=== PATIENT | female | born 1965 | race Caucasian/White ===

== ENCOUNTER 2016-11-01 15:43 | Observation (INO) ==
--- NOTE | 2016-11-01 15:52 | Emergency Department Note ---
Disposition Clinical Impression: Vaginal bleeding, DVT (deep venous thrombosis) Disposition: Admitted As Inpatient Condition: Good General Adult HPI - General Chief complaint: ED Vaginal Bleeding Stated complaint: Vaginal Bleeding Time Seen by Provider: 11/01/16 15:46 - Related Data Home Medications Medication Instructions Recorded Confirmed Alprazolam [Xanax] 0.5 mg PO TID PRN 05/11/15 11/01/16 Famotidine [Pepcid] 20 mg PO BID PRN 05/11/15 11/01/16 Metoprolol [Lopressor] 100 mg PO BID 05/11/15 11/01/16 Levothyroxine [Synthroid] 112 mcg PO DAILY 10/19/16 11/01/16 Albuterol Sulfate [Albuterol 2 puff IH Q4H PRN 11/01/16 11/01/16 Inhaler] Loratadine [Claritin] 10 mg PO DAILY PRN 11/01/16 11/01/16 Norethindrone Acetate 5 mg PO DAILY 11/01/16 11/01/16 Rivaroxaban [Xarelto] 15 mg PO DAILY 11/01/16 11/01/16 Previous Rx's Medication Instructions Recorded HYDROcodone/Acet 5/325 mg [[place] 1 tab PO Q4HR PRN #40 tablet 10/21/16 5-325 mg] Allergies Allergy/AdvReac Type Severity Reaction Status Date / Time aspirin Allergy Swelling Verified 10/27/16 20:29 of Lip/Tongue/Throat ibuprofen Allergy Swelling Verified 10/27/16 20:29 of Lip/Tongue/Throat NSAIDS (Non-Steroidal Allergy Rash Verified 10/27/16 20:29 Anti-Inflamma prednisone Allergy Swelling Verified 10/27/16 20:29 of Lip/Tongue/Throat Sulfa (Sulfonamide Allergy Hives Verified 10/27/16 20:29 Antibiotics) ketorolac [From Toradol] AdvReac Nausea Verified 10/27/16 20:29 tramadol [From Ultram] AdvReac Nausea Verified 10/27/16 20:29 Past Medical History - Past Medical History Medical history: Reports: arthritis, asthma, CHF, COPD, diabetes, fibromyalgia, hypertension, thyroid disease, other Surgical history: Reports: Psychiatric history: Reports: anxiety 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, 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 - Social History Smoking Status: Former smoker Smokeless Tobacco Status: No Alcohol use: Reports: none Drug use: Reports: none Course Vital Signs Temperature 98.6 F 11/01/16 15:48 Pulse Rate 71 11/01/16 15:48 Respiratory Rate 14 11/01/16 15:48 Blood Pressure 161/66 11/01/16 15:48 O2 Sat by Pulse Oximetry 98 11/01/16 15:48 Temperature 98.0 F 11/01/16 23:30 Pulse Rate 55 11/01/16 23:30 Respiratory Rate 12 11/01/16 23:30 Blood Pressure 113/61 11/01/16 23:30 O2 Sat by Pulse Oximetry 95 11/01/16 23:30 Oxygen Delivery Oxygen Delivery Room Air Medical Decision Making - Lab Data Result diagrams: 11/01/16 16:37 11/01/16 16:37 Lab Results 11/01/16 11/01/16 11/01/16 Range/Units 16:37 16:37 16:37 WBC 5.1 (4.3-11.1) K/mcL RBC 4.06 (3.82-4.97) M/mcL Hgb 11.6 (11.5-15.4) g/dL Hct 35.4 (35.3-44.9) % MCV 87.2 (83.0-100.0) fL MCH 28.6 (28.0-33.3) pg MCHC 32.8 (31.6-35.5) g/dL RDW 14.2 (11.5-14.5) % Plt Count 185 (140-400) K/mcL MPV 10.4 (9.4-12.4) fL Immature Gran % 0.4 (0-4) % Seg Neutrophils % 70.3 % Lymphocytes % 20.8 % Monocytes % 6.5 % Eosinophils % 1.4 % Basophils % 0.6 % Neutrophils # 3.6 (1.6-8.9) K/mcL Lymphocytes # 1.1 (0.6-4.6) K/mcL Monocytes # 0.3 (0.0-1.3) K/mcL Eosinophils # 0.1 (0.0-0.6) K/mcL Basophils # 0.0 (0.0-0.2) K/mcL PT 14.5 H (9.4-12.1) Seconds INR 1.3 APTT 30.7 (26.0-36.0) Seconds Sodium 140 (136-145) mEq/L Potassium 4.1 (3.5-4.5) mEq/L Chloride 106 (98-109) mEq/L Carbon Dioxide 27 (19-29) mEq/L BUN 8 (7-20) mg/dL Creatinine 0.81 (0.57-1.11) mg/dL Est GFR ( Amer) > 60 (> 60) Est GFR (Non-Af Amer) > 60 (> 60) BUN/Creatinine Ratio 10 (6-26) Glucose 111 H (70-99) mg/dL Calculated Osmolality 289 (280-300) Calcium 9.0 (8.6-10.8) mg/dL Attestation Statement - Attestation Attestation: I examined this patient and my medical decision-making was reviewed with the HOSPICE AIDE/PA/Advanced Practice Nurse/Resident Physician. I agree with the documented findings, disposition and treatment plan as described except to the extent set forth below. [id number] time provided in conjunction with resident physician Dr. Boles Patient presents via EMS complaining of vaginal bleeding. She currently was prescribed norethindrone for vaginal bleeding. She takes xarelto. Appears in no acute distress on exam
[2016-11-01 16:49] LABS: Basophils % 0.6 %; Eosinophils # 0.1 K/mcL (0.0-0.6); Eosinophils % 1.4 %; Hematocrit 35.4 % (35.3-44.9); Hemoglobin 11.6 g/dL (11.5-15.4); Immature Granulocytes % 0.4 % (0-4); Lymphocytes # 1.1 K/mcL (0.6-4.6); Lymphocytes % 20.8 %; Mean Corpuscular HGB Conc 32.8 g/dL (31.6-35.5); Mean Corpuscular Hemoglobin 28.6 pg (28.0-33.3); Mean Corpuscular Volume 87.2 fL (83.0-100.0); Mean Platelet Volume 10.4 fL (9.4-12.4); Monocytes # 0.3 K/mcL (0.0-1.3); Monocytes % 6.5 %; Neutrophils # 3.6 K/mcL (1.6-8.9); Platelet Count 185 K/mcL (140-400); Red Blood Count 4.06 M/mcL (3.82-4.97); Red Cell Distribution Width 14.2 % (11.5-14.5); Segmented Neutrophils % 70.3 %
[2016-11-01 16:53] LABS: INR 1.3; Prothrombin Time 14.5 Seconds (9.4-12.1)
[2016-11-01 16:56] LABS: Activated Partial Thrombo Time 30.7 Seconds (26.0-36.0)
[2016-11-01 17:02] LABS: BUN/Creatinine Ratio 10 (6-26); Blood Urea Nitrogen 8 mg/dL (7-20); Carbon Dioxide 27 mEq/L (19-29); Chloride 106 mEq/L (98-109); Glucose 111 mg/dL (70-99); Osmolality,Calculated 289 (280-300); Potassium 4.1 mEq/L (3.5-4.5); Sodium 140 mEq/L (136-145); eGFR For African Americans > 60 (> 60); eGFR For Non-African Americans > 60 (> 60)
--- NOTE | 2016-11-01 17:43 | Emergency Department Note ---
Disposition Clinical Impression: Vaginal bleeding DVT (deep venous thrombosis) Qualifiers: DVT location: lower extremity Affected thrombotic vein of extremity: popliteal Laterality: right Chronicity: acute Qualified Code(s): I82.431 - Acute embolism and thrombosis of right popliteal vein Disposition: Admitted As Inpatient Condition: Good Time of Disposition: 18:14 General Adult HPI - General Chief complaint: ED Vaginal Bleeding Stated complaint: Vaginal Bleeding Time Seen by Provider: 11/01/16 15:46 Source: EMS Mode of arrival: ambulatory Limitations: no limitations Nursing Notes Reviewed: Yes Vital Signs Reviewed: Yes - History of Present Illness HPI Narrative: Patient presents emergency room and poorly controlled vaginal bleeding after being started on 02. This is her third evaluation for this patient denies any change in symptoms she has no trauma or injury. She has decreased her Xarelto dose to half "it was previously. She is seen by her OB physician as well as her primary care provider. She [facility]. Patient just says that she cannot continue to live this with bleeding. 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: abdomen Radiation: non-radiation Pain Severity: moderate Pain Scale: 4 Quality: aching Consistency: constant Improves with: nothing Worsens with: movement Associated symptoms: Reports: denies other symptoms Treatments Prior to Arrival: none - Related Data Home Medications Medication Instructions Recorded Confirmed Alprazolam [Xanax] 0.5 mg PO TID PRN 05/11/15 11/01/16 Famotidine [Pepcid] 20 mg PO BID PRN 05/11/15 11/01/16 Metoprolol [Lopressor] 100 mg PO BID 05/11/15 11/01/16 Levothyroxine [Synthroid] 112 mcg PO DAILY 10/19/16 11/01/16 Albuterol Sulfate [Albuterol 2 puff IH Q4H PRN 11/01/16 11/01/16 Inhaler] Loratadine [Claritin] 10 mg PO DAILY PRN 11/01/16 11/01/16 Norethindrone Acetate 5 mg PO DAILY 11/01/16 11/01/16 Rivaroxaban [Xarelto] 15 mg PO DAILY 11/01/16 11/01/16 Previous Rx's Medication Instructions Recorded HYDROcodone/Acet 5/325 mg [[place] 1 tab PO Q4HR PRN #40 tablet 10/21/16 5-325 mg] Allergies Allergy/AdvReac Type Severity Reaction Status Date / Time aspirin Allergy Swelling Verified 10/27/16 20:29 of Lip/Tongue/Throat ibuprofen Allergy Swelling Verified 10/27/16 20:29 of Lip/Tongue/Throat NSAIDS (Non-Steroidal Allergy Rash Verified 10/27/16 20:29 Anti-Inflamma prednisone Allergy Swelling Verified 10/27/16 20:29 of Lip/Tongue/Throat Sulfa (Sulfonamide Allergy Hives Verified 10/27/16 20:29 Antibiotics) ketorolac [From Toradol] AdvReac Nausea Verified 10/27/16 20:29 tramadol [From Ultram] AdvReac Nausea Verified 10/27/16 20:29 All systems ED: reviewed and negative except as stated. Constitutional: Denies: fever, chills Respiratory: Denies: cough, dyspnea, wheezes, hemoptysis Gastrointestinal: Reports: other. Denies: abdominal pain, nausea, vomiting, diarrhea, constipation Genitourinary: Reports: abnormal menses. Denies: dysuria, frequency Musculoskeletal: Denies: back pain, neck pain Endocrine: Denies: fatigue Past Medical History - Past Medical History Attestation: Yes The following information was validated with the patient. 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 Absent: tenderness - Chest Chest inspection: Present: normal inspection, symmetric chest wall rise. Absent : tenderness - Respiratory Respiratory exam: Present: normal lung sounds bilaterally - Cardiovascular Cardiovascular exam: Present: regular rate, normal rhythm, normal heart sounds - Abdominal Exam Abdominal exam: Present: soft, Non-Tender. Absent: tenderness, distention, guarding, rebound, rigidity, Dang's sign, Rovsing's sign, tenderness at McBurney's Point, mass, pulsatile mass - Extremities Exam Extremities exam: Present: normal inspection, full ROM, calf tenderness (Mild right-sided Tenderness no ropey vasculature noted on evaluation). Absent: tenderness, pedal edema - Back Exam Back exam: Present: normal inspection, full ROM. Absent: tenderness - Neurological Exam Neurological exam: Present: alert, oriented X3, CN II-XII intact - Psychiatric Psychiatric exam: Present: normal affect, normal mood - Skin Skin exam: Present: warm, dry, intact, normal color Course Course Narrative: Patient seen and examined the time of arrival. See history of present illness. Patient presents with vaginal bleeding. Onset was after being started on Xarelto for right lower to mid DVT. Patient is been bounced around between 3 different facilities at this point for her medical issues. She is seen by her OB physician Dr. Medel. She was started on a hormonal replacement medication help with vaginal bleeding control. Patient had mild resolution of symptoms but they have still been persistent. She is seen in our emergency room department 5 days ago tripped over to hospital. They had a evaluation that point and discharged home and no other intervention. Patient has not had any change in symptoms. She has a tremor injury. Vital signs are stable in presentation. Patient is in no distress. Detailed chart review is completed showing stable vital signs and labs during last evaluation. Patient is still describing vaginal discharge. A pelvic examination is completed during last evaluation patient does not request to have one done at this time. Quickly I do not feel this is warranted secondary to her known history as well as medical presentation. Additionally repeat labs and coags ordered. She is supposed to be transition to Coumadin as an outpatient for medical management but she is uncomfortable doing this considering she has been persistently bleeding. Patient this time will have labs the normal cervical admitted for medication transition. Physical exam is benign at this time patient has normal appearance of this point. - Reevaluation(s) Reevaluation #1: Labs are within normal limits. Hemoglobin is line dropped 1 g over the last 5 days. Coags are normal. Patient was discussed with the hospitalist Dr. Vazquez. Detailed review of the patient's presentation medical history and medical intervention were discussed. No other recommendations this time the patient be brought to the hospital for evaluation and treatment transition of 0 to a more controlled and a more appropriate anticoagulation medication. Possible evaluation by obstetrics will need to happen during this hospital course of care hospital. Patient was informed of our plan she is comfortable with this present course of this time. Patient's vital signs were stable throughout the course of care. She will be observed here in the emergency room to the admission process is completed Time: 18:12 Vital Signs Temperature 98.6 F 11/01/16 15:48 Pulse Rate 71 11/01/16 15:48 Respiratory Rate 14 11/01/16 15:48 Blood Pressure 161/66 11/01/16 15:48 O2 Sat by Pulse Oximetry 98 11/01/16 15:48 Temperature 98.6 F 11/01/16 15:48 Pulse Rate 71 11/01/16 15:48 Respiratory Rate 14 11/01/16 15:48 Blood Pressure 161/66 11/01/16 15:48 O2 Sat by Pulse Oximetry 98 11/01/16 15:48 Oxygen Delivery Oxygen Delivery Room Air Medical Decision Making - MDM Narrative Medical decision making narrative: Vaginal bleeding, blood in her medication., DVT - Medical Records Medical records reviewed: Yes I reviewed the patient's medical records. - Lab Data Lab results reviewed: Yes I reviewed the patient's lab results. Result diagrams: 11/01/16 16:37 11/01/16 16:37 Lab Results 11/01/16 11/01/16 11/01/16 Range/Units 16:37 16:37 16:37 WBC 5.1 (4.3-11.1) K/mcL RBC 4.06 (3.82-4.97) M/mcL Hgb 11.6 (11.5-15.4) g/dL Hct 35.4 (35.3-44.9) % MCV 87.2 (83.0-100.0) fL MCH 28.6 (28.0-33.3) pg MCHC 32.8 (31.6-35.5) g/dL RDW 14.2 (11.5-14.5) % Plt Count 185 (140-400) K/mcL MPV 10.4 (9.4-12.4) fL Immature Gran % 0.4 (0-4) % Seg Neutrophils % 70.3 % Lymphocytes % 20.8 % Monocytes % 6.5 % Eosinophils % 1.4 % Basophils % 0.6 % Neutrophils # 3.6 (1.6-8.9) K/mcL Lymphocytes # 1.1 (0.6-4.6) K/mcL Monocytes # 0.3 (0.0-1.3) K/mcL Eosinophils # 0.1 (0.0-0.6) K/mcL Basophils # 0.0 (0.0-0.2) K/mcL PT 14.5 H (9.4-12.1) Seconds INR 1.3 APTT 30.7 (26.0-36.0) Seconds Sodium 140 (136-145) mEq/L Potassium 4.1 (3.5-4.5) mEq/L Chloride 106 (98-109) mEq/L Carbon Dioxide 27 (19-29) mEq/L BUN 8 (7-20) mg/dL Creatinine 0.81 (0.57-1.11) mg/dL Est GFR ( Amer) > 60 (> 60) Est GFR (Non-Af Amer) > 60 (> 60) BUN/Creatinine Ratio 10 (6-26) Glucose 111 H (70-99) mg/dL Calculated Osmolality 289 (280-300) Calcium 9.0 (8.6-10.8) mg/dL - Radiology Data Radiology results reviewed: Yes I reviewed the patient's radiology results. From previous evaluation
[2016-11-01] MEDS ORDERED: Naloxone 0.4 MG/ML INJ IVP PRN (20:37)
[2016-11-01] MEDS ORDERED: Famotidine 20 MG TABLET PO PRN (20:38)
[2016-11-01] MEDS ORDERED: Loratadine 10 MG TABLET PO PRN (20:38)
[2016-11-01] MEDS ORDERED: ALPRAZolam 0.5 MG TABLET PO PRN (20:38)
[2016-11-01] MEDS ORDERED: Warfarin perPT PO PRN (20:40)
--- NOTE | 2016-11-01 21:02 | Internal Med History&Physical ---
Date of Encounter: 11/02/16 Time of Encounter: 20:48 Assessment and Plan (1) DVT (deep venous thrombosis) Current visit: Yes Status: Acute Patient diagnosed with right popliteal DVT on 10/19 and has been on xarelto. She has had vaginal bleeding and reduced her xarelto dose to half, but her vaginal bleeding persists. Will stop xarelto and start coumadin tonight, to be dosed by pharmacy. Qualifiers: DVT location: lower extremity Affected thrombotic vein of extremity: popliteal Laterality: right Chronicity: acute Qualified Code(s): I82.431 - Acute embolism and thrombosis of right popliteal vein (2) Vaginal bleeding Current visit: Yes Status: Acute Patient has had vaginal bleeding since the day after starting Xarelto for her DVT on 10/19. She reports she goes through 4 depends per day due to bleeding. Hgb is 11.6, down from 12.7 on 10/27. She has a follow up appointment with [facility] gyne/onc on 11/16 for evaluation of uterine stripe seen on Ultrasound. Will check CBC and coags tomorrow morning. Stop Xarelto and start Coumadin dosed by pharmacy. (3) Hypertension Current visit: No Status: Chronic Continue home dose of metoprolol. Qualifiers: Hypertension type: essential hypertension Qualified Code(s): I10 - Essential (primary) hypertension (4) Hypothyroidism Current visit: No Status: Chronic Continue home dose of Levothyroxine. Qualifiers: Hypothyroidism type: unspecified Qualified Code(s): E03.9 - Hypothyroidism , unspecified Internal Medicine - H&P: HPI Chief complaint: Vaginal bleeding Admitted From: Emergency Dept Plans for Post Hospital Care: Home History of present illness: Ms. Williamson is a 51 year old female with HTN, hypothyroid, asthma, anxiety, fibromyalgia, and recent diagnosis of right popliteal DVT placed on xarelto with subsequent development of vaginal bleeding who presented to the ED today with continued vaginal bleeding. She was diagnosed with her RLE DVT on 10/19 and put on xarelto for anti-coagulation, she reports she started having vaginal bleeding the next day. 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 On 10/27 she presented to the ED with vaginal bleeding and she was sent to [facility] for further workup of the endometrial stripe, they considered D & C, but wanted the bleeding to slow and had her reduce her xarelto to half dose and plan to switch to lovenox or coumadin. She has a follow up appointment with gyne/onc at [facility] on 11/16. She reports the bleeding has been getting worse, despite the reduced dose of xarelto and she is worried about starting coumadin while she's still bleeding which is why she presented to the ED today. She denies any lightheadedness, dizziness, or shortness of breath. She denies any black or bloody stools, nose bleeds, nausea or vomiting. She wears depends and reports she goes through 4 depends per day due to bleeding. Evaluation in the ED showed Hgb of 11.6, down from 12.7 on 10/27, PT of 14.5, INR of 1.3 and PTT of 30.7. On exam, she is alert and oriented, in no distress, heart has regular rate and rhythm and lungs are clear. Past Med Surg Social Fam HX - Past Medical History Medical history: arthritis, asthma, CHF, COPD, diabetes, fibromyalgia, hypertension, thyroid disease, other Psychiatric history: anxiety - Past Surgical History Surgical History: (x4) - Social History Smoking Status: Former smoker Smokeless Tobacco Status: No Alcohol use: none Drug use: none - Family History Mother Adopted: No Family Member Ethnicity: Non- Living Status: Still Living Hx Family Cardiac Disorders: Yes Hx Family Respiratory Disorders: Yes Hx Family Cancer: Yes (breast uterine) Hx Family GI Disorders: No Hx Family Endocrine Disorder: Yes (DM) Hx Family Neuromuscular Disorders: No Hx Family Neurologic Disorders: No Hx Family HEENT Disorders: No Hx Family Autoimmune Disorders: No Brother Living Status: Cause of : Colon Cancer Internal Medicine - H&P: Meds Alprazolam [Xanax] 0.5 mg PO TID PRN 05/11/15 [History] Famotidine [Pepcid] 20 mg PO BID PRN 05/11/15 [History] Metoprolol [Lopressor] 100 mg PO BID 05/11/15 [History] Levothyroxine [Synthroid] 112 mcg PO DAILY 10/19/16 [History] HYDROcodone/Acet 5/325 mg [[place] 5-325 mg] 1 tab PO Q4HR PRN #40 tablet [Rx] Albuterol Sulfate [Albuterol Inhaler] 2 puff IH Q4H PRN 11/01/16 [History] Loratadine [Claritin] 10 mg PO DAILY PRN 11/01/16 [History] Norethindrone Acetate 5 mg PO DAILY 11/01/16 [History] Rivaroxaban [Xarelto] 15 mg PO DAILY 11/01/16 [History] Allergies aspirin Allergy (Verified 10/27/16 20:29) Swelling of Lip/Tongue/Throat ibuprofen Allergy (Verified 10/27/16 20:29) Swelling of Lip/Tongue/Throat NSAIDS (Non-Steroidal Anti-Inflamma Allergy (Verified 10/27/16 20:29) Rash prednisone Allergy (Verified 10/27/16 20:29) Swelling of Lip/Tongue/Throat Sulfa (Sulfonamide Antibiotics) Allergy (Verified 10/27/16 20:29) Hives ketorolac [From Toradol] Adverse Reaction (Verified 10/27/16 20:29) Nausea tramadol [From Ultram] Adverse Reaction (Verified 10/27/16 20:29) Nausea All Systems PM: A 10-system review of systems was performed and is negative for pertinent findings except as documented above in the HPI. - Constitutional Constitutional: no chills, no fever(s), no night sweats - EENT Eyes: no change in vision, no discharge, no pain, no photophobia Ears: no ear discharge, no ear pain, no tinnitus Nose, mouth and throat: no dysphagia, no nasal discharge, no neck pain, no sore throat - Cardiovascular Cardiovascular ROS IM: no chest pain, no diaphoresis, no dyspnea, no lightheadedness, no palpitations, no syncope - Respiratory Respiratory: no cough, no dyspnea, no wheezing, no excessive phlegm production - Gastrointestinal Gastrointestinal: no abdominal pain, no diarrhea, no hematemesis, no hematochezia, no melena, no nausea, no vomiting - Genitourinary Genitourinary: menorrhagia, no change in urinary stream, no dysuria, no flank pain, no hematuria - Musculoskeletal Musculoskeletal ROS IM: no numbness, no tingling - Integumentary Integumentary IM: no rash, no unusual bruising - Neurological Neurological ROS: no confusion, no convulsions, no focal weakness, no numbness, no tingling, no tremor(s) - Hematologic/Lymphatic Hematologic/Lymphatic: easy bleeding - Constitutional Vitals: Temp Pulse Resp BP Pulse Ox 98.6 F 71 18 155/88 98 11/01/16 15:48 11/01/16 15:48 11/01/16 18:02 11/01/16 18:02 11/01/16 15:48 General appearance: Present: A&O X 3, morbidly obese - Head Head exam: Present: atraumatic, normocephalic - Eye Eye exam: Present: PERRL, conjuntiva pink, sclera anicteric Pupils: Present: PERRL - Neck Neck exam general surgery: Present: supple, trachea midline. Absent: lymphadenopathy - Respiratory Respiratory exam: Present: CTAB. Absent: accessory muscle use, rales, rhonchi, wheezes - Cardiovascular Cardiovascular exam: Present: RRR, +S1, +S2. Absent: diastolic murmur, gallop, rubs, systolic murmur - GI/Abdominal GI/Abdominal exam: Present: normal bowel sounds, soft, no peritoneal signs. Absent: distended, tenderness - Extremities Exam Extremities exam: Present: warm, radial pulses palpable and symetrical. Absent : calf tenderness, cyanotic, pedal edema - Neurological Exam Neurological exam: Present: CN II-XII intact, oriented X3, no focal deficits. Absent: facial droop, speech deficit - Skin Skin exam: Present: dry, intact Internal Med - H&P Results - Labs CBC & Chem 7: 11/01/16 16:37 11/01/16 16:37 Labs: All Lab Results (24 Hours) 11/01/16 11/01/16 11/01/16 Range/Units 16:37 16:37 16:37 WBC 5.1 (4.3-11.1) K/mcL RBC 4.06 (3.82-4.97) M/mcL Hgb 11.6 (11.5-15.4) g/dL Hct 35.4 (35.3-44.9) % MCV 87.2 (83.0-100.0) fL MCH 28.6 (28.0-33.3) pg MCHC 32.8 (31.6-35.5) g/dL RDW 14.2 (11.5-14.5) % Plt Count 185 (140-400) K/mcL MPV 10.4 (9.4-12.4) fL Immature Gran % 0.4 (0-4) % Seg Neutrophils % 70.3 % Lymphocytes % 20.8 % Monocytes % 6.5 % Eosinophils % 1.4 % Basophils % 0.6 % Neutrophils # 3.6 (1.6-8.9) K/mcL Lymphocytes # 1.1 (0.6-4.6) K/mcL Monocytes # 0.3 (0.0-1.3) K/mcL Eosinophils # 0.1 (0.0-0.6) K/mcL Basophils # 0.0 (0.0-0.2) K/mcL PT 14.5 H (9.4-12.1) Seconds INR 1.3 APTT 30.7 (26.0-36.0) Seconds Sodium 140 (136-145) mEq/L Potassium 4.1 (3.5-4.5) mEq/L Chloride 106 (98-109) mEq/L Carbon Dioxide 27 (19-29) mEq/L BUN 8 (7-20) mg/dL Creatinine 0.81 (0.57-1.11) mg/dL Est GFR ( Amer) > 60 (> 60) Est GFR (Non-Af Amer) > 60 (> 60) BUN/Creatinine Ratio 10 (6-26) Glucose 111 H (70-99) mg/dL Calculated Osmolality 289 (280-300) Calcium 9.0 (8.6-10.8) mg/dL
[2016-11-01] MEDS: *HR* HYDROcodone/Acet 5/325 mg TABLET PO PRN (21:27)
[2016-11-02] MEDS: *HR* HYDROcodone/Acet 5/325 mg TABLET PO PRN ×6 (01:22→23:57)
[2016-11-02 04:39] LABS: Basophils % 0.5 %; Eosinophils # 0.1 K/mcL (0.0-0.6); Eosinophils % 1.8 %; Hematocrit 33.7 % (35.3-44.9); Hemoglobin 10.7 g/dL (11.5-15.4); Immature Granulocytes % 0.4 % (0-4); Lymphocytes # 1.9 K/mcL (0.6-4.6); Lymphocytes % 33.5 %; Mean Corpuscular HGB Conc 31.8 g/dL (31.6-35.5); Mean Corpuscular Hemoglobin 27.9 pg (28.0-33.3); Mean Platelet Volume 10.4 fL (9.4-12.4); Monocytes # 0.4 K/mcL (0.0-1.3); Monocytes % 7.9 %; Neutrophils # 3.1 K/mcL (1.6-8.9); Platelet Count 196 K/mcL (140-400); Red Blood Count 3.83 M/mcL (3.82-4.97); Red Cell Distribution Width 14.5 % (11.5-14.5); Segmented Neutrophils % 55.9 %
[2016-11-02 04:54] LABS: INR 1.2; Prothrombin Time 13.1 Seconds (9.4-12.1)
[2016-11-02 04:56] LABS: Activated Partial Thrombo Time 28.5 Seconds (26.0-36.0)
[2016-11-02] MEDS: Metoprolol 100 MG TABLET PO SCH ×2 (08:13→20:51)
--- NOTE | 2016-11-02 10:06 | Internal Med Progress Note ---
Date of Encounter: 11/02/16 Time of Encounter: 09:00 - Assessment and plan (1) Vaginal bleeding Current Visit: Yes Status: Acute Assessment and plan: likely secondary to Xarelto. Xarelto has been stopped and she has been started on Coumadin to be dosed per Pharmacy. She states that she feels that this bleeding is slowing down and she is no longer passing clots. She remains hemodynamically stable, she states she would like to avoid a blood transfusion if indicated. Not indicated at this time. We will continue to monitor. She complains of lower abdominal cramping but otherwise denies lightheadedness or dizziness. (2) Chronic abdominal wound infection Current Visit: Yes Status: Chronic Assessment and plan: Patient with 2 1cm sized wounds to her lower abdomen. She states that she wears depends secondary to incontinence and states that these wounds are chronic. Wound culture pending, continue daily dressing changes with bacitracin. No induration or fluctuance. (3) DVT (deep venous thrombosis) Current Visit: Yes Status: Chronic Assessment and plan: Diagnosis DVT to right popliteal on 10/19/16. Started with vaginal bleeding the day after she started Xarelto. Xarelto stopped- Coumadin initiated to be dosed per Pharmacy. Qualifiers: DVT location: lower extremity Affected thrombotic vein of extremity: popliteal Laterality: right Chronicity: acute Qualified Code(s): I82.431 - Acute embolism and thrombosis of right popliteal vein (4) Hypertension Current Visit: No Status: Chronic Assessment and plan: Controlled, will continue to trend and adjust medications as indicated Qualifiers: Hypertension type: essential hypertension Qualified Code(s): I10 - Essential (primary) hypertension (5) Hypothyroidism Current Visit: No Status: Chronic Assessment and plan: TSH checked 2 weeks ago, normal Qualifiers: Hypothyroidism type: unspecified Qualified Code(s): E03.9 - Hypothyroidism , unspecified (6) Morbid obesity with BMI of 70 and over, adult Current Visit: Yes Status: Chronic Assessment and plan: Her H&P states that she has CHF and diabetes however I do not see evidence of either of these conditions in her chart. No recent echo, not on diuretics. Not on diabetes medications. We will check A1c. - Subjective Interval history: Patient seen and examined. On examination, patient sitting upright in her bed eating breakfast. Patient stating her lower abdomen is "crampy." She states she does not feel she is passing clots and states that the bleeding appears to be improving. Patient's main concern at this time is that she was ordered a diabetic diet this morning and she is very upset that she did not receive any carbs. - Constitutional Vitals: Temp Pulse Resp BP Pulse Ox 97.7 F 56 16 119/75 97 11/02/16 07:18 11/02/16 07:18 11/02/16 07:18 11/02/16 07:18 11/02/16 07:18 General appearance: Present: A&O X 3, morbidly obese, pleasant, no acute distress, answers questions appropriately - Head Head exam: Present: atraumatic, normocephalic - Eye Eye exam: Present: PERRL, conjuntiva pink, sclera anicteric Pupils: Present: PERRL - Neck Neck exam general surgery: Present: supple, trachea midline. Absent: lymphadenopathy - Respiratory Respiratory exam: Present: decreased breath sounds (2/2 body habitus), CTAB. Absent: accessory muscle use, rales, respiratory distress, rhonchi, wheezes - Cardiovascular Cardiovascular exam: Present: RRR, +S1, +S2. Absent: diastolic murmur, gallop, rubs, systolic murmur - GI/Abdominal GI/Abdominal exam: Present: normal bowel sounds, soft, tenderness (lower abdomen ), no peritoneal signs. Absent: distended - Extremities Exam Extremities exam: Present: warm, radial pulses palpable and symetrical. Absent : calf tenderness, cyanotic, pedal edema - Neurological Exam Neurological exam: Present: alert, CN II-XII intact, oriented X3, no focal deficits, strengths equal and symetr throughout. Absent: pronater drift, facial droop, speech deficit - Skin Skin exam: Present: dry, intact, normal color, warm - Expanded Skin Exam Type of lesion: Present: abrasion Distribution of rash: Present: abdomen Description of rash: Present: discharge, erythematous, tenderness. Absent: fluctuant, indurated Internal Medicine: Result - Labs CBC & Chem 7: 11/02/16 04:01 11/01/16 16:37 Labs: Short CBC 11/02/16 Range/Units 04:01 WBC 5.6 (4.3-11.1) K/mcL Hgb 10.7 L (11.5-15.4) g/dL Hct 33.7 L (35.3-44.9) % Plt Count 196 (140-400) K/mcL Neutrophils # 3.1 (1.6-8.9) K/mcL - ABG Interpretation ABG results: PT/INR, D-dimer PT 13.1 Seconds (9.4-12.1) H 11/02/16 04:01 Consult Discharge Plan - Plan Referrals: NO,PCP [Primary Care Provider] -
[2016-11-02] MEDS ORDERED: *HR* Heparin 5,000 UNIT/ML VIAL IVP PRN ×2 (13:50)
[2016-11-02] MEDS ORDERED: *HR* Heparin 5,000 UNIT/ML VIAL IVP ONE (13:50)
[2016-11-02] MEDS: Heparin 25,000 UNIT/500 ML D5W 25,000 UNIT/500 ML MLS IVC SCH (15:56)
[2016-11-02] MEDS ORDERED: *HR* Warfarin 10 MG TABLET PO ONE (18:00)
[2016-11-02] MEDS ORDERED: *HR* Warfarin 5 MG TABLET PO ONE (18:00)
[2016-11-03] MEDS: Heparin 25,000 UNIT/500 ML D5W 25,000 UNIT/500 ML MLS IVC SCH ×3 (02:00→22:40)
[2016-11-03] MEDS: *HR* HYDROcodone/Acet 5/325 mg TABLET PO PRN ×4 (06:51→20:29)
[2016-11-03 08:03] LABS: Basophils % 0.6 %; Eosinophils # 0.1 K/mcL (0.0-0.6); Eosinophils % 2.5 %; Hematocrit 30.6 % (35.3-44.9); Hemoglobin 9.8 g/dL (11.5-15.4); Immature Granulocytes % 0.4 % (0-4); Lymphocytes # 1.6 K/mcL (0.6-4.6); Mean Corpuscular Hemoglobin 28.3 pg (28.0-33.3); Mean Corpuscular Volume 88.4 fL (83.0-100.0); Mean Platelet Volume 10.5 fL (9.4-12.4); Monocytes # 0.4 K/mcL (0.0-1.3); Monocytes % 8.4 %; Neutrophils # 2.9 K/mcL (1.6-8.9); Platelet Count 183 K/mcL (140-400); Red Blood Count 3.46 M/mcL (3.82-4.97); Red Cell Distribution Width 14.4 % (11.5-14.5); Segmented Neutrophils % 56.1 %
[2016-11-03 08:08] LABS: INR 1.2; Prothrombin Time 13.3 Seconds (9.4-12.1)
[2016-11-03 08:22] LABS: Hemoglobin A1C 5.3 %
[2016-11-03] MEDS: Metoprolol 100 MG TABLET PO SCH ×2 (08:27→20:29)
--- NOTE | 2016-11-03 13:13 | Internal Med Progress Note ---
Date of Encounter: 11/03/16 Time of Encounter: 10:30 - Assessment and plan (1) Vaginal bleeding Current Visit: Yes Status: Acute Assessment and plan: Slowing down and she states she is now passing smaller clots. Hemodynamically stable. Slight drop to blood counts noted overnight however transfusion is not indicated at this time. Vital signs stable. Patient stating the cramping to her lower abdomen is improving. Continue Coumadin titration with heparin bridge. Goal is Coumadin between 2 and 3 11/02/16 likely secondary to Xarelto. Xarelto has been stopped and she has been started on Coumadin to be dosed per Pharmacy. She states that she feels that this bleeding is slowing down and she is no longer passing clots. She remains hemodynamically stable, she states she would like to avoid a blood transfusion if indicated. Not indicated at this time. We will continue to monitor. She complains of lower abdominal cramping but otherwise denies lightheadedness or dizziness. (2) Chronic abdominal wound infection Current Visit: Yes Status: Chronic Assessment and plan: Patient with 2 1cm sized wounds to her lower abdomen. She states that she wears depends secondary to incontinence and states that these wounds are chronic. Wound culture negative, continue daily dressing changes with bacitracin. No induration or fluctuance. (3) DVT (deep venous thrombosis) Current Visit: Yes Status: Chronic Assessment and plan: Diagnosis DVT to right popliteal on 10/19/16. Started with vaginal bleeding the day after she started Xarelto. Xarelto stopped- Coumadin initiated to be dosed per Pharmacy. Bridging with heparin until she is therapeutic. Compression hose. Qualifiers: DVT location: lower extremity Affected thrombotic vein of extremity: popliteal Laterality: right Chronicity: acute Qualified Code(s): I82.431 - Acute embolism and thrombosis of right popliteal vein (4) Hypertension Current Visit: No Status: Chronic Assessment and plan: Controlled, will continue to trend and adjust medications as indicated Qualifiers: Hypertension type: essential hypertension Qualified Code(s): I10 - Essential (primary) hypertension (5) Hypothyroidism Current Visit: No Status: Chronic Assessment and plan: TSH checked 2 weeks ago, normal Qualifiers: Hypothyroidism type: unspecified Qualified Code(s): E03.9 - Hypothyroidism , unspecified (6) Morbid obesity with BMI of 70 and over, adult Current Visit: Yes Status: Chronic Assessment and plan: Her H&P states that she has CHF and diabetes however I do not see evidence of either of these conditions in her chart. No recent echo, not on diuretics. Not on diabetes medications. Not diabetic, A1c 5.3%. - Subjective Interval history: Patient seen and examined. On examination, patient sitting upright in her bed watching television. She states the cramping in her lower abdomen has gotten better. She states that the bleeding has slowed down and she is now passing smaller clots. Patient is complaining of her chronic pain and states that she has not been sleeping well since admitted. - Constitutional Vitals: Temp Pulse Resp BP Pulse Ox 98.1 F 66 16 108/63 96 11/03/16 11:15 11/03/16 11:15 11/03/16 11:15 11/03/16 11:15 11/03/16 11:15 General appearance: Present: A&O X 3, morbidly obese, pleasant, no acute distress, answers questions appropriately - Head Head exam: Present: atraumatic, normocephalic - Eye Eye exam: Present: PERRL, conjuntiva pink, sclera anicteric Pupils: Present: PERRL - Neck Neck exam general surgery: Present: supple, trachea midline. Absent: lymphadenopathy - Respiratory Respiratory exam: Present: decreased breath sounds (2/2 body habitus). Absent: accessory muscle use, rales, respiratory distress, rhonchi, wheezes - Cardiovascular Cardiovascular exam: Present: RRR, +S1, +S2. Absent: diastolic murmur, gallop, rubs, systolic murmur - GI/Abdominal GI/Abdominal exam: Present: normal bowel sounds, soft, no peritoneal signs. Absent: distended, tenderness Additional comments: 2 small areas of excoriation; no induration or flauctuance. - Extremities Exam Extremities exam: Present: warm, radial pulses palpable and symetrical. Absent : calf tenderness, cyanotic, pedal edema - Neurological Exam Neurological exam: Present: alert, CN II-XII intact, oriented X3, no focal deficits, strengths equal and symetr throughout. Absent: pronater drift, facial droop, speech deficit - Skin Skin exam: Present: dry, intact, normal color, warm Internal Medicine: Result - Labs CBC & Chem 7: 11/03/16 06:18 11/01/16 16:37 Labs: Short CBC 11/03/16 Range/Units 06:18 WBC 5.1 (4.3-11.1) K/mcL Hgb 9.8 L (11.5-15.4) g/dL Hct 30.6 L (35.3-44.9) % Plt Count 183 (140-400) K/mcL Neutrophils # 2.9 (1.6-8.9) K/mcL - ABG Interpretation ABG results: PT/INR, D-dimer PT 13.3 Seconds (9.4-12.1) H 11/03/16 06:18 - VTE Documentation of Mechanical Device: Graduated compression elastic hosiery Consult Discharge Plan - Plan Referrals: NO,PCP [Primary Care Provider] -
[2016-11-03] MEDS ORDERED: *HR* Warfarin 10 MG TABLET PO ONE (18:00)
[2016-11-04] MEDS: *HR* HYDROcodone/Acet 5/325 mg TABLET PO PRN ×4 (00:32→14:09)
[2016-11-04 04:13] LABS: Basophils % 0.6 %; Eosinophils # 0.2 K/mcL (0.0-0.6); Eosinophils % 3.7 %; Hemoglobin 9.6 g/dL (11.5-15.4); Immature Granulocytes % 0.2 % (0-4); Lymphocytes # 1.8 K/mcL (0.6-4.6); Lymphocytes % 36.7 %; Mean Corpuscular Hemoglobin 28.4 pg (28.0-33.3); Mean Corpuscular Volume 88.8 fL (83.0-100.0); Mean Platelet Volume 10.2 fL (9.4-12.4); Monocytes # 0.3 K/mcL (0.0-1.3); Monocytes % 6.4 %; Neutrophils # 2.5 K/mcL (1.6-8.9); Platelet Count 190 K/mcL (140-400); Red Blood Count 3.38 M/mcL (3.82-4.97); Red Cell Distribution Width 14.4 % (11.5-14.5); Segmented Neutrophils % 52.4 %
[2016-11-04 04:17] LABS: INR 1.4; Prothrombin Time 15.3 Seconds (9.4-12.1)
[2016-11-04] MEDS: Metoprolol 100 MG TABLET PO SCH (07:52)
[2016-11-04] MEDS: Heparin 25,000 UNIT/500 ML D5W 25,000 UNIT/500 ML MLS IVC SCH (08:37)
--- NOTE | 2016-11-04 10:13 | Internal Med Progress Note ---
Date of Encounter: 11/04/16 Time of Encounter: 08:30 - Assessment and plan (1) Vaginal bleeding Current Visit: Yes Status: Acute Assessment and plan: Patient's vaginal bleeding has nearly resolved and she remains hemodynamically stable. Medically, she would be safe for discharge today if we are able to set up subcutaneous Lovenox bridging. If not, patient will need to stay until her INR is therapeutic. student support services director brought on board and will attempt to have her Lovenox covered. Patient stating that her insurance would not cover it nor would they respond to a prior auth; will verify this information with [employer] and [employer]. 11/03/16 Slowing down and she states she is now passing smaller clots. Hemodynamically stable. Slight drop to blood counts noted overnight however transfusion is not indicated at this time. Vital signs stable. Patient stating the cramping to her lower abdomen is improving. Continue Coumadin titration with heparin bridge. Goal is Coumadin between 2 and 3 11/02/16 likely secondary to Xarelto. Xarelto has been stopped and she has been started on Coumadin to be dosed per Pharmacy. She states that she feels that this bleeding is slowing down and she is no longer passing clots. She remains hemodynamically stable, she states she would like to avoid a blood transfusion if indicated. Not indicated at this time. We will continue to monitor. She complains of lower abdominal cramping but otherwise denies lightheadedness or dizziness. (2) Chronic abdominal wound infection Current Visit: Yes Status: Chronic Assessment and plan: Patient with 2 1cm sized wounds to her lower abdomen. She states that she wears depends secondary to incontinence and states that these wounds are chronic. Wound culture negative, continue daily dressing changes with bacitracin. No induration or fluctuance. (3) DVT (deep venous thrombosis) Current Visit: Yes Status: Chronic Assessment and plan: Diagnosis DVT to right popliteal on 10/19/16. Started with vaginal bleeding the day after she started Xarelto. Xarelto stopped- Coumadin initiated to be dosed per Pharmacy. Bridging with heparin until she is therapeutic. Compression hose. Possible discharge today if we are able to set up subcutaneous Lovenox at home to bridge until Coumadin becomes therapeutic Qualifiers: DVT location: lower extremity Affected thrombotic vein of extremity: popliteal Laterality: right Chronicity: acute Qualified Code(s): I82.431 - Acute embolism and thrombosis of right popliteal vein (4) Hypertension Current Visit: No Status: Chronic Assessment and plan: Controlled, will continue to trend and adjust medications as indicated Qualifiers: Hypertension type: essential hypertension Qualified Code(s): I10 - Essential (primary) hypertension (5) Hypothyroidism Current Visit: No Status: Chronic Assessment and plan: TSH checked 2 weeks ago, normal Qualifiers: Hypothyroidism type: unspecified Qualified Code(s): E03.9 - Hypothyroidism , unspecified (6) Morbid obesity with BMI of 70 and over, adult Current Visit: Yes Status: Chronic Assessment and plan: Her H&P states that she has CHF and diabetes however I do not see evidence of either of these conditions in her chart. No recent echo, not on diuretics. Not on diabetes medications. Not diabetic, A1c 5.3%. - Subjective Interval history: Patient seen and examined. On examination, patient sitting upright in her bed and had just finished her breakfast. Patient states she feels a lot better today. She states the cramping in her lower abdomen have mostly resolved. She also states that the bleeding has really slowed and nearly resolved. - Constitutional Vitals: Temp Pulse Resp BP Pulse Ox 98.0 F 60 16 122/68 96 11/04/16 07:19 11/04/16 07:19 11/04/16 07:19 11/04/16 07:19 11/04/16 07:19 General appearance: Present: A&O X 3, morbidly obese, pleasant, no acute distress, answers questions appropriately - Head Head exam: Present: atraumatic, normocephalic - Eye Eye exam: Present: PERRL, conjuntiva pink, sclera anicteric Pupils: Present: PERRL - Neck Neck exam general surgery: Present: supple, trachea midline. Absent: lymphadenopathy - Respiratory Respiratory exam: Present: decreased breath sounds (2/2 body habitus). Absent: accessory muscle use, rales, respiratory distress, rhonchi, wheezes - Cardiovascular Cardiovascular exam: Present: RRR, +S1, +S2. Absent: diastolic murmur, gallop, rubs, systolic murmur - GI/Abdominal GI/Abdominal exam: Present: normal bowel sounds, soft, no peritoneal signs. Absent: distended, tenderness - Extremities Exam Extremities exam: Present: pedal edema (nonpitting - chronic), warm, radial pulses palpable and symetrical. Absent: calf tenderness, cyanotic - Neurological Exam Neurological exam: Present: alert, CN II-XII intact, oriented X3, no focal deficits, strengths equal and symetr throughout. Absent: pronater drift, facial droop, speech deficit - Skin Skin exam: Present: dry, intact, normal color, warm Internal Medicine: Result - Labs CBC & Chem 7: 11/04/16 04:03 11/01/16 16:37 Labs: Short CBC 11/04/16 Range/Units 04:03 WBC 4.9 (4.3-11.1) K/mcL Hgb 9.6 L (11.5-15.4) g/dL Hct 30.0 L (35.3-44.9) % Plt Count 190 (140-400) K/mcL Neutrophils # 2.5 (1.6-8.9) K/mcL - ABG Interpretation ABG results: PT/INR, D-dimer PT 15.3 Seconds (9.4-12.1) H 11/04/16 04:03 - VTE Documentation of Mechanical Device: Graduated compression elastic hosiery Consult Discharge Plan - Plan Referrals: NO,PCP [Primary Care Provider] - Prescriptions: Enoxaparin Sodium [Lovenox] 190 mg SQ Q12H #18 mls
[2016-11-04 10:59] VITALS: BP 123/58
[2016-11-04] MEDS ORDERED: *HR* Enoxaparin 100 MG/ML SYRINGE SQ SCH (13:45)
--- NOTE | 2016-11-04 14:08 | Discharge Summary ---
Date of Encounter: 11/04/16 Time of Encounter: 08:30 (and 1315) - Discharge Diagnosis (1) Vaginal bleeding Priority: Primary Status: Acute Comments: Patient's vaginal bleeding has nearly resolved and she remains hemodynamically stable. Sending home on Lovenox bridge until Coumadin is therapeutic. She will follow up with her primary care provider on Monday and have her INR rechecked on Monday. She will return to the emergency department if she has a large amount of active bleeding over the weekend- low risk. (2) Chronic abdominal wound infection Priority: Secondary Status: Chronic Comments: Patient with 2 1cm sized wounds to her lower abdomen. She states that she wears depends secondary to incontinence and states that these wounds are chronic. Wound culture negative, continue daily dressing changes with bacitracin. No induration or fluctuance. (3) DVT (deep venous thrombosis) Priority: Secondary Status: Chronic Comments: Diagnosis DVT to right popliteal on 10/19/16. Started with vaginal bleeding the day after she started Xarelto. Xarelto stopped- Coumadin initiated. Bridged with heparin while inpatient, was able to obtain prior auth to send her home with lovenox bridging. Patient to followup monday with PCP to have INR rechecked. Qualifiers: DVT location: lower extremity Affected thrombotic vein of extremity: popliteal Laterality: right Chronicity: acute Qualified Code(s): I82.431 - Acute embolism and thrombosis of right popliteal vein (4) Hypertension Priority: Secondary Status: Chronic Comments: Controlled, follow-up outpatient Qualifiers: Hypertension type: essential hypertension Qualified Code(s): I10 - Essential (primary) hypertension (5) Hypothyroidism Priority: Secondary Status: Chronic Comments: TSH checked 2 weeks ago, normal. Follow-up outpatient Qualifiers: Hypothyroidism type: unspecified Qualified Code(s): E03.9 - Hypothyroidism , unspecified (6) Morbid obesity with BMI of 70 and over, adult Priority: Secondary Status: Chronic Comments: Her H&P states that she has CHF and diabetes however I do not see evidence of either of these conditions in her chart. No recent echo, not on diuretics. Not on diabetes medications. Not diabetic, A1c 5.3%. - Discharge Medications Prescriptions: Bacitracin OINT [Ak-Tracin] 1 appl TP BID #1 tube Enoxaparin Sodium [Lovenox] 190 mg SQ Q12H #18 mls Warfarin [Coumadin] 10 mg PO 1800 #1 tablet Warfarin [Coumadin] 7.5 mg PO 1800 #5 tablet Home Medications: Alprazolam [Xanax] 0.5 mg PO TID PRN 05/11/15 [History] Famotidine [Pepcid] 20 mg PO BID PRN 05/11/15 [History] Metoprolol [Lopressor] 100 mg PO BID 05/11/15 [History] Levothyroxine [Synthroid] 112 mcg PO DAILY 10/19/16 [History] HYDROcodone/Acet 5/325 mg [Babylon 5-325 mg] 1 tab PO Q4HR PRN #40 tablet [Rx] Albuterol Sulfate [Albuterol Inhaler] 2 puff IH Q4H PRN 11/01/16 [History] Loratadine [Claritin] 10 mg PO DAILY PRN 11/01/16 [History] Norethindrone Acetate 5 mg PO DAILY 11/01/16 [History] Bacitracin OINT [Ak-Tracin] 1 appl TP BID #1 tube 11/04/16 [Rx] Enoxaparin Sodium [Lovenox] 190 mg SQ Q12H #18 mls 11/04/16 [Rx] Warfarin [Coumadin] 7.5 mg PO 1800 #5 tablet 11/04/16 [Rx] Warfarin [Coumadin] 10 mg PO 1800 #1 tablet 11/04/16 [Rx] Allergies/Adverse Reactions: Allergies aspirin Allergy (Verified 10/27/16 20:29) Swelling of Lip/Tongue/Throat ibuprofen Allergy (Verified 10/27/16 20:29) Swelling of Lip/Tongue/Throat NSAIDS (Non-Steroidal Anti-Inflamma Allergy (Verified 10/27/16 20:29) Rash prednisolone Allergy (Verified 11/02/16 01:26) Rash prednisone Allergy (Verified 10/27/16 20:29) Swelling of Lip/Tongue/Throat Sulfa (Sulfonamide Antibiotics) Allergy (Verified 10/27/16 20:29) Hives ketorolac [From Toradol] Adverse Reaction (Verified 10/27/16 20:29) Nausea tramadol [From Ultram] Adverse Reaction (Verified 10/27/16 20:29) Nausea Date of admission: 11/01/16 17:45 Primary care physician: PCP NO Consults: 11/04/16 10:07 Consult to Consulting Business Developer [CONS] Routine Reason for SW Consult: lovenox Discharging clinician: Lucrecia Patton Anticipated date of discharge: 11/04/16 (with [facility]) - Patient Status Disposition: Home Health Service Condition: Good Functional capacity at discharge: independent ambulation Overall status at discharge: patient is back to baseline - Discharge Instructions Follow Up With: Chantale Farr [Advanced Practice Nurse] - Additional Instructions: Have INR checked on Monday, follow-up with primary care provider Monday or Monday - Diet and Activity Activity: increase activity as tolerated Diet: low fat, low cholesterol, low salt diet Hospital course: Ms. Williamson is a 51 year old female with past medical history of hypertension, hypothyroidism, asthma, anxiety, fibromyalgia, morbid obesity BMI 70, and recent DVT diagnosis. Patient was diagnosed with right popliteal DVT on and was started on Xarelto. Shortly after this new medication, patient started to have vaginal bleeding. She went to her [employer] who started her on norethindrone to help stop the bleeding. At that time, she also had a pelvic ultrasound which revealed a thickened endometrial stripe with concern for possible endometrial cancer. On 10/27, she presented to the emergency department with vaginal bleeding and was sent to [facility] for further workup of the endometrial stripe. They allegedly considered a D&C but preferred the patient' s vaginal bleeding to slow down prior to this procedure so they reduced her Xarelto to half of her dose with the eventual plan to switch her to Lovenox or Coumadin. Patient stating she was unable to get the prior authorization to have Lovenox. Patient then reported the bleeding had gotten worse even with the reduced dose so the patient had concerns about taking Coumadin prompting her to present at the emergency department. Patient denied any lightheadedness , dizziness, shortness of breath, or syncope. She denied any black or bloody stools or nose bleeding. Workup in the emergency department unremarkable. Patient was admitted to the hospitalist service for further evaluation and management. She was immediately started on Coumadin with heparin bridge while inpatient. She was admitted and observed over the course of 4 days and she remained hemodynamically stable and did not need to have a blood transfusion. Hemoglobin on day of discharge 9.6. INR on day of discharge 1.4. After several phone calls and faxes, we did secure a prior authorization for a lovenox bridge. Over the course of this admission, the patient's vaginal bleeding nearly resolved. Her sister and her were both educated and taught how to give the injections at home on day of discharge. She will follow-up with her primary care provider on Monday (discharged on Monday) to have her INR rechecked and her Coumadin adjusted as needed. She was discharged home with home health services in stable condition with close outpatient follow-up on Monday. - Time Spent with Patient Total time spent providing and/or coordinating discharge services: - Constitutional Vitals: Temp Pulse Resp BP Pulse Ox 98.2 F 62 17 123/58 94 L 11/04/16 10:57 11/04/16 10:57 11/04/16 10:57 11/04/16 10:57 11/04/16 10:57 General appearance: Present: A&O X 3, morbidly obese, pleasant, no acute distress, answers questions appropriately - Head Head exam: Present: atraumatic, normocephalic - Eye Eye exam: Present: PERRL, conjuntiva pink, sclera anicteric Pupils: Present: PERRL - Neck Neck exam general surgery: Present: supple, trachea midline. Absent: lymphadenopathy - Respiratory Respiratory exam: Present: decreased breath sounds (2/2 body habitus). Absent: accessory muscle use, rales, respiratory distress, rhonchi, wheezes - Cardiovascular Cardiovascular exam: Present: RRR, +S1, +S2. Absent: diastolic murmur, gallop, rubs, systolic murmur - GI/Abdominal GI/Abdominal exam: Present: normal bowel sounds, soft, no peritoneal signs. Absent: distended, tenderness - Extremities Exam Extremities exam: Present: pedal edema, warm, radial pulses palpable and symetrical. Absent: calf tenderness, cyanotic - Neurological Exam Neurological exam: Present: alert, CN II-XII intact, oriented X3, no focal deficits, strengths equal and symetr throughout. Absent: pronater drift, facial droop, speech deficit - Skin Skin exam: Present: dry, intact, normal color, warm - VTE Documentation of Mechanical Device: Graduated compression elastic hosiery
--- NOTE | 2016-11-04 14:38 | Physician Discharge Referral ---
Home Health/Hosp Referral Info Transfer to: Home Health Attending Provider: Yahaira Patton CNP Provider in Charge Post Discharge: PCP - Diagnosis (1) Vaginal bleeding Priority: Primary Status: Acute (2) Chronic abdominal wound infection Priority: Secondary Status: Chronic (3) DVT (deep venous thrombosis) Priority: Secondary Status: Chronic (4) Hypertension Priority: Secondary Status: Chronic (5) Hypothyroidism Priority: Secondary Status: Chronic (6) Morbid obesity with BMI of 70 and over, adult Priority: Secondary Status: Chronic - Respiratory Orders Smoking Cessation: Smoking cessation has been advised. For more information, call the [place] Tobacco Quit Line at 5-339-KFBD-NOW. - Diet/Nutrition Diet/Nutrition Orders: No Added Salt (IZA) - Activity Activity Orders: Up ad zoë - Services Needed Following services are medically necessary services: Nursing, Home Health Aide Home Care Orders: Lovenox injections BID as directed. check INR monday11/07/16 - Transfer Medications Prescriptions: Bacitracin OINT [Ak-Tracin] 1 appl TP BID #1 tube Enoxaparin Sodium [Lovenox] 190 mg SQ Q12H #18 mls Warfarin [Coumadin] 10 mg PO 1800 #1 tablet Warfarin [Coumadin] 7.5 mg PO 1800 #5 tablet Home Medications: Alprazolam [Xanax] 0.5 mg PO TID PRN 05/11/15 [History] Famotidine [Pepcid] 20 mg PO BID PRN 05/11/15 [History] Metoprolol [Lopressor] 100 mg PO BID 05/11/15 [History] Levothyroxine [Synthroid] 112 mcg PO DAILY 10/19/16 [History] HYDROcodone/Acet 5/325 mg [[place] 5-325 mg] 1 tab PO Q4HR PRN #40 tablet [Rx] Albuterol Sulfate [Albuterol Inhaler] 2 puff IH Q4H PRN 11/01/16 [History] Loratadine [Claritin] 10 mg PO DAILY PRN 11/01/16 [History] Norethindrone Acetate 5 mg PO DAILY 11/01/16 [History] Bacitracin OINT [Ak-Tracin] 1 appl TP BID #1 tube 11/04/16 [Rx] Enoxaparin Sodium [Lovenox] 190 mg SQ Q12H #18 mls 11/04/16 [Rx] Warfarin [Coumadin] 7.5 mg PO 1800 #5 tablet 11/04/16 [Rx] Warfarin [Coumadin] 10 mg PO 1800 #1 tablet 11/04/16 [Rx] Allergies/Adverse Reactions: Allergies aspirin Allergy (Verified 10/27/16 20:29) Swelling of Lip/Tongue/Throat ibuprofen Allergy (Verified 10/27/16 20:29) Swelling of Lip/Tongue/Throat NSAIDS (Non-Steroidal Anti-Inflamma Allergy (Verified 10/27/16 20:29) Rash prednisolone Allergy (Verified 11/02/16 01:26) Rash prednisone Allergy (Verified 10/27/16 20:29) Swelling of Lip/Tongue/Throat Sulfa (Sulfonamide Antibiotics) Allergy (Verified 10/27/16 20:29) Hives ketorolac [From Toradol] Adverse Reaction (Verified 10/27/16 20:29) Nausea tramadol [From Ultram] Adverse Reaction (Verified 10/27/16 20:29) Nausea Certification: Further, I certify that my clinical findings support that this patient is homebound (i.e. absences from home require considerable and taxing effort and are for medical reasons or gnosticism services or infrequently or short duration when for other reasons) because: Homebound Reason: Leaving home requires considerable and taxing effort due to condition Attestation: My signature below is to certify that this patient is under my care and that I, or nurse practitioner, or a physician's video library assistant working with me, has a face-to -face encounter with this patient.
[2016-11-04] MEDS ORDERED: *HR* Warfarin 5 MG TABLET PO ONE (18:00)
== END 2016-11-04 17:02 | disposition home health service (06) ==
LOC: EMEROO 15:43 → 3BNU 15:43
PROVIDERS: ADMIT Family Medicine; ATTEND Nurse Practitioner Family

== ENCOUNTER 2017-05-02 17:01 | Inpatient (IN) ==
--- NOTE | 2017-05-02 17:48 | Emergency Department Note ---
Disposition Forms: ED Satisfaction Letter Chest Pain HPI - General Chief Complaint: ED Chest Pain Stated Complaint: Chest Pain Time Seen by Provider: 05/02/17 17:26 Source: patient Mode of arrival: ambulatory Limitations: no limitations Vital Signs Reviewed: Yes Nursing Notes Reviewed: Yes - History of Present Illness HPI Narrative: 52 year old female who appears to be manic in the room presents to the ED with complaints of midsternal/epigastric pain that radiates into her back. Patient states that she has a mulitude of medical problems including (+) HIDA scan for galbadder dysfuction and a known chronic DVT. Magy also has fibromylagia. She states that las tnight she ate spaghetti, pizza, and mashed potatoes and excerbated her galbladder. Patient states that she was in the vascular lab for evaluation and began to feel increased midsternal chest pain/upper epigastic pain. Patient states that she began to dry heave in the vascular lab and came right over to be evaluated. NO HX of PE. Mutliple risk factors for CAD. - Related Data Home Medications Medication Instructions Recorded Confirmed Alprazolam [Xanax] 0.5 mg PO TID PRN 05/11/15 04/28/17 Famotidine [Pepcid] 20 mg PO BID PRN 05/11/15 04/28/17 Metoprolol [Lopressor] 100 mg PO BID 05/11/15 04/28/17 Levothyroxine [Synthroid] 112 mcg PO DAILY 10/19/16 04/28/17 Albuterol Sulfate [Albuterol 2 puff IH Q4H PRN 11/01/16 04/28/17 Inhaler] Loratadine [Claritin] 10 mg PO DAILY PRN 11/01/16 04/28/17 hydroCHLOROthiazide 25 mg PO DAILY 02/10/17 04/28/17 [Hydrochlorothiazide] Ergocalciferol (VITAMIN D2) 50,000 unit PO QWEEK 04/28/17 04/28/17 [Vitamin D2] Previous Rx's Medication Instructions Recorded HYDROcodone/Acet 5/325 mg [[place] 1 tab PO Q4HR PRN #40 tablet 10/21/16 5-325 mg] Warfarin [Coumadin] 7.5 mg PO 1800 #5 tablet 11/04/16 Allergies Allergy/AdvReac Type Severity Reaction Status Date / Time aspirin Allergy Swelling Verified 04/28/17 10:44 of Lip/Tongue/Throat ibuprofen Allergy Swelling Verified 04/28/17 10:44 of Lip/Tongue/Throat NSAIDS (Non-Steroidal Allergy Rash Verified 04/28/17 10:44 Anti-Inflamma prednisolone Allergy Rash Verified 04/28/17 10:44 prednisone Allergy Swelling Verified 04/28/17 10:44 of Lip/Tongue/Throat Sulfa (Sulfonamide Allergy Hives Verified 04/28/17 10:44 Antibiotics) ketorolac [From Toradol] AdvReac Nausea Verified 04/28/17 10:44 tramadol [From Ultram] AdvReac Nausea Verified 04/28/17 10:44 Constitutional: Denies: fever, chills, weakness, weight change Eyes: Denies: eye pain, eye discharge, vision change ENT ED: Denies: ear pain, throat pain, dental pain, hearing loss, epistaxis, congestion, dysphagia Cardiovascular: Reports: chest pain. Denies: palpitations, dyspnea on exertion , edema, syncope Respiratory: Denies: cough, dyspnea, wheezes, hemoptysis, stridor Gastrointestinal: Reports: abdominal pain, nausea. Denies: vomiting, diarrhea, constipation, hematemesis, melena, hematochezia Genitourinary: Denies: dysuria, frequency, hematuria, discharge Musculoskeletal: Denies: back pain, neck pain, arthralgia, myalgia Integumentary: Denies: rash, abrasion, lesions Neurological: Denies: headache, weakness, numbness, paresthesias, confusion, abnormal gait, vertigo Psychiatric: Denies: anxiety, depression, suicidal thoughts, homicidal thoughts , auditory hallucinations, visual hallucinations Endocrine: Denies: fatigue Hematological/Lymphatic: Denies: easy bleeding, easy bruising Allergic/Immunologic: Denies: facial swelling, urticaria Chest Pain PMH - Past Medical History Medical history: Reports: arthritis, asthma, CHF, COPD, fibromyalgia, hypertension, thyroid disease, other Surgical history: Reports: (x4) Psychiatric history: Reports: anxiety 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, other - Social History Smoking Status: Former smoker Alcohol use: Reports: none Drug use: Reports: none Physical Exam - General Limitations: no limitations General appearance: alert, in no apparent distress, obese - Head Head exam: atraumatic, normocephalic, normal inspection - Eye Eye exam: Present: normal appearance, PERRL, EOMI - Expanded Eye Exam Pupils: Left: reactive - ENT ENT exam: normal exam, normal oropharynx, mucous membranes moist - Expanded ENT Exam External ear exam: Present: normal external inspection Mouth exam: Present: normal external inspection Teeth exam: Present: normal inspection Throat exam: Present: normal inspection - Neck Neck exam: Present: normal inspection, full ROM, trachea midline - Chest Chest inspection: Present: normal inspection, symmetric chest wall rise - Respiratory Respiratory exam: Present: normal lung sounds bilaterally - Cardiovascular Cardiovascular exam: Present: regular rate, normal rhythm, normal heart sounds - Abdominal Exam Abdominal exam: Present: soft, Non-Tender. Absent: tenderness, distention, guarding, rebound, rigidity - Extremities Exam Extremities exam: Present: normal inspection, full ROM. Absent: tenderness, pedal edema - Expanded Upper Extremity Exam Shoulder exam: Present: normal inspection, full ROM Arm exam: Present: normal inspection, full ROM Elbow exam: Present: normal inspection, full ROM Forearm/Wrist exam: Present: normal inspection, full ROM Hand exam: Present: normal inspection, full ROM Vascular exam: Normal: capillary refill, radial pulse - Expanded Lower Extremity Exam Hip/Pelvis exam: Present: normal inspection, full ROM Upper leg exam: Present: normal inspection, full ROM Knee exam: Present: normal inspection, full ROM Lower leg exam: Present: normal inspection, full ROM Ankle exam: Present: normal inspection, full ROM Foot/toe exam: Present: normal inspection, full ROM Neurovascular/Tendon exam: Absent: motor deficit, sensory deficit, tendon deficit - Back Exam Back exam: Present: normal inspection, full ROM. Absent: tenderness - Neurological Exam Neurological exam: Present: alert, oriented X3 - Expanded Neurological Exam Patient oriented to: Present: person, place, time Coma Scale Eye Opening: Spontaneous Coma Scale Motor Response: Obeys Commands Coma Scale Verbal Response: Oriented Coma Scale Total: 15 - Psychiatric Psychiatric exam: Present: anxious, manic - Skin Skin exam: Present: warm, dry, intact, normal color Course Course Narrative: we will do a cardiac workup in addition to lipase to evaluate for pancreatitis. PAtinet will be given IVF, zofran for therapy and CTA chest to r/o PE. Chest Pain - EKG Data EKG attestation: Yes I reviewed and interpreted this EKG. EKG results narrative: NSR with rate of 83. NO STEMI. normal intervals. no old ekg. [id number]
[2017-05-02 18:33] LABS: INR 2.2; Prothrombin Time 24.6 Seconds (9.4-12.1)
[2017-05-02 18:36] LABS: Activated Partial Thrombo Time 30.4 Seconds (26.0-36.0)
[2017-05-02 19:12] LABS: Basophils % 0.2 %; Eosinophils % 0.1 %; Hematocrit 39.7 % (35.3-44.9); Hemoglobin 11.5 g/dL (11.5-15.4); Immature Granulocytes % 0.6 % (0-4); Immature Platelets 4.1 % (1.1-6.1); Lymphocytes # 0.6 K/mcL (0.6-4.6); Lymphocytes % 3.7 %; Mean Corpuscular Hemoglobin 20.4 pg (28.0-33.3); Mean Corpuscular Volume 70.3 fL (83.0-100.0); Mean Platelet Volume 10.2 fL (9.4-12.4); Monocytes # 0.6 K/mcL (0.0-1.3); Monocytes % 3.8 %; Neutrophils # 15.4 K/mcL (1.6-8.9); Platelet Count 235 K/mcL (140-400); Red Blood Count 5.65 M/mcL (3.82-4.97); Red Cell Distribution Width 20.6 % (11.5-14.5); Segmented Neutrophils % 91.6 %
[2017-05-02 19:26] LABS: BUN/Creatinine Ratio 13 (6-26); Blood Urea Nitrogen 11 mg/dL (7-20); Calcium 9.8 mg/dL (8.6-10.8); Carbon Dioxide 28 mEq/L (19-29); Chloride 100 mEq/L (98-109); Glucose 115 mg/dL (70-99); Lipase < 10 Units/L (8-78); Osmolality,Calculated 282 (280-300); Potassium 3.9 mEq/L (3.5-4.5); Sodium 136 mEq/L (136-145); eGFR For African Americans > 60 (> 60); eGFR For Non-African Americans > 60 (> 60)
[2017-05-02] MEDS ORDERED: Ondansetron 4 MG/2 ML VIAL ONE (19:57)
[2017-05-02] MEDS ORDERED: Ondansetron 4 MG/2 ML VIAL IVP ONE ×2 (19:59)
[2017-05-02] MEDS ORDERED: *HR* OxyCODONE/APAP 5/325 TABLET PO ONE (20:30)
--- NOTE | 2017-05-02 21:51 | Emergency Department Note ---
Disposition Clinical Impression: Morbid obesity with BMI of 70 and over, adult DVT (deep venous thrombosis) Qualifiers: DVT location: lower extremity Affected thrombotic vein of extremity: unspecified vein of extremity Chronicity: chronic Laterality: unspecified laterality Qualified Code(s): I82.509 - Chronic embolism and thrombosis of unspecified deep veins of unspecified lower extremity Chest pain Qualifiers: Chest pain type: unspecified Qualified Code(s): R07.9 - Chest pain, unspecified Disposition: Admitted As Inpatient Condition: Good Time of Disposition: 22:01 Chest Pain HPI - General Chief Complaint: ED Chest Pain Stated Complaint: Chest Pain Time Seen by Provider: 05/02/17 17:26 Source: patient Mode of arrival: ambulatory Limitations: no limitations Vital Signs Reviewed: Yes Nursing Notes Reviewed: Yes - History of Present Illness Severity scale (1-10): 10 - Related Data Home Medications Medication Instructions Recorded Confirmed Alprazolam [Xanax] 0.5 mg PO TID PRN 05/11/15 05/02/17 Famotidine [Pepcid] 20 mg PO BID PRN 05/11/15 05/02/17 Metoprolol [Lopressor] 100 mg PO BID 05/11/15 05/02/17 Levothyroxine [Synthroid] 112 mcg PO DAILY 10/19/16 05/02/17 Albuterol Sulfate [Albuterol 2 puff IH Q4H PRN 11/01/16 05/02/17 Inhaler] Loratadine [Claritin] 10 mg PO DAILY PRN 11/01/16 05/02/17 hydroCHLOROthiazide 25 mg PO QPM 02/10/17 05/02/17 [Hydrochlorothiazide] Ergocalciferol (VITAMIN D2) 50,000 unit PO QWEEK 04/28/17 05/02/17 [Vitamin D2] Albuterol Neb [Proventil Neb] 2.5 mg IH Q6H PRN 05/02/17 05/02/17 Warfarin [Coumadin] 3.75 mg PO TH 05/02/17 05/02/17 Warfarin [Coumadin] 7.5 mg PO [id number] 05/02/17 05/02/17 Previous Rx's Medication Instructions Recorded HYDROcodone/Acet 5/325 mg [[place] 1 tab PO Q4HR PRN #40 tablet 01/27/17 5-325 mg] Allergies Allergy/AdvReac Type Severity Reaction Status Date / Time aspirin Allergy Swelling Verified 04/28/17 10:44 of Lip/Tongue/Throat ibuprofen Allergy Swelling Verified 04/28/17 10:44 of Lip/Tongue/Throat NSAIDS (Non-Steroidal Allergy Rash Verified 04/28/17 10:44 Anti-Inflamma prednisolone Allergy Rash Verified 04/28/17 10:44 prednisone Allergy Swelling Verified 04/28/17 10:44 of Lip/Tongue/Throat Sulfa (Sulfonamide Allergy Hives Verified 04/28/17 10:44 Antibiotics) ketorolac [From Toradol] AdvReac Nausea Verified 04/28/17 10:44 tramadol [From Ultram] AdvReac Nausea Verified 04/28/17 10:44 Constitutional: Denies: fever, chills, weakness, weight change Eyes: Denies: eye pain, eye discharge, vision change ENT ED: Denies: ear pain, throat pain, dental pain, hearing loss, epistaxis, congestion, dysphagia Cardiovascular: Reports: chest pain. Denies: palpitations, dyspnea on exertion , edema, syncope Respiratory: Denies: cough, dyspnea, wheezes, hemoptysis, stridor Gastrointestinal: Reports: abdominal pain, nausea. Denies: vomiting, diarrhea, constipation, hematemesis, melena, hematochezia Genitourinary: Denies: dysuria, frequency, hematuria, discharge Musculoskeletal: Denies: back pain, neck pain, arthralgia, myalgia Integumentary: Denies: rash, abrasion, lesions Neurological: Denies: headache, weakness, numbness, paresthesias, confusion, abnormal gait, vertigo Psychiatric: Denies: anxiety, depression, suicidal thoughts, homicidal thoughts , auditory hallucinations, visual hallucinations Endocrine: Denies: fatigue Hematological/Lymphatic: Denies: easy bleeding, easy bruising Allergic/Immunologic: Denies: facial swelling, urticaria Chest Pain PMH - Past Medical History Medical history: Reports: arthritis, asthma, CHF, COPD, fibromyalgia, hypertension, thyroid disease, other Surgical history: Reports: (x4) Psychiatric history: Reports: anxiety 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 In short, patient has a history of chronic DVT and is anticoagulated. Was in the vascular lab today for a repeat ultrasound when she developed epigastric and retrosternal chest pain. She has a history of fibromyalgia and is somewhat complicated by a pain everywhere. She is very adamant that she has urinary tract infection, but she will not urinate and has refused catheterization. She also refused a CTA of her chest. I think that this is reasonable. She is not hypotensive and there is no sign of submassive PE with her troponin and BNP being normal. She is also fully anticoagulated with a normal INR. The likelihood of her having a clinically significant PE is very low. However, due to her chest discomfort and multiple compounding factors. We will admit her to the hospitalist service for further cardiac evaluation including echocardiography and potential stress test. Time: 21:49 Vital Signs Temperature 99.1 F 05/02/17 17:26 Pulse Rate 87 05/02/17 17:26 Respiratory Rate 18 05/02/17 17:26 Blood Pressure 198/151 05/02/17 17:26 O2 Sat by Pulse Oximetry 96 05/02/17 17:26 Temperature 98.7 F 05/02/17 23:50 Pulse Rate 104 05/02/17 23:50 Respiratory Rate 18 05/02/17 23:50 Blood Pressure 151/72 05/02/17 23:50 O2 Sat by Pulse Oximetry 91 05/02/17 23:50 Oxygen Delivery Oxygen Delivery Room Air Chest Pain - Lab Data Result diagrams: 05/03/17 00:47 05/03/17 00:47 Lab Results 05/02/17 05/02/17 05/02/17 Range/Units 18:20 18:22 18:22 WBC 16.8 H (4.3-11.1) K/mcL RBC 5.65 H (3.82-4.97) M/mcL Hgb 11.5 (11.5-15.4) g/dL Hct 39.7 (35.3-44.9) % MCV 70.3 L (83.0-100.0) fL MCH 20.4 L (28.0-33.3) pg MCHC 29.0 L (31.6-35.5) g/dL RDW 20.6 H (11.5-14.5) % Plt Count 235 (140-400) K/mcL MPV 10.2 (9.4-12.4) fL Immature Gran % 0.6 (0-4) % Seg Neutrophils % 91.6 % Lymphocytes % 3.7 % Monocytes % 3.8 % Eosinophils % 0.1 % Basophils % 0.2 % Neutrophils # 15.4 H (1.6-8.9) K/mcL Lymphocytes # 0.6 (0.6-4.6) K/mcL Monocytes # 0.6 (0.0-1.3) K/mcL Eosinophils # 0.0 (0.0-0.6) K/mcL Basophils # 0.0 (0.0-0.2) K/mcL Immature Plt Fraction 4.1 (1.1-6.1) % PT 24.6 H (9.4-12.1) Seconds INR 2.2 APTT 30.4 (26.0-36.0) Seconds Sodium (136-145) mEq/L Potassium (3.5-4.5) mEq/L Chloride (98-109) mEq/L Carbon Dioxide (19-29) mEq/L BUN (7-20) mg/dL Creatinine (0.57-1.11) mg/dL Est GFR ( Amer) (> 60) Est GFR (Non-Af Amer) (> 60) BUN/Creatinine Ratio (6-26) Glucose (70-99) mg/dL Calculated Osmolality (280-300) Calcium (8.6-10.8) mg/dL Troponin I (0-0.03) ng/mL B-Natriuretic Peptide 82 (0-100) pg/mL Lipase (8-78) Units/L 05/02/17 05/02/17 Range/Units 18:22 18:22 WBC (4.3-11.1) K/mcL RBC (3.82-4.97) M/mcL Hgb (11.5-15.4) g/dL Hct (35.3-44.9) % MCV (83.0-100.0) fL MCH (28.0-33.3) pg MCHC (31.6-35.5) g/dL RDW (11.5-14.5) % Plt Count (140-400) K/mcL MPV (9.4-12.4) fL Immature Gran % (0-4) % Seg Neutrophils % % Lymphocytes % % Monocytes % % Eosinophils % % Basophils % % Neutrophils # (1.6-8.9) K/mcL Lymphocytes # (0.6-4.6) K/mcL Monocytes # (0.0-1.3) K/mcL Eosinophils # (0.0-0.6) K/mcL Basophils # (0.0-0.2) K/mcL Immature Plt Fraction (1.1-6.1) % PT (9.4-12.1) Seconds INR APTT (26.0-36.0) Seconds Sodium 136 (136-145) mEq/L Potassium 3.9 (3.5-4.5) mEq/L Chloride 100 (98-109) mEq/L Carbon Dioxide 28 (19-29) mEq/L BUN 11 (7-20) mg/dL Creatinine 0.84 (0.57-1.11) mg/dL Est GFR ( Amer) > 60 (> 60) Est GFR (Non-Af Amer) > 60 (> 60) BUN/Creatinine Ratio 13 (6-26) Glucose 115 H (70-99) mg/dL Calculated Osmolality 282 (280-300) Calcium 9.8 (8.6-10.8) mg/dL Troponin I 0.01 (0-0.03) ng/mL B-Natriuretic Peptide (0-100) pg/mL Lipase < 10 (8-78) Units/L Attestation Statement - Attestation Attestation: I personally interviewed and examined this patient and my medical decision- making was reviewed with the Resident Physician, Dr. Farris. I agree with the documented findings, disposition and treatment plan as described except to the extent set forth below. Patient is a 52-year-old morbidly obese white female who is signed out to us by Dr. Smyth, for completed evaluation for complaints of chest pain. She initially evaluated the patient had ordered all of her labs and testing and when we took over the care of the patient she was awaiting CT scan of the chest and lab evaluation. Patient apparently was in radiology at the time who is having repeat imaging done of the chronic DVT in her lower extremity. Patient's currently on Coumadin and states that while she was over having the testing done she began having terrible substernal chest pain. She was brought to the ED for evaluation of this chest pain. On my assessment, patient was complaining of primarily epigastric abdominal pain which she states is chronic in nature due to her "gallbladder". Patient states she has this frequently but has not had any recent testing of her gallbladder. Patient complaining of nausea and also complaining that she was diagnosed with urinary tract infection and that he was prescribed antibiotics but refused to take them out of fear that they would affect her Coumadin. Patient still complains of some urinary symptoms and mild suprapubic discomfort. Patient also has myalgia and is complaining of her "typical hip pain related to that. EKG that was done prior to our taking over the care showed no acute ischemic changes. Patient had labs obtained which showed a leukocytosis, negative troponin, negative hepatic panel and lipase in ultimately her urinalysis came back showing a UTI. Patient later refused CT of the chest stating that she could not tolerate the contrast as it makes her very nauseous. Patient also refused to provide urine for quite some time so we went ahead and empirically started her on antibiotics IV for possible UTI based on the history. Patient was admitted to the hospitalist for further evaluation of this chest pain. Patient is therapeutic on her Coumadin at this time. Patient hemodynamically stable and has been stable throughout her ED course. Patient will be admitted to the hospitalist service for further evaluation and management.
[2017-05-02] MEDS ORDERED: Naloxone 0.4 MG/ML INJ IVP PRN (23:37)
[2017-05-02] MEDS ORDERED: *HR* Morphine 2 MG/ML SYRINGE IVP PRN (23:37)
[2017-05-02] MEDS ORDERED: *HR* Warfarin 7.5 MG TABLET PO SCH (23:45)
[2017-05-02] MEDS ORDERED: Albuterol 2.5 MG/3 ML NEBULIZER IH PRN (23:47)
[2017-05-02] MEDS ORDERED: ALPRAZolam 0.5 MG TABLET PO PRN (23:47)
[2017-05-02] MEDS ORDERED: Loratadine 10 MG TABLET PO PRN (23:47)
[2017-05-02] MEDS ORDERED: Famotidine 20 MG TABLET PO PRN (23:47)
--- NOTE | 2017-05-02 23:53 | Internal Med History&Physical ---
Date of Encounter: 05/02/17 Time of Encounter: 23:49 Assessment and Plan (1) Sciatic leg pain Current visit: Yes Status: Acute PT eval , pain control for sciatica flare (2) Chest pain Current visit: Yes Status: Acute unsure if true cardiac chest pain. EKG reviewed by self with rate 83, low voltage, NSR. Trend trop. Suspect related to fibromyalgia, biliary dyskinesia symptoms she has a hx of ? Qualifiers: Chest pain type: unspecified Qualified Code(s): R07.9 - Chest pain, unspecified (3) UTI (urinary tract infection) Current visit: Yes Status: Acute Described UTI symptoms with subjective frequency and dysuria. ED were unable to send UA. Will re-order UA and urine cx prior to antibiotics should UTI be confirmed Qualifiers: Urinary tract infection type: site unspecified Qualified Code(s): N39.0 - Urinary tract infection, site not specified (4) Leukocytosis, unspecified Current visit: Yes Status: Acute send urine as above. Blood cx. Further management pending further studies above. Qualifiers: Qualified Code(s): D72.829 - Elevated white blood cell count, unspecified (5) DVT (deep venous thrombosis) Current visit: Yes Status: Chronic chronic DVT on coumadin. Her physician is attempting to wean off coumadin onto ASA outpatient Qualifiers: DVT location: lower extremity Affected thrombotic vein of extremity: unspecified vein of extremity Chronicity: chronic Laterality: unspecified laterality Qualified Code(s): I82.509 - Chronic embolism and thrombosis of unspecified deep veins of unspecified lower extremity (6) Hypothyroidism Current visit: No Status: Chronic continue synthroid Qualifiers: Hypothyroidism type: unspecified Qualified Code(s): E03.9 - Hypothyroidism , unspecified (7) Morbid obesity with BMI of 70 and over, adult Current visit: Yes Status: Chronic education Internal Medicine - H&P: HPI Chief complaint: Right sciatica pain, chest discomfort, temperature 100.1 with N /V, UTI History of present illness: Ms. Williamson is a 52 year old female who has a complicated hx who on interview, reports to be a multitude of symptoms as summarized by 1) A few days hx of N/V with temperature of 100.1. Reported shaking. She tells me that thinks she has UTI symptoms with some subjective dysuria, pain on urination. 2) Acute exacerbation of right sciatica pain and is unable to ambulate. Has been worsening in the last 2.5-3 weeks. Worse with ambulation. Better with rest 3) Chest, epigastric region discomfort. She reports hx of bilary dyskinesia previously. Past Med Surg Social Fam HX - Past Medical History Medical history: arthritis, asthma, CHF, COPD, fibromyalgia, hypertension, thyroid disease, other Psychiatric history: anxiety - Past Surgical History Surgical History: (x4) - Social History Smoking Status: Former smoker Smokeless Tobacco Status: No Alcohol use: none Drug use: none - Family History Mother Adopted: No Family Member Ethnicity: Non- Living Status: Still Living Hx Family Cardiac Disorders: Yes Hx Family Respiratory Disorders: Yes Hx Family Cancer: Yes (breast uterine) Hx Family GI Disorders: No Hx Family Endocrine Disorder: Yes (DM) Hx Family Neuromuscular Disorders: No Hx Family Neurologic Disorders: No Hx Family HEENT Disorders: No Hx Family Autoimmune Disorders: No Brother Living Status: Internal Medicine - H&P: Meds Alprazolam [Xanax] 0.5 mg PO TID PRN 05/11/15 [History] Famotidine [Pepcid] 20 mg PO BID PRN 05/11/15 [History] Metoprolol [Lopressor] 100 mg PO BID 05/11/15 [History] Levothyroxine [Synthroid] 112 mcg PO DAILY 10/19/16 [History] HYDROcodone/Acet 5/325 mg [[place] 5-325 mg] 1 tab PO Q4HR PRN #40 tablet [Rx] Albuterol Sulfate [Albuterol Inhaler] 2 puff IH Q4H PRN 11/01/16 [History] Loratadine [Claritin] 10 mg PO DAILY PRN 11/01/16 [History] hydroCHLOROthiazide [Hydrochlorothiazide] 25 mg PO QPM 02/10/17 [History] Ergocalciferol (VITAMIN D2) [Vitamin D2] 50,000 unit PO QWEEK 04/28/17 [History] Albuterol Neb [Proventil Neb] 2.5 mg IH Q6H PRN 05/02/17 [History] Warfarin [Coumadin] 3.75 mg PO TH 05/02/17 [History] Warfarin [Coumadin] 7.5 mg PO SUMOTUWEFRSA 05/02/17 [History] Allergies aspirin Allergy (Verified 04/28/17 10:44) Swelling of Lip/Tongue/Throat ibuprofen Allergy (Verified 04/28/17 10:44) Swelling of Lip/Tongue/Throat NSAIDS (Non-Steroidal Anti-Inflamma Allergy (Verified 04/28/17 10:44) Rash prednisolone Allergy (Verified 04/28/17 10:44) Rash prednisone Allergy (Verified 04/28/17 10:44) Swelling of Lip/Tongue/Throat Sulfa (Sulfonamide Antibiotics) Allergy (Verified 04/28/17 10:44) Hives ketorolac [From Toradol] Adverse Reaction (Verified 04/28/17 10:44) Nausea tramadol [From Ultram] Adverse Reaction (Verified 04/28/17 10:44) Nausea All Systems PM: A 10-system review of systems was performed and is negative for pertinent findings except as documented above in the HPI. Review of systems: ROS 14 point review of systems reviewed as best as possible given presentation. Pertinent positive or negative as per HPI or otherwise reviewed as negative - Constitutional Vitals: Temp Pulse Resp BP Pulse Ox 99.1 F 102 20 138/86 95 05/02/17 17:26 05/02/17 21:24 05/02/17 22:35 05/02/17 22:35 05/02/17 21:24 Exam: General - AAO x 3 Psych - Appropriate affect/speech. No agitation Eyes - [place]. Eye lids intact. No scleral icterus ENT - Oral mucosa pink, dentition intact. External ear clear/dry/intact. No thyromegaly Lymphatics - No cervical/inguinal lympadenopathy Heart - Sinus. RRR. S1 and S2 present. No added HS/murmurs appreciated. No elevated JVD appreciated. +2 calf swellings Lung - Adequate air entry b/l, No crackes/wheezes appreciated GI - Epigastric region discomfort. No guarding/rigidity. No hepatosplenomegaly/ ascities. BS+ - No CVA/suprapubic tenderness or palpable bladder distension Skin - Intact. No rash/petechiae/ecchymosis. Warm extremities MSK - Right leg pain with pain on extreme ROM Internal Med - H&P Results - Labs CBC & Chem 7: 05/02/17 18:22 05/02/17 18:22
[2017-05-03 00:26] LABS: Bilirubin,Urine Negative (Negative); Blood,Urine Large (Negative); Glucose,Urine (UA) Normal (Normal); Ketones,Urine 15 mg/dL (Negative); Leukocyte Esterase,Urine Small (Negative); Nitrite,Urine Positive (Negative); Protein,Urine 100 mg/dL (Neg-Trace); Specific Gravity,Urine 1.025 (1.010-1.025); Urobilinogen,Urine Normal (Normal)
[2017-05-03 00:29] LABS: Clarity,Urine Turbid (Clear); Color,Urine Red (Yellow)
[2017-05-03] MEDS: 0.9 % Sodium Chloride 1,000 ML IVC SCH ×2 (00:52→22:08)
[2017-05-03 01:28] LABS: Hemoglobin 11.5 g/dL (11.5-15.4); Mean Corpuscular Hemoglobin 20.5 pg (28.0-33.3); Red Blood Count 5.6 M/mcL (3.82-4.97); Red Cell Distribution Width 20.6 % (11.5-14.5)
[2017-05-03 01:30] LABS: Hematocrit 39.4 % (35.3-44.9); Immature Platelets 4.4 % (1.1-6.1); Mean Corpuscular HGB Conc 29.2 g/dL (31.6-35.5); Mean Corpuscular Volume 70.4 fL (83.0-100.0); Mean Platelet Volume 10.4 fL (9.4-12.4)
[2017-05-03 01:33] LABS: INR 2.1; Prothrombin Time 23.6 Seconds (9.4-12.1)
[2017-05-03 01:42] LABS: Alanine Aminotransferase 12 Units/L (0-55); Albumin 3.6 g/dL (3.5-5.0); Albumin/Globulin Ratio 0.7 (1.1-2.2); Alkaline Phosphatase 61 Units/L (38-126); Aspartate Amino Transferase 16 Units/L (5-34); BUN/Creatinine Ratio 11 (6-26); Bilirubin,Total 0.9 mg/dL (0.2-1.2); Blood Urea Nitrogen 11 mg/dL (7-20); Calcium 9.7 mg/dL (8.6-10.8); Carbon Dioxide 26 mEq/L (19-29); Chloride 99 mEq/L (98-109); Globulin 5.2 g/dL (2.4-3.5); Glucose 122 mg/dL (70-99); Osmolality,Calculated 281 (280-300); Potassium 3.7 mEq/L (3.5-4.5); Sodium 135 mEq/L (136-145); Total Protein 8.8 g/dL (6.0-8.3); eGFR For African Americans > 60 (> 60); eGFR For Non-African Americans 58 (> 60)
[2017-05-03] MEDS: *HR* OxyCODONE Immed Rel 5 MG TABLET PO PRN ×2 (03:04→13:18)
[2017-05-03] MEDS: Albuterol 2.5 MG/3 ML NEBULIZER IH SCH ×4 (03:49→22:31)
[2017-05-03] MEDS ORDERED: Acetaminophen 325 MG TABLET PO PRN (08:15)
[2017-05-03] MEDS ORDERED: *HR* Warfarin 7.5 MG TABLET PO SCH (09:00)
[2017-05-03] MEDS: Metoprolol 100 MG TABLET PO SCH ×2 (09:04→19:47)
[2017-05-03] MEDS: hydroCHLOROthiazide 25 MG TABLET PO SCH (17:35)
[2017-05-03] MEDS: *HR* HYDROcodone/Acet 5/325 mg TABLET PO PRN ×2 (17:35→22:00)
[2017-05-03] MEDS: *HR* Warfarin 7.5 MG TABLET PO SCH (17:36)
--- NOTE | 2017-05-03 20:04 | Event Note ---
Date of Encounter: 05/03/17 Time of Encounter: 18:00 Patient seen and examined. On examination, patient sitting upright in bed watching television. Patient states she feels "horrible." She states that she has a headache, has severe sciatica pain on the right side, and has epigastric abdominal pain. She is also endorsing decreased by mouth intake. Earlier today , patient's clinical picture was consistent with SIRS secondary to urinary tract infection. Leukocytosis noted, she was febrile and tachycardic. Chest x- ray negative. Throughout the course of the day, fever has subsided and heart rate has trended back down. Blood pressure remains stable. Continue ceftriaxone with cultures pending. Mild troponin leak noted, suspect demand ischemia but we will continue to trend. She denies chest pain but endorses epigsatric pain. Patient also endorsing weakness and shortness of breath with exertion, will obtain echocardiogram. She also states that she thinks that she needs IV iron, we will check her iron levels. Continue her Coumadin this time. Regarding her sciatica, she has allergies to steroids and NSAIDs. We will continue her home hydrocodone. Morphine for breakthrough pain. Overall, she is clinically improving, will continue to monitor. ITS Impressions Chest X-Ray 05/02/17 17:27 IMPRESSION: No acute process. D/ / Sirena Gore MD / Sirena Gore MD Interpreting Provider: Sirena Gore MD
--- NOTE | 2017-05-03 20:22 | Electrocardiograph Report ---
[place] [id number] Test Date: 2017-05-02 Pat Name: Aileen Williamson Department: [id number] Room: 3B36 Gender: F Parole Supervisor: NILSON : 1965 Requested By: Marilyn Smyth Order Number: [id number] Reading MD: Mason Harrison MD Measurements Intervals [place] Rate: 83 P: 42 HI: 156 QRS: -20 QRSD: 93 T: 34 QT: 359 QTc: 399 Interpretive Statements SINUS RHYTHM LOW QRS VOLTAGE IN PRECORDIAL LEADS Poor R wave progression Electronically Signed On 05-03-2017 20:20:34 EDT by Mason Harrison MD
[2017-05-04] MEDS: Ampicillin/Sulbactam 3,000 MG in 0.9 % Sodium Chloride Mini Bag 100 ML IVPB SCH ×3 (00:38→15:54)
[2017-05-04] MEDS: *HR* HYDROcodone/Acet 5/325 mg TABLET PO PRN ×5 (02:12→23:12)
[2017-05-04] MEDS: Albuterol 2.5 MG/3 ML NEBULIZER IH SCH ×4 (04:10→19:59)
[2017-05-04 04:16] LABS: Hemoglobin 10.2 g/dL (11.5-15.4)
[2017-05-04 04:17] LABS: Basophils % 0.2 %; Hematocrit 34.8 % (35.3-44.9); Immature Granulocytes % 0.6 % (0-4); Immature Platelets 4.8 % (1.1-6.1); Lymphocytes # 1.2 K/mcL (0.6-4.6); Lymphocytes % 8.4 %; Mean Corpuscular HGB Conc 29.3 g/dL (31.6-35.5); Mean Corpuscular Hemoglobin 20.6 pg (28.0-33.3); Mean Corpuscular Volume 70.3 fL (83.0-100.0); Mean Platelet Volume 10.6 fL (9.4-12.4); Monocytes # 0.5 K/mcL (0.0-1.3); Monocytes % 3.6 %; Neutrophils # 12.2 K/mcL (1.6-8.9); Platelet Count 197 K/mcL (140-400); Red Blood Count 4.95 M/mcL (3.82-4.97); Red Cell Distribution Width 20.4 % (11.5-14.5); Segmented Neutrophils % 87.2 %
[2017-05-04 04:18] LABS: INR 2.1; Prothrombin Time 23.4 Seconds (9.4-12.1)
[2017-05-04 04:32] LABS: % Iron Saturation 3 % (15-50); BUN/Creatinine Ratio 12 (6-26); Blood Urea Nitrogen 11 mg/dL (7-20); Calcium 8.7 mg/dL (8.6-10.8); Carbon Dioxide 29 mEq/L (19-29); Chloride 99 mEq/L (98-109); Glucose 118 mg/dL (70-99); Iron 10 mcg/dL (50-170); Osmolality,Calculated 282 (280-300); Potassium 3.6 mEq/L (3.5-4.5); Sodium 136 mEq/L (136-145); Transferrin 254 mg/dL (180-382); eGFR For African Americans > 60 (> 60); eGFR For Non-African Americans > 60 (> 60)
[2017-05-04 04:54] LABS: Ferritin 64 ng/ml (5-204)
[2017-05-04] MEDS: Metoprolol 100 MG TABLET PO SCH ×2 (10:22→22:57)
[2017-05-04] MEDS ORDERED: *HR* Promethazine 25 MG/ML VIAL IVP PRN (12:11)
[2017-05-04] MEDS ORDERED: Perflutren Lipid Microsphere 1.3 ML in 0.9 % Sodium Chloride 8.7 ML IVP ONE (13:36)
[2017-05-04] MEDS: 0.9 % Sodium Chloride 1,000 ML IVC SCH ×2 (15:53→16:08)
[2017-05-04] MEDS ORDERED: Acetaminophen 325 MG TABLET PO PRN (17:33)
[2017-05-04] MEDS: hydroCHLOROthiazide 25 MG TABLET PO SCH (17:43)
[2017-05-04] MEDS: Acetaminophen 325 MG TABLET PO PRN (17:43)
[2017-05-04] MEDS ORDERED: *HR* Warfarin 7.5 MG TABLET PO SCH (18:00)
--- NOTE | 2017-05-04 19:38 | Internal Med Progress Note ---
Date of Encounter: 05/04/17 Time of Encounter: 18:00 - Assessment and plan (1) UTI (urinary tract infection) Current Visit: Yes Status: Acute Assessment and plan: Preliminary culture Escherichia coli, sensitivities pending. She is on Unasyn and vancomycin. Awaiting sensitivities. (2) Cellulitis Current Visit: Yes Status: Suspected Assessment and plan: Cellulitic area forming to her left hip down her left lateral thigh. Has progressed rapidly over the last day. Started on Unasyn last night, will add vancomycin and topical antifungal. No signs of sepsis, we will monitor closely (3) SIRS (systemic inflammatory response syndrome) Current Visit: Yes Status: Resolved Assessment and plan: Leukocytosis has trended down. Vital signs remained stable. She is afebrile. She is perfusing well. On Unasyn and vancomycin for cellulitis and UTI. Blood cultures negative. (4) Elevated troponin Current Visit: Yes Status: Acute Assessment and plan: Adynamic, mild, stable. Suspect demand ischemia due to initial SIRS with UTI and cellulitis. Patient denies chest pain or shortness of breath. Low suspicion for acute coronary syndrome. Attempted to obtain an echocardiogram today, but was unable to gain any beneficial knowledge from a secondary to the patient's body habitus. (5) Chest pain Current Visit: Yes Status: Resolved Assessment and plan: Patient currently denies chest pain or shortness of breath. Chest x-ray negative. Unable to obtain useful information from echocardiogram secondary to the patient's body habitus Qualifiers: Chest pain type: unspecified Qualified Code(s): R07.9 - Chest pain, unspecified (6) Sciatic leg pain Current Visit: Yes Status: Chronic Assessment and plan: Improved today, we will continue to treat. Of note, she is allergic to steroids and anti-inflammatories. (7) Leukocytosis, unspecified Current Visit: Yes Status: Acute Assessment and plan: Trending down. Likely secondary to urinary tract infection and suspected cellulitis. Vital signs are stable (8) Iron deficiency anemia Current Visit: No Status: Chronic Assessment and plan: Iron checked, low, will initiate Feraheme Qualifiers: Iron deficiency anemia type: chronic blood loss Qualified Code(s): D50.0 - Iron deficiency anemia secondary to blood loss (chronic) (9) DVT (deep venous thrombosis) Current Visit: Yes Status: Chronic Assessment and plan: Patient had a Doppler just prior to presentation revealed chronic thrombus to the right popliteal. She is therapeutic on Coumadin. LE Venous Duplex Procedure Date: 05/02/2017 Impressions: Right lower extremity: normal superficial exam. Lower extremity abnormal deep exam: right popliteal vein demonstrates chronic thrombosis. Left lower extremity: normal contralateral exam. (10) Hypertension Current Visit: No Status: Chronic Assessment and plan: Markedly hypertensive upon arrival, currently normotensive. We will continue to trend Qualifiers: Hypertension type: essential hypertension Qualified Code(s): I10 - Essential (primary) hypertension (11) Hypothyroidism Current Visit: No Status: Chronic Assessment and plan: TSH checked earlier this year, normal Qualifiers: Hypothyroidism type: unspecified Qualified Code(s): E03.9 - Hypothyroidism , unspecified (12) Vaginal bleeding Current Visit: No Status: Acute Assessment and plan: Patient stating she is still experiencing intermittent menses. Hemodynamically stable. (13) Self-care deficit for hygiene Current Visit: Yes Status: Acute Assessment and plan: Patient has been relying upon staff for her personal care hygiene, continue to empower the patient to perform her own hygiene to sustain self-sufficiency (14) Morbid obesity with BMI of 70 and over, adult Current Visit: Yes Status: Chronic - Subjective Interval history: Patient seen and examined. On examination, patient sitting in high Escalera's. Patient endorsing severe pain to her left hip area as well as to her right sciatica area. She denies shortness of breath above her norm. She is endorsing decreased appetite and by mouth intake. - Constitutional Vitals: Temp Pulse Resp BP Pulse Ox 98.0 F 75 16 103/62 92 05/04/17 19:16 05/04/17 19:16 05/04/17 19:16 05/04/17 19:16 05/04/17 19:16 General appearance: Present: A&O X 3, morbidly obese, pleasant, no acute distress, answers questions appropriately - Head Head exam: Present: atraumatic, normocephalic - Eye Eye exam: Present: PERRL, conjuntiva pink, sclera anicteric Pupils: Present: PERRL - Neck Neck exam general surgery: Present: supple, trachea midline. Absent: lymphadenopathy - Respiratory Respiratory exam: Present: decreased breath sounds (2/2 body habitus). Absent: accessory muscle use, rales, respiratory distress, rhonchi, wheezes - Cardiovascular Cardiovascular exam: Present: RRR, +S1, +S2. Absent: diastolic murmur, gallop, rubs, systolic murmur - GI/Abdominal GI/Abdominal exam: Present: normal bowel sounds, soft, no peritoneal signs. Absent: distended, tenderness - Extremities Exam Extremities exam: Present: pedal edema, warm, radial pulses palpable and symmetrical. Absent: calf tenderness, cyanotic - Neurological Exam Neurological exam: Present: alert, CN II-XII intact, oriented X3, no focal deficits, strengths equal and symetr throughout. Absent: pronater drift, facial droop, speech deficit - Skin Skin exam: Present: dry, intact, pallor, warm - Expanded Skin Exam Type of lesion: Present: rash Distribution of rash: Present: LLE Description of rash: Present: blisters, erythematous, swelling, tenderness Internal Medicine: Result - Labs CBC & Chem 7: 05/04/17 03:28 05/04/17 03:28 Labs: Short CBC 05/04/17 Range/Units 03:28 WBC 14.0 H (4.3-11.1) K/mcL Hgb 10.2 L (11.5-15.4) g/dL Hct 34.8 L (35.3-44.9) % Plt Count 197 (140-400) K/mcL Neutrophils # 12.2 H (1.6-8.9) K/mcL BMP 05/04/17 03:28 Sodium 136 Potassium 3.6 Chloride 99 Carbon Dioxide 29 BUN 11 Creatinine 0.94 Glucose 118 H Calcium 8.7 Cardiac Enzymes 05/03/17 05/04/17 Range/Units 20:20 03:28 Troponin I 0.05 H* 0.06 H* (0-0.03) ng/mL - ABG Interpretation ABG results: PT/INR, D-dimer PT 23.4 Seconds (9.4-12.1) H 05/04/17 03:28 Consult Discharge Plan - Plan Referrals: Corinna Farr [Primary Care Provider] -
[2017-05-04] MEDS ORDERED: Ferumoxytol 510 MG in 0.9 % Sodium Chloride 100 ML IVPB ONE (19:41)
[2017-05-04] MEDS ORDERED: Vancomycin 2,000 MG in D5% in Water 250 ML IVPB SCH (20:00)
[2017-05-04] MEDS: Vancomycin 2,000 MG in D5% in Water 500 ML IVPB SCH (22:57)
[2017-05-04] MEDS: Clotrimazole 1% CRM 15 GM TUBE TP SCH (23:13)
[2017-05-05] MEDS: Acetaminophen 325 MG TABLET PO PRN (00:45)
[2017-05-05] MEDS: Ampicillin/Sulbactam 3,000 MG in 0.9 % Sodium Chloride Mini Bag 100 ML IVPB SCH ×5 (01:54→23:46)
[2017-05-05] MEDS: 0.9 % Sodium Chloride 1,000 ML IVC SCH ×4 (01:57→14:57)
[2017-05-05] MEDS: Albuterol 2.5 MG/3 ML NEBULIZER IH SCH ×4 (04:27→21:06)
[2017-05-05] MEDS: *HR* HYDROcodone/Acet 5/325 mg TABLET PO PRN ×5 (05:06→23:16)
[2017-05-05 07:25] LABS: INR 2.1; Prothrombin Time 23.1 Seconds (9.4-12.1)
[2017-05-05 07:34] LABS: BUN/Creatinine Ratio 9 (6-26); Blood Urea Nitrogen 7 mg/dL (7-20); Calcium 8.5 mg/dL (8.6-10.8); Carbon Dioxide 31 mEq/L (19-29); Chloride 99 mEq/L (98-109); Glucose 117 mg/dL (70-99); Osmolality,Calculated 283 (280-300); Potassium 3.1 mEq/L (3.5-4.5); Sodium 137 mEq/L (136-145); eGFR For African Americans > 60 (> 60); eGFR For Non-African Americans > 60 (> 60)
[2017-05-05] MEDS: Metoprolol 100 MG TABLET PO SCH ×2 (08:00→20:54)
[2017-05-05] MEDS: Clotrimazole 1% CRM 15 GM TUBE TP SCH ×2 (08:00→20:55)
[2017-05-05 08:09] LABS: Mean Platelet Volume 10.6 fL (9.4-12.4)
[2017-05-05 08:11] LABS: Basophils % 0.1 %; Eosinophils # 0.1 K/mcL (0.0-0.6); Hemoglobin 9.8 g/dL (11.5-15.4); Immature Granulocytes % 0.7 % (0-4); Lymphocytes # 0.9 K/mcL (0.6-4.6); Lymphocytes % 9.1 %; Mean Corpuscular HGB Conc 29.7 g/dL (31.6-35.5); Mean Corpuscular Hemoglobin 21.2 pg (28.0-33.3); Mean Corpuscular Volume 71.3 fL (83.0-100.0); Monocytes # 0.7 K/mcL (0.0-1.3); Monocytes % 6.5 %; Neutrophils # 8.3 K/mcL (1.6-8.9); Platelet Count 186 K/mcL (140-400); Red Blood Count 4.63 M/mcL (3.82-4.97); Red Cell Distribution Width 20.1 % (11.5-14.5); Segmented Neutrophils % 82.6 %
[2017-05-05 08:56] LABS: Anisocytosis 2+ (Not Present); Microcytosis Present (Not Present); Polychromasia 1+ (Not Present)
[2017-05-05 08:57] LABS: Hypochromasia Present (Not Present)
[2017-05-05 08:58] LABS: Platelet Estimate Normal (Normal)
[2017-05-05] MEDS: Vancomycin 2,000 MG in D5% in Water 500 ML IVPB SCH ×2 (09:05→21:04)
--- NOTE | 2017-05-05 11:32 | Internal Med Progress Note ---
Date of Encounter: 05/05/17 Time of Encounter: 09:45 - Assessment and plan (1) UTI (urinary tract infection) Current Visit: Yes Status: Acute Assessment and plan: Urine culture consistent with 2 organisms Escherichia coli and Klebsiella pneumoniae. Both are sensitive to Unasyn, will continue. Only listed antibiotic allergy is to sulfa. Regarding her UTI, looking forward, she could be sent on levofloxacin by mouth. Leukocytosis resolved. VSS. (2) Cellulitis Current Visit: Yes Status: Suspected Assessment and plan: Cellulitic area forming to her left hip down her left lateral thigh. Had rapidly progressed over the first night, improved slightly overnight. On Unasyn for her UTI, added vancomycin. Also add a topical antifungal. We will continue to monitor this area closely. (3) SIRS (systemic inflammatory response syndrome) Current Visit: Yes Status: Resolved Assessment and plan: Leukocytosis resolved. Vital signs remaine stable. She is afebrile. She is perfusing well. On Unasyn and vancomycin for cellulitis and UTI. Blood cultures negative. (4) Elevated troponin Current Visit: Yes Status: Acute Assessment and plan: Adynamic, mild, stable. Suspect demand ischemia due to initial SIRS with UTI and cellulitis. Patient denies chest pain or shortness of breath. Low suspicion for acute coronary syndrome. Attempted to obtain an echocardiogram today, but was unable to gain any beneficial knowledge from a secondary to the patient's body habitus. (5) Chest pain Current Visit: Yes Status: Resolved Assessment and plan: Patient currently denies chest pain or shortness of breath. Chest x-ray negative. Unable to obtain useful information from echocardiogram secondary to the patient's body habitus Qualifiers: Chest pain type: unspecified Qualified Code(s): R07.9 - Chest pain, unspecified (6) Sciatic leg pain Current Visit: Yes Status: Chronic Assessment and plan: Improved but continues to be painful. Will add stretches and PT. Of note, she is allergic to steroids and anti-inflammatories. (7) Leukocytosis, unspecified Current Visit: Yes Status: Resolved (8) Iron deficiency anemia Current Visit: No Status: Chronic Assessment and plan: Iron checked, low, initiated Feraheme Qualifiers: Iron deficiency anemia type: chronic blood loss Qualified Code(s): D50.0 - Iron deficiency anemia secondary to blood loss (chronic) (9) DVT (deep venous thrombosis) Current Visit: Yes Status: Chronic Assessment and plan: Patient had a Doppler just prior to presentation revealed chronic thrombus to the right popliteal. She is therapeutic on Coumadin. LE Venous Duplex Procedure Date: 05/02/2017 Impressions: Right lower extremity: normal superficial exam. Lower extremity abnormal deep exam: right popliteal vein demonstrates chronic thrombosis. Left lower extremity: normal contralateral exam. (10) Hypertension Current Visit: No Status: Chronic Assessment and plan: Markedly hypertensive upon arrival, currently normotensive. We will continue to trend Qualifiers: Hypertension type: essential hypertension Qualified Code(s): I10 - Essential (primary) hypertension (11) Hypothyroidism Current Visit: No Status: Chronic Assessment and plan: TSH checked earlier this year, normal Qualifiers: Hypothyroidism type: unspecified Qualified Code(s): E03.9 - Hypothyroidism , unspecified (12) Vaginal bleeding Current Visit: No Status: Acute Assessment and plan: Patient stating she is still experiencing intermittent menses. Hemodynamically stable. (13) Self-care deficit for hygiene Current Visit: Yes Status: Acute Assessment and plan: Patient has been relying upon staff for her personal care hygiene, continue to empower the patient to perform her own hygiene to sustain self-sufficiency. Ambulate TID. To bedside commode. (14) Morbid obesity with BMI of 70 and over, adult Current Visit: Yes Status: Chronic - Subjective Interval history: Patient seen and examined. On examination, patient sitting in high Escalera's. Patient stating she had a rough night. She continues to complain of left hip pain. She is also concerned as she usually has 1-2 BMs per day, and her last bowel movement was Monday. She states her appetite is coming back. She denies chest pain or shortness of breath. - Constitutional Vitals: Temp Pulse Resp BP Pulse Ox 98.1 F 67 18 143/80 92 05/05/17 11:26 05/05/17 11:26 05/05/17 11:26 05/05/17 11:26 05/05/17 11:26 General appearance: Present: A&O X 3, morbidly obese, pleasant, no acute distress, answers questions appropriately - Head Head exam: Present: atraumatic, normocephalic - Eye Eye exam: Present: PERRL, conjuntiva pink, sclera anicteric Pupils: Present: PERRL - Neck Neck exam general surgery: Present: supple, trachea midline. Absent: lymphadenopathy - Respiratory Respiratory exam: Present: decreased breath sounds (2/2 body habitus). Absent: accessory muscle use, rales, respiratory distress, rhonchi, wheezes - Cardiovascular Cardiovascular exam: Present: RRR, +S1, +S2. Absent: diastolic murmur, gallop, rubs, systolic murmur - GI/Abdominal GI/Abdominal exam: Present: normal bowel sounds, soft, no peritoneal signs. Absent: distended, tenderness - Extremities Exam Extremities exam: Present: warm, radial pulses palpable and symmetrical. Absent : calf tenderness, cyanotic, pedal edema - Neurological Exam Neurological exam: Present: alert, CN II-XII intact, oriented X3, no focal deficits, strengths equal and symetr throughout. Absent: pronater drift, facial droop, speech deficit - Skin Skin exam: Present: dry, intact, pallor, warm - Expanded Skin Exam Type of lesion: Present: rash Distribution of rash: Present: LLE Description of rash: Present: bullous, erythematous, swelling, tenderness Internal Medicine: Result - Labs CBC & Chem 7: 05/05/17 06:48 05/05/17 06:48 Labs: Short CBC 05/05/17 Range/Units 06:48 WBC 10.1 (4.3-11.1) K/mcL Hgb 9.8 L (11.5-15.4) g/dL Hct 33.0 L (35.3-44.9) % Plt Count 186 (140-400) K/mcL Neutrophils # 8.3 (1.6-8.9) K/mcL BMP 05/05/17 06:48 Sodium 137 Potassium 3.1 L Chloride 99 Carbon Dioxide 31 H BUN 7 Creatinine 0.75 Glucose 117 H Calcium 8.5 L - ABG Interpretation ABG results: PT/INR, D-dimer PT 23.1 Seconds (9.4-12.1) H 05/05/17 06:48 Consult Discharge Plan - Plan Referrals: Corinna Farr [Primary Care Provider] -
[2017-05-05] MEDS: Cholecalciferol (D-3) 1,000 UNIT TABLET PO SCH (13:36)
--- NOTE | 2017-05-05 14:16 | Physician Discharge Referral ---
ExtendedCare Referral Info Transfer To: [facility] Provider in Charge: Yahaira Patton CNP Provider in Charge after Transfer: PCP Institutional Level of Care: Intermediate - Diagnosis (1) UTI (urinary tract infection) Priority: Primary Status: Acute (2) Cellulitis Priority: Primary Status: Suspected (3) SIRS (systemic inflammatory response syndrome) Priority: Primary Status: Resolved (4) Elevated troponin Priority: Primary Status: Acute (5) Chest pain Priority: Primary Status: Resolved (6) Sciatic leg pain Priority: Secondary Status: Chronic (7) Leukocytosis, unspecified Priority: Primary Status: Resolved (8) Iron deficiency anemia Priority: Secondary Status: Chronic (9) DVT (deep venous thrombosis) Priority: Secondary Status: Chronic (10) Hypertension Priority: Secondary Status: Chronic (11) Hypothyroidism Priority: Secondary Status: Chronic (12) Vaginal bleeding Priority: Primary Status: Acute (13) Self-care deficit for hygiene Priority: Primary Status: Acute (14) Morbid obesity with BMI of 70 and over, adult Priority: Secondary Status: Chronic Prognosis: Good Aware of Diagnosis: Patient Aware of Prognosis: Patient - Transfer Medications Home Medications: Alprazolam [Xanax] 0.5 mg PO TID PRN 05/11/15 [History] Famotidine [Pepcid] 20 mg PO BID PRN 05/11/15 [History] Metoprolol [Lopressor] 100 mg PO BID 05/11/15 [History] Levothyroxine [Synthroid] 112 mcg PO DAILY 10/19/16 [History] HYDROcodone/Acet 5/325 mg [[place] 5-325 mg] 1 tab PO Q4HR PRN #40 tablet [Rx] Albuterol Sulfate [Albuterol Inhaler] 2 puff IH Q4H PRN 11/01/16 [History] Loratadine [Claritin] 10 mg PO DAILY PRN 11/01/16 [History] hydroCHLOROthiazide [Hydrochlorothiazide] 25 mg PO QPM 02/10/17 [History] Ergocalciferol (VITAMIN D2) [Vitamin D2] 50,000 unit PO QWEEK 04/28/17 [History] Albuterol Neb [Proventil Neb] 2.5 mg IH Q6H PRN 05/02/17 [History] Warfarin [Coumadin] 3.75 mg PO TH 05/02/17 [History] Warfarin [Coumadin] 7.5 mg PO [id number] 05/02/17 [History] Allergies/Adverse Reactions: Allergies aspirin Allergy (Verified 04/28/17 10:44) Swelling of Lip/Tongue/Throat ibuprofen Allergy (Verified 04/28/17 10:44) Swelling of Lip/Tongue/Throat NSAIDS (Non-Steroidal Anti-Inflamma Allergy (Verified 04/28/17 10:44) Rash prednisolone Allergy (Verified 04/28/17 10:44) Rash prednisone Allergy (Verified 04/28/17 10:44) Swelling of Lip/Tongue/Throat Sulfa (Sulfonamide Antibiotics) Allergy (Verified 04/28/17 10:44) Hives ketorolac [From Toradol] Adverse Reaction (Verified 04/28/17 10:44) Nausea tramadol [From Ultram] Adverse Reaction (Verified 04/28/17 10:44) Nausea - Respiratory Orders Smoking Cessation: Smoking cessation has been advised. For more information, call the [employer] Tobacco Quit Line at 4-985-YUPZ-NOW. - Ancillary Orders May use pressure relief devices daily prn, May go on JOSSUE w/family/respon alliance party w /meds at nurse discretion PRN, May have alcoholic beverages, May consult with Dentist, Horizontal Resaw Operator, Alumni Relations Officer PRN - Advance Directives Living Will: No Power of Numerical Control Drill Press Operator: No Code Status: Full Code - Mobility Orders Ambulate (per PT) - Rehabiliation Orders Rehab Potential: Fair Rehab Orders: ROM Exercises, Evaluation for Physical Therapy, Evaluation for Occupational Therapy - Treatments Skin tear care topically daily PRN per policy, May check for fecal impaction rectally daily PRN, Fleet enema rectally every other day PRN cleansing purposes - Diet Orders No Added Salt (IZA), Cardiac CERTIFICATION: I certify that the transfer of the above named patient to an Extended Care Facility is necessary for the continuing treatment of the diagnosis listed. The above information is true and accurate reflection of patient's current condition. Confidential - Redisclosure prohibited without a patient's written consent.
[2017-05-05] MEDS: hydroCHLOROthiazide 25 MG TABLET PO SCH (17:22)
[2017-05-05] MEDS: *HR* Warfarin 7.5 MG TABLET PO SCH (17:24)
[2017-05-06] MEDS: *HR* HYDROcodone/Acet 5/325 mg TABLET PO PRN ×5 (03:20→21:47)
[2017-05-06] MEDS: Albuterol 2.5 MG/3 ML NEBULIZER IH SCH ×4 (03:22→20:19)
[2017-05-06] MEDS: 0.9 % Sodium Chloride 1,000 ML IVC SCH (04:33)
[2017-05-06 05:31] LABS: Basophils % 0.3 %; Eosinophils # 0.2 K/mcL (0.0-0.6); Eosinophils % 2.3 %; Hematocrit 33.1 % (35.3-44.9); Hemoglobin 9.6 g/dL (11.5-15.4); Immature Granulocytes % 0.7 % (0-4); Lymphocytes % 11.8 %; Mean Corpuscular Hemoglobin 20.8 pg (28.0-33.3); Mean Corpuscular Volume 71.6 fL (83.0-100.0); Mean Platelet Volume 10.7 fL (9.4-12.4); Monocytes # 0.6 K/mcL (0.0-1.3); Neutrophils # 6.7 K/mcL (1.6-8.9); Platelet Count 219 K/mcL (140-400); Red Blood Count 4.62 M/mcL (3.82-4.97); Red Cell Distribution Width 20.1 % (11.5-14.5); Segmented Neutrophils % 77.9 %
[2017-05-06 05:44] LABS: INR 2.3; Prothrombin Time 25.6 Seconds (9.4-12.1)
[2017-05-06 05:45] LABS: BUN/Creatinine Ratio 5 (6-26); Calcium 8.6 mg/dL (8.6-10.8); Carbon Dioxide 33 mEq/L (19-29); Chloride 97 mEq/L (98-109); Glucose 115 mg/dL (70-99); Magnesium 1.7 mg/dL (1.6-2.6); Osmolality,Calculated 282 (280-300); Potassium 2.8 mEq/L (3.5-4.5); Sodium 137 mEq/L (136-145); eGFR For African Americans > 60 (> 60); eGFR For Non-African Americans > 60 (> 60)
[2017-05-06 05:46] LABS: Blood Urea Nitrogen 4 mg/dL (7-20)
[2017-05-06] MEDS: Ampicillin/Sulbactam 3,000 MG in 0.9 % Sodium Chloride Mini Bag 100 ML IVPB SCH ×4 (06:27→23:28)
[2017-05-06] MEDS: Metoprolol 100 MG TABLET PO SCH ×2 (07:59→20:48)
[2017-05-06] MEDS: Cholecalciferol (D-3) 1,000 UNIT TABLET PO SCH (07:59)
[2017-05-06] MEDS ORDERED: Potassium Chloride 40 MEQ, Lidocaine 1% 2 ML in D5% in Water 500 ML IVPB ONE (08:30)
[2017-05-06] MEDS: Vancomycin 2,000 MG in D5% in Water 500 ML IVPB SCH ×2 (09:18→21:15)
[2017-05-06] MEDS: Clotrimazole 1% CRM 15 GM TUBE TP SCH ×2 (09:18→20:48)
--- NOTE | 2017-05-06 11:20 | Internal Med Progress Note ---
Date of Encounter: 05/06/17 Time of Encounter: 09:30 - Assessment and plan (1) UTI (urinary tract infection) Current Visit: Yes Status: Acute Assessment and plan: Urine culture consistent with 2 organisms Escherichia coli and Klebsiella pneumoniae. Both are sensitive to Unasyn, will continue. Only listed antibiotic allergy is to sulfa. Regarding her UTI, looking forward, she could be sent on levofloxacin by mouth. Leukocytosis resolved. VSS. (2) Cellulitis Current Visit: Yes Status: Suspected Assessment and plan: Cellulitic area forming to her left hip down her left lateral thigh. Has again rapidly progressed and is now extending across her lower abdomen despite getting Unasyn for her UTI as well as vancomycin and a topical antifungal. Will add Diflucan. Concern for possible abscess with possible necrotizing fasciitis though less likely. Will get Abd/pelvic CT and monitor. We will continue to monitor this area closely. (3) SIRS (systemic inflammatory response syndrome) Current Visit: Yes Status: Resolved Assessment and plan: Leukocytosis resolved. Vital signs remaine stable. She is afebrile. She is perfusing well. On Unasyn and vancomycin for cellulitis and UTI. Blood cultures negative. (4) Elevated troponin Current Visit: Yes Status: Acute Assessment and plan: Adynamic, mild, stable. Suspect demand ischemia due to initial SIRS with UTI and cellulitis. Patient denies chest pain or shortness of breath. Low suspicion for acute coronary syndrome. Attempted to obtain an echocardiogram today, but was unable to gain any beneficial knowledge from a secondary to the patient's body habitus. (5) Chest pain Current Visit: Yes Status: Resolved Assessment and plan: Patient currently denies chest pain or shortness of breath. Chest x-ray negative. Unable to obtain useful information from echocardiogram secondary to the patient's body habitus Qualifiers: Chest pain type: unspecified Qualified Code(s): R07.9 - Chest pain, unspecified (6) Sciatic leg pain Current Visit: Yes Status: Chronic Assessment and plan: Improved but continues to be painful. Will add stretches and PT. Of note, she is allergic to steroids and anti-inflammatories. (7) Leukocytosis, unspecified Current Visit: Yes Status: Resolved (8) Iron deficiency anemia Current Visit: No Status: Chronic Assessment and plan: Iron checked, low, initiated Feraheme Qualifiers: Iron deficiency anemia type: chronic blood loss Qualified Code(s): D50.0 - Iron deficiency anemia secondary to blood loss (chronic) (9) DVT (deep venous thrombosis) Current Visit: Yes Status: Chronic Assessment and plan: Patient had a Doppler just prior to presentation revealed chronic thrombus to the right popliteal. She is therapeutic on Coumadin. LE Venous Duplex Procedure Date: 05/02/2017 Impressions: Right lower extremity: normal superficial exam. Lower extremity abnormal deep exam: right popliteal vein demonstrates chronic thrombosis. Left lower extremity: normal contralateral exam. (10) Hypertension Current Visit: No Status: Chronic Assessment and plan: Markedly hypertensive upon arrival, currently normotensive. We will continue to trend Qualifiers: Hypertension type: essential hypertension Qualified Code(s): I10 - Essential (primary) hypertension (11) Hypothyroidism Current Visit: No Status: Chronic Assessment and plan: TSH checked earlier this year, normal Qualifiers: Hypothyroidism type: unspecified Qualified Code(s): E03.9 - Hypothyroidism , unspecified (12) Vaginal bleeding Current Visit: No Status: Acute Assessment and plan: Patient stating she is still experiencing intermittent menses. Hemodynamically stable. (13) Self-care deficit for hygiene Current Visit: Yes Status: Acute Assessment and plan: Patient has been relying upon staff for her personal care hygiene, continue to empower the patient to perform her own hygiene to sustain self-sufficiency. Ambulate TID. To bedside commode. (14) Morbid obesity with BMI of 70 and over, adult Current Visit: Yes Status: Chronic (15) Hypokalemia Current Visit: Yes Status: Acute Assessment and plan: PO treatment unsuccessful. IV replacement today- will trend. Mag normal - Subjective Interval history: Patient seen and examined. On examination, patient sitting in high Escalera's. Patient stating she is still having pain to her left hip. She is also stating that her appetite is starting to come back. She denies shortness of breath above her normal. - Constitutional Vitals: Temp Pulse Resp BP Pulse Ox 98.0 F 86 14 144/74 93 05/06/17 07:56 05/06/17 07:56 05/06/17 07:56 05/06/17 07:56 05/06/17 04:10 General appearance: Present: A&O X 3, morbidly obese, pleasant, no acute distress, answers questions appropriately - Head Head exam: Present: atraumatic, normocephalic - Eye Eye exam: Present: PERRL, conjuntiva pink, sclera anicteric Pupils: Present: PERRL - Neck Neck exam general surgery: Present: supple, trachea midline. Absent: lymphadenopathy - Respiratory Respiratory exam: Present: decreased breath sounds (2/2 body habitus). Absent: accessory muscle use, rales, respiratory distress, rhonchi, wheezes - Cardiovascular Cardiovascular exam: Present: RRR, +S1, +S2. Absent: diastolic murmur, gallop, rubs, systolic murmur - GI/Abdominal GI/Abdominal exam: Present: distended, normal bowel sounds, soft, tenderness ( rash to left flank), no peritoneal signs - Extremities Exam Extremities exam: Present: warm, radial pulses palpable and symmetrical. Absent : calf tenderness, cyanotic, pedal edema - Neurological Exam Neurological exam: Present: alert, CN II-XII intact, oriented X3, no focal deficits, strengths equal and symetr throughout. Absent: pronater drift, facial droop, speech deficit - Skin Skin exam: Present: dry, intact, pallor, warm - Expanded Skin Exam Type of lesion: Present: rash Distribution of rash: Present: LUE Description of rash: Present: bullous, erythematous, fluctuant, indurated, size , swelling, tenderness Internal Medicine: Result - Labs CBC & Chem 7: 05/06/17 04:54 05/06/17 04:54 Labs: Short CBC 05/06/17 Range/Units 04:54 WBC 8.6 (4.3-11.1) K/mcL Hgb 9.6 L (11.5-15.4) g/dL Hct 33.1 L (35.3-44.9) % Plt Count 219 (140-400) K/mcL Neutrophils # 6.7 (1.6-8.9) K/mcL BMP 05/06/17 04:54 Sodium 137 Potassium 2.8 L Chloride 97 L Carbon Dioxide 33 H BUN 4 L Creatinine 0.74 Glucose 115 H Calcium 8.6 - ABG Interpretation ABG results: PT/INR, D-dimer PT 25.6 Seconds (9.4-12.1) H 05/06/17 04:54 Consult Discharge Plan - Plan Referrals: Corinna Farr [Primary Care Provider] -
[2017-05-06] MEDS: Fluconazole 400 MG/200 ML 400 MG/200 ML BAG IVPB SCH ×2 (14:28→21:15)
[2017-05-06] MEDS: hydroCHLOROthiazide 25 MG TABLET PO SCH (17:40)
[2017-05-06] MEDS: *HR* Warfarin 7.5 MG TABLET PO SCH (17:40)
[2017-05-06] MEDS ORDERED: Fluconazole 400 MG/200 ML 400 MG/200 ML BAG IVPB ONE (23:16)
[2017-05-06] MEDS ORDERED: Loratadine 10 MG TABLET PO ONE (23:44)
[2017-05-07] MEDS: *HR* HYDROcodone/Acet 5/325 mg TABLET PO PRN ×5 (02:18→21:57)
[2017-05-07] MEDS: Vancomycin 2,000 MG in D5% in Water 500 ML IVPB SCH ×2 (03:22→15:55)
[2017-05-07] MEDS: Albuterol 2.5 MG/3 ML NEBULIZER IH SCH ×4 (03:35→21:02)
[2017-05-07 03:48] LABS: Basophils % 0.3 %; Eosinophils # 0.3 K/mcL (0.0-0.6); Eosinophils % 2.9 %; Hematocrit 32.4 % (35.3-44.9); Hemoglobin 9.4 g/dL (11.5-15.4); Immature Granulocytes % 1.2 % (0-4); Lymphocytes # 1.3 K/mcL (0.6-4.6); Lymphocytes % 13.8 %; Mean Corpuscular Hemoglobin 20.3 pg (28.0-33.3); Mean Corpuscular Volume 70.1 fL (83.0-100.0); Mean Platelet Volume 10.3 fL (9.4-12.4); Monocytes # 0.7 K/mcL (0.0-1.3); Monocytes % 7.5 %; Neutrophils # 6.7 K/mcL (1.6-8.9); Nucleated Red Blood Cells 0.2 /100 WBC (0); Platelet Count 237 K/mcL (140-400); Red Blood Count 4.62 M/mcL (3.82-4.97); Red Cell Distribution Width 20.1 % (11.5-14.5); Segmented Neutrophils % 74.3 %
[2017-05-07 03:53] LABS: INR 2.6; Prothrombin Time 29.3 Seconds (9.4-12.1)
[2017-05-07 03:59] LABS: BUN/Creatinine Ratio 5 (6-26); Calcium 8.9 mg/dL (8.6-10.8); Carbon Dioxide 33 mEq/L (19-29); Chloride 99 mEq/L (98-109); Glucose 108 mg/dL (70-99); Osmolality,Calculated 285 (280-300); Sodium 139 mEq/L (136-145); eGFR For African Americans > 60 (> 60); eGFR For Non-African Americans > 60 (> 60)
[2017-05-07 04:05] LABS: Blood Urea Nitrogen 4 mg/dL (7-20)
[2017-05-07] MEDS: Ampicillin/Sulbactam 3,000 MG in 0.9 % Sodium Chloride Mini Bag 100 ML IVPB SCH ×4 (05:43→23:26)
[2017-05-07] MEDS: 0.9 % Sodium Chloride 1,000 ML IVC SCH (07:00)
[2017-05-07] MEDS: Cholecalciferol (D-3) 1,000 UNIT TABLET PO SCH (08:02)
[2017-05-07] MEDS: Miconazole 2% cream 118 GM TUBE TP SCH ×2 (08:02→20:10)
[2017-05-07] MEDS: Metoprolol 100 MG TABLET PO SCH ×2 (08:02→20:09)
[2017-05-07] MEDS ORDERED: Fluconazole 400 MG/200 ML 400 MG/200 ML BAG IVPB SCH (09:00)
[2017-05-07] MEDS ORDERED: Potassium Chloride 40 MEQ, Lidocaine 1% 2 ML in D5% in Water 500 ML IVPB ONE (17:00)
--- NOTE | 2017-05-07 17:03 | Internal Med Progress Note ---
Date of Encounter: 05/07/17 Time of Encounter: 16:30 - Assessment and plan (1) Herpetic lesion Current Visit: Yes Status: Acute Assessment and plan: patient developed a herpetic lesion to her lower lip today. She states that she has had "two cold sores" in her life. She denies any history of other HSV infections. Now that her wound on her left hip is now pustules that are seeping , concern for possible HSV wound. Cultured and Acyclovir was added to her regimen. Contact precautions. (2) Cellulitis Current Visit: Yes Status: Suspected Assessment and plan: Cellulitic area to her left hip down her left lateral thigh. Yesterday, concern for possible abscess versus early necrotizing fasciitis, however abdominal CT only revealing cellulitis. Area was marked yesterday and the erythema and wound have regressed inside the markings today. Overall, the wound appears improved however now, it is mostly comprised of pustules and is exuding copious amounts of serous discharge. Wound cultured today and sent to lab. Now that the patient has a herpetic lesion on her lip, Acyclovir was added to her regimen. Will await culture results. Contact precautions. Continue Unasyn and vancomycin and topical antifungal. ITS Impressions Abdomen/Pelvis CT 05/06/17 10:01 IMPRESSION: 1. Cellulitis with no evidence of abscess or soft tissue gas 2. No intra abdominopelvic abnormality D/ / Thanh Pal MD / Thanh Pal MD Interpreting Provider: Thanh Pal MD (3) UTI (urinary tract infection) Current Visit: Yes Status: Acute Assessment and plan: Urine culture consistent with 2 organisms Escherichia coli and Klebsiella pneumoniae. Both are sensitive to Unasyn, will continue. Only listed antibiotic allergy is to sulfa. Regarding her UTI, looking forward, she could be sent on levofloxacin by mouth. Leukocytosis resolved. VSS. (4) SIRS (systemic inflammatory response syndrome) Current Visit: Yes Status: Resolved Assessment and plan: Leukocytosis resolved. Vital signs remain stable. She is afebrile. She is perfusing well. On Unasyn and vancomycin for cellulitis and UTI. Blood cultures negative. (5) Elevated troponin Current Visit: Yes Status: Acute Assessment and plan: Adynamic, mild, stable. Suspect demand ischemia due to initial SIRS with UTI and cellulitis. Patient denies chest pain or shortness of breath. Low suspicion for acute coronary syndrome. Attempted to obtain an echocardiogram today, but was unable to gain any beneficial knowledge from a secondary to the patient's body habitus. (6) Chest pain Current Visit: Yes Status: Resolved Assessment and plan: Patient currently denies chest pain or shortness of breath. Chest x-ray negative. Unable to obtain useful information from echocardiogram secondary to the patient's body habitus Qualifiers: Chest pain type: unspecified Qualified Code(s): R07.9 - Chest pain, unspecified (7) Sciatic leg pain Current Visit: Yes Status: Chronic Assessment and plan: Improved but continues to be painful. Will add stretches and PT. Of note, she is allergic to steroids and anti-inflammatories. (8) Leukocytosis, unspecified Current Visit: Yes Status: Resolved (9) Iron deficiency anemia Current Visit: No Status: Chronic Assessment and plan: Iron checked, low, initiated Feraheme Qualifiers: Iron deficiency anemia type: chronic blood loss Qualified Code(s): D50.0 - Iron deficiency anemia secondary to blood loss (chronic) (10) DVT (deep venous thrombosis) Current Visit: Yes Status: Chronic Assessment and plan: Patient had a Doppler just prior to presentation revealed chronic thrombus to the right popliteal. She is therapeutic on Coumadin. LE Venous Duplex Procedure Date: 05/02/2017 Impressions: Right lower extremity: normal superficial exam. Lower extremity abnormal deep exam: right popliteal vein demonstrates chronic thrombosis. Left lower extremity: normal contralateral exam. (11) Hypertension Current Visit: No Status: Chronic Assessment and plan: Markedly hypertensive upon arrival, currently normotensive. We will continue to trend Qualifiers: Hypertension type: essential hypertension Qualified Code(s): I10 - Essential (primary) hypertension (12) Hypothyroidism Current Visit: No Status: Chronic Assessment and plan: TSH checked earlier this year, normal Qualifiers: Hypothyroidism type: unspecified Qualified Code(s): E03.9 - Hypothyroidism , unspecified (13) Vaginal bleeding Current Visit: No Status: Acute Assessment and plan: Patient stating she is still experiencing intermittent menses. Hemodynamically stable. Appears to be resolving (14) Self-care deficit for hygiene Current Visit: Yes Status: Acute Assessment and plan: Patient has been relying upon staff for her personal care hygiene, continue to empower the patient to perform her own hygiene to sustain self-sufficiency. Ambulate TID. To bedside commode. (15) Morbid obesity with BMI of 70 and over, adult Current Visit: Yes Status: Chronic (16) Hypokalemia Current Visit: Yes Status: Acute Assessment and plan: Continue PO and IV replacement- will trend. Mag normal - Subjective Interval history: Patient seen and examined. On examination, patient sitting in high Escalera's. Patient stating she feels a bit better now that she was able to "sleep all day. " She states that her hip is slightly less painful. She is worried about having a reaction to the tape that is around her powerglide. She states that she was so tired that she did not eat breakfast, but states her appetite is okay at this time. - Constitutional Vitals: Temp Pulse Resp BP Pulse Ox 99 F 86 16 151/72 92 05/07/17 16:55 05/07/17 16:55 05/07/17 16:55 05/07/17 16:55 05/07/17 16:55 General appearance: Present: A&O X 3, morbidly obese, pleasant, no acute distress, answers questions appropriately - Head Head exam: Present: atraumatic, normocephalic Additional comments: new lesion to lower lip - Eye Eye exam: Present: PERRL, conjuntiva pink, sclera anicteric Pupils: Present: PERRL - Neck Neck exam general surgery: Present: supple, trachea midline. Absent: lymphadenopathy - Respiratory Respiratory exam: Present: decreased breath sounds (2/2 body habitus). Absent: accessory muscle use, rales, respiratory distress, rhonchi, wheezes - Cardiovascular Cardiovascular exam: Present: RRR, +S1, +S2. Absent: diastolic murmur, gallop, rubs, systolic murmur - GI/Abdominal GI/Abdominal exam: Present: distended, normal bowel sounds, soft, no peritoneal signs. Absent: tenderness - Extremities Exam Extremities exam: Present: pedal edema, warm, radial pulses palpable and symmetrical. Absent: calf tenderness, cyanotic - Neurological Exam Neurological exam: Present: alert, CN II-XII intact, oriented X3, no focal deficits, strengths equal and symetr throughout. Absent: pronater drift, facial droop, speech deficit - Skin Skin exam: Present: dry, intact, pallor, warm - Expanded Skin Exam Type of lesion: Present: rash Distribution of rash: Present: LLE Description of rash: Present: bullous, discharge, erythematous, swelling, tenderness, vesicular Internal Medicine: Result - Labs CBC & Chem 7: 05/07/17 03:30 05/07/17 03:30 Labs: Short CBC 05/07/17 Range/Units 03:30 WBC 9.1 (4.3-11.1) K/mcL Hgb 9.4 L (11.5-15.4) g/dL Hct 32.4 L (35.3-44.9) % Plt Count 237 (140-400) K/mcL Neutrophils # 6.7 (1.6-8.9) K/mcL BMP 05/07/17 03:30 Sodium 139 Potassium 3.0 L Chloride 99 Carbon Dioxide 33 H BUN 4 L Creatinine 0.77 Glucose 108 H Calcium 8.9 - ABG Interpretation ABG results: PT/INR, D-dimer PT 29.3 Seconds (9.4-12.1) H 05/07/17 03:30 Consult Discharge Plan - Plan Referrals: Corinna Farr [Primary Care Provider] -
[2017-05-07] MEDS: *HR* Warfarin 7.5 MG TABLET PO SCH (17:58)
[2017-05-07] MEDS: hydroCHLOROthiazide 25 MG TABLET PO SCH (17:58)
[2017-05-07] MEDS: WATER IVPB SCH ×2 (18:12→23:26)
[2017-05-07] MEDS: ACYCLOVIR IVPB SCH ×2 (18:12→23:26)
[2017-05-07] MEDS: D5 IVPB SCH ×2 (18:12→23:26)
[2017-05-07] MEDS ORDERED: Furosemide 40 MG TABLET PO ONE (18:26)
[2017-05-08] MEDS: Albuterol 2.5 MG/3 ML NEBULIZER IH SCH ×5 (03:02→22:21)
[2017-05-08] MEDS: *HR* HYDROcodone/Acet 5/325 mg TABLET PO PRN ×5 (03:04→21:26)
[2017-05-08] MEDS: Vancomycin 2,000 MG in D5% in Water 500 ML IVPB SCH (03:04)
[2017-05-08] MEDS: Ampicillin/Sulbactam 3,000 MG in 0.9 % Sodium Chloride Mini Bag 100 ML IVPB SCH ×3 (05:23→17:00)
[2017-05-08 05:36] LABS: BUN/Creatinine Ratio 4 (6-26); Calcium 9.3 mg/dL (8.6-10.8); Carbon Dioxide 32 mEq/L (19-29); Chloride 96 mEq/L (98-109); Glucose 129 mg/dL (70-99); Osmolality,Calculated 280 (280-300); Potassium 3.1 mEq/L (3.5-4.5); Sodium 136 mEq/L (136-145); eGFR For African Americans > 60 (> 60); eGFR For Non-African Americans > 60 (> 60)
[2017-05-08 05:50] LABS: Blood Urea Nitrogen 3 mg/dL (7-20)
[2017-05-08 05:54] LABS: Prothrombin Time 44.9 Seconds (9.4-12.1)
[2017-05-08 06:17] LABS: Basophils % 0.5 %; Eosinophils # 0.3 K/mcL (0.0-0.6); Eosinophils % 3.8 %; Hematocrit 32.6 % (35.3-44.9); Hemoglobin 9.6 g/dL (11.5-15.4); Immature Granulocytes % 2.5 % (0-4); Lymphocytes # 1.1 K/mcL (0.6-4.6); Lymphocytes % 12.5 %; Mean Corpuscular HGB Conc 29.4 g/dL (31.6-35.5); Mean Corpuscular Hemoglobin 21.1 pg (28.0-33.3); Mean Corpuscular Volume 71.5 fL (83.0-100.0); Mean Platelet Volume 10.1 fL (9.4-12.4); Monocytes # 0.7 K/mcL (0.0-1.3); Monocytes % 8.5 %; Neutrophils # 6.3 K/mcL (1.6-8.9); Nucleated Red Blood Cells 0.3 /100 WBC (0); Platelet Count 247 K/mcL (140-400); Red Blood Count 4.56 M/mcL (3.82-4.97); Red Cell Distribution Width 20.8 % (11.5-14.5); Segmented Neutrophils % 72.2 %
[2017-05-08] MEDS: Metoprolol 100 MG TABLET PO SCH ×2 (08:03→21:26)
[2017-05-08] MEDS: Cholecalciferol (D-3) 1,000 UNIT TABLET PO SCH (08:03)
[2017-05-08] MEDS: D5 IVPB SCH ×2 (08:04→17:00)
[2017-05-08] MEDS: WATER IVPB SCH ×2 (08:04→17:00)
[2017-05-08] MEDS: ACYCLOVIR IVPB SCH ×2 (08:04→17:00)
[2017-05-08] MEDS: Miconazole 2% cream 118 GM TUBE TP SCH ×2 (08:06→21:28)
--- NOTE | 2017-05-08 14:15 | Internal Med Progress Note ---
Date of Encounter: 05/08/17 Time of Encounter: 09:30 - Assessment and plan (1) Herpetic lesion Current Visit: Yes Status: Acute Assessment and plan: patient developed a herpetic lesion to her lower lip yesterday. She states that she has had "two cold sores" in her life. She denies any history of other HSV/STI infections. Now that her wound on her left hip is now pustules that are seeping, concern for possible HSV wound. Cultured and Acyclovir was added to her regimen. Contact precautions. (2) Cellulitis Current Visit: Yes Status: Acute Assessment and plan: Cellulitic area to her left hip down her left lateral thigh. Initially, there was a concern for possible abscess versus early necrotizing fasciitis, however abdominal CT only revealing cellulitis. Area was marked, and the erythema has continued to regress inside the markings. Overall, the wound appears improved however now, it is mostly comprised of pustules and is exuding copious amounts of serous discharge. Wound cultured yesterday and sent to lab. Now that the patient has a herpetic lesion on her lip, Acyclovir was added to her regimen yesterday. Wound brought onboard as well- appreciate their recommendations. Will await culture results. Contact precautions. Continue Unasyn, Acyclovir, vancomycin, and topical antifungal. Regarding plan of care, she has been accepted at [facility] when clinically able to go. Culture results should be finalized by tomorrow, disposition dependent upon culture results and cellulitic area. ITS Impressions Abdomen/Pelvis CT 05/06/17 10:01 IMPRESSION: 1. Cellulitis with no evidence of abscess or soft tissue gas 2. No intra abdominopelvic abnormality D/ / Thanh Pal MD / Thanh Pal MD Interpreting Provider: Thanh Pal MD (3) UTI (urinary tract infection) Current Visit: Yes Status: Acute Assessment and plan: Urine culture consistent with 2 organisms Escherichia coli and Klebsiella pneumoniae. Both are sensitive to Unasyn, will continue. Only listed antibiotic allergy is to sulfa. Regarding her UTI, looking forward, she could be sent on levofloxacin by mouth. Leukocytosis resolved. VSS. (4) SIRS (systemic inflammatory response syndrome) Current Visit: Yes Status: Resolved Assessment and plan: Leukocytosis resolved. Vital signs remain stable. She is afebrile. She is perfusing well. On Unasyn and vancomycin for cellulitis and UTI. Blood cultures negative. (5) Elevated troponin Current Visit: Yes Status: Acute Assessment and plan: Adynamic, mild, stable. Suspect demand ischemia due to initial SIRS with UTI and cellulitis. Patient denies chest pain or shortness of breath. Low suspicion for acute coronary syndrome. Attempted to obtain an echocardiogram, but was unable to gain any beneficial knowledge from a secondary to the patient' s body habitus. (6) Chest pain Current Visit: Yes Status: Resolved Assessment and plan: Patient currently denies chest pain or shortness of breath. Chest x-ray negative. Unable to obtain useful information from echocardiogram secondary to the patient's body habitus. Of note, I do not have enough information for a formal diagnosis of heart failure in this patient. While it is in her chart, I am unable to see where she was officially diagnosed. No useful echocardiograms. She is due to see her Assistant Corporate Secretary outpatient for an enhanced Echo- not indicated while inpatient- followup outpatient. She did appear slightly fluid overloaded yesterday and had gained 6kg, but no indication of overt heart failure. Will monitor. Qualifiers: Chest pain type: unspecified Qualified Code(s): R07.9 - Chest pain, unspecified (7) Sciatic leg pain Current Visit: Yes Status: Chronic Assessment and plan: Improved but continues to be painful. Will add stretches and PT. Of note, she is allergic to steroids and anti-inflammatories. (8) Leukocytosis, unspecified Current Visit: Yes Status: Resolved (9) Iron deficiency anemia Current Visit: No Status: Chronic Assessment and plan: Iron checked, low, initiated Feraheme Qualifiers: Iron deficiency anemia type: chronic blood loss Qualified Code(s): D50.0 - Iron deficiency anemia secondary to blood loss (chronic) (10) DVT (deep venous thrombosis) Current Visit: Yes Status: Chronic Assessment and plan: Patient had a Doppler just prior to presentation revealed chronic thrombus to the right popliteal. She is therapeutic on Coumadin. LE Venous Duplex Procedure Date: 05/02/2017 Impressions: Right lower extremity: normal superficial exam. Lower extremity abnormal deep exam: right popliteal vein demonstrates chronic thrombosis. Left lower extremity: normal contralateral exam. (11) Hypertension Current Visit: No Status: Chronic Assessment and plan: Markedly hypertensive upon arrival, currently normotensive. We will continue to trend Qualifiers: Hypertension type: essential hypertension Qualified Code(s): I10 - Essential (primary) hypertension (12) Hypothyroidism Current Visit: No Status: Chronic Assessment and plan: TSH checked earlier this year, normal Qualifiers: Hypothyroidism type: unspecified Qualified Code(s): E03.9 - Hypothyroidism , unspecified (13) Vaginal bleeding Current Visit: No Status: Acute Assessment and plan: Patient stating she is still experiencing intermittent menses. Hemodynamically stable. Appears to be resolving (14) Self-care deficit for hygiene Current Visit: Yes Status: Acute Assessment and plan: Patient has been relying upon staff for her personal care hygiene, continue to empower the patient to perform her own hygiene to sustain self-sufficiency. Ambulate TID. To bedside commode. (15) Morbid obesity with BMI of 70 and over, adult Current Visit: Yes Status: Chronic (16) Hypokalemia Current Visit: Yes Status: Acute Assessment and plan: Continue PO and IV replacement- will trend. Mag normal (17) Supratherapeutic INR Current Visit: Yes Status: Acute Assessment and plan: To be expected after she received a dose of Diflucan. Will monitor. No signs of active bleeding, pharmacy to dose - Subjective Interval history: Patient seen and examined. On examination, patient sitting in high [place]'s. Patient stating she again feels "rough." She does state that she was able to eat most of the pizza her son brought her in last night. She states that her pain to her left hip has improved slightly. She is complaining of dryness in her nose. She is also endorsing a dry cough. - Constitutional Vitals: Temp Pulse Resp BP Pulse Ox 97.6 F 67 16 143/70 93 05/08/17 11:35 05/08/17 11:35 05/08/17 11:35 05/08/17 11:35 05/08/17 11:35 General appearance: Present: A&O X 3, morbidly obese, pleasant, no acute distress, answers questions appropriately - Head Head exam: Present: atraumatic, normocephalic Additional comments: lesion to lower lip - Eye Eye exam: Present: PERRL, conjuntiva pink, sclera anicteric Pupils: Present: PERRL - Neck Neck exam general surgery: Present: supple, trachea midline. Absent: lymphadenopathy - Respiratory Respiratory exam: Present: decreased breath sounds (2/2 body habitus). Absent: accessory muscle use, rales, respiratory distress, rhonchi, wheezes - Cardiovascular Cardiovascular exam: Present: RRR, +S1, +S2. Absent: diastolic murmur, gallop, rubs, systolic murmur - GI/Abdominal GI/Abdominal exam: Present: normal bowel sounds, soft, no peritoneal signs. Absent: distended, tenderness - Extremities Exam Extremities exam: Present: pedal edema (nonpitting), warm, radial pulses palpable and symmetrical. Absent: calf tenderness, cyanotic - Neurological Exam Neurological exam: Present: alert, CN II-XII intact, oriented X3, no focal deficits, strengths equal and symetr throughout. Absent: pronater drift, facial droop, speech deficit - Skin Skin exam: Present: dry, intact, pallor, warm - Expanded Skin Exam Type of lesion: Present: rash Distribution of rash: Present: LLE Description of rash: Present: blisters, bullous, discharge, erythematous, indurated, swelling, tenderness, vesicular Internal Medicine: Result - Labs CBC & Chem 7: 05/08/17 05:18 05/08/17 05:18 Labs: Short CBC 05/08/17 Range/Units 05:18 WBC 8.7 (4.3-11.1) K/mcL Hgb 9.6 L (11.5-15.4) g/dL Hct 32.6 L (35.3-44.9) % Plt Count 247 (140-400) K/mcL Neutrophils # 6.3 (1.6-8.9) K/mcL BMP 05/08/17 05:18 Sodium 136 Potassium 3.1 L Chloride 96 L Carbon Dioxide 32 H BUN 3 L Creatinine 0.82 Glucose 129 H Calcium 9.3 - ABG Interpretation ABG results: PT/INR, D-dimer PT 44.9 Seconds (9.4-12.1) H* D 05/08/17 05:18 Consult Discharge Plan - Plan Referrals: Corinna Farr [Primary Care Provider] -
[2017-05-08] MEDS ORDERED: Potassium Chloride 40 MEQ, Lidocaine 1% 2 ML in D5% in Water 500 ML IVPB ONE (14:25)
[2017-05-08] MEDS: hydroCHLOROthiazide 25 MG TABLET PO SCH (17:01)
[2017-05-08] MEDS: Saline Nasal Spray 44 ML BOTTLE NS PRN (17:18)
[2017-05-08] MEDS ORDERED: Warfarin perPT PO PRN (18:00)
[2017-05-08] MEDS: Vancomycin 1,500 MG in D5% in Water 250 ML IVPB SCH (21:29)
[2017-05-09] MEDS: Ampicillin/Sulbactam 3,000 MG in 0.9 % Sodium Chloride Mini Bag 100 ML IVPB SCH ×4 (00:20→18:34)
[2017-05-09] MEDS: WATER IVPB SCH ×3 (02:02→17:11)
[2017-05-09] MEDS: ACYCLOVIR IVPB SCH ×3 (02:02→17:11)
[2017-05-09] MEDS: *HR* HYDROcodone/Acet 5/325 mg TABLET PO PRN ×5 (02:02→22:40)
[2017-05-09] MEDS: D5 IVPB SCH ×3 (02:02→17:11)
[2017-05-09] MEDS: Albuterol 2.5 MG/3 ML NEBULIZER IH SCH ×4 (04:35→19:44)
[2017-05-09 06:55] LABS: Nucleated Red Blood Cells 0.2 /100 WBC (0)
[2017-05-09 06:56] LABS: Basophils % 0.4 %; Eosinophils # 0.4 K/mcL (0.0-0.6); Eosinophils % 5.2 %; Hematocrit 33.1 % (35.3-44.9); Hemoglobin 9.9 g/dL (11.5-15.4); Immature Granulocytes % 3.8 % (0-4); Lymphocytes # 1.2 K/mcL (0.6-4.6); Lymphocytes % 14.1 %; Mean Corpuscular HGB Conc 29.9 g/dL (31.6-35.5); Mean Corpuscular Hemoglobin 21.6 pg (28.0-33.3); Mean Corpuscular Volume 72.3 fL (83.0-100.0); Monocytes # 0.6 K/mcL (0.0-1.3); Monocytes % 6.9 %; Neutrophils # 5.9 K/mcL (1.6-8.9); Platelet Count 256 K/mcL (140-400); Red Blood Count 4.58 M/mcL (3.82-4.97); Red Cell Distribution Width 21.5 % (11.5-14.5); Segmented Neutrophils % 69.6 %
[2017-05-09 07:00] LABS: Prothrombin Time 45.4 Seconds (9.4-12.1)
[2017-05-09 07:09] LABS: BUN/Creatinine Ratio 6 (6-26); Calcium 9.2 mg/dL (8.6-10.8); Carbon Dioxide 34 mEq/L (19-29); Chloride 98 mEq/L (98-109); Glucose 103 mg/dL (70-99); Magnesium 1.7 mg/dL (1.6-2.6); Osmolality,Calculated 288 (280-300); Potassium 3.3 mEq/L (3.5-4.5); Sodium 140 mEq/L (136-145); eGFR For African Americans > 60 (> 60); eGFR For Non-African Americans > 60 (> 60)
[2017-05-09 07:22] LABS: Blood Urea Nitrogen 5 mg/dL (7-20)
[2017-05-09 07:52] LABS: Anisocytosis 1+ (Not Present); Hypochromasia Present (Not Present); Platelet Estimate Normal (Normal); Tear Drop Cells 1+ (Not Present)
[2017-05-09] MEDS: Cholecalciferol (D-3) 1,000 UNIT TABLET PO SCH (09:08)
[2017-05-09] MEDS: Metoprolol 100 MG TABLET PO SCH ×2 (09:08→22:30)
[2017-05-09] MEDS: Vancomycin 1,500 MG in D5% in Water 250 ML IVPB SCH ×2 (09:08→22:33)
[2017-05-09] MEDS: Miconazole 2% cream 118 GM TUBE TP SCH ×2 (09:10→22:31)
[2017-05-09] MEDS: hydroCHLOROthiazide 25 MG TABLET PO SCH (17:03)
--- NOTE | 2017-05-09 17:04 | Internal Med Progress Note ---
Date of Encounter: 05/09/17 Time of Encounter: 10:25 - Assessment and plan (1) Cellulitis Current Visit: Yes Status: Acute Assessment and plan: Acute cellulitis of left flank and left lateral thigh - with drainage - slowly improving Continue IV Unasyn, IV vancomycin, topical miconazole Wound culture and blood culture - no growth Cardiac telemetry, labs in a.m., monitor closely Abdomen/Pelvis CT 05/06/17 10:01 1. Cellulitis with no evidence of abscess or soft tissue gas 2. No intra abdominopelvic abnormality Qualifiers: Site of cellulitis: extremity Site of cellulitis of extremity: lower extremity Laterality: left Qualified Code(s): L03.116 - Cellulitis of left lower limb (2) UTI (urinary tract infection) Current Visit: Yes Status: Acute Assessment and plan: UTI present on admission - culture positive for pansensitive Escherichia coli and pansensitive Klebsiella pneumoniae Continue IV Unasyn Qualifiers: Urinary tract infection type: site unspecified Hematuria presence: with hematuria Qualified Code(s): N39.0 - Urinary tract infection, site not specified; R31.9 - Hematuria, unspecified (3) Hypokalemia Current Visit: Yes Status: Acute Assessment and plan: Hypokalemia - improving, KCl being replaced (4) Herpetic lesion Current Visit: Yes Status: Acute Assessment and plan: Herpetic lesion - lower lip, denies h/o any other HSV/STI infections concern for possible HSV wound, IV Acyclovir added Culture - pending (5) Supratherapeutic INR Current Visit: Yes Status: Acute Assessment and plan: Hold warfarin in view of supratherapeutic INR Expected after she received a dose of Diflucan, Monitor closely No signs of active bleeding, pharmacy to dose warfarin (6) DVT (deep venous thrombosis) Current Visit: Yes Status: Chronic Assessment and plan: INR is supratherapeutic, hold warfarin, repeat labs in a.m. Patient had a Doppler just prior to presentation revealed chronic thrombus to the right popliteal. She is therapeutic on Coumadin. LE Venous Duplex - 05/02/2017 Right lower extremity: normal superficial exam. Lower extremity abnormal deep exam: right popliteal vein demonstrates chronic thrombosis. Left lower extremity: normal contralateral exam. Qualifiers: DVT location: lower extremity Affected thrombotic vein of extremity: popliteal Chronicity: chronic Laterality: right Qualified Code(s): I82.531 - Chronic embolism and thrombosis of right popliteal vein (7) Vaginal bleeding Current Visit: No Status: Chronic Assessment and plan: Patient stating she is still experiencing intermittent menses, Hemodynamically stable. Appears to be resolving H&H stable History of profuse vaginal bleeding in the past while on Xarelto (8) Morbid obesity with BMI of 70 and over, adult Current Visit: Yes Status: Chronic Assessment and plan: BMI 78.7, with physical deconditioning - needs physical therapy and ECF placement - Time Spent With Patient 25 - 35 minutes - Subjective Interval history: Examined this morning. Patient awake and alert. Not in any distress. Denies chest pain or shortness of breath. Tolerating oral diet well. No fever. Hemodynamically stable. INR is supratherapeutic. Hold warfarin. Cellulitis of left flank and left hip and left lateral thigh area persistent. IV antibiotics continued. No other acute events or complaints. - Constitutional Vitals: Temp Pulse Resp BP Pulse Ox 97.7 F 67 16 106/62 93 05/09/17 15:02 05/09/17 15:02 05/09/17 15:02 05/09/17 15:02 05/09/17 15:02 General appearance: Present: A&O X 3, morbidly obese, pleasant, no acute distress, answers questions appropriately - Head Head exam: Present: atraumatic - Eye Eye exam: Present: EOMI - ENT ENT exam: Present: mucous membranes moist - Respiratory Respiratory exam: Present: decreased breath sounds (Slightly decreased in both bases). Absent: rales, rhonchi, wheezes, tachypnea - Cardiovascular Cardiovascular exam: Present: RRR, +S1, +S2 - GI/Abdominal GI/Abdominal exam: Present: distended (Obese), firm, guarding, soft. Absent: rigid, tenderness - Extremities Exam Extremities exam: Present: pedal edema (Bilateral leg 3+ edema), radial pulses palpable and symmetrical. Absent: cyanotic - Neurological Exam Neurological exam: Present: alert, oriented X3, no focal deficits. Absent: facial droop, speech deficit Internal Medicine: Result - Labs CBC & Chem 7: 05/09/17 06:43 05/09/17 06:43 Labs: Short CBC 05/09/17 Range/Units 06:43 WBC 8.5 (4.3-11.1) K/mcL Hgb 9.9 L (11.5-15.4) g/dL Hct 33.1 L (35.3-44.9) % Plt Count 256 (140-400) K/mcL Neutrophils # 5.9 (1.6-8.9) K/mcL BMP 05/09/17 06:43 Sodium 140 Potassium 3.3 L Chloride 98 Carbon Dioxide 34 H BUN 5 L Creatinine 0.84 Glucose 103 H Calcium 9.2 - ABG Interpretation ABG results: PT/INR, D-dimer PT 45.4 Seconds (9.4-12.1) H* 05/09/17 06:43 Consult Discharge Plan - Plan Referrals: Corinna Farr [Primary Care Provider] -
[2017-05-09] MEDS: Ondansetron 4 MG/2 ML VIAL IVP PRN (22:40)
[2017-05-10] MEDS: D5 IVPB SCH ×2 (00:10→09:45)
[2017-05-10] MEDS: ACYCLOVIR IVPB SCH ×2 (00:10→09:45)
[2017-05-10] MEDS: WATER IVPB SCH ×2 (00:10→09:45)
[2017-05-10] MEDS: Ampicillin/Sulbactam 3,000 MG in 0.9 % Sodium Chloride Mini Bag 100 ML IVPB SCH ×5 (01:38→23:50)
[2017-05-10] MEDS: *HR* HYDROcodone/Acet 5/325 mg TABLET PO PRN ×5 (03:37→22:35)
[2017-05-10] MEDS: Albuterol 2.5 MG/3 ML NEBULIZER IH SCH ×4 (04:01→21:36)
[2017-05-10] MEDS: Ondansetron 4 MG/2 ML VIAL IVP PRN (05:27)
[2017-05-10] MEDS: Acetaminophen 325 MG TABLET PO PRN (05:32)
[2017-05-10 09:14] LABS: INR 3.6; Prothrombin Time 40.6 Seconds (9.4-12.1)
[2017-05-10 09:17] LABS: Hemoglobin 9.8 g/dL (11.5-15.4); Lymphocytes % 9.9 %; Red Cell Distribution Width 21.4 % (11.5-14.5)
[2017-05-10 09:19] LABS: Basophils # 0.1 K/mcL (0.0-0.2); Basophils % 0.6 %; Eosinophils # 0.3 K/mcL (0.0-0.6); Eosinophils % 3.5 %; Hematocrit 33.5 % (35.3-44.9); Immature Granulocytes % 1.7 % (0-4); Lymphocytes # 0.8 K/mcL (0.6-4.6); Mean Corpuscular HGB Conc 29.3 g/dL (31.6-35.5); Mean Corpuscular Hemoglobin 21.3 pg (28.0-33.3); Mean Corpuscular Volume 72.7 fL (83.0-100.0); Mean Platelet Volume 10.2 fL (9.4-12.4); Monocytes # 0.7 K/mcL (0.0-1.3); Monocytes % 8.5 %; Neutrophils # 6.4 K/mcL (1.6-8.9); Platelet Count 254 K/mcL (140-400); Red Blood Count 4.61 M/mcL (3.82-4.97); Segmented Neutrophils % 75.8 %
[2017-05-10 09:29] LABS: Vancomycin,Trough 27.9 mcg/mL (10-20)
[2017-05-10 09:38] LABS: Calcium 8.9 mg/dL (8.6-10.8); Potassium 3.7 mEq/L (3.5-4.5)
[2017-05-10] MEDS: Metoprolol 100 MG TABLET PO SCH ×2 (09:44→19:41)
[2017-05-10] MEDS: Cholecalciferol (D-3) 1,000 UNIT TABLET PO SCH (09:44)
[2017-05-10] MEDS: Miconazole 2% cream 118 GM TUBE TP SCH ×2 (09:53→19:41)
[2017-05-10] MEDS ORDERED: Vancomycin 1 EACH in D5% in Water (Mini-Bag+) 100 ML IVPB SCH (10:00)
[2017-05-10 10:21] LABS: Hypochromasia Present (Not Present); Microcytosis Present (Not Present); Polychromasia 1+ (Not Present)
[2017-05-10 10:22] LABS: Anisocytosis 1+ (Not Present)
[2017-05-10 10:27] LABS: Chol/HDL Ratio 4.3 (0-4.9)
[2017-05-10 12:23] LABS: HSV Source HIP DRAINAGE
--- NOTE | 2017-05-10 12:38 | Internal Med Progress Note ---
Date of Encounter: 05/10/17 Time of Encounter: 11:50 - Assessment and plan (1) Cellulitis Current Visit: Yes Status: Acute Assessment and plan: Acute cellulitis of left flank and left lateral thigh - with serous drainage - slowly improving Continue IV Unasyn, IV Vancomycin, topical miconazole Wound culture and blood culture - no growth Cardiac telemetry, labs in a.m., wound care consult, monitor closely Anticipate discharge soon Abdomen/Pelvis CT 05/06/17 10:01 1. Cellulitis with no evidence of abscess or soft tissue gas 2. No intra abdominopelvic abnormality Qualifiers: Site of cellulitis: extremity Site of cellulitis of extremity: lower extremity Laterality: left Qualified Code(s): L03.116 - Cellulitis of left lower limb (2) UTI (urinary tract infection) Current Visit: Yes Status: Acute Assessment and plan: UTI present on admission - culture positive for pansensitive Escherichia coli and pansensitive Klebsiella pneumoniae Continue IV Unasyn Qualifiers: Urinary tract infection type: site unspecified Hematuria presence: with hematuria Qualified Code(s): N39.0 - Urinary tract infection, site not specified; R31.9 - Hematuria, unspecified (3) Hypokalemia Current Visit: Yes Status: Acute Assessment and plan: Hypokalemia - improved, KCl replaced (4) Herpetic lesion Current Visit: Yes Status: Acute Assessment and plan: Herpetic lesion - lower lip, denies h/o any other HSV/STI infections concern for possible HSV wound, IV Acyclovir (5) Supratherapeutic INR Current Visit: Yes Status: Acute Assessment and plan: Hold warfarin in view of supratherapeutic INR Expected after she received a dose of Diflucan, Monitor closely No signs of active bleeding - mild vaginal spotting pharmacy to dose warfarin (6) DVT (deep venous thrombosis) Current Visit: Yes Status: Chronic Assessment and plan: INR is supratherapeutic, hold warfarin, repeat labs in a.m. Patient had a Doppler just prior to presentation revealed chronic thrombus to the right popliteal. She is supratherapeutic on Coumadin LE Venous Duplex - 05/02/2017 Right lower extremity: normal superficial exam. Lower extremity abnormal deep exam: right popliteal vein demonstrates chronic thrombosis. Left lower extremity: normal contralateral exam. Qualifiers: DVT location: lower extremity Affected thrombotic vein of extremity: popliteal Chronicity: chronic Laterality: right Qualified Code(s): I82.531 - Chronic embolism and thrombosis of right popliteal vein (7) Vaginal bleeding Current Visit: No Status: Chronic Assessment and plan: Patient stating she is still experiencing intermittent menses, Hemodynamically stable H&H stable History of profuse vaginal bleeding in the past while on Xarelto (8) Morbid obesity with BMI of 70 and over, adult Current Visit: Yes Status: Chronic Assessment and plan: BMI 78.7, with physical deconditioning - needs physical therapy and ECF placement - Time Spent With Patient 25 - 35 minutes - Subjective Interval history: Examined this morning. Patient awake and alert. Not in any distress. Denies chest pain or shortness of breath. Tolerating oral diet well. No fever. Hemodynamically stable. INR is supratherapeutic. Hold warfarin. Complains of mild vaginal spotting. No clots. Cellulitis of left flank and left hip and left lateral thigh area is improving slowly. IV antibiotics continued. No other acute events or complaints. - Constitutional Vitals: Temp Pulse Resp BP Pulse Ox 98.0 F 67 17 115/63 91 05/10/17 12:21 05/10/17 12:21 05/10/17 12:21 05/10/17 12:21 05/10/17 12:21 General appearance: Present: A&O X 3, morbidly obese, pleasant, no acute distress, answers questions appropriately - Head Head exam: Present: atraumatic - Eye Eye exam: Present: EOMI - ENT ENT exam: Present: mucous membranes moist - Respiratory Respiratory exam: Present: decreased breath sounds (slightly decreased both bases). Absent: rales, rhonchi, wheezes, tachypnea - Cardiovascular Cardiovascular exam: Present: RRR, +S1, +S2 - GI/Abdominal GI/Abdominal exam: Present: distended (obese), soft. Absent: firm, guarding, tenderness - Extremities Exam Extremities exam: Present: pedal edema (b/l lower leg edema 3+), radial pulses palpable and symmetrical. Absent: cyanotic - Neurological Exam Neurological exam: Present: alert, oriented X3, no focal deficits - Skin Additional comments: extensive erythema and cellulitis with tenderness over left flank, left thigh lateral aspect and left side of abdomen - now improving, serous drainage present Internal Medicine: Result - Labs CBC & Chem 7: 05/10/17 08:43 05/10/17 08:43 Labs: Short CBC 05/10/17 Range/Units 08:43 WBC 8.4 (4.3-11.1) K/mcL Hgb 9.8 L (11.5-15.4) g/dL Hct 33.5 L (35.3-44.9) % Plt Count 254 (140-400) K/mcL Neutrophils # 6.4 (1.6-8.9) K/mcL BMP 05/10/17 08:43 Sodium 139 Potassium 3.7 Chloride 100 Carbon Dioxide 32 H BUN 8 Creatinine 1.64 H D Glucose 108 H Calcium 8.9 - ABG Interpretation ABG results: PT/INR, D-dimer PT 40.6 Seconds (9.4-12.1) H 05/10/17 08:43 Consult Discharge Plan - Plan Referrals: Corinna Farr [Primary Care Provider] -
[2017-05-10] MEDS: Acyclovir 500 MG in D5% in Water 100 ML IVPB SCH (15:26)
[2017-05-10] MEDS: hydroCHLOROthiazide 25 MG TABLET PO SCH (18:10)
[2017-05-11] MEDS: Acyclovir 500 MG in D5% in Water 100 ML IVPB SCH ×3 (00:23→21:52)
[2017-05-11] MEDS: Vancomycin 1,500 MG in D5% in Water 250 ML IVPB SCH (01:10)
[2017-05-11] MEDS: *HR* HYDROcodone/Acet 5/325 mg TABLET PO PRN ×5 (03:10→20:48)
[2017-05-11] MEDS: Albuterol 2.5 MG/3 ML NEBULIZER IH SCH ×4 (03:29→22:35)
[2017-05-11 03:30] LABS: Basophils % 0.4 %; Eosinophils # 0.4 K/mcL (0.0-0.6); Eosinophils % 4.6 %; Hematocrit 33.3 % (35.3-44.9); Hemoglobin 9.7 g/dL (11.5-15.4); Immature Granulocytes % 1.2 % (0-4); Immature Platelets 2.7 % (1.1-6.1); Lymphocytes # 0.9 K/mcL (0.6-4.6); Lymphocytes % 11.2 %; Mean Corpuscular HGB Conc 29.1 g/dL (31.6-35.5); Mean Corpuscular Volume 72.1 fL (83.0-100.0); Mean Platelet Volume 9.6 fL (9.4-12.4); Monocytes # 0.7 K/mcL (0.0-1.3); Monocytes % 7.9 %; Neutrophils # 6.1 K/mcL (1.6-8.9); Platelet Count 266 K/mcL (140-400); Red Blood Count 4.62 M/mcL (3.82-4.97); Red Cell Distribution Width 21.6 % (11.5-14.5); Segmented Neutrophils % 74.7 %
[2017-05-11 03:43] LABS: Calcium 8.8 mg/dL (8.6-10.8); INR 4.4; Potassium 3.8 mEq/L (3.5-4.5); Prothrombin Time 48.5 Seconds (9.4-12.1)
[2017-05-11] MEDS: Ampicillin/Sulbactam 3,000 MG in 0.9 % Sodium Chloride Mini Bag 100 ML IVPB SCH ×3 (05:16→20:47)
[2017-05-11] MEDS: Cholecalciferol (D-3) 1,000 UNIT TABLET PO SCH (07:40)
[2017-05-11] MEDS: Metoprolol 100 MG TABLET PO SCH ×2 (07:40→20:48)
[2017-05-11] MEDS: Miconazole 2% cream 118 GM TUBE TP SCH ×2 (07:42→20:49)
[2017-05-11] MEDS: 0.9 % Sodium Chloride 1,000 ML IVC SCH ×2 (09:42→21:52)
--- NOTE | 2017-05-11 16:01 | Internal Med Progress Note ---
Date of Encounter: 05/11/17 Time of Encounter: 09:20 - Assessment and plan (1) Cellulitis Current Visit: Yes Status: Acute Assessment and plan: Acute cellulitis of left flank and left lateral thigh - with serous drainage - slowly improving Continue IV Unasyn, IV Vancomycin, topical miconazole Wound culture and blood culture - no growth Cardiac telemetry, labs in a.m., wound care consult, monitor closely Abdomen/Pelvis CT 05/06/17 10:01 1. Cellulitis with no evidence of abscess or soft tissue gas 2. No intra abdominopelvic abnormality Qualifiers: Site of cellulitis: extremity Site of cellulitis of extremity: lower extremity Laterality: left Qualified Code(s): L03.116 - Cellulitis of left lower limb (2) Acute kidney injury Current Visit: Yes Status: Acute Assessment and plan: Acute kidney injury - likely secondary to dehydration and due to antibiotic use Antibiotics to be renally adjusted by pharmacy Start IV fluids, nephrology consult if renal function worsens Monitor closely, labs in a.m. (3) UTI (urinary tract infection) Current Visit: Yes Status: Acute Assessment and plan: UTI present on admission - culture positive for pansensitive Escherichia coli and pansensitive Klebsiella pneumoniae Continue IV Unasyn Qualifiers: Urinary tract infection type: site unspecified Hematuria presence: with hematuria Qualified Code(s): N39.0 - Urinary tract infection, site not specified; R31.9 - Hematuria, unspecified (4) Hypokalemia Current Visit: Yes Status: Acute Assessment and plan: Hypokalemia - improved, KCl replaced (5) Herpetic lesion Current Visit: Yes Status: Acute Assessment and plan: Herpetic lesion - lower lip, denies h/o any other HSV/STI infections concern for possible HSV wound, IV Acyclovir (6) Supratherapeutic INR Current Visit: Yes Status: Acute Assessment and plan: Hold warfarin in view of supratherapeutic INR Expected after she received a dose of Diflucan, Monitor closely No signs of active bleeding - mild vaginal spotting Hold warfarin (7) DVT (deep venous thrombosis) Current Visit: Yes Status: Chronic Assessment and plan: INR is supratherapeutic, hold warfarin, repeat labs in a.m. Patient had a Doppler just prior to presentation revealed chronic thrombus to the right popliteal. She is supratherapeutic on Coumadin LE Venous Duplex - 05/02/2017: Right lower extremity: normal superficial exam. Lower extremity abnormal deep exam: right popliteal vein demonstrates chronic thrombosis. Left lower extremity: normal contralateral exam. Qualifiers: DVT location: lower extremity Affected thrombotic vein of extremity: popliteal Chronicity: chronic Laterality: right Qualified Code(s): I82.531 - Chronic embolism and thrombosis of right popliteal vein (8) Vaginal bleeding Current Visit: No Status: Chronic Assessment and plan: Patient stating she is still experiencing intermittent menses, Hemodynamically stable, H&H stable History of profuse vaginal bleeding in the past while on Xarelto (9) Morbid obesity with BMI of 70 and over, adult Current Visit: Yes Status: Chronic Assessment and plan: BMI 78.7, with physical deconditioning - needs physical therapy and ECF placement - Time Spent With Patient 25 - 35 minutes - Subjective Interval history: Examined this morning. Patient awake and alert. Not in any distress. Denies chest pain or shortness of breath. Tolerating oral diet well. No fever. Hemodynamically stable. INR continues to be supratherapeutic. Warfarin on hold. Complains of mild vaginal spotting. No clots. Cellulitis of left flank and left hip and left lateral thigh area is improving slowly. Patient's renal function is worse today. Creatinine is 2.17. IV antibiotics continued and to be renally adjusted. No other acute events or complaints. - Constitutional Vitals: Temp Pulse Resp BP Pulse Ox 98.1 F 70 18 112/66 91 05/11/17 11:31 05/11/17 11:31 05/11/17 11:31 05/11/17 11:31 05/11/17 11:31 General appearance: Present: A&O X 3, morbidly obese, pleasant, no acute distress, answers questions appropriately - Head Head exam: Present: atraumatic - Eye Eye exam: Present: EOMI - ENT ENT exam: Present: mucous membranes moist - Neck Neck exam general surgery: Present: supple - Respiratory Respiratory exam: Present: decreased breath sounds (Slightly decreased in both bases). Absent: rales, rhonchi, wheezes, tachypnea - Cardiovascular Cardiovascular exam: Present: RRR, +S1, +S2 - GI/Abdominal GI/Abdominal exam: Present: distended (Obese), soft. Absent: firm, guarding, tenderness - Extremities Exam Extremities exam: Present: pedal edema (Bilateral lower leg edema 3+), radial pulses palpable and symmetrical. Absent: cyanotic - Neurological Exam Neurological exam: Present: alert, oriented X3, no focal deficits. Absent: facial droop, speech deficit - Skin Additional comments: extensive erythema and cellulitis with tenderness over left flank, left thigh lateral aspect and left side of abdomen - improving, serous drainage present Internal Medicine: Result - Labs CBC & Chem 7: 05/11/17 03:20 05/11/17 03:20 Labs: Short CBC 05/11/17 Range/Units 03:20 WBC 8.2 (4.3-11.1) K/mcL Hgb 9.7 L (11.5-15.4) g/dL Hct 33.3 L (35.3-44.9) % Plt Count 266 (140-400) K/mcL Neutrophils # 6.1 (1.6-8.9) K/mcL BMP 05/11/17 03:20 Sodium 139 Potassium 3.8 Chloride 100 Carbon Dioxide 31 H BUN 10 Creatinine 2.17 H Glucose 103 H Calcium 8.8 - ABG Interpretation ABG results: PT/INR, D-dimer PT 48.5 Seconds (9.4-12.1) H* 05/11/17 03:20 Consult Discharge Plan - Plan Referrals: Corinna Farr [Primary Care Provider] -
[2017-05-11] MEDS: hydroCHLOROthiazide 25 MG TABLET PO SCH (17:16)
[2017-05-12] MEDS: Albuterol 2.5 MG/3 ML NEBULIZER IH SCH ×4 (03:31→19:58)
[2017-05-12] MEDS: Ampicillin/Sulbactam 3,000 MG in 0.9 % Sodium Chloride Mini Bag 100 ML IVPB SCH ×3 (04:15→21:25)
[2017-05-12] MEDS: *HR* HYDROcodone/Acet 5/325 mg TABLET PO PRN ×5 (04:20→22:09)
[2017-05-12 04:33] LABS: Basophils % 0.3 %; Eosinophils # 0.2 K/mcL (0.0-0.6); Eosinophils % 3.3 %; Hematocrit 31.6 % (35.3-44.9); Hemoglobin 9.4 g/dL (11.5-15.4); Immature Granulocytes % 0.7 % (0-4); Lymphocytes # 0.8 K/mcL (0.6-4.6); Mean Corpuscular HGB Conc 29.7 g/dL (31.6-35.5); Mean Corpuscular Hemoglobin 21.7 pg (28.0-33.3); Mean Platelet Volume 9.9 fL (9.4-12.4); Monocytes # 0.6 K/mcL (0.0-1.3); Monocytes % 8.6 %; Neutrophils # 5.5 K/mcL (1.6-8.9); Platelet Count 245 K/mcL (140-400); Red Blood Count 4.33 M/mcL (3.82-4.97); Segmented Neutrophils % 76.1 %
[2017-05-12 04:42] LABS: INR 3.8; Prothrombin Time 42.1 Seconds (9.4-12.1)
[2017-05-12 04:50] LABS: Albumin 2.6 g/dL (3.5-5.0); Albumin/Globulin Ratio 0.6 (1.1-2.2); Bilirubin,Total 0.3 mg/dL (0.2-1.2); Calcium 8.7 mg/dL (8.6-10.8); Globulin 4.5 g/dL (2.4-3.5); Potassium 3.9 mEq/L (3.5-4.5); Total Protein 7.1 g/dL (6.0-8.3)
[2017-05-12] MEDS: Metoprolol 100 MG TABLET PO SCH ×2 (08:48→21:25)
[2017-05-12] MEDS ORDERED: Vancomycin 1,250 MG in D5% in Water 250 ML IVPB ONE (09:00)
[2017-05-12] MEDS: Cholecalciferol (D-3) 1,000 UNIT TABLET PO SCH (09:06)
[2017-05-12] MEDS: Acyclovir 500 MG in D5% in Water 100 ML IVPB SCH (09:59)
[2017-05-12] MEDS: 0.9 % Sodium Chloride 1,000 ML IVC SCH (12:06)
[2017-05-12] MEDS: Miconazole 2% cream 118 GM TUBE TP SCH ×2 (12:06→21:27)
--- NOTE | 2017-05-12 16:33 | Internal Med Progress Note ---
Date of Encounter: 05/12/17 Time of Encounter: 10:15 - Assessment and plan (1) Cellulitis Current Visit: Yes Status: Acute Assessment and plan: Acute cellulitis of left flank and left lateral thigh - with serous drainage - slowly improving Continue IV Unasyn, IV Vancomycin, topical miconazole, dressing change Wound culture and blood culture - no growth Cardiac telemetry, labs in a.m., wound care consult, monitor closely Abdomen/Pelvis CT 05/06/17 10:01 1. Cellulitis with no evidence of abscess or soft tissue gas 2. No intra abdominopelvic abnormality Qualifiers: Site of cellulitis: extremity Site of cellulitis of extremity: lower extremity Laterality: left Qualified Code(s): L03.116 - Cellulitis of left lower limb (2) Acute kidney injury Current Visit: Yes Status: Acute Assessment and plan: Acute kidney injury - likely secondary to dehydration and due to antibiotic use Antibiotics to be renally adjusted by pharmacy Start IV fluids, encourage PO fluids, nephrology consult if renal function worsens Monitor closely, labs in a.m. (3) UTI (urinary tract infection) Current Visit: Yes Status: Acute Assessment and plan: UTI present on admission - culture positive for pansensitive Escherichia coli and pansensitive Klebsiella pneumoniae Continue IV Unasyn Qualifiers: Urinary tract infection type: site unspecified Hematuria presence: with hematuria Qualified Code(s): N39.0 - Urinary tract infection, site not specified; R31.9 - Hematuria, unspecified (4) Hypokalemia Current Visit: Yes Status: Acute Assessment and plan: Hypokalemia - improved, KCl replaced (5) Herpetic lesion Current Visit: Yes Status: Acute Assessment and plan: Herpetic lesion - lower lip, denies h/o any other HSV/STI infections concern for possible HSV wound, Acyclovir discontinued (6) Supratherapeutic INR Current Visit: Yes Status: Acute Assessment and plan: Hold warfarin in view of supratherapeutic INR Expected after she received a dose of Diflucan, Monitor closely No signs of active bleeding - vaginal spotting has improved Hold warfarin (7) DVT (deep venous thrombosis) Current Visit: Yes Status: Chronic Assessment and plan: INR is supratherapeutic, hold warfarin, repeat labs in a.m. Patient had a Doppler just prior to presentation revealed chronic thrombus to the right popliteal. She is supratherapeutic on Coumadin LE Venous Duplex - 05/02/2017: Right lower extremity: normal superficial exam. Lower extremity abnormal deep exam: right popliteal vein demonstrates chronic thrombosis. Left lower extremity: normal contralateral exam. Qualifiers: DVT location: lower extremity Affected thrombotic vein of extremity: popliteal Chronicity: chronic Laterality: right Qualified Code(s): I82.531 - Chronic embolism and thrombosis of right popliteal vein (8) Vaginal bleeding Current Visit: No Status: Chronic Assessment and plan: Patient stating she is still experiencing intermittent menses - improved Hemodynamically stable, H&H stable History of profuse vaginal bleeding in the past while on Xarelto (9) Morbid obesity with BMI of 70 and over, adult Current Visit: Yes Status: Chronic Assessment and plan: BMI 78.7, with physical deconditioning - needs physical therapy and ECF placement - Time Spent With Patient 25 - 35 minutes - Subjective Interval history: Examined this morning. Patient awake and alert. Not in any distress. Denies chest pain or shortness of breath. States she feels better today. Tolerating oral diet well. No fever. Hemodynamically stable. INR is supratherapeutic, but improving. Warfarin on hold. Vaginal spotting has improved. No clots. Cellulitis of left flank and left hip and left lateral thigh area is improving slowly. Patient's renal function is worse today. Creatinine is 2.22. IV antibiotics continued and to be renally adjusted. No other acute events or complaints. - Constitutional Vitals: Temp Pulse Resp BP Pulse Ox 98.1 F 67 15 127/53 93 05/12/17 15:24 05/12/17 15:24 05/12/17 15:24 05/12/17 15:24 05/12/17 15:24 General appearance: Present: A&O X 3, morbidly obese, pleasant, no acute distress, answers questions appropriately - Head Head exam: Present: atraumatic - Eye Eye exam: Present: EOMI - ENT ENT exam: Present: mucous membranes moist - Respiratory Respiratory exam: Present: decreased breath sounds (Slightly decreased in both bases, but otherwise clear to auscultation). Absent: rales, rhonchi, wheezes, tachypnea - Cardiovascular Cardiovascular exam: Present: RRR, +S1, +S2 - GI/Abdominal GI/Abdominal exam: Present: distended (Obese), soft, no peritoneal signs. Absent: firm, guarding, tenderness - Extremities Exam Extremities exam: Present: pedal edema (Bilateral lower leg 2+ edema), radial pulses palpable and symmetrical. Absent: cyanotic - Neurological Exam Neurological exam: Present: alert, oriented X3, no focal deficits. Absent: facial droop, speech deficit - Skin Additional comments: extensive erythema and cellulitis with tenderness over left flank, left thigh lateral aspect and left side of abdomen - improving daily, serous drainage present Internal Medicine: Result - Labs CBC & Chem 7: 05/12/17 04:20 05/12/17 04:20 Labs: Short CBC 05/12/17 Range/Units 04:20 WBC 7.2 (4.3-11.1) K/mcL Hgb 9.4 L (11.5-15.4) g/dL Hct 31.6 L (35.3-44.9) % Plt Count 245 (140-400) K/mcL Neutrophils # 5.5 (1.6-8.9) K/mcL BMP 05/12/17 04:20 Sodium 141 Potassium 3.9 Chloride 103 Carbon Dioxide 31 H BUN 10 Creatinine 2.22 H Glucose 101 H Calcium 8.7 Liver Function 05/12/17 Range/Units 04:20 Total Bilirubin 0.3 (0.2-1.2) mg/dL AST 15 (5-34) Units/L ALT 10 (0-55) Units/L Alkaline Phosphatase 47 (38-126) Units/L Albumin 2.6 L (3.5-5.0) g/dL - ABG Interpretation ABG results: PT/INR, D-dimer PT 42.1 Seconds (9.4-12.1) H 05/12/17 04:20 Consult Discharge Plan - Plan Referrals: Corinna Farr [Primary Care Provider] -
[2017-05-12] MEDS: hydroCHLOROthiazide 25 MG TABLET PO SCH (18:02)
[2017-05-13] MEDS: 0.9 % Sodium Chloride 1,000 ML IVC SCH ×2 (01:56→16:14)
[2017-05-13] MEDS: *HR* HYDROcodone/Acet 5/325 mg TABLET PO PRN ×4 (02:02→20:11)
[2017-05-13 02:10] LABS: Basophils % 0.5 %; Eosinophils # 0.2 K/mcL (0.0-0.6); Eosinophils % 3.2 %; Hematocrit 32.1 % (35.3-44.9); Hemoglobin 9.4 g/dL (11.5-15.4); Immature Granulocytes % 0.6 % (0-4); Immature Platelets 2.5 % (1.1-6.1); Lymphocytes % 15.9 %; Mean Corpuscular HGB Conc 29.3 g/dL (31.6-35.5); Mean Corpuscular Hemoglobin 21.4 pg (28.0-33.3); Mean Platelet Volume 9.8 fL (9.4-12.4); Monocytes # 0.5 K/mcL (0.0-1.3); Monocytes % 8.6 %; Neutrophils # 4.5 K/mcL (1.6-8.9); Platelet Count 242 K/mcL (140-400); Red Cell Distribution Width 22.1 % (11.5-14.5); Segmented Neutrophils % 71.2 %
[2017-05-13 02:14] LABS: INR 3.2; Prothrombin Time 34.8 Seconds (9.4-12.1)
[2017-05-13 02:20] LABS: Calcium 8.8 mg/dL (8.6-10.8); Potassium 4.2 mEq/L (3.5-4.5)
[2017-05-13] MEDS: Albuterol 2.5 MG/3 ML NEBULIZER IH SCH ×4 (03:17→21:18)
[2017-05-13] MEDS: Ampicillin/Sulbactam 3,000 MG in 0.9 % Sodium Chloride Mini Bag 100 ML IVPB SCH ×3 (04:38→20:12)
[2017-05-13] MEDS ORDERED: Vancomycin 1,000 MG in D5% in Water 250 ML IVPB ONE (07:19)
[2017-05-13] MEDS: Cholecalciferol (D-3) 1,000 UNIT TABLET PO SCH (09:50)
[2017-05-13] MEDS: Metoprolol 100 MG TABLET PO SCH ×2 (09:50→23:43)
[2017-05-13] MEDS: Miconazole 2% cream 118 GM TUBE TP SCH ×2 (09:51→23:43)
[2017-05-13] MEDS: Ondansetron 4 MG/2 ML VIAL IVP PRN (10:09)
--- NOTE | 2017-05-13 14:17 | Internal Med Progress Note ---
Date of Encounter: 05/13/17 Time of Encounter: 08:15 - Assessment and plan (1) Cellulitis Current Visit: Yes Status: Acute Assessment and plan: Acute cellulitis of left flank and left lateral thigh - with serous drainage - improving slowly Continue IV Unasyn, IV Vancomycin, topical miconazole, dressing change Wound culture and blood culture - no growth Cardiac telemetry, labs in a.m., wound care consult, monitor closely Abdomen/Pelvis CT 05/06/17 10:01 1. Cellulitis with no evidence of abscess or soft tissue gas 2. No intra abdominopelvic abnormality Discharge planning soon Qualifiers: Site of cellulitis: extremity Site of cellulitis of extremity: lower extremity Laterality: left Qualified Code(s): L03.116 - Cellulitis of left lower limb (2) Acute kidney injury Current Visit: Yes Status: Acute Assessment and plan: Acute kidney injury - likely secondary to dehydration and due to antibiotic use - creatinine has now improved slightly Antibiotics to be renally adjusted by pharmacy Start IV fluids, encourage PO fluids, nephrology consult if renal function worsens Monitor closely, labs in a.m. (3) UTI (urinary tract infection) Current Visit: Yes Status: Acute Assessment and plan: UTI present on admission - culture positive for pansensitive Escherichia coli and pansensitive Klebsiella pneumoniae Continue IV Unasyn Qualifiers: Urinary tract infection type: site unspecified Hematuria presence: with hematuria Qualified Code(s): N39.0 - Urinary tract infection, site not specified; R31.9 - Hematuria, unspecified (4) Hypokalemia Current Visit: Yes Status: Acute Assessment and plan: Hypokalemia - improved, KCl replaced (5) Herpetic lesion Current Visit: Yes Status: Acute Assessment and plan: Herpetic lesion - lower lip, denies h/o any other HSV/STI infections - improved Acyclovir discontinued (6) Supratherapeutic INR Current Visit: Yes Status: Acute Assessment and plan: Hold warfarin in view of supratherapeutic INR - now 3.2 No signs of active bleeding - vaginal spotting has improved Hold warfarin, monitor closely Restart warfarin when INR is at therapeutic range (7) DVT (deep venous thrombosis) Current Visit: Yes Status: Chronic Assessment and plan: INR is supratherapeutic, hold warfarin, repeat labs in a.m. Patient had a Doppler just prior to presentation revealed chronic thrombus to the right popliteal. She is supratherapeutic on Coumadin LE Venous Duplex - 05/02/2017: Right lower extremity: normal superficial exam Lower extremity abnormal deep exam: right popliteal vein demonstrates chronic thrombosis Left lower extremity: normal contralateral exam Qualifiers: DVT location: lower extremity Affected thrombotic vein of extremity: popliteal Chronicity: chronic Laterality: right Qualified Code(s): I82.531 - Chronic embolism and thrombosis of right popliteal vein (8) Vaginal bleeding Current Visit: No Status: Chronic Assessment and plan: Patient stating she is still experiencing intermittent menses - resolved Hemodynamically stable, H&H stable History of profuse vaginal bleeding in the past while on Xarelto (9) Morbid obesity with BMI of 70 and over, adult Current Visit: Yes Status: Chronic Assessment and plan: BMI 79.1, with physical deconditioning - needs physical therapy and ECF placement - Time Spent With Patient 25 - 35 minutes - Subjective Interval history: Examined this morning. Patient awake and alert. Not in any distress. Denies chest pain or shortness of breath. States she feels better today. Tolerating oral diet well. Ambulating independently. No fever. Hemodynamically stable. INR is supratherapeutic, but improving. Warfarin on hold. Vaginal spotting has improved. Cellulitis of left flank and left hip and left lateral thigh area is improving. Patient's renal function is worse today. Creatinine is 1.94. IV antibiotics continued and to be renally adjusted. No other acute events or complaints. - Constitutional Vitals: Temp Pulse Resp BP Pulse Ox 97.6 F 57 16 142/69 90 05/13/17 11:07 05/13/17 11:07 05/13/17 11:07 05/13/17 11:07 05/13/17 11:07 General appearance: Present: cooperative, A&O X 3, morbidly obese, pleasant, no acute distress, answers questions appropriately - Head Head exam: Present: atraumatic - Eye Eye exam: Present: EOMI - ENT ENT exam: Present: mucous membranes moist - Respiratory Respiratory exam: Present: decreased breath sounds. Absent: rales, rhonchi, wheezes, tachypnea Additional comments: Slightly decreased in both bases, but otherwise clear to auscultation - Cardiovascular Cardiovascular exam: Present: RRR, +S1, +S2 - GI/Abdominal GI/Abdominal exam: Present: distended (Obese), soft. Absent: firm, guarding, tenderness - Extremities Exam Extremities exam: Present: pedal edema (bilateral lower leg 2+ edema), radial pulses palpable and symmetrical. Absent: cyanotic - Neurological Exam Neurological exam: Present: alert, oriented X3, no focal deficits. Absent: facial droop, speech deficit Internal Medicine: Result - Labs CBC & Chem 7: 05/13/17 02:03 05/13/17 02:03 Labs: Short CBC 05/13/17 Range/Units 02:03 WBC 6.3 (4.3-11.1) K/mcL Hgb 9.4 L (11.5-15.4) g/dL Hct 32.1 L (35.3-44.9) % Plt Count 242 (140-400) K/mcL Neutrophils # 4.5 (1.6-8.9) K/mcL BMP 05/13/17 02:03 Sodium 143 Potassium 4.2 Chloride 105 Carbon Dioxide 31 H BUN 9 Creatinine 1.94 H Glucose 98 Calcium 8.8 - ABG Interpretation ABG results: PT/INR, D-dimer PT 34.8 Seconds (9.4-12.1) H 05/13/17 02:03 Consult Discharge Plan - Plan Referrals: Corinna Farr [Primary Care Provider] -
[2017-05-13] MEDS ORDERED: *HR* Warfarin 2.5 MG TABLET PO ONE (18:00)
[2017-05-13] MEDS: hydroCHLOROthiazide 25 MG TABLET PO SCH (18:17)
[2017-05-14] MEDS: *HR* HYDROcodone/Acet 5/325 mg TABLET PO PRN ×6 (00:11→21:45)
[2017-05-14] MEDS: Albuterol 2.5 MG/3 ML NEBULIZER IH SCH ×4 (03:28→20:01)
[2017-05-14] MEDS: Ampicillin/Sulbactam 3,000 MG in 0.9 % Sodium Chloride Mini Bag 100 ML IVPB SCH ×3 (04:12→20:27)
[2017-05-14 06:46] LABS: Hemoglobin 9.8 g/dL (11.5-15.4); Immature Granulocytes % 0.8 % (0-4)
[2017-05-14 06:48] LABS: Basophils % 0.6 %; Eosinophils # 0.3 K/mcL (0.0-0.6); Eosinophils % 3.8 %; Hematocrit 33.6 % (35.3-44.9); Immature Platelets 2.5 % (1.1-6.1); Lymphocytes # 1.3 K/mcL (0.6-4.6); Lymphocytes % 19.5 %; Mean Corpuscular HGB Conc 29.2 g/dL (31.6-35.5); Mean Corpuscular Hemoglobin 21.6 pg (28.0-33.3); Mean Platelet Volume 9.6 fL (9.4-12.4); Monocytes # 0.6 K/mcL (0.0-1.3); Monocytes % 8.9 %; Neutrophils # 4.4 K/mcL (1.6-8.9); Platelet Count 252 K/mcL (140-400); Red Blood Count 4.54 M/mcL (3.82-4.97); Red Cell Distribution Width 22.8 % (11.5-14.5); Segmented Neutrophils % 66.4 %
[2017-05-14 06:58] LABS: Calcium 9.1 mg/dL (8.6-10.8); Potassium 4.2 mEq/L (3.5-4.5)
[2017-05-14 07:12] LABS: Hypochromasia Present (Not Present)
[2017-05-14 07:43] LABS: INR 2.8; Prothrombin Time 30.5 Seconds (9.4-12.1)
[2017-05-14] MEDS ORDERED: Vancomycin 1,250 MG in D5% in Water 250 ML IVPB ONE (08:24)
[2017-05-14] MEDS: Metoprolol 100 MG TABLET PO SCH ×2 (09:18→23:17)
[2017-05-14] MEDS: Cholecalciferol (D-3) 1,000 UNIT TABLET PO SCH (09:19)
[2017-05-14] MEDS: Miconazole 2% cream 118 GM TUBE TP SCH ×2 (09:19→23:18)
[2017-05-14] MEDS: 0.9 % Sodium Chloride 1,000 ML IVC SCH ×2 (11:14→11:15)
--- NOTE | 2017-05-14 16:09 | Internal Med Progress Note ---
Date of Encounter: 05/14/17 Time of Encounter: 08:45 - Assessment and plan (1) Cellulitis Current Visit: Yes Status: Acute Assessment and plan: Acute cellulitis of left flank and left lateral thigh - with serous drainage - improved Continue IV Unasyn, IV Vancomycin, topical miconazole, dressing change Wound culture and blood culture - no growth Urine culture - Escherichia coli and Klebsiella Cardiac telemetry, labs in a.m., wound care consult, monitor closely Abdomen/Pelvis CT 05/06/17 10:01 1. Cellulitis with no evidence of abscess or soft tissue gas 2. No intra abdominopelvic abnormality Anticipate discharge in a.m. Qualifiers: Site of cellulitis: extremity Site of cellulitis of extremity: lower extremity Laterality: left Qualified Code(s): L03.116 - Cellulitis of left lower limb (2) Acute kidney injury Current Visit: Yes Status: Acute Assessment and plan: Acute kidney injury - likely secondary to dehydration and due to antibiotic use - slowly improving Antibiotics to be renally adjusted by pharmacy Continue IV fluids, encourage PO fluids, nephrology consult if renal function worsens Monitor closely, labs in a.m. (3) UTI (urinary tract infection) Current Visit: Yes Status: Acute Assessment and plan: UTI present on admission - culture positive for pansensitive Escherichia coli and pansensitive Klebsiella pneumoniae Continue IV Unasyn, discharge home on Levaquin Qualifiers: Urinary tract infection type: site unspecified Hematuria presence: with hematuria Qualified Code(s): N39.0 - Urinary tract infection, site not specified; R31.9 - Hematuria, unspecified (4) Hypokalemia Current Visit: Yes Status: Acute Assessment and plan: Hypokalemia - improved, KCl replaced (5) Herpetic lesion Current Visit: Yes Status: Acute Assessment and plan: Herpetic lesion - lower lip - improved Acyclovir discontinued denies h/o any other HSV/STI infections (6) Supratherapeutic INR Current Visit: Yes Status: Acute Assessment and plan: Hold warfarin in view of supratherapeutic INR - now 2.8 No signs of active bleeding - vaginal spotting has improved Warfarin can be restarted, pharmacy to dose warfarin (7) DVT (deep venous thrombosis) Current Visit: Yes Status: Chronic Assessment and plan: INR is now therapeutic range - restart warfarin, repeat labs in a.m. 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 Patient awake and alert. Not in any distress. Denies chest pain or shortness of breath. States she feels better today. Tolerating oral diet well. Ambulating independently. No fever. Hemodynamically stable. INR is now therapeutic. Warfarin on hold. Vaginal spotting has resolved. Cellulitis of left flank and left hip and left lateral thigh area is improving. Creatinine is 1. 68. IV antibiotics continued and to be renally adjusted. No other acute events or complaints. - Constitutional Vitals: Temp Pulse Resp BP Pulse Ox 97.9 F 54 16 115/69 92 05/14/17 10:58 05/14/17 10:58 05/14/17 10:58 05/14/17 10:58 05/14/17 10:58 General appearance: Present: cooperative, A&O X 3, morbidly obese, pleasant, no acute distress, answers questions appropriately - Head Head exam: Present: atraumatic - Eye Eye exam: Present: EOMI - ENT ENT exam: Present: mucous membranes moist - Respiratory Respiratory exam: Present: decreased breath sounds (Slightly decreased in both bases, otherwise clear to auscultation). Absent: rales, rhonchi, wheezes, tachypnea - Cardiovascular Cardiovascular exam: Present: RRR, +S1, +S2 - GI/Abdominal GI/Abdominal exam: Present: distended (Obese), soft. Absent: firm, guarding, tenderness - Extremities Exam Extremities exam: Present: pedal edema (Bilateral leg 2+ edema), radial pulses palpable and symmetrical. Absent: cyanotic - Neurological Exam Neurological exam: Present: alert, oriented X3, no focal deficits. Absent: facial droop, speech deficit Internal Medicine: Result - Labs CBC & Chem 7: 05/14/17 06:35 05/14/17 06:35 Labs: Short CBC 05/14/17 Range/Units 06:35 WBC 6.6 (4.3-11.1) K/mcL Hgb 9.8 L (11.5-15.4) g/dL Hct 33.6 L (35.3-44.9) % Plt Count 252 (140-400) K/mcL Neutrophils # 4.4 (1.6-8.9) K/mcL BMP 05/14/17 06:35 Sodium 142 Potassium 4.2 Chloride 103 Carbon Dioxide 30 H BUN 9 Creatinine 1.68 H Glucose 98 Calcium 9.1 - ABG Interpretation ABG results: PT/INR, D-dimer PT 30.5 Seconds (9.4-12.1) H 05/14/17 07:20 Consult Discharge Plan - Plan Referrals: Corinna Farr [Primary Care Provider] -
[2017-05-14] MEDS: hydroCHLOROthiazide 25 MG TABLET PO SCH (17:26)
[2017-05-14] MEDS ORDERED: *HR* Warfarin 5 MG TABLET PO ONE (18:00)
[2017-05-15] MEDS: *HR* HYDROcodone/Acet 5/325 mg TABLET PO PRN ×5 (02:13→19:45)
[2017-05-15] MEDS: Ampicillin/Sulbactam 3,000 MG in 0.9 % Sodium Chloride Mini Bag 100 ML IVPB SCH ×3 (04:47→19:46)
[2017-05-15 04:54] LABS: Eosinophils % 2.8 %; Hematocrit 32.8 % (35.3-44.9); Hemoglobin 9.5 g/dL (11.5-15.4); Immature Granulocytes % 0.8 % (0-4); Lymphocytes % 15.3 %; Mean Corpuscular Hemoglobin 21.2 pg (28.0-33.3); Mean Corpuscular Volume 73.2 fL (83.0-100.0); Monocytes % 9.3 %; Platelet Count 250 K/mcL (140-400); Red Blood Count 4.48 M/mcL (3.82-4.97); Red Cell Distribution Width 22.8 % (11.5-14.5); Segmented Neutrophils % 71.2 %
[2017-05-15 04:55] LABS: Basophils % 0.6 %; Eosinophils # 0.2 K/mcL (0.0-0.6); Monocytes # 0.6 K/mcL (0.0-1.3); Neutrophils # 4.6 K/mcL (1.6-8.9)
[2017-05-15 04:59] LABS: Prothrombin Time 32.6 Seconds (9.4-12.1)
[2017-05-15 05:11] LABS: Calcium 9.2 mg/dL (8.6-10.8); Potassium 4.1 mEq/L (3.5-4.5)
[2017-05-15] MEDS: Albuterol 2.5 MG/3 ML NEBULIZER IH SCH ×4 (05:21→22:13)
[2017-05-15] MEDS: Cholecalciferol (D-3) 1,000 UNIT TABLET PO SCH (08:41)
[2017-05-15] MEDS: Metoprolol 100 MG TABLET PO SCH ×2 (08:41→19:45)
[2017-05-15] MEDS ORDERED: Furosemide 40 MG/4 ML VIAL IVP ONE (08:42)
[2017-05-15] MEDS: Miconazole 2% cream 118 GM TUBE TP SCH ×2 (08:44→20:19)
[2017-05-15] MEDS: Vancomycin 1,250 MG in D5% in Water 250 ML IVPB SCH (10:20)
[2017-05-15] MEDS: 0.9 % Sodium Chloride 1,000 ML IVC SCH ×2 (10:29→15:00)
[2017-05-15] MEDS: Ondansetron 4 MG/2 ML VIAL IVP PRN (14:54)
[2017-05-15] MEDS: hydroCHLOROthiazide 25 MG TABLET PO SCH (17:06)
--- NOTE | 2017-05-15 17:11 | Internal Med Progress Note ---
Date of Encounter: 05/15/17 Time of Encounter: 08:40 - Assessment and plan (1) Cellulitis Current Visit: Yes Status: Acute Assessment and plan: Acute cellulitis of left flank and left lateral thigh - with serous drainage - now improved Continue IV Unasyn, IV Vancomycin, topical miconazole, dressing change Wound culture and blood culture - no growth Urine culture - Escherichia coli and Klebsiella Cardiac telemetry, labs in a.m., wound care consult, monitor closely Abdomen/Pelvis CT 05/06/17 10:01 1. Cellulitis with no evidence of abscess or soft tissue gas 2. No intra abdominopelvic abnormality Anticipate discharge to F a.m., can be discharged on Augmentin Qualifiers: Site of cellulitis: extremity Site of cellulitis of extremity: lower extremity Laterality: left Qualified Code(s): L03.116 - Cellulitis of left lower limb (2) Acute kidney injury Current Visit: Yes Status: Acute Assessment and plan: Acute kidney injury - likely secondary to dehydration and due to antibiotic use - improved Antibiotics to be renally adjusted by pharmacy encourage PO fluids, nephrology consult if renal function worsens (3) UTI (urinary tract infection) Current Visit: Yes Status: Acute Assessment and plan: UTI present on admission - culture positive for pansensitive Escherichia coli and pansensitive Klebsiella pneumoniae Continue IV Unasyn, discharge on Augmentin Qualifiers: Urinary tract infection type: site unspecified Hematuria presence: with hematuria Qualified Code(s): N39.0 - Urinary tract infection, site not specified; R31.9 - Hematuria, unspecified (4) Hypokalemia Current Visit: Yes Status: Acute Assessment and plan: Hypokalemia - resolved (5) Herpetic lesion Current Visit: Yes Status: Acute Assessment and plan: Herpetic lesion - lower lip - now improved Acyclovir discontinued denies h/o any other HSV/STI infections (6) Supratherapeutic INR Current Visit: Yes Status: Acute Assessment and plan: Hold warfarin in view of supratherapeutic INR - now 3.0 No signs of active bleeding - vaginal spotting has improved Warfarin can be restarted, pharmacy to dose warfarin (7) DVT (deep venous thrombosis) Current Visit: Yes Status: Chronic Assessment and plan: INR is now therapeutic range - pharmacy to dose warfarin, repeat labs in a.m. 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 Patient awake and alert. Not in any distress. Denies chest pain or shortness of breath. Tolerating oral diet well. Ambulating independently. No fever. Hemodynamically stable. INR is now therapeutic. Warfarin on hold. Vaginal spotting has resolved. Patient complains of worsening bilateral edema. One dose IV Lasix to be given today. Patient also complains of generalized weakness and difficulty ambulating. Cellulitis of left flank and left hip and left lateral thigh area is improving. Creatinine is 1.45. No other acute events or complaints. Anticipate discharge to ECF soon. - Constitutional Vitals: Temp Pulse Resp BP Pulse Ox 98.0 F 60 20 109/59 95 05/15/17 14:51 05/15/17 14:51 05/15/17 14:51 05/15/17 14:51 05/15/17 14:51 General appearance: Present: cooperative, A&O X 3, morbidly obese, pleasant, no acute distress, answers questions appropriately - Head Head exam: Present: atraumatic - Eye Eye exam: Present: EOMI - ENT ENT exam: Present: mucous membranes moist - Respiratory Respiratory exam: Present: CTAB. Absent: rales, rhonchi, wheezes, tachypnea - Cardiovascular Cardiovascular exam: Present: RRR, +S1, +S2 - GI/Abdominal GI/Abdominal exam: Present: distended (Obese), soft. Absent: firm, guarding, tenderness - Extremities Exam Extremities exam: Present: pedal edema (Bilateral 2+ pitting edema), radial pulses palpable and symmetrical. Absent: cyanotic - Neurological Exam Neurological exam: Present: alert, oriented X3, no focal deficits. Absent: facial droop, speech deficit Internal Medicine: Result - Labs CBC & Chem 7: 05/15/17 04:35 05/15/17 04:35 Labs: Short CBC 05/15/17 Range/Units 04:35 WBC 6.5 (4.3-11.1) K/mcL Hgb 9.5 L (11.5-15.4) g/dL Hct 32.8 L (35.3-44.9) % Plt Count 250 (140-400) K/mcL Neutrophils # 4.6 (1.6-8.9) K/mcL BMP 05/15/17 04:35 Sodium 140 Potassium 4.1 Chloride 103 Carbon Dioxide 30 H BUN 8 Creatinine 1.45 H Glucose 95 Calcium 9.2 - ABG Interpretation ABG results: PT/INR, D-dimer PT 32.6 Seconds (9.4-12.1) H 05/15/17 04:35 Consult Discharge Plan - Plan Referrals: Corinna Farr [Primary Care Provider] -
[2017-05-15] MEDS ORDERED: *HR* Warfarin 2.5 MG TABLET PO ONE (18:00)
[2017-05-15] MEDS ORDERED: *HR* Morphine 2 MG/ML SYRINGE IVP PRN (22:30)
[2017-05-15] MEDS: *HR* OxyCODONE/APAP 5/325 TABLET PO PRN (23:34)
[2017-05-16] MEDS: Ondansetron 4 MG/2 ML VIAL IVP PRN ×3 (00:17→22:30)
[2017-05-16] MEDS: *HR* OxyCODONE/APAP 5/325 TABLET PO PRN ×4 (04:13→20:34)
[2017-05-16] MEDS: Ampicillin/Sulbactam 3,000 MG in 0.9 % Sodium Chloride Mini Bag 100 ML IVPB SCH ×3 (04:14→20:33)
[2017-05-16] MEDS: Albuterol 2.5 MG/3 ML NEBULIZER IH SCH ×4 (04:24→22:26)
[2017-05-16] MEDS: 0.9 % Sodium Chloride 1,000 ML IVC SCH (04:25)
[2017-05-16 05:27] LABS: INR 3.5; Prothrombin Time 38.3 Seconds (9.4-12.1)
[2017-05-16] MEDS: Vancomycin 1,250 MG in D5% in Water 250 ML IVPB SCH (09:09)
[2017-05-16] MEDS: Cholecalciferol (D-3) 1,000 UNIT TABLET PO SCH (09:10)
[2017-05-16] MEDS: Metoprolol 100 MG TABLET PO SCH ×2 (09:10→20:35)
[2017-05-16] MEDS: Miconazole 2% cream 118 GM TUBE TP SCH ×2 (09:10→20:35)
[2017-05-16] MEDS ORDERED: Aminoglycoside Consult 1 EACH MC ONE (09:18)
--- NOTE | 2017-05-16 16:51 | Internal Med Progress Note ---
Date of Encounter: 05/16/17 Time of Encounter: 16:43 - Assessment and plan (1) DVT (deep venous thrombosis) Current Visit: Yes Status: Chronic Assessment and plan: INR is now therapeutic range - pharmacy to dose warfarin, repeat labs in a.m. Patient had a Doppler just prior to presentation revealed chronic thrombus to the right popliteal LE Venous Duplex - 05/02/2017: Right lower extremity: normal superficial exam Lower extremity abnormal deep exam: right popliteal vein demonstrates chronic thrombosis Left lower extremity: normal contralateral exam Qualifiers: DVT location: lower extremity Affected thrombotic vein of extremity: popliteal Chronicity: chronic Laterality: right Qualified Code(s): I82.531 - Chronic embolism and thrombosis of right popliteal vein (2) Vaginal bleeding Current Visit: No Status: Chronic Assessment and plan: Patient stating she is still experiencing intermittent menses She was placed on Megsterol 40mg BID few months ago for vaginal bleeding - which resolved now she is off the Megsterol for a month and started having vaginal bleeding again does need further work up -Transvaginal U/S and possible endometrial biopsy Spoke to our Schedule Planning Manager who recommend to transfer the pt to [facility] since we do not have proper equipment / bed to do pelvic exam Will talk to her regular Senior Php Developer from [facility] in AM Mean while cont close monitoring Hemodynamically stable, H&H stable History of profuse vaginal bleeding in the past while on Xarelto (3) UTI (urinary tract infection) Current Visit: Yes Status: Acute Assessment and plan: UTI present on admission - culture positive for pansensitive Escherichia coli and pansensitive Klebsiella pneumoniae Continue IV Unasyn Qualifiers: Urinary tract infection type: site unspecified Hematuria presence: with hematuria Qualified Code(s): N39.0 - Urinary tract infection, site not specified; R31.9 - Hematuria, unspecified (4) Cellulitis Current Visit: Yes Status: Acute Assessment and plan: Acute cellulitis of left flank and left lateral thigh - with serous drainage - now improved Continue IV Unasyn, topical miconazole, dressing change Wound culture and blood culture - no growth Urine culture - Escherichia coli and Klebsiella d/c Vancomycin Abdomen/Pelvis CT 05/06/17 10:01 1. Cellulitis with no evidence of abscess or soft tissue gas 2. No intra abdominopelvic abnormality Qualifiers: Site of cellulitis: extremity Site of cellulitis of extremity: lower extremity Laterality: left Qualified Code(s): L03.116 - Cellulitis of left lower limb (5) Acute kidney injury Current Visit: Yes Status: Acute Assessment and plan: Acute kidney injury - likely secondary to dehydration and due to antibiotic use - improved Antibiotics to be renally adjusted by pharmacy encourage PO fluids improving avoid nephro toxic meds (6) Iron deficiency anemia Current Visit: No Status: Chronic Assessment and plan: on iron supplements Qualifiers: Iron deficiency anemia type: chronic blood loss Qualified Code(s): D50.0 - Iron deficiency anemia secondary to blood loss (chronic) (7) Hypertension Current Visit: No Status: Chronic Assessment and plan: stable with current meds Qualifiers: Hypertension type: essential hypertension Qualified Code(s): I10 - Essential (primary) hypertension (8) Hypothyroidism Current Visit: No Status: Chronic Assessment and plan: TSH checked earlier this year, normal Qualifiers: Hypothyroidism type: unspecified Qualified Code(s): E03.9 - Hypothyroidism , unspecified (9) Morbid obesity with BMI of 70 and over, adult Current Visit: Yes Status: Chronic Assessment and plan: BMI 78.6, with physical deconditioning - needs physical therapy and ECF placement - Subjective Interval history: This is a 52 y/o F with morbid obesity, CHF, COPD, Hypoventilation syndrome, HAMMAD , HTN and Fibromyalgia admitted here with Rt leg DVT and Left flank cellulitis. Pt was placed on heparin gtt intially and switched to coumadin. She happened to have vaginal bleeding now from last few days. She also c/o lower abdomen cramping pain last night. Denied any CP / SOB - Constitutional Vitals: Temp Pulse Resp BP Pulse Ox 98.1 F 68 16 144/77 91 05/16/17 15:06 05/16/17 15:06 05/16/17 15:06 05/16/17 15:06 05/16/17 15:06 General appearance: Present: cooperative, A&O X 3, morbidly obese, pleasant, no acute distress, answers questions appropriately - Head Head exam: Present: atraumatic, normal inspection - Respiratory Respiratory exam: Present: decreased breath sounds, wheezes. Absent: respiratory distress, rhonchi - Cardiovascular Cardiovascular exam: Present: RRR, +S1, +S2. Absent: systolic murmur - Extremities Exam Extremities exam: Present: pedal edema. Absent: calf tenderness, tenderness - Back Exam Back exam: Absent: CVA tenderness (L), CVA tenderness (R) - Skin Skin exam: Present: erythema Additional comments: 15 cm size erythematous rash over Left flank and letral abdomen wall region Internal Medicine: Result - Labs CBC & Chem 7: 05/15/17 04:35 05/15/17 04:35 - ABG Interpretation ABG results: PT/INR, D-dimer PT 38.3 Seconds (9.4-12.1) H 05/16/17 04:15 Consult Discharge Plan - Plan Referrals: Corinna Farr [Primary Care Provider] -
--- NOTE | 2017-05-16 21:07 | OB/GYN Consult Note ---
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 Patient was seen by Dr. Medel 10/25/2016 for same complaint. Which ultrasound measured and edometrium if 12.8mm and ovaries were not visualized. Patient was referred and care transferred to [facility] oncology. When entering the room patient was on the phone. Patient got off the phone and reported having "contractions that only happen at night". Patient states that Megesterol stopped her bleeding last time she had the same spotting. Patient states she cannot remember when LMP was. 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 Patient reports EMB at [facility] was benign and patient cancelled her D&C. OB history patient is a . Patient reports 4 sections and 1 SAB. Discussed with patient POC and that until patient's bleeding has been evaluated she should not start Megesterol. Discussed patient with Dr. James and transfer to [facility] clerical warehouseman oncology is recommended for further evaluation and treatment. Past Med Surg Social Fam HX - Past Medical History Medical history: arthritis, asthma, CHF, COPD, fibromyalgia, hypertension, thyroid disease, other Psychiatric history: anxiety - Past Surgical History Surgical History: (x4) - Social History Smoking Status: Former smoker Smokeless Tobacco Status: No Alcohol use: none Drug use: none - Family History Mother Adopted: No Family Member Ethnicity: Non- Living Status: Still Living Hx Family Cardiac Disorders: Yes Hx Family Respiratory Disorders: Yes Hx Family Cancer: Yes (breast uterine) Hx Family GI Disorders: No Hx Family Endocrine Disorder: Yes (DM) Hx Family Neuromuscular Disorders: No Hx Family Neurologic Disorders: No Hx Family HEENT Disorders: No Hx Family Autoimmune Disorders: No Brother Living Status: Medications and Allergies Alprazolam [Xanax] 0.5 mg PO TID PRN 05/11/15 [History] Famotidine [Pepcid] 20 mg PO BID PRN 05/11/15 [History] Metoprolol [Lopressor] 100 mg PO BID 05/11/15 [History] Levothyroxine [Synthroid] 112 mcg PO DAILY 10/19/16 [History] HYDROcodone/Acet 5/325 mg [[place] 5-325 mg] 1 tab PO Q4HR PRN #40 tablet [Rx] Albuterol Sulfate [Albuterol Inhaler] 2 puff IH Q4H PRN 11/01/16 [History] Loratadine [Claritin] 10 mg PO DAILY PRN 11/01/16 [History] hydroCHLOROthiazide [Hydrochlorothiazide] 25 mg PO QPM 02/10/17 [History] Ergocalciferol (VITAMIN D2) [Vitamin D2] 50,000 unit PO QWEEK 04/28/17 [History] Albuterol Neb [Proventil Neb] 2.5 mg IH Q6H PRN 05/02/17 [History] Warfarin [Coumadin] 3.75 mg PO TH 05/02/17 [History] Warfarin [Coumadin] 7.5 mg PO [id number] 05/02/17 [History] 3 Allergy/AdvReac Type Severity Reaction Status Date / Time aspirin Allergy Swelling Verified 04/28/17 10:44 of Lip/Tongue/Throat ibuprofen Allergy Swelling Verified 04/28/17 10:44 of Lip/Tongue/Throat NSAIDS (Non-Steroidal Allergy Rash Verified 04/28/17 10:44 Anti-Inflamma prednisolone Allergy Rash Verified 04/28/17 10:44 prednisone Allergy Swelling Verified 04/28/17 10:44 of Lip/Tongue/Throat Sulfa (Sulfonamide Allergy Hives Verified 04/28/17 10:44 Antibiotics) ketorolac [From Toradol] AdvReac Nausea Verified 04/28/17 10:44 tramadol [From Ultram] AdvReac Nausea Verified 04/28/17 10:44 Exam - Vital Signs Vital signs: Initial Vital Signs Temp Pulse Resp BP Pulse Ox 99.1 F 87 18 198/151 96 05/02/17 17:26 05/02/17 17:26 05/02/17 17:26 05/02/17 17:26 05/02/17 17:26 - Constitutional Constitutional: well developed, well nourished, morbidly obese - HEENT HEENT: Normocephaly, Mucus Membranes Moist Results Result Diagrams: 05/15/17 04:35 05/15/17 04:35 Abnormal lab results Hgb 9.5 g/dL (11.5-15.4) L 05/15/17 04:35 Hct 32.8 % (35.3-44.9) L 05/15/17 04:35 MCV 73.2 fL (83.0-100.0) L 05/15/17 04:35 MCH 21.2 pg (28.0-33.3) L 05/15/17 04:35 MCHC 29.0 g/dL (31.6-35.5) L 05/15/17 04:35 RDW 22.8 % (11.5-14.5) H 05/15/17 04:35 Nucleated RBCs/100 WBC 0.2 /100 WBC (0) H 05/09/17 06:43 Polychromasia 1+ (Not Present) A 05/10/17 08:43 Hypochromasia Present (Not Present) A 05/14/17 06:35 Anisocytosis 1+ (Not Present) A 05/10/17 08:43 Microcytosis Present (Not Present) A 05/10/17 08:43 Tear Drop Cells 1+ (Not Present) A 05/09/17 06:43 PT 38.3 Seconds (9.4-12.1) H 05/16/17 04:15 Carbon Dioxide 30 mEq/L (19-29) H 05/15/17 04:35 Creatinine 1.45 mg/dL (0.57-1.11) H 05/15/17 04:35 Est GFR ( Amer) 46 (> 60) L 05/15/17 04:35 Est GFR (Non-Af Amer) 38 (> 60) L 05/15/17 04:35 POC Glucose 96 (58-89) H 05/02/17 17:36 Iron 10 mcg/dL (50-170) L 05/04/17 03:28 % Saturation 3 % (15-50) L 05/04/17 03:28 Troponin I 0.06 ng/mL (0-0.03) H* 05/04/17 03:28 Albumin 2.6 g/dL (3.5-5.0) L 05/12/17 04:20 Globulin 4.5 g/dL (2.4-3.5) H 05/12/17 04:20 Albumin/Globulin Ratio 0.6 (1.1-2.2) L 05/12/17 04:20 HDL Cholesterol 31 mg/dL (40-59) L 05/10/17 08:43 Ur Specimen Adequacy See below A 05/02/17 23:45 Urine Color Red (Yellow) A 05/02/17 23:45 Urine Clarity Turbid (Clear) A 05/02/17 23:45 Urine Protein 100 mg/dL (Neg-Trace) H 05/02/17 23:45 Urine Ketones 15 mg/dL (Negative) H 05/02/17 23:45 Urine Blood Large (Negative) H 05/02/17 23:45 Urine Nitrite Positive (Negative) A 05/02/17 23:45 Ur Leukocyte Esterase Small (Negative) H 05/02/17 23:45 Ur Culture Indicated? YES (NO) A 05/02/17 23:45 All other labs normal. Consult Discharge Plan - Plan Referrals: Corinna Farr [Primary Care Provider] -
[2017-05-17] MEDS: *HR* OxyCODONE/APAP 5/325 TABLET PO PRN ×6 (00:28→23:58)
[2017-05-17] MEDS: Albuterol 2.5 MG/3 ML NEBULIZER IH SCH ×4 (03:35→19:41)
[2017-05-17] MEDS: 0.9 % Sodium Chloride 1,000 ML IVC SCH (04:00)
[2017-05-17] MEDS: Ampicillin/Sulbactam 3,000 MG in 0.9 % Sodium Chloride Mini Bag 100 ML IVPB SCH ×2 (04:59→12:36)
[2017-05-17 07:13] LABS: Calcium 9.5 mg/dL (8.6-10.8); Magnesium 1.6 mg/dL (1.6-2.6); Potassium 3.8 mEq/L (3.5-4.5)
[2017-05-17 07:14] LABS: Immature Granulocytes % 0.7 % (0-4)
[2017-05-17 07:15] LABS: Basophils % 0.9 %; Eosinophils # 0.1 K/mcL (0.0-0.6); Eosinophils % 1.8 %; Lymphocytes # 0.9 K/mcL (0.6-4.6); Lymphocytes % 20.9 %; Mean Corpuscular HGB Conc 29.4 g/dL (31.6-35.5); Mean Corpuscular Hemoglobin 22.1 pg (28.0-33.3); Mean Corpuscular Volume 75.1 fL (83.0-100.0); Mean Platelet Volume 10.2 fL (9.4-12.4); Monocytes # 0.6 K/mcL (0.0-1.3); Monocytes % 12.7 %; Neutrophils # 2.8 K/mcL (1.6-8.9); Platelet Count 240 K/mcL (140-400); Red Blood Count 4.53 M/mcL (3.82-4.97); Red Cell Distribution Width 24.1 % (11.5-14.5)
[2017-05-17 07:43] LABS: Prothrombin Time 44.5 Seconds (9.4-12.1)
[2017-05-17 07:58] LABS: Anisocytosis 3+ (Not Present); Hypochromasia Present (Not Present); Microcytosis Present (Not Present); Platelet Estimate Normal (Normal); Polychromasia 1+ (Not Present)
[2017-05-17] MEDS: Cholecalciferol (D-3) 1,000 UNIT TABLET PO SCH (09:29)
[2017-05-17] MEDS: Metoprolol 100 MG TABLET PO SCH ×2 (09:29→20:54)
[2017-05-17] MEDS: Miconazole 2% cream 118 GM TUBE TP SCH ×2 (09:30→20:54)
[2017-05-17] MEDS: Neosporin OINT 15 GM TUBE TP SCH ×2 (14:09→20:54)
[2017-05-17] MEDS ORDERED: *HR* Phytonadione 5 MG TABLET PO ONE (14:41)
--- NOTE | 2017-05-17 14:43 | Internal Med Progress Note ---
Date of Encounter: 05/17/17 Time of Encounter: 14:20 - Assessment and plan (1) DVT (deep venous thrombosis) Current Visit: Yes Status: Chronic Assessment and plan: Patient had a Doppler just prior to presentation revealed chronic thrombus to the right popliteal LE Venous Duplex on 05/02/2017 showed chronic non occlusive popliteal vein DVT of Rt leg She did mention she was on Xarelto before which was stopped due to her worsening vaginal bleeding. 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 (2) Vaginal bleeding Current Visit: No Status: Chronic Assessment and plan: Patient stating she is still experiencing intermittent menstrual bleeding / irene menopausal bleeding She was placed on Megsterol 40mg BID few months ago for vaginal bleeding - which resolved now she is off the Megsterol for a month and started having vaginal bleeding again She was scheduled for D & C @ [facility] few weeks ago, but pt never went for that test Spoke to our Form Builder who recommend to transfer the pt to [facility] since we do not have proper equipment / bed to do pelvic exam I talked to [facility] transfer center people who reached out to her regular Outdoor Fitness Trainer Oncologist Dr. Donavon Bender.. Dr. Raphael recommend out pt f/u with them as an out pt for further work up and examination So far her Hb is stable.. no drop noticed however since her INR is elevated will give her 1 dose of Vit K today cont close monitoring (3) UTI (urinary tract infection) Current Visit: Yes Status: Acute Assessment and plan: UTI present on admission - culture positive for pansensitive Escherichia coli and pansensitive Klebsiella pneumoniae finished full course of Abx Qualifiers: Urinary tract infection type: site unspecified Hematuria presence: with hematuria Qualified Code(s): N39.0 - Urinary tract infection, site not specified; R31.9 - Hematuria, unspecified (4) Cellulitis Current Visit: Yes Status: Acute Assessment and plan: Acute cellulitis of left flank and left lateral thigh - with serous drainage - now improved Received 2 weeks of IV abx Wound culture and blood culture - no growth Urine culture - Escherichia coli and Klebsiella So will stop all systemic abx and monitor closely so far normal WBC..No fever Will cont topical anti fungal and triple abx cream Abdomen/Pelvis CT 05/06/17 10:01 1. Cellulitis with no evidence of abscess or soft tissue gas 2. No intra abdominopelvic abnormality Qualifiers: Site of cellulitis: extremity Site of cellulitis of extremity: lower extremity Laterality: left Qualified Code(s): L03.116 - Cellulitis of left lower limb (5) Acute kidney injury Current Visit: Yes Status: Acute Assessment and plan: Acute kidney injury - likely secondary to antibiotic use and cardiorenal syndrome too slowly improving Antibiotics to be renally adjusted by pharmacy Will start her on IV diuresis avoid nephro toxic meds cont close monitoring (6) Iron deficiency anemia Current Visit: No Status: Chronic Assessment and plan: on iron supplements Qualifiers: Iron deficiency anemia type: chronic blood loss Qualified Code(s): D50.0 - Iron deficiency anemia secondary to blood loss (chronic) (7) Hypertension Current Visit: No Status: Chronic Assessment and plan: stable with current meds Qualifiers: Hypertension type: essential hypertension Qualified Code(s): I10 - Essential (primary) hypertension (8) Hypothyroidism Current Visit: No Status: Chronic Assessment and plan: TSH checked earlier this year, normal Qualifiers: Hypothyroidism type: unspecified Qualified Code(s): E03.9 - Hypothyroidism , unspecified (9) Morbid obesity with BMI of 70 and over, adult Current Visit: Yes Status: Chronic Assessment and plan: BMI 78.6, with physical deconditioning - needs physical therapy and ECF placement - Subjective Interval history: This is a 52 y/o F with morbid obesity, CHF, COPD, Hypoventilation syndrome, HAMMAD , HTN and Fibromyalgia admitted here with Rt leg DVT and Left flank cellulitis. Pt was started on empirical abx with Unasyn and Vancomycin initially. She happened to have vaginal bleeding with crampy type lower abdomen pain from last few days. Denied any CP / SOB - Constitutional Vitals: Temp Pulse Resp BP Pulse Ox 98.6 F 52 18 113/64 92 05/17/17 11:17 05/17/17 11:17 05/17/17 11:17 05/17/17 11:17 05/17/17 11:17 General appearance: Present: cooperative, A&O X 3, morbidly obese, pleasant, no acute distress, answers questions appropriately - Head Head exam: Present: atraumatic, normal inspection - Respiratory Respiratory exam: Present: decreased breath sounds, wheezes. Absent: rales, rhonchi, stridor - Cardiovascular Cardiovascular exam: Present: RRR, +S1, +S2. Absent: systolic murmur - GI/Abdominal GI/Abdominal exam: Present: distended, soft. Absent: rebound, rigid, tenderness - Neurological Exam Neurological exam: Present: alert, oriented X3 - Psychiatric Psychiatric exam: Present: normal affect, normal mood - Skin Skin exam: Present: rash (Improving Left flank erythema and swelling) Internal Medicine: Result - Labs CBC & Chem 7: 05/17/17 06:35 05/17/17 06:35 Labs: Short CBC 05/17/17 Range/Units 06:35 WBC 4.5 (4.3-11.1) K/mcL Hgb 10.0 L (11.5-15.4) g/dL Hct 34.0 L (35.3-44.9) % Plt Count 240 (140-400) K/mcL Neutrophils # 2.8 (1.6-8.9) K/mcL BMP 05/17/17 06:35 Sodium 142 Potassium 3.8 Chloride 101 Carbon Dioxide 33 H BUN 9 Creatinine 1.67 H Glucose 102 H Calcium 9.5 - ABG Interpretation ABG results: PT/INR, D-dimer PT 44.5 Seconds (9.4-12.1) H* 05/17/17 06:35 Consult Discharge Plan - Plan Referrals: Corinna Farr [Primary Care Provider] -
[2017-05-17] MEDS: Furosemide 40 MG/4 ML VIAL IVP SCH ×2 (15:45→20:52)
[2017-05-17] MEDS: Saline Nasal Spray 44 ML BOTTLE NS PRN (20:55)
[2017-05-17] MEDS: Ondansetron 4 MG/2 ML VIAL IVP PRN (22:47)
[2017-05-18] MEDS: Albuterol 2.5 MG/3 ML NEBULIZER IH SCH ×4 (04:59→22:08)
[2017-05-18] MEDS: Ondansetron 4 MG/2 ML VIAL IVP PRN ×2 (05:28→13:46)
[2017-05-18 06:05] LABS: Hematocrit 36.7 % (35.3-44.9); Hemoglobin 10.8 g/dL (11.5-15.4); Mean Corpuscular HGB Conc 29.4 g/dL (31.6-35.5); Mean Corpuscular Hemoglobin 21.8 pg (28.0-33.3); Mean Platelet Volume 9.9 fL (9.4-12.4); Monocytes # 0.4 K/mcL (0.0-1.3); Platelet Count 270 K/mcL (140-400); Red Blood Count 4.96 M/mcL (3.82-4.97); Red Cell Distribution Width 24.3 % (11.5-14.5)
[2017-05-18 06:08] LABS: INR 1.6; Prothrombin Time 17.6 Seconds (9.4-12.1)
[2017-05-18 06:27] LABS: Calcium 9.6 mg/dL (8.6-10.8); Magnesium 1.7 mg/dL (1.6-2.6); Potassium 3.9 mEq/L (3.5-4.5)
[2017-05-18] MEDS: Metoprolol 100 MG TABLET PO SCH ×2 (08:10→22:11)
[2017-05-18] MEDS: *HR* OxyCODONE/APAP 5/325 TABLET PO PRN ×2 (08:10→12:12)
[2017-05-18] MEDS: Cholecalciferol (D-3) 1,000 UNIT TABLET PO SCH (08:10)
[2017-05-18] MEDS: Furosemide 40 MG/4 ML VIAL IVP SCH (08:11)
[2017-05-18] MEDS: Neosporin OINT 15 GM TUBE TP SCH ×2 (08:12→22:12)
[2017-05-18] MEDS: Miconazole 2% cream 118 GM TUBE TP SCH ×2 (08:12→22:11)
[2017-05-18 08:16] LABS: Neutrophils # 5.1 K/mcL (1.6-8.9)
[2017-05-18 08:17] LABS: Anisocytosis 3+ (Not Present); Hypochromasia Present (Not Present); Microcytosis Present (Not Present); Platelet Estimate Normal (Normal)
[2017-05-18] MEDS ORDERED: Furosemide 40 MG/4 ML VIAL IVP ONE (12:00)
--- NOTE | 2017-05-18 12:01 | Internal Med Progress Note ---
Date of Encounter: 05/18/17 Time of Encounter: 11:58 - Assessment and plan (1) DVT (deep venous thrombosis) Current Visit: Yes Status: Chronic Assessment and plan: Patient had a Doppler just prior to presentation revealed chronic thrombus to the right popliteal LE Venous Duplex on 05/02/2017 showed chronic non occlusive popliteal vein DVT of Rt leg She did mention she was on Xarelto before which was stopped due to her worsening vaginal bleeding. Later she was placed on Coumadin by her PCP Pt was taking Coumadin before she got admitted here Her INR down to 1.6 after 1 dose of Vit K Resumed Coumadin today cont close monitoring PT / INR Qualifiers: DVT location: lower extremity Affected thrombotic vein of extremity: popliteal Chronicity: chronic Laterality: right Qualified Code(s): I82.531 - Chronic embolism and thrombosis of right popliteal vein (2) Vaginal bleeding Current Visit: No Status: Chronic Assessment and plan: Patient stating she is still experiencing intermittent menstrual bleeding / irene menopausal bleeding She was placed on Megsterol 40mg BID few months ago for vaginal bleeding - which resolved now she is off the Megsterol for a month and started having vaginal bleeding again She was scheduled for D & C @ [facility] few weeks ago, but pt never went for that test Spoke to our Veneer Gluer who recommend to transfer the pt to [facility] since we do not have proper equipment / bed to do pelvic exam I talked to [facility] transfer center people who reached out to her regular Bindery Supervisor Oncologist Dr. Donavon Bender.. Dr. Raphael recommend out pt f/u with them as an out pt for further work up and examination So far her Hb is stable.. no drop noticed INR improved cont close monitoring (3) UTI (urinary tract infection) Current Visit: Yes Status: Acute Assessment and plan: UTI present on admission - culture positive for pansensitive Escherichia coli and pansensitive Klebsiella pneumoniae finished full course of Abx Qualifiers: Urinary tract infection type: site unspecified Hematuria presence: with hematuria Qualified Code(s): N39.0 - Urinary tract infection, site not specified; R31.9 - Hematuria, unspecified (4) Cellulitis Current Visit: Yes Status: Acute Assessment and plan: Acute cellulitis of left flank and left lateral thigh - with serous drainage - now improved Received 2 weeks of IV abx Wound culture and blood culture - no growth Urine culture - Escherichia coli and Klebsiella Stopped all systemic abx on 05/17/17 and monitor closely so far normal WBC..No fever Will cont topical anti fungal and triple abx cream Abdomen/Pelvis CT 05/06/17 10:01 1. Cellulitis with no evidence of abscess or soft tissue gas 2. No intra abdominopelvic abnormality Qualifiers: Site of cellulitis: extremity Site of cellulitis of extremity: lower extremity Laterality: left Qualified Code(s): L03.116 - Cellulitis of left lower limb (5) Acute kidney injury Current Visit: Yes Status: Acute Assessment and plan: Acute kidney injury - likely secondary to antibiotic use and cardiorenal syndrome too slowly improving Pt did not take Lasix y/d Ordered 1 dose today avoid nephro toxic meds cont close monitoring (6) Iron deficiency anemia Current Visit: No Status: Chronic Assessment and plan: on iron supplements Qualifiers: Iron deficiency anemia type: chronic blood loss Qualified Code(s): D50.0 - Iron deficiency anemia secondary to blood loss (chronic) (7) Hypertension Current Visit: No Status: Chronic Assessment and plan: stable with current meds Qualifiers: Hypertension type: essential hypertension Qualified Code(s): I10 - Essential (primary) hypertension (8) Hypothyroidism Current Visit: No Status: Chronic Assessment and plan: TSH checked earlier this year, normal Qualifiers: Hypothyroidism type: unspecified Qualified Code(s): E03.9 - Hypothyroidism , unspecified (9) Morbid obesity with BMI of 70 and over, adult Current Visit: Yes Status: Chronic Assessment and plan: BMI 78.6, with physical deconditioning - needs physical therapy and ECF placement - Subjective Interval history: This is a 52 y/o F with morbid obesity, CHF, COPD, Hypo ventilation syndrome, HAMMAD, HTN and Fibromyalgia admitted here with Rt leg DVT and Left flank cellulites. Pt was started on empirical abx with Unasyn and Vancomycin initially. She happened to have vaginal bleeding with crampy type lower abdomen pain from last few days. Denied any CP / SOB - Constitutional Vitals: Temp Pulse Resp BP Pulse Ox 98.5 F 62 16 139/61 91 05/18/17 11:40 05/18/17 11:40 05/18/17 11:40 05/18/17 11:40 05/18/17 11:40 General appearance: Present: cooperative, A&O X 3, morbidly obese, pleasant, no acute distress, answers questions appropriately - Head Head exam: Present: atraumatic, normal inspection - Respiratory Respiratory exam: Present: decreased breath sounds, wheezes. Absent: respiratory distress, rhonchi - Cardiovascular Cardiovascular exam: Present: RRR, +S1, +S2. Absent: systolic murmur - Extremities Exam Extremities exam: Present: pedal edema. Absent: calf tenderness, tenderness - Psychiatric Psychiatric exam: Present: normal affect, normal mood - Skin Skin exam: Present: erythema Additional comments: Improving Left flank erythema and swelling Internal Medicine: Result - Labs CBC & Chem 7: 05/18/17 05:42 05/18/17 05:42 Labs: Short CBC 05/18/17 Range/Units 05:42 WBC 6.5 (4.3-11.1) K/mcL Hgb 10.8 L (11.5-15.4) g/dL Hct 36.7 (35.3-44.9) % Plt Count 270 (140-400) K/mcL Neutrophils # 5.1 (1.6-8.9) K/mcL BMP 05/18/17 05:42 Sodium 140 Potassium 3.9 Chloride 97 L Carbon Dioxide 29 BUN 10 Creatinine 1.45 H Glucose 107 H Calcium 9.6 - ABG Interpretation ABG results: PT/INR, D-dimer PT 17.6 Seconds (9.4-12.1) H D 05/18/17 05:42 Consult Discharge Plan - Plan Referrals: Corinna Farr [Primary Care Provider] -
[2017-05-18] MEDS ORDERED: *HR* Warfarin 3 MG TABLET PO ONE (18:00)
[2017-05-18] MEDS: *HR* OxyCODONE/APAP 7.5/325 TABLET PO PRN (19:28)
[2017-05-19] MEDS: *HR* OxyCODONE/APAP 7.5/325 TABLET PO PRN ×2 (02:01→08:36)
--- NOTE | 2017-05-19 03:11 | Event Note ---
Date of Encounter: 05/19/17 Time of Encounter: 03:08 Patient reported having LLE pain described as marble rolling down her LLE from knee to foot. Patient was very anxious that she may have developed a DVT. There was no LLE swelling, discoloration. b/l LE pulses 2/4. Patient stated yesterday she was given Vit K and her INR dropped to 1.8, which she knows is subtherapeutic. Ordered LLE Doppler.
[2017-05-19] MEDS: Albuterol 2.5 MG/3 ML NEBULIZER IH SCH ×2 (03:56→07:36)
[2017-05-19 05:06] LABS: INR 1.2; Prothrombin Time 13.2 Seconds (9.4-12.1)
[2017-05-19 05:14] LABS: Calcium 9.3 mg/dL (8.6-10.8); Potassium 3.4 mEq/L (3.5-4.5)
[2017-05-19 07:15] VITALS: BP 126/73
[2017-05-19] MEDS: Metoprolol 100 MG TABLET PO SCH (08:36)
[2017-05-19] MEDS: Cholecalciferol (D-3) 1,000 UNIT TABLET PO SCH (08:36)
[2017-05-19] MEDS: Miconazole 2% cream 118 GM TUBE TP SCH (08:36)
[2017-05-19] MEDS: Neosporin OINT 15 GM TUBE TP SCH (08:36)
--- NOTE | 2017-05-19 09:45 | Discharge Summary ---
Date of Encounter: 05/19/17 Time of Encounter: 09:34 - Discharge Diagnosis (1) DVT (deep venous thrombosis) Priority: Secondary Status: Chronic Qualifiers: DVT location: lower extremity Affected thrombotic vein of extremity: popliteal Chronicity: chronic Laterality: right Qualified Code(s): I82.531 - Chronic embolism and thrombosis of right popliteal vein (2) Vaginal bleeding Priority: Secondary Status: Chronic (3) UTI (urinary tract infection) Priority: Primary Status: Acute Qualifiers: Urinary tract infection type: site unspecified Hematuria presence: with hematuria Qualified Code(s): N39.0 - Urinary tract infection, site not specified; R31.9 - Hematuria, unspecified (4) Cellulitis Priority: Primary Status: Acute Qualifiers: Site of cellulitis: extremity Site of cellulitis of extremity: lower extremity Laterality: left Qualified Code(s): L03.116 - Cellulitis of left lower limb (5) Acute kidney injury Priority: Secondary Status: Acute (6) Iron deficiency anemia Priority: Secondary Status: Chronic Qualifiers: Iron deficiency anemia type: chronic blood loss Qualified Code(s): D50.0 - Iron deficiency anemia secondary to blood loss (chronic) (7) Hypertension Priority: Secondary Status: Chronic Qualifiers: Hypertension type: essential hypertension Qualified Code(s): I10 - Essential (primary) hypertension (8) Hypothyroidism Priority: Secondary Status: Chronic Qualifiers: Hypothyroidism type: unspecified Qualified Code(s): E03.9 - Hypothyroidism , unspecified (9) Morbid obesity with BMI of 70 and over, adult Priority: Secondary Status: Chronic - Discharge Medications Prescriptions: OxyCODONE/APAP 7.5/325 [Percocet 7.5/325 MG] 1 each PO Q6HR PRN #20 tab PRN Reason: Pain ALPRAZolam [Xanax 0.5 MG Tablet] 0.5 mg PO TID PRN #15 tablet PRN Reason: Anxiety Home Medications: Famotidine [Pepcid] 20 mg PO BID PRN 05/11/15 [History] Metoprolol [Lopressor] 100 mg PO BID 05/11/15 [History] Levothyroxine [Synthroid] 112 mcg PO DAILY 10/19/16 [History] Albuterol Sulfate [Albuterol Inhaler] 2 puff IH Q4H PRN 11/01/16 [History] Loratadine [Claritin] 10 mg PO DAILY PRN 11/01/16 [History] Ergocalciferol (VITAMIN D2) [Vitamin D2] 50,000 unit PO QWEEK 04/28/17 [History] Albuterol Neb [Proventil Neb] 2.5 mg IH Q6H PRN 05/02/17 [History] ALPRAZolam [Xanax 0.5 MG Tablet] 0.5 mg PO TID PRN #15 tablet 05/19/17 [Rx] Docusate [Colace] 100 mg PO BID 05/19/17 [Rx] Miconazole 2% cream [Remedy Antifungal] 1 appl TP BID 05/19/17 [Rx] Fran/Poly/Gustavo OINT [Triple Antibiotic Ointment] 1 appl TP BID 05/19/17 [Rx] OxyCODONE/APAP 7.5/325 [Percocet 7.5/325 MG] 1 each PO Q6HR PRN #20 tab [Rx] Allergies/Adverse Reactions: 3 Allergy/AdvReac Type Severity Reaction Status Date / Time aspirin Allergy Swelling Verified 04/28/17 10:44 of Lip/Tongue/Throat ibuprofen Allergy Swelling Verified 04/28/17 10:44 of Lip/Tongue/Throat NSAIDS (Non-Steroidal Allergy Rash Verified 04/28/17 10:44 Anti-Inflamma prednisolone Allergy Rash Verified 04/28/17 10:44 prednisone Allergy Swelling Verified 04/28/17 10:44 of Lip/Tongue/Throat Sulfa (Sulfonamide Allergy Hives Verified 04/28/17 10:44 Antibiotics) ketorolac [From Toradol] AdvReac Nausea Verified 04/28/17 10:44 tramadol [From Ultram] AdvReac Nausea Verified 04/28/17 10:44 Procedures/tests Complete & Pending: Procedures Performed prior 72 hours Category Date Time Status Venous Doppler [EV venous imaging LE LT] Routine Y 05/19/17 03:06 Completed Date of admission: 05/06/17 11:36 Primary care physician: Corinna Farr Consults: 05/08/17 11:33 Consult to Wound Care [CONS] Routine Reason for Consult: cellulitis to left hip- severe. on vanc, unasyn. developed herpetic lesion to lip yesterday- acyclovir added. cultures pending. please eval and advise Time Notified: 11:34 Call Completed: Yes 05/10/17 11:23 Consult to Invasive Line Access Team [CONS] Routine Reason for Consult: leaking Line Type: EPIV 05/15/17 22:25 Consult to CHEMICAL PROCESSING EQUIPMENT REPAIRER [CONS] Routine Consulting Provider: CHEMISTRY TECHNICIAN Edith Reason for Consult: vaginal bleeding and severe cramps. Patient on coumadin for DVT. States has been presrcibed megesterol that resolved vaginal bleeding and cramps. Call Completed: No - Patient Status Disposition: Transfer SNF Condition: Good Overall status at discharge: patient is back to baseline - Discharge Instructions Follow Up With: Corinna Farr [Primary Care Provider] - Additional Instructions: Need to f/u with Stable Manager Oncologist Dr. Raphael on Monday ( 05/23/17 ) Need to f/u with PCP in one week Hospital course: This is a 52 y/o F with morbid obesity, CHF, COPD, Hypo ventilation syndrome, HAMMAD, HTN and Fibromyalgia admitted here with Left flank cellulites. She admitted here for Cellulites and started on empirical abx with Unasyn and Vancomycin initially. She did c/o of Rt leg pain which seems to be due to her chronic non occlusive popliteal vein DVT of Rt leg. She was on Xarelto before later she developed profuse vaginal bleeding, so she was switched to Coumadin. So we continued her home med Coumadin here. Her INR was supra theraputic here in 4.0, and she did c/o vaginal bleeding with crampy type lower abdomen pain. Patient stating she is still experiencing intermittent menstrual bleeding / irene menopausal bleeding. She was placed on Megsterol 40mg BID few months ago for vaginal bleeding - which resolved now she is off the Megsterol for a month and started having vaginal bleeding again. She was scheduled for D & C @ [facility] few weeks ago, but pt never went for that test. Spoke to our Biology Specialist who recommend to transfer the pt to [facility] since we do not have proper equipment / bed to do pelvic exam. I talked to [facility] transfer center people who reached out to her regular Stable Manager Oncologist Dr. Donavon Bender.. Dr. Rpahael recommend out pt f/u with them as an out pt for further work up and examination. So far her Hb is stable around 10.8. Since her INR was still elevated at 4.0 I gave her 1 dose Vit K PO 5,g and INR came down to 1.2 today. Pt is high risk for anticoagulation medication given her recurrent vaginal bleeding. More over she did received more than 6 months anticoagulation for chronic non obstructive Rt leg DVT. So at this point we are going to stop her anticoagulation medication and recommend to f/u with Stable Manager Dr. Raphael from [facility] fix her vaginal bleeding first. She already made an appoint with Dr. Raphael on next Monday. Then she can f/u with PCP to discuss about further anticoag options. For her Left flank cellulites she received 2 weeks of systemic abx , now I switched her to topical anti fungal and abx cream. Her cellulites seems to be improving now. She did develop RICH during this hospitalization probably secondary to Abx and dehydration. Now her Cr started trending down. Today @ 1.54. Recommend to avoid any nephro toxic medications - Time Spent with Patient Total time spent providing and/or coordinating discharge services: Greater than 30 minutes (Spent 45 minutes on this pt's discharge summary due to her prolonged hospitlaization and multiple comorbidities) - Constitutional Vitals: Temp Pulse Resp BP Pulse Ox 98.5 F 63 14 126/73 97 05/19/17 07:14 05/19/17 07:14 05/19/17 07:14 05/19/17 07:14 05/19/17 07:14 General appearance: Present: cooperative, A&O X 3, morbidly obese, pleasant, no acute distress, answers questions appropriately - Head Head exam: Present: atraumatic, normal inspection - Respiratory Respiratory exam: Present: decreased breath sounds. Absent: rales, respiratory distress, rhonchi, wheezes - Cardiovascular Cardiovascular exam: Present: RRR, +S1, +S2. Absent: diastolic murmur, gallop, rubs, systolic murmur - Extremities Exam Extremities exam: Absent: calf tenderness, pedal edema, tenderness - Neurological Exam Neurological exam: Present: alert, oriented X3 - Psychiatric Psychiatric exam: Present: normal affect, normal mood - Skin Skin exam: Present: erythema Additional comments: Improving Left flank erythema and swelling
--- NOTE | 2017-05-19 09:49 | Physician Discharge Referral ---
ExtendedCare Referral Info Transfer To: ECF Provider in Charge after Transfer: PCP Institutional Level of Care: Skilled - Diagnosis (1) DVT (deep venous thrombosis) Status: Chronic (2) Vaginal bleeding Status: Chronic (3) UTI (urinary tract infection) Status: Acute (4) Cellulitis Status: Acute (5) Acute kidney injury Status: Acute (6) Iron deficiency anemia Status: Chronic (7) Hypertension Status: Chronic (8) Hypothyroidism Status: Chronic (9) Morbid obesity with BMI of 70 and over, adult Status: Chronic - Transfer Medications Prescriptions: OxyCODONE/APAP 7.5/325 [Percocet 7.5/325 MG] 1 each PO Q6HR PRN #20 tab PRN Reason: Pain ALPRAZolam [Xanax 0.5 MG Tablet] 0.5 mg PO TID PRN #15 tablet PRN Reason: Anxiety Home Medications: Famotidine [Pepcid] 20 mg PO BID PRN 05/11/15 [History] Metoprolol [Lopressor] 100 mg PO BID 05/11/15 [History] Levothyroxine [Synthroid] 112 mcg PO DAILY 10/19/16 [History] Albuterol Sulfate [Albuterol Inhaler] 2 puff IH Q4H PRN 11/01/16 [History] Loratadine [Claritin] 10 mg PO DAILY PRN 11/01/16 [History] Ergocalciferol (VITAMIN D2) [Vitamin D2] 50,000 unit PO QWEEK 04/28/17 [History] Albuterol Neb [Proventil Neb] 2.5 mg IH Q6H PRN 05/02/17 [History] ALPRAZolam [Xanax 0.5 MG Tablet] 0.5 mg PO TID PRN #15 tablet 05/19/17 [Rx] Docusate [Colace] 100 mg PO BID 05/19/17 [Rx] Miconazole 2% cream [Remedy Antifungal] 1 appl TP BID 05/19/17 [Rx] Fran/Poly/Gustavo OINT [Triple Antibiotic Ointment] 1 appl TP BID 05/19/17 [Rx] OxyCODONE/APAP 7.5/325 [Percocet 7.5/325 MG] 1 each PO Q6HR PRN #20 tab [Rx] Allergies/Adverse Reactions: 3 Allergy/AdvReac Type Severity Reaction Status Date / Time aspirin Allergy Swelling Verified 04/28/17 10:44 of Lip/Tongue/Throat ibuprofen Allergy Swelling Verified 04/28/17 10:44 of Lip/Tongue/Throat NSAIDS (Non-Steroidal Allergy Rash Verified 04/28/17 10:44 Anti-Inflamma prednisolone Allergy Rash Verified 04/28/17 10:44 prednisone Allergy Swelling Verified 04/28/17 10:44 of Lip/Tongue/Throat Sulfa (Sulfonamide Allergy Hives Verified 04/28/17 10:44 Antibiotics) ketorolac [From Toradol] AdvReac Nausea Verified 04/28/17 10:44 tramadol [From Ultram] AdvReac Nausea Verified 04/28/17 10:44 - Respiratory Orders Smoking Cessation: Smoking cessation has been advised. For more information, call the [place] Tobacco Quit Line at 5-648-IZBN-NOW. CERTIFICATION: I certify that the transfer of the above named patient to an Extended Care Facility is necessary for the continuing treatment of the diagnosis listed. The above information is true and accurate reflection of patient's current condition. Confidential - Redisclosure prohibited without a patient's written consent.
--- NOTE | 2017-05-22 08:33 | Venous Imaging Report ---
LE Venous Duplex Patient Name:Aileen Williamson Order Number:[id number] Procedure Date:05/19/2017 Date:1965Age:52 yrs Gender:Female Location:[facility] Room #: 3B36 Manager Technology:Eric Gross, RDCS Referring MD:Surendra John DO Reading MD:Stew Weaver MD Study Quality:Technically Limited Primary Indications:DVT Secondary Indications: Risk Factors Yes/No Hx of DVT Yes Anticoagulants Yes Impressions: Left lower extremity: normal superficial and deep exam. Recommendations: After imaging the patient returned to their room. Findings Venous Duplex Results: Right: Venous imaging of the lower extremity reveals full patency and normal vessel compressibility of the right common femoral. Doppler signals in the evaluated veins were normal. Left: Venous imaging of the lower extremity reveals full patency and normal vessel compressibility of the left distal iliac, left common femoral, left superficial femoral, left popliteal, left posterior tibial, left peroneal, left great saphenous and left lesser saphenous. Doppler signals in the evaluated veins were normal. Prior Study: Limited visibility of peroneal v d/t body habitus. Lower Extremity Venous Duplex Side Vein Compress Spontaneous Flow Augment Diameter (cm) Depth (cm) Left Distal Iliac Normal Yes Phasic Yes Left Common Femoral Normal Yes Phasic Yes Left Superficial Femoral Normal Yes Phasic Yes Left Popliteal Normal Yes Phasic Yes Left Posterior Tibial Normal Yes Phasic Yes Left Peroneal Normal Yes Phasic Yes Left Great Saphenous Normal Yes Phasic Yes Left Lesser Saphenous Normal Yes Phasic Yes Right Common Femoral Normal Yes Phasic Yes Updated by Stew Weaver MD on 05/20/2017 6:09:07 PM electronically signed on 05/20/2017 6:09:28 PM with status of Final
== END 2017-05-19 10:51 | DRG 383 ==
LOC: EMEROO 17:01 → 3BNU 17:01
PROVIDERS: ADMIT Internal Medicine Hematology & Oncology; ATTEND Nurse Practitioner Family

== ENCOUNTER 2017-07-17 15:28 | Inpatient (IN) ==
--- NOTE | 2017-07-17 15:34 | Emergency Department Note ---
Disposition Clinical Impression: Elevated troponin, Hypoxia Pneumonia Qualifiers: Pneumonia type: due to unspecified organism Laterality: bilateral Lung location : unspecified part of lung Qualified Code(s): J18.9 - Pneumonia, unspecified organism Disposition: Admitted As Inpatient General Adult HPI - General Chief complaint: ED Nausea/Vomiting/Diarrhea Stated complaint: "coughing up blood" Time Seen by Provider: 07/17/17 15:32 Source: patient Mode of arrival: ambulatory Limitations: no limitations Nursing Notes Reviewed: Yes Vital Signs Reviewed: Yes - History of Present Illness HPI Narrative: Patient here for evaluation of hemoptysis. Patient has had a cough for the last 4 days. She states no fever or chills or productive sputum. Patient states that she has had some chronic medical problems including a chronic DVT that she is no longer on anticoagulation for in the lower leg behind the knee. She states that she has a cellulitis she was treated for a month ago on her left hip that she is worried about returning. She has had increased swelling of the legs and arms on the left side. She has a history of asthma and states that she has had some chest tightness but has not used her albuterol inhaler. Overall exam she is somewhat anxious and speaks very rapidly going on several different tangents about what has been stated above. Patient's chest tightness is described in the anterior part of her chest described as a squeezing. Patient does not describe a pressure or sharp pain. She states she was unable to get into her family doctor for evaluation of the cellulitis which made her significantly more nervous and anxious. - Related Data Home Medications Medication Instructions Recorded Confirmed Famotidine [Pepcid] 20 mg PO BID PRN 05/11/15 07/17/17 Metoprolol [Lopressor] 100 mg PO BID 05/11/15 07/17/17 Levothyroxine [Synthroid] 112 mcg PO QAM 10/19/16 07/17/17 Albuterol Sulfate [Albuterol 2 puff IH Q4H PRN 11/01/16 07/17/17 Inhaler] Loratadine [Claritin] 10 mg PO DAILY PRN 11/01/16 07/17/17 Albuterol Neb [Proventil Neb] 2.5 mg IH Q6H PRN 05/02/17 07/17/17 Cholecalciferol (Vitamin D3) 2,000 unit PO DAILY 07/17/17 07/17/17 [Vitamin D] Diclofenac Sodium [Voltaren] 1 - 2 gm TP QID PRN 07/17/17 07/17/17 Docusate [Colace] 100 mg PO BID PRN 07/17/17 07/17/17 HYDROcodone/Acet 5/325 mg [[place] 1 tab PO Q4H PRN 07/17/17 07/17/17 5-325 mg] Ondansetron HCl [Zofran] 4 mg PO Q6H PRN 07/17/17 07/17/17 hydroCHLOROthiazide 25 mg PO DAILY 07/17/17 07/17/17 [Hydrochlorothiazide] Previous Rx's Medication Instructions Recorded ALPRAZolam [Xanax 0.5 MG Tablet] 0.5 mg PO TID PRN #15 tablet 05/19/17 Aspirin Enteric Coated [Aspirin EC] 325 mg PO DAILY #30 tablet. 05/19/17 Allergies Allergy/AdvReac Type Severity Reaction Status Date / Time aspirin Allergy Swelling Verified 06/30/17 13:29 of Lip/Tongue/Throat ibuprofen Allergy Swelling Verified 06/30/17 13:29 of Lip/Tongue/Throat NSAIDS (Non-Steroidal Allergy Rash Verified 06/30/17 13:29 Anti-Inflamma prednisolone Allergy Rash Verified 06/30/17 13:29 prednisone Allergy Swelling Verified 06/30/17 13:29 of Lip/Tongue/Throat Sulfa (Sulfonamide Allergy Hives Verified 06/30/17 13:29 Antibiotics) ketorolac [From Toradol] AdvReac Nausea Verified 06/30/17 13:29 tramadol [From Ultram] AdvReac Nausea Verified 06/30/17 13:29 All systems ED: reviewed and negative except as stated. Constitutional: Denies: fever, chills, weakness Cardiovascular: Reports: chest pain, dyspnea on exertion. Denies: palpitations Respiratory: Reports: cough, hemoptysis. Denies: dyspnea, wheezes Gastrointestinal: Denies: abdominal pain, nausea, vomiting Genitourinary: Denies: urgency, dysuria Musculoskeletal: Denies: back pain Integumentary: Denies: rash, abrasion Neurological: Denies: headache, weakness, numbness Psychiatric: Reports: anxiety. 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 Absent : tenderness - Respiratory Respiratory exam: Present: normal lung sounds bilaterally. Absent: respiratory distress, wheezes - Cardiovascular Cardiovascular exam: Present: regular rate, normal rhythm - Abdominal Exam Abdominal exam: Present: soft, Non-Tender - Extremities Exam Extremities exam: Present: other (significant lower extremity size; no pitting edema) - Back Exam Back exam: Present: normal inspection. Absent: tenderness - Neurological Exam Neurological exam: Present: alert, oriented X3 - Skin Skin exam: Present: other (Mild erythema and induration to left hip. 4x4 diameter - appears to be healing and possible old sequela.) Course - Reevaluation(s) Reevaluation #1: Upon initial presentation the patient was 88% with a good waveform resting in bed. Patient was placed on oxygen given a breathing treatment and her pulse ox as well as chest tightness has resolved. CTA negative. Troponin elevated. Patient admitted for multifocal pneumonia seen on CT. Levaquin initiated in the emergency department. Vital Signs Temperature 98.2 F 07/17/17 15:31 Pulse Rate 81 07/17/17 15:31 Respiratory Rate 16 07/17/17 15:31 Blood Pressure 157/74 07/17/17 15:31 O2 Sat by Pulse Oximetry 91 07/17/17 15:31 Temperature 98.2 F 07/17/17 15:31 Pulse Rate 77 07/17/17 18:38 Respiratory Rate 18 07/17/17 19:58 Blood Pressure 172/74 07/17/17 19:58 O2 Sat by Pulse Oximetry 90 07/17/17 18:38 Oxygen Delivery Oxygen Delivery Nasal Cannula Medical Decision Making - Medical Records Medical records reviewed: Yes I reviewed the patient's medical records. - Lab Data Lab results reviewed: Yes I reviewed the patient's lab results. Result diagrams: 07/17/17 16:39 07/17/17 16:39 Lab Results 07/17/17 07/17/17 07/17/17 Range/Units 16:39 16:39 16:39 WBC 7.7 (4.3-11.1) K/mcL RBC 5.12 H (3.82-4.97) M/mcL Hgb 11.8 (11.5-15.4) g/dL Hct 39.9 (35.3-44.9) % MCV 77.9 L (83.0-100.0) fL MCH 23.0 L (28.0-33.3) pg MCHC 29.6 L (31.6-35.5) g/dL RDW 19.5 H (11.5-14.5) % Plt Count 220 (140-400) K/mcL MPV 10.8 (9.4-12.4) fL Immature Gran % 1.2 (0-4) % Seg Neutrophils % 76.2 % Lymphocytes % 12.9 % Monocytes % 6.8 % Eosinophils % 2.6 % Basophils % 0.3 % Neutrophils # 5.9 (1.6-8.9) K/mcL Lymphocytes # 1.0 (0.6-4.6) K/mcL Monocytes # 0.5 (0.0-1.3) K/mcL Eosinophils # 0.2 (0.0-0.6) K/mcL Basophils # 0.0 (0.0-0.2) K/mcL Sodium 139 (136-145) mEq/L Potassium 3.5 (3.5-4.5) mEq/L Chloride 99 (98-109) mEq/L Carbon Dioxide 33 H (19-29) mEq/L BUN 11 (7-20) mg/dL Creatinine 0.84 (0.57-1.11) mg/dL Est GFR ( Amer) > 60 (> 60) Est GFR (Non-Af Amer) > 60 (> 60) BUN/Creatinine Ratio 13 (6-26) Glucose 108 H (70-99) mg/dL Calculated Osmolality 288 (280-300) Calcium 9.4 (8.6-10.8) mg/dL Total Bilirubin 0.5 (0.2-1.2) mg/dL AST 14 (5-34) Units/L ALT 10 (0-55) Units/L Alkaline Phosphatase 73 (38-126) Units/L Troponin I 0.08 H* (0-0.03) ng/mL B-Natriuretic Peptide (0-100) pg/mL Serum Total Protein 8.0 (6.0-8.3) g/dL Albumin 3.2 L (3.5-5.0) g/dL Globulin 4.8 H (2.4-3.5) g/dL Albumin/Globulin Ratio 0.7 L (1.1-2.2) 07/17/17 Range/Units 16:39 WBC (4.3-11.1) K/mcL RBC (3.82-4.97) M/mcL Hgb (11.5-15.4) g/dL Hct (35.3-44.9) % MCV (83.0-100.0) fL MCH (28.0-33.3) pg MCHC (31.6-35.5) g/dL RDW (11.5-14.5) % Plt Count (140-400) K/mcL MPV (9.4-12.4) fL Immature Gran % (0-4) % Seg Neutrophils % % Lymphocytes % % Monocytes % % Eosinophils % % Basophils % % Neutrophils # (1.6-8.9) K/mcL Lymphocytes # (0.6-4.6) K/mcL Monocytes # (0.0-1.3) K/mcL Eosinophils # (0.0-0.6) K/mcL Basophils # (0.0-0.2) K/mcL Sodium (136-145) mEq/L Potassium (3.5-4.5) mEq/L Chloride (98-109) mEq/L Carbon Dioxide (19-29) mEq/L BUN (7-20) mg/dL Creatinine (0.57-1.11) mg/dL Est GFR ( Amer) (> 60) Est GFR (Non-Af Amer) (> 60) BUN/Creatinine Ratio (6-26) Glucose (70-99) mg/dL Calculated Osmolality (280-300) Calcium (8.6-10.8) mg/dL Total Bilirubin (0.2-1.2) mg/dL AST (5-34) Units/L ALT (0-55) Units/L Alkaline Phosphatase (38-126) Units/L Troponin I (0-0.03) ng/mL B-Natriuretic Peptide 105 H (0-100) pg/mL Serum Total Protein (6.0-8.3) g/dL Albumin (3.5-5.0) g/dL Globulin (2.4-3.5) g/dL Albumin/Globulin Ratio (1.1-2.2) - Radiology Data Radiology results reviewed: Yes I reviewed the patient's radiology results. - EKG Data EKG #1 EKG attestation: Yes I reviewed and interpreted this EKG. EKG results narrative: EKG shows sinus rhythm with a ventricular rate of 77 bpm. OR interval 167. QRS 92. PTC 424. No significant ST elevations or depressions. Flattening of the T waves throughout. Similar in appearance to 05/02/17. Attestation Statement - Attestation Attestation: I examined this patient and my medical decision-making was reviewed with the Resident Physician. I agree with the documented findings, disposition and treatment plan as described except to the extent set forth below. Eara-cl-idsw time provided Patient arrives by EMS from home. She states she is coughing up blood. She takes aspirin. She is obese on exam but was able to scoot over from the EMS cot to the bed. She does not appear dyspneic
[2017-07-17] MEDS ORDERED: Ipratropium/Albuterol Neb 3 ML IH ONE ×2 (16:18→18:27)
[2017-07-17 17:04] LABS: Basophils % 0.3 %; Eosinophils # 0.2 K/mcL (0.0-0.6); Eosinophils % 2.6 %; Hematocrit 39.9 % (35.3-44.9); Hemoglobin 11.8 g/dL (11.5-15.4); Immature Granulocytes % 1.2 % (0-4); Lymphocytes % 12.9 %; Mean Corpuscular HGB Conc 29.6 g/dL (31.6-35.5); Mean Corpuscular Volume 77.9 fL (83.0-100.0); Mean Platelet Volume 10.8 fL (9.4-12.4); Monocytes # 0.5 K/mcL (0.0-1.3); Monocytes % 6.8 %; Neutrophils # 5.9 K/mcL (1.6-8.9); Platelet Count 220 K/mcL (140-400); Red Blood Count 5.12 M/mcL (3.82-4.97); Red Cell Distribution Width 19.5 % (11.5-14.5); Segmented Neutrophils % 76.2 %
[2017-07-17 17:16] LABS: Alanine Aminotransferase 10 Units/L (0-55); Albumin 3.2 g/dL (3.5-5.0); Albumin/Globulin Ratio 0.7 (1.1-2.2); Alkaline Phosphatase 73 Units/L (38-126); Aspartate Amino Transferase 14 Units/L (5-34); BUN/Creatinine Ratio 13 (6-26); Bilirubin,Total 0.5 mg/dL (0.2-1.2); Blood Urea Nitrogen 11 mg/dL (7-20); Calcium 9.4 mg/dL (8.6-10.8); Carbon Dioxide 33 mEq/L (19-29); Chloride 99 mEq/L (98-109); Globulin 4.8 g/dL (2.4-3.5); Glucose 108 mg/dL (70-99); Osmolality,Calculated 288 (280-300); Potassium 3.5 mEq/L (3.5-4.5); Sodium 139 mEq/L (136-145); eGFR For African Americans > 60 (> 60); eGFR For Non-African Americans > 60 (> 60)
[2017-07-17] MEDS ORDERED: Levofloxacin 750 MG/150 ML 750 MG/150 ML BAG IVPB ONE (18:28)
[2017-07-17] MEDS ORDERED: Ondansetron 4 MG/2 ML VIAL IVP PRN (20:02)
[2017-07-17] MEDS ORDERED: Acetaminophen 325 MG TABLET PO PRN (20:02)
[2017-07-17] MEDS ORDERED: Naloxone 0.4 MG/ML INJ IVP PRN (20:02)
[2017-07-17] MEDS ORDERED: ALPRAZolam 0.5 MG TABLET PO PRN (20:09)
[2017-07-17] MEDS ORDERED: Loratadine 10 MG TABLET PO PRN (20:09)
[2017-07-17] MEDS ORDERED: Famotidine 20 MG TABLET PO PRN (20:09)
[2017-07-17] MEDS ORDERED: Ipratropium/Albuterol Neb 3 ML IH PRN (20:30)
[2017-07-17] MEDS ORDERED: Vancomycin 2,000 MG in D5% in Water 250 ML IVPB SCH (21:00)
[2017-07-17] MEDS ORDERED: Vancomycin 2,000 MG in D5% in Water 500 ML IVPB SCH (21:00)
[2017-07-17] MEDS: Metoprolol 100 MG TABLET PO SCH (21:02)
[2017-07-17] MEDS: *HR* HYDROcodone/Acet 5/325 mg TABLET PO PRN (21:03)
[2017-07-18] MEDS ORDERED: Cefepime HCl 1,000 MG in D5% in Water (Mini-Bag+) 100 ML IVPB SCH
[2017-07-18] MEDS: *HR* HYDROcodone/Acet 5/325 mg TABLET PO PRN ×5 (01:08→19:10)
--- NOTE | 2017-07-18 03:37 | Internal Med History&Physical ---
Date of Encounter: 07/17/17 Time of Encounter: 20:00 Assessment and Plan (1) Healthcare-associated pneumonia Current visit: Yes Status: Acute Patient was hospitalized about 2 months ago. Patient has shortness of breath and hemoptysis. CTA shows multifocal pneumonia. - Treat patient with Vanco, cefepime and Levaquin - Follow up blood and sputum culture. - Oxygen supportive treatment. - DuoNeb and Robitussin for symptom control. (2) HAMMAD (obstructive sleep apnea) Current visit: Yes Status: Acute Patient said that she does not use CPAP because machine is broken. Will place patient on BIPAP when she is in hospital. (3) DVT prophylaxis Current visit: Yes Status: Acute EPCD. No anticoagulation because of hemoptysis. (4) Hypertension Current visit: No Status: Chronic Qualifiers: Hypertension type: essential hypertension Qualified Code(s): I10 - Essential (primary) hypertension (5) Hypothyroidism Current visit: No Status: Chronic Continue home medications Qualifiers: Hypothyroidism type: acquired Qualified Code(s): E03.9 - Hypothyroidism, unspecified (6) Morbid obesity with BMI of 70 and over, adult Current visit: No Status: Chronic Need lifestyle modification. (7) Elevated troponin Current visit: Yes Status: Acute Patient has a mild elevated troponin. Denies chest pain. EKG unremarkable. Patient has pneumonia at this point. Consider demand ischemia. - We will check 3 sets of troponin. - Continue cardiac monitoring. (8) Hemoptysis Current visit: Yes Status: Acute Etiology is undetermined. Probably due to pneumonia. - We will hold aspirin. - Continue pneumonia treatment with antibiotic. - CTA negative for PE or tumor. - May consider pulmonology consult if hemoptysis persist. Internal Medicine - H&P: HPI Chief complaint: Cough and shortness of breath, hemoptysis Admitted From: Home Plans for Post Hospital Care: Home History of present illness: Ms. Williamson is a 52 year old female with history of hypertension, COPD/asthma, HAMMAD, history of DVT off Coumadin now, present to ER for cough for 4-5 days. Patient also has mild shortness of breath for about 2 weeks. Patient said today her oxygen saturation is only 85% in room air. Patient has a clear sputum for 4-5 days. However today she found there is blood mixed in with sputum, denies large amount of bleeding. Patient denies chest pain, vomiting, diaphoresis. She has mild nausea but she said it is a chronic. He denies urination symptoms of diarrhea. In emergency room, CTA has been done, shows no major PE, but multifocal pneumonia. Patient was admitted for pneumonia. Past Med Surg Social Fam HX - Past Medical History Medical history: arthritis, asthma, CHF, COPD, fibromyalgia, glaucoma, hypertension, thyroid disease, other Psychiatric history: anxiety - Past Surgical History Surgical History: - Social History Smoking Status: Former smoker Smokeless Tobacco Status: No Alcohol use: none Drug use: none - Family History Mother Adopted: No Family Member Ethnicity: Non- Living Status: Still Living Hx Family Cardiac Disorders: Yes Hx Family Respiratory Disorders: Yes Hx Family Cancer: Yes (breast uterine) Hx Family GI Disorders: No Hx Family Endocrine Disorder: Yes (DM) Hx Family Neuromuscular Disorders: No Hx Family Neurologic Disorders: No Hx Family HEENT Disorders: No Hx Family Autoimmune Disorders: No Brother Living Status: Internal Medicine - H&P: Meds Famotidine [Pepcid] 20 mg PO BID PRN 05/11/15 [History] Metoprolol [Lopressor] 100 mg PO BID 05/11/15 [History] Levothyroxine [Synthroid] 112 mcg PO QAM 10/19/16 [History] Albuterol Sulfate [Albuterol Inhaler] 2 puff IH Q4H PRN 11/01/16 [History] Loratadine [Claritin] 10 mg PO DAILY PRN 11/01/16 [History] Albuterol Neb [Proventil Neb] 2.5 mg IH Q6H PRN 05/02/17 [History] ALPRAZolam [Xanax 0.5 MG Tablet] 0.5 mg PO TID PRN #15 tablet 05/19/17 [Rx] Aspirin Enteric Coated [Aspirin EC] 325 mg PO DAILY #30 tablet. 05/19/17 [Rx] Cholecalciferol (Vitamin D3) [Vitamin D] 2,000 unit PO DAILY 07/17/17 [History] Diclofenac Sodium [Voltaren] 1 - 2 gm TP QID PRN 07/17/17 [History] Docusate [Colace] 100 mg PO BID PRN 07/17/17 [History] HYDROcodone/Acet 5/325 mg [[place] 5-325 mg] 1 tab PO Q4H PRN 07/17/17 [History] Ondansetron HCl [Zofran] 4 mg PO Q6H PRN 07/17/17 [History] hydroCHLOROthiazide [Hydrochlorothiazide] 25 mg PO DAILY 07/17/17 [History] 3 Allergy/AdvReac Type Severity Reaction Status Date / Time aspirin Allergy Swelling Verified 06/30/17 13:29 of Lip/Tongue/Throat ibuprofen Allergy Swelling Verified 06/30/17 13:29 of Lip/Tongue/Throat NSAIDS (Non-Steroidal Allergy Rash Verified 06/30/17 13:29 Anti-Inflamma prednisolone Allergy Rash Verified 06/30/17 13:29 prednisone Allergy Swelling Verified 06/30/17 13:29 of Lip/Tongue/Throat Sulfa (Sulfonamide Allergy Hives Verified 06/30/17 13:29 Antibiotics) ketorolac [From Toradol] AdvReac Nausea Verified 06/30/17 13:29 tramadol [From Ultram] AdvReac Nausea Verified 06/30/17 13:29 All Systems PM: A 10-system review of systems was performed and is negative for pertinent findings except as documented above in the HPI. - Constitutional Vitals: Temp Pulse Resp BP Pulse Ox 97.7 F 72 18 115/64 89 07/18/17 03:28 07/18/17 03:28 07/18/17 03:28 07/18/17 03:28 07/18/17 03:28 General appearance: Present: A&O X 3, no acute distress, answers questions appropriately - Head Head exam: Present: atraumatic, normocephalic - Eye Eye exam: Present: PERRL, conjuntiva pink, sclera anicteric Pupils: Present: PERRL - Neck Neck exam general surgery: Present: supple, trachea midline. Absent: lymphadenopathy - Respiratory Respiratory exam: Present: CTAB. Absent: accessory muscle use, rales, rhonchi, wheezes - Cardiovascular Cardiovascular exam: Present: RRR, +S1, +S2. Absent: diastolic murmur, gallop, rubs, systolic murmur - GI/Abdominal GI/Abdominal exam: Present: normal bowel sounds, soft, no peritoneal signs. Absent: distended, tenderness - Extremities Exam Extremities exam: Present: warm, radial pulses palpable and symmetrical. Absent : calf tenderness, cyanotic, pedal edema - Neurological Exam Neurological exam: Present: CN II-XII intact, oriented X3, no focal deficits. Absent: pronater drift, facial droop, speech deficit - Skin Skin exam: Present: dry, intact Internal Med - H&P Results - Labs CBC & Chem 7: 07/17/17 16:39 07/17/17 16:39 Labs: Cardiac Enzymes 07/17/17 Range/Units 22:01 Troponin I 0.08 H* (0-0.03) ng/mL
[2017-07-18] MEDS: Cefepime HCl 1,000 MG in D5% in Water (Mini-Bag+) 100 ML IVPB SCH ×3 (04:10→21:25)
[2017-07-18 04:22] LABS: Basophils % 0.1 %; Eosinophils # 0.1 K/mcL (0.0-0.6); Eosinophils % 1.9 %; Hematocrit 35.3 % (35.3-44.9); Hemoglobin 10.7 g/dL (11.5-15.4); Immature Granulocytes % 0.9 % (0-4); Lymphocytes % 15.2 %; Mean Corpuscular HGB Conc 30.3 g/dL (31.6-35.5); Mean Corpuscular Hemoglobin 23.6 pg (28.0-33.3); Mean Corpuscular Volume 77.9 fL (83.0-100.0); Mean Platelet Volume 10.1 fL (9.4-12.4); Monocytes # 0.4 K/mcL (0.0-1.3); Neutrophils # 5.1 K/mcL (1.6-8.9); Platelet Count 197 K/mcL (140-400); Red Blood Count 4.53 M/mcL (3.82-4.97); Red Cell Distribution Width 19.4 % (11.5-14.5); Segmented Neutrophils % 75.9 %
[2017-07-18 04:35] LABS: BUN/Creatinine Ratio 12 (6-26); Blood Urea Nitrogen 10 mg/dL (7-20); Calcium 9.2 mg/dL (8.6-10.8); Carbon Dioxide 32 mEq/L (19-29); Chloride 99 mEq/L (98-109); Glucose 106 mg/dL (70-99); Magnesium 1.9 mg/dL (1.6-2.6); Osmolality,Calculated 287 (280-300); Potassium 3.6 mEq/L (3.5-4.5); Sodium 139 mEq/L (136-145); eGFR For African Americans > 60 (> 60); eGFR For Non-African Americans > 60 (> 60)
[2017-07-18] MEDS ORDERED: hydroCHLOROthiazide 25 MG TABLET PO SCH (09:00)
[2017-07-18] MEDS ORDERED: Cholecalciferol (D-3) 1,000 UNIT TABLET PO SCH (09:00)
[2017-07-18] MEDS: Metoprolol 100 MG TABLET PO SCH ×2 (10:28→21:25)
[2017-07-18] MEDS ORDERED: Vancomycin 2,000 MG in D5% in Water 500 ML IVPB SCH (13:00)
--- NOTE | 2017-07-18 16:06 | Electrocardiograph Report ---
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
--- NOTE | 2017-07-18 16:13 | Internal Med Progress Note ---
Date of Encounter: 07/18/17 Time of Encounter: 16:09 - Assessment and plan (1) Healthcare-associated pneumonia Current Visit: Yes Status: Acute Assessment and plan: Urine culture pending, she states she is having trouble producing sputum. Follow-up with strep pneumonia antigen, Legionella antigen, mycoplasma IgM. Check pro calcitonin. Continue vancomycin, cefepime, and Levaquin. (2) Hemoptysis Current Visit: Yes Status: Acute Assessment and plan: Likely secondary to pneumonia (3) Cellulitis of left abdominal wall Current Visit: Yes Status: Suspected Assessment and plan: Suspect this area of erythema on her left flank is cellulitis. There is a chance that this is only lymphedema but her erythema is extensive. Currently on vancomycin/cefepime/Levaquin for HCAP. Will outline area of erythema with a marker, monitor for improvement. (4) Hypertension Current Visit: No Status: Chronic Assessment and plan: Hydrochlorothiazide and metoprolol Qualifiers: Hypertension type: essential hypertension Qualified Code(s): I10 - Essential (primary) hypertension (5) Hypothyroidism Current Visit: No Status: Chronic Qualifiers: Hypothyroidism type: acquired Qualified Code(s): E03.9 - Hypothyroidism, unspecified (6) Morbid obesity with BMI of 70 and over, adult Current Visit: No Status: Chronic (7) HAMMAD (obstructive sleep apnea) Current Visit: Yes Status: Acute Assessment and plan: BiPAP at night while in hospital - Subjective Interval history: Patient says she has not had any sodas of hemoptysis since admission. She denies any chest pain fevers chills nausea or vomiting. She does note that she has left flank skin cellulitis that has been there chronically since April, 2- 3 months ago. She states she was on a lot of by mouth antibiotics that were not effective. Currently this left flank inflammation is tender and she says it is only slowly improving. - Constitutional Vitals: Temp Pulse Resp BP Pulse Ox 97.6 F 66 14 127/65 94 07/18/17 15:25 07/18/17 15:25 07/18/17 15:25 07/18/17 15:25 07/18/17 15:25 General appearance: Present: A&O X 3, no acute distress, answers questions appropriately Exam: General appearance: Present: A&O X 3, no acute distress, answers questions appropriately - Head Head exam: Present: atraumatic, normocephalic - Eye Eye exam: Present: PERRL, conjuntiva pink, sclera anicteric Pupils: Present: PERRL - Neck Neck exam general surgery: Present: supple, trachea midline. Absent: lymphadenopathy - Respiratory Respiratory exam: Present: CTAB. Absent: accessory muscle use, rales, rhonchi, wheezes - Cardiovascular Cardiovascular exam: Present: RRR, +S1, +S2. Absent: diastolic murmur, gallop, rubs, systolic murmur - GI/Abdominal GI/Abdominal exam: Present: normal bowel sounds, soft, no peritoneal signs. Absent: distended, tenderness - Extremities Exam Extremities exam: Present: warm, radial pulses palpable and symmetrical. Absent : calf tenderness, cyanotic, pedal edema - Neurological Exam Neurological exam: Present: CN II-XII intact, oriented X3, no focal deficits. Absent: pronater drift, facial droop, speech deficit - Skin Skin exam: Present: dry, intact. She has large pannus fold. Underneath the fold there is some erythematous changes and only mild. Her left flank scan as lymphedematous changes, with erythema and tenderness. There is no induration. There is no purulent drainage, and no bleeding. Internal Medicine: Result - Labs CBC & Chem 7: 07/18/17 04:01 07/18/17 04:01 Labs: Short CBC 07/18/17 Range/Units 04:01 WBC 6.8 (4.3-11.1) K/mcL Hgb 10.7 L (11.5-15.4) g/dL Hct 35.3 (35.3-44.9) % Plt Count 197 (140-400) K/mcL Neutrophils # 5.1 (1.6-8.9) K/mcL BMP 07/18/17 04:01 Sodium 139 Potassium 3.6 Chloride 99 Carbon Dioxide 32 H BUN 10 Creatinine 0.83 Glucose 106 H Calcium 9.2 Cardiac Enzymes 07/17/17 07/18/17 Range/Units 22:01 04:01 Troponin I 0.08 H* 0.09 H* (0-0.03) ng/mL Consult Discharge Plan - Plan Referrals: Chantale Avelar [Primary Care Provider] -
[2017-07-18] MEDS: Levofloxacin 750 MG/150 ML 750 MG/150 ML BAG IVPB SCH (19:11)
[2017-07-18] MEDS: hydroCHLOROthiazide 25 MG TABLET PO SCH (21:25)
[2017-07-18] MEDS: Clotrimazole 1% CRM 15 GM TUBE TP SCH (21:26)
[2017-07-19] MEDS: Vancomycin 1,500 MG in D5% in Water 250 ML IVPB SCH ×2 (01:19→15:41)
[2017-07-19] MEDS: *HR* HYDROcodone/Acet 5/325 mg TABLET PO PRN ×4 (03:18→21:01)
[2017-07-19 04:13] LABS: Basophils % 0.3 %; Eosinophils # 0.5 K/mcL (0.0-0.6); Eosinophils % 7.4 %; Hematocrit 35.4 % (35.3-44.9); Hemoglobin 10.6 g/dL (11.5-15.4); Immature Granulocytes % 0.5 % (0-4); Lymphocytes # 0.8 K/mcL (0.6-4.6); Lymphocytes % 13.5 %; Mean Corpuscular HGB Conc 29.9 g/dL (31.6-35.5); Mean Corpuscular Hemoglobin 23.7 pg (28.0-33.3); Mean Platelet Volume 10.3 fL (9.4-12.4); Monocytes # 0.5 K/mcL (0.0-1.3); Monocytes % 7.3 %; Neutrophils # 4.4 K/mcL (1.6-8.9); Platelet Count 197 K/mcL (140-400); Red Blood Count 4.48 M/mcL (3.82-4.97); Red Cell Distribution Width 19.3 % (11.5-14.5)
[2017-07-19 04:28] LABS: BUN/Creatinine Ratio 12 (6-26); Blood Urea Nitrogen 10 mg/dL (7-20); Calcium 8.7 mg/dL (8.6-10.8); Carbon Dioxide 34 mEq/L (19-29); Chloride 101 mEq/L (98-109); Glucose 104 mg/dL (70-99); Osmolality,Calculated 287 (280-300); Potassium 4.1 mEq/L (3.5-4.5); Sodium 139 mEq/L (136-145); eGFR For African Americans > 60 (> 60); eGFR For Non-African Americans > 60 (> 60)
[2017-07-19] MEDS: Cholecalciferol (D-3) 1,000 UNIT TABLET PO SCH (09:06)
[2017-07-19] MEDS: Metoprolol 100 MG TABLET PO SCH ×2 (09:08→21:02)
[2017-07-19] MEDS ORDERED: Furosemide 40 MG/4 ML VIAL IVP ONE (10:45)
--- NOTE | 2017-07-19 11:10 | Internal Med Progress Note ---
Date of Encounter: 07/19/17 Time of Encounter: 11:09 - Assessment and plan (1) Healthcare-associated pneumonia Current Visit: Yes Status: Acute Assessment and plan: She is having trouble producing sputum, we will give Mucinex. Follow-up with strep pneumonia antigen, Legionella antigen, mycoplasma IgM, procalcitonin. Continue vancomycin, Levaquin. 07/19: one dose of IV Lasix 20 mg given for pedal edema. Infectious disease has been consulted, appreciate recommendations Note that she did receive a dose dose of cefepime overnight which could be the source of allergic reaction (2) Hemoptysis Current Visit: Yes Status: Acute Assessment and plan: Likely secondary to pneumonia (3) Cellulitis of left abdominal wall Current Visit: Yes Status: Suspected Assessment and plan: Suspect this area of erythema on her left flank is cellulitis. There is a chance that this is only lymphedema but her erythema is extensive. Currently on vancomycin/Levaquin for HCAP. 07/18: Erythema was outlined with a marker, monitor for improvement. Cefepime was discontinued earlier in the day. Wound care consulted. 07/19: Edema relatively unchanged, she developed generalized itching and rash on arms and some arm swelling, he states could be from antibiotics. No oral steroids were given as she states she is allergic to all steroids. ID was consulted. (4) Hypertension Current Visit: No Status: Chronic Assessment and plan: Hydrochlorothiazide and metoprolol Qualifiers: Hypertension type: essential hypertension Qualified Code(s): I10 - Essential (primary) hypertension (5) Hypothyroidism Current Visit: No Status: Chronic Qualifiers: Hypothyroidism type: acquired Qualified Code(s): E03.9 - Hypothyroidism, unspecified (6) Morbid obesity with BMI of 70 and over, adult Current Visit: No Status: Chronic (7) HAMMAD (obstructive sleep apnea) Current Visit: Yes Status: Acute Assessment and plan: He refused BiPAP overnight, regarding that it was severely uncomfortable for her - Subjective Interval history: She denies any episodes of hemoptysis since her admission. She denies any chest pain, fevers, chills, nausea nausea, vomiting. Left flank cellulitis is unchanged for her she can see if it is improving due to her body habitus. She is complaining of diffuse itching, possibly because of one of the antibiotics which is vancomycin/Levaquin. Also complains of edema of lower extremities. - Constitutional Vitals: Temp Pulse Resp BP Pulse Ox 98.2 F 62 16 121/51 94 07/19/17 07:32 07/19/17 07:32 07/19/17 07:32 07/19/17 07:32 07/19/17 07:32 General appearance: Present: A&O X 3, no acute distress, answers questions appropriately Exam: General appearance: Morbidly obese, Present: A&O X 3, no acute distress, answers questions appropriately - Head Head exam: Present: atraumatic, normocephalic - Eye Eye exam: Present: PERRL, conjuntiva pink, sclera anicteric Pupils: Present: PERRL - Neck Neck exam general surgery: Present: supple, trachea midline. Absent: lymphadenopathy - Respiratory Respiratory exam: Present: CTAB. Absent: accessory muscle use, rales, rhonchi, wheezes - Cardiovascular Cardiovascular exam: Present: RRR, +S1, +S2. Absent: diastolic murmur, gallop, rubs, systolic murmur - GI/Abdominal GI/Abdominal exam: Present: normal bowel sounds, soft, no peritoneal signs. Absent: distended, tenderness - Extremities Exam Extremities exam: Present: Bilateral pitting edema, which was not present on my exam yesterday. Absent: calf tenderness, cyanotic - Neurological Exam Neurological exam: Present: CN II-XII intact, oriented X3, no focal deficits. Absent: pronater drift, facial droop, speech deficit - Skin Skin exam: Present: dry, intact. She has large pannus fold. Underneath the fold there is some erythematous changes and only mild. Her left flank scan as lymphedematous changes, with erythema and tenderness. There is no induration. There is no purulent drainage or open wounds, and no bleeding. Internal Medicine: Result - Labs CBC & Chem 7: 07/19/17 03:54 07/19/17 03:54 Labs: Short CBC 07/19/17 Range/Units 03:54 WBC 6.2 (4.3-11.1) K/mcL Hgb 10.6 L (11.5-15.4) g/dL Hct 35.4 (35.3-44.9) % Plt Count 197 (140-400) K/mcL Neutrophils # 4.4 (1.6-8.9) K/mcL [facility] 07/19/17 03:54 Sodium 139 Potassium 4.1 Chloride 101 Carbon Dioxide 34 H BUN 10 Creatinine 0.83 Glucose 104 H Calcium 8.7 - VTE Documentation of Mechanical Device: Intermittent pneumatic compression device Consult Discharge Plan - Plan Referrals: Chantale Avelar [Primary Care Provider] -
[2017-07-19] MEDS ORDERED: Aspirin Enteric Coated 325 MG Tablet PO SCH (11:45)
[2017-07-19] MEDS: Clotrimazole 1% CRM 15 GM TUBE TP SCH ×2 (15:40→21:03)
[2017-07-19] MEDS: ASPIRIN PO SCH (16:15)
[2017-07-19] MEDS: Levofloxacin 750 MG/150 ML 750 MG/150 ML BAG IVPB SCH (21:02)
[2017-07-19] MEDS: hydroCHLOROthiazide 25 MG TABLET PO SCH (21:02)
[2017-07-19] MEDS: Miconazole 2% cream 118 GM TUBE TP SCH (21:03)
[2017-07-20] MEDS: *HR* HYDROcodone/Acet 5/325 mg TABLET PO PRN ×5 (01:41→23:17)
[2017-07-20] MEDS: Vancomycin 1,500 MG in D5% in Water 250 ML IVPB SCH ×2 (01:41→14:45)
[2017-07-20 03:49] LABS: Basophils % 0.3 %; Eosinophils # 0.6 K/mcL (0.0-0.6); Eosinophils % 9.2 %; Hematocrit 36.7 % (35.3-44.9); Hemoglobin 10.8 g/dL (11.5-15.4); Immature Granulocytes % 0.7 % (0-4); Lymphocytes # 1.1 K/mcL (0.6-4.6); Lymphocytes % 17.8 %; Mean Corpuscular HGB Conc 29.4 g/dL (31.6-35.5); Mean Corpuscular Hemoglobin 23.4 pg (28.0-33.3); Mean Corpuscular Volume 79.4 fL (83.0-100.0); Mean Platelet Volume 10.2 fL (9.4-12.4); Monocytes # 0.5 K/mcL (0.0-1.3); Monocytes % 7.6 %; Neutrophils # 3.8 K/mcL (1.6-8.9); Platelet Count 191 K/mcL (140-400); Red Blood Count 4.62 M/mcL (3.82-4.97); Red Cell Distribution Width 19.4 % (11.5-14.5); Segmented Neutrophils % 64.4 %
[2017-07-20 04:00] LABS: BUN/Creatinine Ratio 13 (6-26); Blood Urea Nitrogen 11 mg/dL (7-20); Calcium 8.9 mg/dL (8.6-10.8); Carbon Dioxide 33 mEq/L (19-29); Chloride 98 mEq/L (98-109); Glucose 101 mg/dL (70-99); Osmolality,Calculated 288 (280-300); Potassium 3.8 mEq/L (3.5-4.5); Sodium 139 mEq/L (136-145); eGFR For African Americans > 60 (> 60); eGFR For Non-African Americans > 60 (> 60)
[2017-07-20] MEDS: *HR* Enoxaparin 40 MG/0.4 ML SYRINGE SQ SCH (07:40)
[2017-07-20] MEDS: Cholecalciferol (D-3) 1,000 UNIT TABLET PO SCH (08:07)
[2017-07-20] MEDS: Metoprolol 100 MG TABLET PO SCH ×2 (08:07→21:03)
[2017-07-20] MEDS: Miconazole 2% cream 118 GM TUBE TP SCH ×2 (08:08→21:08)
[2017-07-20] MEDS: Clotrimazole 1% CRM 15 GM TUBE TP SCH ×2 (08:08→21:09)
--- NOTE | 2017-07-20 09:44 | Infectious Disease Consult ---
Date of Encounter: 07/20/17 Time of Encounter: 09:44 Assessment and Plan (1) Healthcare-associated pneumonia Status: Acute Assessment and plan: Causative organism unclear. Location: Multifocal per CT scan. The patient has no SIRS criteria. Consider viral etiology. Send sputum for culture if the patient is able to provide an adequate specimen. Send S. pneumo and Legionella UAT. Continue Vancomycin IV (day 4). Pharmacy to dose. Goal trough ~15. Continue Levaquin 750mg IV daily (day 4). Cefepime discontinued due to concern for drug rash. Duration of treatment depends on the clinical picture. (2) Cellulitis Status: Acute Assessment and plan: Location: Left flank. Concern for superimposed cellulitis on top of lymphedema. Clinically, the patient does not appear toxic and has no SIRS criteria to indicate that this is an infection. The only symptoms consistent with cellulitis is the redness. Minimal response to cellulitis noted per the patient. Get CT of the abdomen and pelvis to rule out occult abscess. Continue Vancomycin IV. Pharmacy to dose. Goal trough ~15. Continue Levaquin 750mg IV daily. Duration of treatment depends on the clinical picture. Monitor renal function and for drug toxicity and dose-adjust antibiotics. Qualifiers: Site of cellulitis: trunk Site of cellulitis of trunk: abdominal wall Qualified Code(s): L03.311 - Cellulitis of abdominal wall (3) Lymphedema Status: Acute Assessment and plan: Location: Left flank and lower abdomen. Likely secondary to morbid obesity. May have superimposed cellulitis as well, but skin changes are most consistent with lymphedema. Recommend aggressive wound care and referral to lymphedema therapist as an outpatient. (4) Hemoptysis Status: Resolved Assessment and plan: Likely secondary to PNA. Resolved. (5) Morbid obesity with BMI of 70 and over, adult Status: Chronic Infectious Disease HPI - Data of Consult Patient: new to practice Consult date: 07/20/17 Requesting Physician: Giles Bailey MD Primary Care Provider: Chantale Farr - Consult Narrative Reason for consult: Left flank cellulitis History of present illness: Ms. Williamson is a 52 year old female past medical history of DVT, morbid obesity , recurrent cellulitis, CHF, COPD, hypertension, and hypothyroidism. The patient was admitted to the hospital July 17 for multifocal pneumonia. We are consulted July 20 for further recommendations regarding left flank cellulitis. He should 52-year-old female with past medical history as stated above. She presented to the emergency department with complaints of hemoptysis and 40 history of cough. Upon arrival, the patient was afebrile and hemodynamically stable. Her laboratory studies revealed a normal white blood cell count area and CT of the chest was negative for PE, but showed findings concerning for multifocal pneumonia. The patient was started on empiric IV Levaquin, IV cefepime, and IV vancomycin. She was admitted to the hospital for further evaluation. [place], the patient has remained afebrile and hemodynamically stable. She states her cough is better and she no longer has hemoptysis. He also reported a 2 month history of redness and swelling to the left flank area that started back in April after she was hospitalized. She reports some intermittent sharp pains in the area, but no diffuse warmth or severe pain. She states that the area does not seem to really get worse and it doesn't really change much from day-to-day. She denies any fevers but does report some chills last week. She reports chronic postnasal drip and sinus congestion, but nothing out of the ordinary. She denies any earache or sore throat. She reports some chest tightness associated with a cough, but states this is gotten better. She states her cough is still productive of yellow sputum, but no more blood. She reports chronic nausea and vomiting and abdominal pain secondary to her gallbladder which she says she no she needs to have removed. She denies any urinary complaints or diarrhea. She denies pain otherwise. She states overall she feels better at this time. She has developed a rash to her bilateral feet and upper arms since being here in the hospital secondary to one antibiotic she has been receiving. The IV cefepime was stopped yesterday and the rash seems to be getting better. The patient lives at home with her son. She denies any recent travel. She denies alcohol, tobacco, or illicit drug use. CC: Giles Bailey MD Past Med Surg Social Fam HX - Past Medical History Attestation: Yes The following information was validated with the patient. Source: patient, old records reviewed, nursing notes reviewed Medical history: arthritis, asthma, CHF, COPD, fibromyalgia, glaucoma, hypertension, thyroid disease, other Psychiatric history: anxiety - Past Surgical History Surgical History: - Social History Smoking Status: Former smoker Smokeless Tobacco Status: No Alcohol use: none Drug use: none Occupational status: unemployed Current living situation: Home - Independent Activity Level: Independent ambulation Recent Out of Country Travel Within the Last 8 Weeks: No Exposure or Possible Exposure to Illness During Travel: No - Family History Mother Adopted: No Family Member Ethnicity: Non- Living Status: Still Living Hx Family Cardiac Disorders: Yes Hx Family Respiratory Disorders: Yes Hx Family Cancer: Yes (breast uterine) Hx Family GI Disorders: No Hx Family Endocrine Disorder: Yes (DM) Hx Family Neuromuscular Disorders: No Hx Family Neurologic Disorders: No Hx Family HEENT Disorders: No Hx Family Autoimmune Disorders: No Brother Living Status: Infectious Disease-CN:Meds Famotidine [Pepcid] 20 mg PO BID PRN 05/11/15 [History] Metoprolol [Lopressor] 100 mg PO BID 05/11/15 [History] Levothyroxine [Synthroid] 112 mcg PO QAM 10/19/16 [History] Albuterol Sulfate [Albuterol Inhaler] 2 puff IH Q4H PRN 11/01/16 [History] Loratadine [Claritin] 10 mg PO DAILY PRN 11/01/16 [History] Albuterol Neb [Proventil Neb] 2.5 mg IH Q6H PRN 05/02/17 [History] ALPRAZolam [Xanax 0.5 MG Tablet] 0.5 mg PO TID PRN #15 tablet 05/19/17 [Rx] Aspirin Enteric Coated [Aspirin EC] 325 mg PO DAILY #30 tablet. 05/19/17 [Rx] Cholecalciferol (Vitamin D3) [Vitamin D] 2,000 unit PO DAILY 07/17/17 [History] Diclofenac Sodium [Voltaren] 1 - 2 gm TP QID PRN 07/17/17 [History] Docusate [Colace] 100 mg PO BID PRN 07/17/17 [History] HYDROcodone/Acet 5/325 mg [[place] 5-325 mg] 1 tab PO Q4H PRN 07/17/17 [History] Ondansetron HCl [Zofran] 4 mg PO Q6H PRN 07/17/17 [History] hydroCHLOROthiazide [Hydrochlorothiazide] 25 mg PO HS 07/17/17 [History] 3 Allergy/AdvReac Type Severity Reaction Status Date / Time ibuprofen Allergy Swelling Verified 06/30/17 13:29 of Lip/Tongue/Throat NSAIDS (Non-Steroidal Allergy Rash Verified 06/30/17 13:29 Anti-Inflamma prednisolone Allergy Rash Verified 06/30/17 13:29 prednisone Allergy Swelling Verified 06/30/17 13:29 of Lip/Tongue/Throat Sulfa (Sulfonamide Allergy Hives Verified 06/30/17 13:29 Antibiotics) aspirin AdvReac Mild Rash Verified 07/18/17 15:47 ketorolac [From Toradol] AdvReac Nausea Verified 06/30/17 13:29 tramadol [From Ultram] AdvReac Nausea Verified 06/30/17 13:29 All systems: reviewed and no additional remarkable complaints except as stated Exam - Constitutional Vitals: Temp Pulse Resp BP Pulse Ox 97.6 F 63 16 126/60 96 07/20/17 07:31 07/20/17 07:31 07/20/17 07:31 07/20/17 07:31 07/20/17 07:31 General appearance: cooperative, morbidly obese, no acute distress - Head Head exam: Present: atraumatic, normal inspection, normocephalic - Eye Eye exam: Present: EOMI, normal appearance, PERRL Pupils: Present: normal accommodation - ENT ENT exam: Present: mucous membranes moist - Neck Neck exam: Present: normal inspection - Respiratory Respiratory exam: Present: CTAB. Absent: rales, respiratory distress, rhonchi, wheezes - Cardiovascular Cardiovascular exam: Present: RRR, +S1, +S2 - GI/Abdominal GI/Abdominal exam: Present: distended (morbidly obese), normal bowel sounds, soft. Absent: tenderness - Extremities Exam Extremities exam: Absent: joint swelling, pedal edema, tenderness Additional comments: Diffuse, flat, petechial rash noted to the dorsal aspects of bilateral feet. - Neurological Exam Neurological exam: Present: alert, oriented X3, no focal deficits - Psychiatric Psychiatric exam: Present: normal affect, normal mood - Skin Skin exam: Present: dry, erythema (Left flank and lower abdomen with erythema, but no warmth or tenderness or fluctuance. Skin is edematous with dimpling and findings consistent with lymphedema. ), intact, normal color, warm - Expanded Skin Exam 1 - Lymphedema, erythema, non-tender, not warm to touch. 2 - Lymphedema, erythema, non-tender, not warm to touch. Infectious Disease CN: Results - Labs CBC & Chem 7: 07/20/17 02:50 07/20/17 02:50 - VTE Documentation of Mechanical Device: Intermittent pneumatic compression device Consult Discharge Plan - Plan Referrals: Chantale Avelar [Primary Care Provider] - 08/02/17 12:45 pm
[2017-07-20] MEDS: ASPIRIN PO SCH (14:40)
--- NOTE | 2017-07-20 17:42 | Internal Med Progress Note ---
Date of Encounter: 07/20/17 Time of Encounter: 13:00 - Assessment and plan (1) Healthcare-associated pneumonia Current Visit: Yes Status: Acute Assessment and plan: She is producing sputum now after giving Mucinex. Follow-up sputum culture. Note that she did receive a dose dose of cefepime overnight which could be the source of allergic reaction. Cefepime was discontinued, Levaquin and Vancomycin continued. Follow-up with strep pneumonia antigen, Legionella antigen, mycoplasma IgM, procalcitonin.07/19: one dose of IV Lasix 20 mg given for pedal edema. and edema improved. Infectious disease has evaluated patient. Continuing Levaquin/ Vancomycin. Requiring O2 despite treatment of pneumonia. Suspect this is not related to pnemonia but is obesity hypventilation syndrome. Appreciate ID recs on antibitics for discharge. (2) Hemoptysis Current Visit: Yes Status: Resolved Assessment and plan: Resolved. Likely secondary to pneumonia (3) Cellulitis of left abdominal wall Current Visit: Yes Status: Suspected Assessment and plan: There is region her left flank with prominent lymphedema that is erythematous and is possibly cellulitis. Currently on vancomycin/Levaquin for HCAP. 07/18: Erythema was outlined with a marker, monitor for improvement. Wound care consulted. 07/19: Edema relatively unchanged ID was consulted. 07/20: an CT abdomen pelvis done to check for any abscess, and results negative. (4) Hypertension Current Visit: No Status: Chronic Assessment and plan: Hydrochlorothiazide and metoprolol Qualifiers: Hypertension type: essential hypertension Qualified Code(s): I10 - Essential (primary) hypertension (5) Hypothyroidism Current Visit: No Status: Chronic Qualifiers: Hypothyroidism type: acquired Qualified Code(s): E03.9 - Hypothyroidism, unspecified (6) Morbid obesity with BMI of 70 and over, adult Current Visit: No Status: Chronic (7) HAMMAD (obstructive sleep apnea) Current Visit: Yes Status: Acute (8) Obesity hypoventilation syndrome Current Visit: Yes Status: Acute Assessment and plan: Causing increased CO2 as seen on labs, and fatigue with hypoxia. Discussed sequela of obesity and mortality (9) Chronic respiratory failure with hypoxia Current Visit: Yes Status: Acute Assessment and plan: Treating pneumonia and patient still hypoxic. Likely this is chronic hypoxia due to obesity hypoventilation syndrome with HAMMAD as well. She does complain of some shortness of breath. She is currently using 2 L O2 via NC. She does not wear O2 at home. This could be pneumonia related but highly likely related to obesity hypoventilation syndrome and HAMMAD. She refuses bipap here and does not wear cpap at home as prescribed. Wean O2 today as tolerated. If she cannot wean, then will do a level 1 stress test to see if she needs oxygen at home. Level 1 stress test 07/21 - Subjective Interval history: Denies hemoptysis, chest pain, fevers/chills, n/v. Left flank erythema is about same in her opinion, though she is unable to see it. - Constitutional Vitals: Temp Pulse Resp BP Pulse Ox 97.7 F 68 14 127/67 99 07/20/17 14:52 07/20/17 14:52 07/20/17 14:52 07/20/17 14:52 07/20/17 14:52 General appearance: Present: A&O X 3, no acute distress, answers questions appropriately Exam: - Head Head exam: Present: atraumatic, normocephalic - Eye Eye exam: Present: PERRL, conjuntiva pink, sclera anicteric Pupils: Present: PERRL - Neck Neck exam general surgery: Present: supple, trachea midline. Absent: lymphadenopathy - Respiratory Respiratory exam: Present: CTAB. Absent: accessory muscle use, rales, rhonchi, wheezes - Cardiovascular Cardiovascular exam: Present: RRR, +S1, +S2. Absent: diastolic murmur, gallop, rubs, systolic murmur - GI/Abdominal GI/Abdominal exam: Present: normal bowel sounds, soft, no peritoneal signs. Absent: distended, tenderness - Extremities Exam Extremities exam: Present: Bilateral pitting edema, which was not present on my exam yesterday. Absent: calf tenderness, cyanotic - Neurological Exam Neurological exam: Present: CN II-XII intact, oriented X3, no focal deficits. Absent: pronater drift, facial droop, speech deficit - Skin Skin exam: Present: dry, intact. She has large pannus fold. Underneath the fold there is some erythematous changes and only mild. Her left flank scan as lymphedematous changes, with erythema and tenderness. There is no induration. There is no purulent drainage or open wounds, and no bleeding. Erythema is about same as before. Internal Medicine: Result - Labs CBC & Chem 7: 07/20/17 02:50 07/20/17 02:50 - Impressions Impressions Abdomen/Pelvis CT 07/20/17 13:00 IMPRESSION: There is a nonobstructing right renal calculus. No evidence of acute abnormality in the abdomen or pelvis. Respiratory motion artifact is present Within the field of view, there is no asymmetric or focal subcutaneous fat stranding or induration. Please note that the entirety of the trunk is not visualized. Previously demonstrated fat stranding in the left lateral abdominal wall appears decreased from 05/06/2017. D/ / Forest Godinez MD / Forest Godinez MD Interpreting Provider: Forest Godinez MD - VTE Documentation of Mechanical Device: Intermittent pneumatic compression device Consult Discharge Plan - Plan Referrals: Chantale Avelar [Primary Care Provider] - 08/02/17 12:45 pm
[2017-07-20] MEDS: Levofloxacin 750 MG/150 ML 750 MG/150 ML BAG IVPB SCH (18:22)
[2017-07-20] MEDS ORDERED: Aminoglycoside Consult 1 EACH MC ONE (18:59)
[2017-07-20] MEDS: hydroCHLOROthiazide 25 MG TABLET PO SCH (21:11)
[2017-07-21] MEDS: Vancomycin 1,500 MG in D5% in Water 250 ML IVPB SCH (01:55)
[2017-07-21] MEDS: *HR* HYDROcodone/Acet 5/325 mg TABLET PO PRN ×3 (03:33→16:00)
[2017-07-21] MEDS: Furosemide 40 MG TABLET PO SCH ×2 (06:59→11:55)
[2017-07-21] MEDS: *HR* Enoxaparin 40 MG/0.4 ML SYRINGE SQ SCH (07:35)
[2017-07-21 07:51] LABS: Mycoplasma pneumoniae IgG 0.26 U/L (<=0.09)
[2017-07-21] MEDS: Cholecalciferol (D-3) 1,000 UNIT TABLET PO SCH (09:41)
[2017-07-21] MEDS: Metoprolol 100 MG TABLET PO SCH (09:41)
[2017-07-21] MEDS: Miconazole 2% cream 118 GM TUBE TP SCH (09:45)
[2017-07-21] MEDS: Clotrimazole 1% CRM 15 GM TUBE TP SCH (09:45)
[2017-07-21] MEDS: ASPIRIN PO SCH (09:47)
--- NOTE | 2017-07-21 10:29 | Infectious Disease Progress No ---
Date of Encounter: 07/21/17 Time of Encounter: 10:26 - Assessment and Plan (1) Healthcare-associated pneumonia Current Visit: Yes Status: Acute Causative organism unclear. Location: Multifocal per CT scan. The patient has no SIRS criteria. Consider viral etiology. Send sputum for culture if the patient is able to provide an adequate specimen. Send S. pneumo and Legionella UAT.--> pending collection. Continue Vancomycin IV (day 5). Pharmacy to dose. Goal trough ~15. Continue Levaquin 750mg IV daily (day 5). Cefepime discontinued due to concern for drug rash. Duration of treatment depends on the clinical picture. The patient will likely require a prolonged course of antibiotics due to cellulitis. (2) Cellulitis Current Visit: No Status: Acute Location: Left flank. Likely cellulitis superimposed on lymphedema, which is contributing to the slow response to antibiotic therapy. Clinically, the patient does not appear toxic and has no SIRS criteria to indicate that this is an infection. The only symptoms consistent with cellulitis is the redness. Improved some since previous exam. CT scan shows no occult abscess, but stranding improved since previous imaging. Continue Vancomycin IV. Pharmacy to dose. Goal trough ~15. Continue Levaquin 750mg IV daily. Duration of treatment depends on the clinical picture, but likely a total of 14 days. Can likely switch to PO Levaquin and doxycycline when ready for discharge. Monitor renal function and for drug toxicity and dose-adjust antibiotics. Qualifiers: Site of cellulitis: trunk Site of cellulitis of trunk: abdominal wall Qualified Code(s): L03.311 - Cellulitis of abdominal wall (3) Lymphedema Current Visit: Yes Status: Acute Location: Left flank and lower abdomen. Likely secondary to morbid obesity. May have superimposed cellulitis as well, but skin changes are most consistent with lymphedema. Recommend aggressive wound care and referral to lymphedema therapist as an outpatient. (4) Hemoptysis Current Visit: Yes Status: Resolved Likely secondary to PNA. Resolved. (5) Morbid obesity with BMI of 70 and over, adult Current Visit: No Status: Chronic Counseled on lifestyle modification. - Subjective Interval history: Seen and examined. No acute events noted overnight. Patient states overall she feels well. She denies any fevers or chills or rigors. She does report some shortness of breath, but states her cough is better. She denies any hemoptysis or pain in her chest. She denies pain at the site of cellulitis. She is chronic nausea, but no vomiting. She denies any diarrhea. She denies abdominal pain. She denies urinary complaints. She denies oral thrush or new skin lesions. Infect Dis PN-Objective Data - Labs CBC & Chem 7: 07/20/17 02:50 07/20/17 02:50 Labs: Laboratory Results - last 24 hr 07/20/17 11:35 Vancomycin Trough 19.3 - Impressions Impressions Abdomen/Pelvis CT 07/20/17 13:00 IMPRESSION: There is a nonobstructing right renal calculus. No evidence of acute abnormality in the abdomen or pelvis. Respiratory motion artifact is present Within the field of view, there is no asymmetric or focal subcutaneous fat stranding or induration. Please note that the entirety of the trunk is not visualized. Previously demonstrated fat stranding in the left lateral abdominal wall appears decreased from 05/06/2017. D/ / Forest Godinez MD / Forest Godinez MD Interpreting Provider: Forest Godinez MD Exam - Constitutional Vitals: Temp Pulse Resp BP Pulse Ox 97.5 F L 59 20 137/67 92 07/21/17 07:03 07/21/17 07:03 07/21/17 07:03 07/21/17 07:03 07/21/17 09:50 General appearance: cooperative, morbidly obese, no acute distress - Head Head exam: Present: atraumatic, normal inspection, normocephalic - Eye Eye exam: Present: EOMI, normal appearance, PERRL Pupils: Present: normal accommodation - ENT ENT exam: Present: mucous membranes moist - Neck Neck exam: Present: normal inspection - Respiratory Respiratory exam: Present: CTAB. Absent: rales, respiratory distress, rhonchi, wheezes - Cardiovascular Cardiovascular exam: Present: RRR, +S1, +S2 - GI/Abdominal GI/Abdominal exam: Present: distended (obese), normal bowel sounds, soft. Absent: tenderness - Extremities Exam Extremities exam: Absent: joint swelling, pedal edema, tenderness Additional comments: Erythematous petechial rash to the bilateral dorsal feet improved. - Neurological Exam Neurological exam: Present: alert, oriented X3, no focal deficits - Psychiatric Psychiatric exam: Present: normal affect, normal mood - Skin Skin exam: Present: dry, erythema (Left flank/lower abdomen improved. Induration improved. Non-tender and not warm to touch.), intact, normal color, warm - VTE Documentation of Mechanical Device: Intermittent pneumatic compression device Consult Discharge Plan - Plan Referrals: Chantale Avelar [Primary Care Provider] - 08/02/17 12:45 pm
[2017-07-21] MEDS ORDERED: Doxycycline 100 MG CAPSULE PO SCH (12:00)
[2017-07-21 12:16] VITALS: BP 145/76
--- NOTE | 2017-07-21 13:06 | Discharge Summary ---
Date of Encounter: 07/21/17 Time of Encounter: 13:04 - Discharge Diagnosis (1) Hemoptysis Priority: Primary Status: Resolved Comments: Secondary to pneumonia (2) Acute and chronic respiratory failure with hypoxia Priority: Secondary Status: Acute (3) Healthcare-associated pneumonia Priority: Secondary Status: Acute (4) Cellulitis of left abdominal wall Priority: Secondary Status: Acute Comments: Needs wound care to address lymphedema. (5) Lymphedema Priority: Secondary Status: Acute (6) Hypertension Priority: Secondary Status: Chronic Qualifiers: Hypertension type: essential hypertension Qualified Code(s): I10 - Essential (primary) hypertension (7) Hypothyroidism Priority: Secondary Status: Chronic Qualifiers: Hypothyroidism type: acquired Qualified Code(s): E03.9 - Hypothyroidism, unspecified (8) Morbid obesity with BMI of 70 and over, adult Priority: Secondary Status: Chronic (9) HAMMAD (obstructive sleep apnea) Priority: Secondary Status: Acute (10) Obesity hypoventilation syndrome Priority: Secondary Status: Acute - Discharge Medications Prescriptions: Clotrimazole 1% CRM [Lotrimin 1%] 1 appl TP BID 28 Days #45 g Doxycycline 100 mg PO BID #6 capsule GuaiFENesin ER [Mucinex] 600 mg PO BID #10 tbbp.12hr levoFLOXacin [Levaquin] 750 mg PO 1900 #3 tablet Home Medications: Famotidine [Pepcid] 20 mg PO BID PRN 05/11/15 [History] Metoprolol [Lopressor] 100 mg PO BID 05/11/15 [History] Levothyroxine [Synthroid] 112 mcg PO QAM 10/19/16 [History] Albuterol Sulfate [Albuterol Inhaler] 2 puff IH Q4H PRN 11/01/16 [History] Loratadine [Claritin] 10 mg PO DAILY PRN 11/01/16 [History] Albuterol Neb [Proventil Neb] 2.5 mg IH Q6H PRN 05/02/17 [History] ALPRAZolam [Xanax 0.5 MG Tablet] 0.5 mg PO TID PRN #15 tablet 05/19/17 [Rx] Aspirin Enteric Coated [Aspirin EC] 325 mg PO DAILY #30 tablet. 05/19/17 [Rx] Cholecalciferol (Vitamin D3) [Vitamin D3] 2,000 unit PO DAILY 07/17/17 [History] Diclofenac Sodium [Voltaren] 1 - 2 gm TP QID PRN 07/17/17 [History] Docusate [Colace] 100 mg PO BID PRN 07/17/17 [History] HYDROcodone/Acet 5/325 mg [[place] 5-325 mg] 1 tab PO Q4H PRN 07/17/17 [History] Ondansetron HCl [Zofran] 4 mg PO Q6H PRN 07/17/17 [History] hydroCHLOROthiazide [Hydrochlorothiazide] 25 mg PO HS 07/17/17 [History] Clotrimazole 1% CRM [Lotrimin 1%] 1 appl TP BID 28 Days #45 g 07/21/17 [Rx] Doxycycline 100 mg PO BID #6 capsule 07/21/17 [Rx] GuaiFENesin ER [Mucinex] 600 mg PO BID #10 tbbp.12hr 07/21/17 [Rx] levoFLOXacin [Levaquin] 750 mg PO 1900 #3 tablet 07/21/17 [Rx] Allergies/Adverse Reactions: 3 Allergy/AdvReac Type Severity Reaction Status Date / Time ibuprofen Allergy Swelling Verified 06/30/17 13:29 of Lip/Tongue/Throat NSAIDS (Non-Steroidal Allergy Rash Verified 06/30/17 13:29 Anti-Inflamma prednisolone Allergy Rash Verified 06/30/17 13:29 prednisone Allergy Swelling Verified 06/30/17 13:29 of Lip/Tongue/Throat Sulfa (Sulfonamide Allergy Hives Verified 06/30/17 13:29 Antibiotics) aspirin AdvReac Mild Rash Verified 07/18/17 15:47 ketorolac [From Toradol] AdvReac Nausea Verified 06/30/17 13:29 tramadol [From Ultram] AdvReac Nausea Verified 06/30/17 13:29 Procedures/tests Complete & Pending: Procedures Performed prior 72 hours Category Date Time Status CT abd pelvis wo no iv no oral [CT] Routine Cat Scan 07/20/17 13:00 Completed Date of admission: 07/20/17 09:19 Primary care physician: Chantale Farr Discharging clinician: Giles Bailey - Patient Status Disposition: Home Health Service Condition: Fair Functional capacity at discharge: independent ambulation Overall status at discharge: patient is back to baseline - Discharge Instructions Follow Up With: Chantale Avelar [Primary Care Provider] - 08/02/17 12:45 pm - Diet and Activity Activity: as per physical therapy Diet: low fat, low cholesterol, low salt diet Hospital course: Ms. Williamson is a 52 year old female with history of hypertension, morbid obesity, COPD/asthma, HAMMAD not using CPAP, history of DVT off Coumadin now, present to ER for cough for 4-5 days. Patient also has mild shortness of breath for about 2 weeks. Patient said today her oxygen saturation is only 85% on room air. Patient has a clear sputum for 4-5 days. However today she found there is blood mixed in with sputum, denies large amount of bleeding. Patient denies chest pain, vomiting, diaphoresis. She has mild nausea but she said it is a chronic. she denies urination or symptoms of diarrhea. In emergency room , CTA has been done, showed no major PE, but did show multifocal pneumonia. she was admitted for acute respiratory failure with hypoxia and multifocal pneumonia and she was started on vancomycin and Levaquin. She did not meet SIRS criteria and she showed no clinical signs of sepsis. Cultures and sputum cultures were obtained prior to antibiotics. She was not started on DVT prophylaxis because of her reported hemoptysis and concern for bleeding at that time. He had a borderline elevated troponin that was cycled and trended back down. She was kept on supplemental O2 as her oxygen saturations would go lobe. She troubled producing sputum and so sputum culture was obtained late. Her plasma IgM came back negative. The patient was admitted and transferred to the floor patient did note that she believes she is having a skin infection. The skin of her left flank was erythematous with changes consistent with lymphedema. It did appear as it had some cellulitic changes of lymphedema. Care was consulted and working with patient. Her multifocal pneumonia and possible cellulitis ID was consulted. A CT of the abdomen was performed to rule out abscess in the flank area. Despite adequate treatment of pneumonia, patient still had difficulty with maintaining oxygen. This is most likely chronic in nature as she would have hypoxic episodes while falling asleep she does have a known history of HAMMAD and is noncompliant. She does not take CPAP at home and she refused BiPAP while admitted here. He is given a level and stress test and she qualified for home O2. A procalcitonin that was obtained one day after admission came back which was negative. Patient needs to continue wound care and home, PT OT, nursing. She should be set up with the lymphedema therapist on [facility] if possible. - Time Spent with Patient Total time spent providing and/or coordinating discharge services: Greater than 30 minutes - Constitutional Vitals: Temp Pulse Resp BP Pulse Ox 97.8 F 61 20 145/76 94 07/21/17 12:13 07/21/17 12:13 07/21/17 12:13 07/21/17 12:13 07/21/17 12:38 General appearance: Present: A&O X 3, no acute distress, answers questions appropriately Exam: - Head Head exam: Present: atraumatic, normal inspection, normocephalic - Eye Eye exam: Present: EOMI, normal appearance, PERRL Pupils: Present: normal accommodation - ENT ENT exam: Present: mucous membranes moist - Respiratory Respiratory exam: Present: CTAB. Absent: rales, respiratory distress, rhonchi, wheezes - Cardiovascular Cardiovascular exam: Present: RRR, +S1, +S2 - GI/Abdominal GI/Abdominal exam: Present: distended (obese), normal bowel sounds, soft. Absent: tenderness - Extremities Exam Extremities exam: Absent: joint swelling, pedal edema, tenderness Additional comments: Erythematous petechial rash to the bilateral dorsal feet improved. - Skin Skin exam: Present: dry, erythema (Left flank/lower abdomen improved. Induration improved. Non-tender and not warm to touch.), intact, normal color, warm - VTE Documentation of Mechanical Device: Intermittent pneumatic compression device
--- NOTE | 2017-07-21 14:29 | Physician Discharge Referral ---
Home Health/Hosp Referral Info Transfer to: Home Health Provider in Charge Post Discharge: PCP - Diagnosis (1) Hemoptysis Priority: Primary Status: Resolved (2) Acute and chronic respiratory failure with hypoxia Priority: Secondary Status: Acute (3) Healthcare-associated pneumonia Priority: Secondary Status: Acute (4) Cellulitis of left abdominal wall Priority: Secondary Status: Acute (5) Lymphedema Priority: Secondary Status: Acute (6) Hypertension Priority: Secondary Status: Chronic (7) Hypothyroidism Priority: Secondary Status: Chronic (8) Morbid obesity with BMI of 70 and over, adult Priority: Secondary Status: Chronic (9) HAMMAD (obstructive sleep apnea) Priority: Secondary Status: Acute (10) Obesity hypoventilation syndrome Priority: Secondary Status: Acute - Respiratory Orders Oxygen / L per min (2 L per min nasal cannula) Smoking Cessation: Smoking cessation has been advised. For more information, call the [employer] Quit Line at [phone]-KIKI-NOW. - Dressing/Wound Care Site: Left flank - Diet/Nutrition Diet/Nutrition Orders: No Added Salt (IZA), Cardiac - Activity Activity Orders: Up ad zoë - Services Needed Following services are medically necessary services: Nursing, Physical Therapy Home Care Orders: Wound care (Lymphedema specialist) - Transfer Medications Prescriptions: Clotrimazole 1% CRM [Lotrimin 1%] 1 appl TP BID 28 Days #45 g Doxycycline 100 mg PO BID #6 capsule GuaiFENesin ER [Mucinex] 600 mg PO BID #10 tbbp.12hr levoFLOXacin [Levaquin] 750 mg PO 1900 #3 tablet Home Medications: Famotidine [Pepcid] 20 mg PO BID PRN 05/11/15 [History] Metoprolol [Lopressor] 100 mg PO BID 05/11/15 [History] Levothyroxine [Synthroid] 112 mcg PO QAM 10/19/16 [History] Albuterol Sulfate [Albuterol Inhaler] 2 puff IH Q4H PRN 11/01/16 [History] Loratadine [Claritin] 10 mg PO DAILY PRN 11/01/16 [History] Albuterol Neb [Proventil Neb] 2.5 mg IH Q6H PRN 05/02/17 [History] ALPRAZolam [Xanax 0.5 MG Tablet] 0.5 mg PO TID PRN #15 tablet 05/19/17 [Rx] Aspirin Enteric Coated [Aspirin EC] 325 mg PO DAILY #30 tablet. 05/19/17 [Rx] Cholecalciferol (Vitamin D3) [Vitamin D3] 2,000 unit PO DAILY 07/17/17 [History] Diclofenac Sodium [Voltaren] 1 - 2 gm TP QID PRN 07/17/17 [History] Docusate [Colace] 100 mg PO BID PRN 07/17/17 [History] HYDROcodone/Acet 5/325 mg [[place] 5-325 mg] 1 tab PO Q4H PRN 07/17/17 [History] Ondansetron HCl [Zofran] 4 mg PO Q6H PRN 07/17/17 [History] hydroCHLOROthiazide [Hydrochlorothiazide] 25 mg PO HS 07/17/17 [History] Clotrimazole 1% CRM [Lotrimin 1%] 1 appl TP BID 28 Days #45 g 07/21/17 [Rx] Doxycycline 100 mg PO BID #6 capsule 07/21/17 [Rx] GuaiFENesin ER [Mucinex] 600 mg PO BID #10 tbbp.12hr 07/21/17 [Rx] levoFLOXacin [Levaquin] 750 mg PO 1900 #3 tablet 07/21/17 [Rx] Allergies/Adverse Reactions: 3 Allergy/AdvReac Type Severity Reaction Status Date / Time ibuprofen Allergy Swelling Verified 06/30/17 13:29 of Lip/Tongue/Throat NSAIDS (Non-Steroidal Allergy Rash Verified 06/30/17 13:29 Anti-Inflamma prednisolone Allergy Rash Verified 06/30/17 13:29 prednisone Allergy Swelling Verified 06/30/17 13:29 of Lip/Tongue/Throat Sulfa (Sulfonamide Allergy Hives Verified 06/30/17 13:29 Antibiotics) aspirin AdvReac Mild Rash Verified 07/18/17 15:47 ketorolac [From Toradol] AdvReac Nausea Verified 06/30/17 13:29 tramadol [From Ultram] AdvReac Nausea Verified 06/30/17 13:29 Certification: Further, I certify that my clinical findings support that this patient is homebound (i.e. absences from home require considerable and taxing effort and are for medical reasons or denominational services or infrequently or short duration when for other reasons) because: Homebound Reason: Patient requires assistance of a person or device to safely leave home, Leaving home requires considerable and taxing effort due to condition Attestation: My signature below is to certify that this patient is under my care and that I, or nurse practitioner, or a physician's compliance assistant working with me, has a face-to -face encounter with this patient.
[2017-07-21] MEDS ORDERED: levoFLOXacin 750 MG TABLET PO SCH (19:00)
[2017-07-21] MEDS ORDERED: Miconazole 2% cream 118 GM TUBE TP SCH (21:00)
== END 2017-07-21 19:00 | disposition home health service (06) | DRG 139 ==
LOC: 2NENU 15:28 → EMEROO 15:28 → SUATTDRO 19:36 → 2NENU 20:24
PROVIDERS: ADMIT Internal Medicine; ATTEND Student in an Organized Health Care Education/Training Program

== ENCOUNTER 2019-03-09 13:03 | Observation (INO) ==
[2019-03-09] MEDS ORDERED: Naloxone 0.4 MG/ML INJ IVP PRN (15:37)
[2019-03-09] MEDS ORDERED: ALPRAZolam 0.5 MG TABLET PO PRN (15:41)
[2019-03-09] MEDS ORDERED: Ondansetron 4 MG/2 ML VIAL IVP PRN (15:42)
--- NOTE | 2019-03-09 16:07 | Internal Med History&Physical ---
Date of Encounter: 03/09/19 Time of Encounter: 16:01 Internal Medicine - H&P: HPI Chief complaint: shortness of breath and productive cough Admitted From: Home History of present illness: Ms. Williamson is a 54 year old female PMH COPD, Hypothyroidism, HTN, HAMMAD and lymphaedema. patient presented to [facility] due to shortness of breath. Patient reports she has been feeling short of breath for the past 2-3 months and she has been treated with z-pack and bronchodilators at home. Reports she completed a course of antibiotics about 2 weeks ago, but for the past couple of days she has been wheezing and has been short of breath she also reported chills and productive cough or yellow/clear sputum. Reports using her nebulizer at home but it did not improve her symptoms and decided to go to the ED for evaluation. denies abdominal pain, nausea, vomiting or chest pain. reports chronic body aches. she also stated that some family members have flu like symptoms for the past couple of weeks. Past Med Surg Social Fam HX - Past Medical History Medical history: arthritis, asthma, CHF, COPD, fibromyalgia, glaucoma, hypertension, thyroid disease, other Additional medical history: lymphedema Psychiatric history: anxiety - Past Surgical History Surgical History: Additional surgical history: laproscopy - Social History Smoking Status: Former smoker Smokeless Tobacco Status: No Alcohol use: none Drug use: none - Family History Mother Adopted: No Family Member Ethnicity: Non- Living Status: Still Living Hx Family Cardiac Disorders: Yes Hx Family Respiratory Disorders: Yes Hx Family Cancer: Yes (breast uterine) Hx Family GI Disorders: No Hx Family Endocrine Disorder: Yes (DM) Hx Family Neuromuscular Disorders: No Hx Family Neurologic Disorders: No Hx Family HEENT Disorders: No Hx Family Autoimmune Disorders: No Brother Living Status: Internal Medicine - H&P: Meds Famotidine [Pepcid] 20 mg PO BID PRN 05/11/15 [History] Metoprolol [Lopressor] 100 mg PO BID 05/11/15 [History] Levothyroxine [Synthroid] 112 mcg PO QAM 10/19/16 [History] Albuterol Sulfate [Albuterol Inhaler] 2 puff IH Q4H PRN 11/01/16 [History] Loratadine [Claritin] 10 mg PO DAILY PRN 11/01/16 [History] Albuterol Neb [Proventil Neb] 2.5 mg IH Q6H PRN 05/02/17 [History] ALPRAZolam [Xanax 0.5 MG Tablet] 0.5 mg PO TID PRN #15 tablet 05/19/17 [Rx] Aspirin Enteric Coated [Aspirin EC] 325 mg PO DAILY #30 tablet. 05/19/17 [Rx] Docusate [Colace] 100 mg PO BID PRN 07/17/17 [History] HYDROcodone/Acet 5/325 mg [[place] 5-325 mg] 1 tab PO Q4H PRN 07/17/17 [History] Ondansetron HCl [Zofran] 4 mg PO Q6H PRN 07/17/17 [History] hydroCHLOROthiazide [Hydrochlorothiazide] 25 mg PO HS PRN 07/17/17 [History] Guaifenesin [Mucinex] 600 mg PO BID PRN 03/09/19 [History] Allergy/AdvReac Type Severity Reaction Status Date / Time ibuprofen Allergy Swelling Verified 06/30/17 13:29 of Lip/Tongue/Throat NSAIDS (Non-Steroidal Allergy Rash Verified 06/30/17 13:29 Anti-Inflamma prednisolone Allergy Rash Verified 06/30/17 13:29 prednisone Allergy Swelling Verified 06/30/17 13:29 of Lip/Tongue/Throat Sulfa (Sulfonamide Allergy Hives Verified 06/30/17 13:29 Antibiotics) aspirin AdvReac Mild Rash Verified 07/18/17 15:47 ketorolac [From Toradol] AdvReac Nausea Verified 06/30/17 13:29 tramadol [From Ultram] AdvReac Nausea Verified 06/30/17 13:29 All Systems PM: A 10-system review of systems was performed and is negative for pertinent findings except as documented above in the HPI. - Constitutional Constitutional: chills, no fever(s), no weakness - EENT Nose, mouth and throat: no dental pain - Cardiovascular Cardiovascular ROS IM: no claudication, no irregular heart rhythm, no lightheadedness, no orthopnea, no palpitations - Gastrointestinal Gastrointestinal: no abdominal pain, no nausea, no vomiting - Genitourinary Genitourinary: no dysuria, no urinary hesitancy, no urinary urgency - Musculoskeletal Musculoskeletal ROS IM: no atrophy, no stiffness - Integumentary Integumentary IM: no erythema, no non-healing lesions - Psychiatric Psychiatric: no anxiety, no hopelessness, no irritability - Endocrine Endocrine IM: no cold intolerance, no excessive sweating - Hematologic/Lymphatic Hematologic/Lymphatic: no lymphadenopathy - Allergic/Immunologic Allergic/Immunologic: no GI upset with certain foods - Constitutional Vitals: Pulse Ox 95 03/09/19 15:53 Exam: Vitals: Reviewed General: Morbid obese, Alert and oriented x4. In mild distress due to shortness of breath Cardiovascular: RRR, normal S1 & S2, no rubs, murmurs or gallops. Lungs: b/l scattered wheezes, no crackles. Abdomen: Obese, soft, non-tender, no rigidity. Extremities: No edema. Neurological: Normal cognition Rest of the physical exam is non contributory Internal Med - H&P Results - Diagnostic Studies Chest x-ray Status: image reviewed by me (right middle lobe infiltrate ) - Assessment and Plan (1) Acute and chronic respiratory failure with hypoxia Current Visit: No Status: Acute Assessment and plan: patient with wheezing on auscultation. started on bronchodilators. no steroids as patient is allergic to them. incentive spirometry. continue O2 by nasal apoorva kenyon, titrate for O2Sat >92%. ABG ordered (2) DVT prophylaxis Current Visit: No Status: Chronic Assessment and plan: started on heparin subQ. (3) Lymphedema Current Visit: No Status: Chronic (4) HAMMAD (obstructive sleep apnea) Current Visit: No Status: Chronic Assessment and plan: patient reported she does not use nocturnal Bipap because of claustrophobia (5) Pneumonia Current Visit: No Status: Acute Assessment and plan: XR/XR chest 1V portable IMPRESSION: Focal infiltrate, presumably pneumonia, has developed central in the upper right lung with associated parapneumonic effusion. Plan started on azithromycin and ceftriaxone sputum culture and gram stain strep pneumonia and legionella ordered respiratory panel chest CT ordered for better visualization of lung parenchyma as patient has failed multiple outpatient treatment Qualifiers: Pneumonia type: due to unspecified organism Laterality: right Lung location: unspecified part of lung Qualified Code(s): J18.9 - Pneumonia, unspecified organism (6) Hypertension Current Visit: No Status: Chronic Assessment and plan: will resume home medication when verified by the pharmacy Qualifiers: Hypertension type: essential hypertension Qualified Code(s): I10 - Essential (primary) hypertension (7) Hypothyroidism Current Visit: No Status: Chronic Assessment and plan: continue levothyroxine 112 mcg/po daily Qualifiers: Hypothyroidism type: acquired Qualified Code(s): E03.9 - Hypothyroidism, unspecified (8) Morbid obesity with BMI of 70 and over, adult Current Visit: No Status: Chronic - Time Spent With Patient Total time spent is greater than 50% in coordination of care (as documented) at patient's floor/unit and/or counseling patient: Greater than 35 minutes (45)
[2019-03-09] MEDS: Ipratropium/Albuterol Neb 3 ML IH SCH ×3 (16:46→23:31)
[2019-03-09] MEDS: *HR* HYDROcodone/Acet 5/325 mg TABLET PO PRN ×2 (17:51→22:18)
[2019-03-09] MEDS: Metoprolol 100 MG TABLET PO SCH (20:53)
[2019-03-09] MEDS ORDERED: *HR* Heparin 5,000 UNIT/ML VIAL SQ SCH (22:00)
[2019-03-09 22:07] LABS: Adenovirus Not Detected (Not Detect); Bordetella Pertussis Not Detected (Not Detect); Chlamydophila pneumoniae Not Detected (Not Detect); Coronavirus 229E Not Detected (Not Detect); Coronavirus HKU1 Not Detected (Not Detect); Coronavirus NL63 Not Detected (Not Detect); Coronavirus OC43 Not Detected (Not Detect); Human Metapneumovirus Not Detected (Not Detect); Human Rhinovirus/Enterovirus Not Detected (Not Detect); Influenza A Subtype 2009 H1 Not Detected (Not Detect); Influenza A Untypeable Not Detected (Not Detect); Influenza B Not Detected (Not Detect); Mycoplasma pneumoniae Not Detected (Not Detect); Parainfluenza Virus 1 Not Detected (Not Detect); Parainfluenza Virus 2 Not Detected (Not Detect); Parainfluenza Virus 3 Not Detected (Not Detect); Parainfluenza Virus 4 Not Detected (Not Detect); Respiratory Syncytial Virus Not Detected (Not Detect)
[2019-03-10 01:59] LABS: Basophils % 0.5 %; Eosinophils # 0.1 K/mcL (0.0-0.6); Eosinophils % 1.7 %; Hematocrit 41.5 % (35.3-44.9); Hemoglobin 12.7 g/dL (11.5-15.4); Immature Granulocytes % 0.2 % (0-4); Lymphocytes % 23.4 %; Mean Corpuscular HGB Conc 30.6 g/dL (31.6-35.5); Mean Corpuscular Hemoglobin 26.7 pg (28.0-33.3); Mean Corpuscular Volume 87.2 fL (83.0-100.0); Mean Platelet Volume 10.3 fL (9.4-12.4); Monocytes # 0.5 K/mcL (0.0-1.3); Monocytes % 12.3 %; Neutrophils # 2.5 K/mcL (1.6-8.9); Platelet Count 145 K/mcL (140-400); Red Blood Count 4.76 M/mcL (3.82-4.97); Red Cell Distribution Width 14.3 % (11.5-14.5); Segmented Neutrophils % 61.9 %; White Blood Count 4.1 K/mcL (4.3-11.1)
[2019-03-10 02:06] LABS: INR 1.1; Prothrombin Time 12.4 Seconds (9.4-12.1)
[2019-03-10 02:09] LABS: Activated Partial Thrombo Time 28.1 Seconds (26.0-36.0)
[2019-03-10 02:17] LABS: BUN/Creatinine Ratio 12 (6-26); Blood Urea Nitrogen 8 mg/dL (6-20); Carbon Dioxide 32 mEq/L (23-29); Chloride 100 mEq/L (98-107); Chol/HDL Ratio 2.6 (0-4.9); Cholesterol 116 mg/dL (< 200); Glucose 103 mg/dL (70-105); HDL Cholesterol 44 mg/dL (40-59); LDL Cholesterol,Calculated 58 mg/dL (0-99); Osmolality,Calculated 289 (280-300); Phosphorous 3.2 mg/dL (2.7-4.5); Potassium 3.8 mEq/L (3.5-5.1); Sodium 140 mEq/L (136-145); Triglycerides 70 mg/dL (< 150); eGFR For African Americans > 60 (> 60); eGFR For Non-African Americans > 60 (> 60)
[2019-03-10] MEDS: *HR* HYDROcodone/Acet 5/325 mg TABLET PO PRN ×4 (02:43→20:11)
[2019-03-10] MEDS: Saline Nasal Spray 44 ML BOTTLE NS PRN (03:04)
[2019-03-10] MEDS: Ipratropium/Albuterol Neb 3 ML IH SCH ×6 (03:59→23:58)
--- NOTE | 2019-03-10 08:44 | Internal Med Progress Note ---
Hospitalist Progress Note - Encounter Date of Encounter: 03/10/19 Time of Encounter: 08:42 - Subjective Interval History: I have seen and evaluated the patient at bedside. patient reports still wheezing. denies chest pain, nausea or vomiting. denies abdominal pain or light headedness - Exam Vitals: Temp Pulse Resp BP Pulse Ox 97.7 F 61 19 144/73 96 03/10/19 07:15 03/10/19 07:15 03/10/19 07:37 03/10/19 07:15 03/10/19 07:37 Exam: Vitals: Reviewed General: Morbid obese, Alert and oriented x4. In mild distress due to wheezing Cardiovascular: RRR, normal S1 & S2, no rubs, murmurs or gallops. Lungs: b/l scattered wheezes, no crackles or rales Abdomen: Obese, soft, non-tender, no rigidity. NABS in all 4 quadrants Extremities: No edema. bluish discoloration big toes, and cold to touch Neurological: Normal cognition Rest of the physical exam is non contributory - Assessment and Plan (1) Pneumonia Current Visit: No Status: Acute Assessment and Plan: CT/CT chest wo con IMPRESSION: 1. Airspace consolidation in the right upper lobe likely represents pneumonia. Plan Discontinue ceftriaxone, and azithromycin. Started on ampicillin/sulbactam 1.5 mg every 6 hours. Quantiferon gold ordered strep pneumonia and legionella ordered sputum culture: pending (2) Acute and chronic respiratory failure with hypoxia Current Visit: No Status: Acute Assessment and Plan: Patient is seen due to scatter expiratory wheezing bilaterally. Unable to tolerate systemic steroids due to allergy. Continue bronchodilators every 4 hours scheduled. Incentive spirometry. (3) Lymphedema Current Visit: No Status: Chronic (4) HAMMAD (obstructive sleep apnea) Current Visit: No Status: Chronic Assessment and Plan: patient reported she does not use nocturnal Bipap because of claustrophobia (5) Hypertension Current Visit: No Status: Chronic Assessment and Plan: Blood pressure is well controlled. On metoprolol 100 mg by mouth twice a day. (6) Hypothyroidism Current Visit: No Status: Chronic Assessment and Plan: Continue levothyroxine 112 mcg/PO daily (7) Morbid obesity with BMI of 70 and over, adult Current Visit: No Status: Chronic DVT Prophylaxis: intermittent pneumatic compression - Summary of Assessment and Plan Summary of Assessment and Plan: patient to remain in the hospital on broad spectrum IV antibiotics - Time Spent with Patient Total time spent is greater than 50% in coordination of care (as documented) at patient's floor/unit and/or counseling patient: Greater than 35 minutes (40) Plan of Care Discussed with: patient (and the nurse) Internal Medicine: Result - Labs CBC & Chem 7: 03/10/19 00:59 03/10/19 00:59 Labs: Short CBC 03/10/19 Range/Units 00:59 WBC 4.1 L (4.3-11.1) K/mcL Hgb 12.7 (11.5-15.4) g/dL Hct 41.5 (35.3-44.9) % Plt Count 145 (140-400) K/mcL Neutrophils # 2.5 (1.6-8.9) K/mcL BMP 03/10/19 00:59 Sodium 140 Potassium 3.8 Chloride 100 Carbon Dioxide 32 H BUN 8 Creatinine 0.65 Glucose 103 Calcium 9.0 - ABG Interpretation ABG results: PT/INR, D-dimer PT 12.4 Seconds (9.4-12.1) H 03/10/19 00:59 - Impressions Impressions Chest CT 03/09/19 16:00 IMPRESSION: 1. Airspace consolidation in the right upper lobe likely represents pneumonia. D/ / Raghu Shukla MD / Raghu Shukla MD Interpreting Provider: Raghu Shukla MD Consult Discharge Plan - Plan Referrals: Chantale Farr [employer] DEVELOPER [Primary Care Provider] - (1) Pneumonia Qualifiers: Pneumonia type: due to unspecified organism Laterality: right Lung location: unspecified part of lung Qualified Code(s): J18.9 - Pneumonia, unspecified organism (5) Hypertension Qualifiers: Hypertension type: essential hypertension Qualified Code(s): I10 - Essential (primary) hypertension (6) Hypothyroidism Qualifiers: Hypothyroidism type: acquired Qualified Code(s): E03.9 - Hypothyroidism, unspecified
[2019-03-10] MEDS: Metoprolol 100 MG TABLET PO SCH ×2 (08:58→20:11)
[2019-03-10] MEDS ORDERED: Azithromycin 500 MG in D5% in Water 250 ML IVPB SCH (09:00)
[2019-03-10] MEDS ORDERED: Aspirin Enteric Coated 325 MG Tablet PO SCH (09:00)
[2019-03-10] MEDS ORDERED: cefTRIAXone 1,000 MG in Water for inj. (sterile) 20 ML 10 ML IVP SCH (09:00)
[2019-03-10] MEDS: Ampicillin/Sulbactam 1,500 MG in 0.9 % Sodium Chloride Mini Bag 100 ML IVPB SCH ×4 (09:26→23:38)
[2019-03-11] MEDS: *HR* HYDROcodone/Acet 5/325 mg TABLET PO PRN ×4 (00:56→20:51)
[2019-03-11] MEDS: Ipratropium/Albuterol Neb 3 ML IH SCH ×6 (03:06→23:07)
[2019-03-11] MEDS: Ampicillin/Sulbactam 1,500 MG in 0.9 % Sodium Chloride Mini Bag 100 ML IVPB SCH ×4 (05:53→23:49)
[2019-03-11] MEDS: Aspirin 325 MG TABLET PO SCH (08:02)
[2019-03-11] MEDS: Metoprolol 100 MG TABLET PO SCH ×2 (08:02→20:51)
--- NOTE | 2019-03-11 14:28 | Internal Med Progress Note ---
Hospitalist Progress Note - Encounter Date of Encounter: 03/11/19 Time of Encounter: 14:25 - Subjective Interval History: I have seen and evaluated the patient at bedside. patient reports feeling more short of breath and congested today. denies chest pain, nausea or vomiting. denies chest pain. - Exam Vitals: Temp Pulse Resp BP Pulse Ox 98.5 F 64 18 125/65 90 03/11/19 11:55 03/11/19 11:55 03/11/19 11:55 03/11/19 11:55 03/11/19 11:55 Exam: Vitals: Reviewed General: Morbid obese, Alert and oriented x4. In mild distress due to shortness of breath Cardiovascular: RRR, normal S1 & S2, no rubs, murmurs or gallops. Lungs: mild/moderate b/l scattered wheezes, no crackles or rales Abdomen: Obese, soft, non-tender, no rigidity. NABS in all 4 quadrants Extremities: No edema. Neurological: Normal cognition Rest of the physical exam is non contributory - Assessment and Plan (1) Pneumonia Current Visit: No Status: Acute Assessment and Plan: patient reporting productive cough Plan sputum culture: no growth Continue ampicillin/sulbactam 1.5 mg every 6 hours. Quantiferon gold ordered, pending report strep pneumonia and legionella ordered: pending A repeat x-ray in 4 weeks is recommended to confirm resolution of consolidation. If the consolidation persists after antibiotic therapy, then other differentials such as inflammatory non-infectious and neoplastic etiologies should be included in the differentials. (2) Acute and chronic respiratory failure with hypoxia Current Visit: No Status: Acute Assessment and Plan: patient with scattered b/l expiratory wheezing Plan Unable to tolerate systemic steroids due to allergy. Bronchodilators every 4 hours scheduled. Incentive spirometry. (3) Lymphedema Current Visit: No Status: Chronic (4) HAMMAD (obstructive sleep apnea) Current Visit: No Status: Chronic Assessment and Plan: unable to tolerate BiPap (5) Hypertension Current Visit: No Status: Chronic Assessment and Plan: Blood pressure is well controlled. c continue metoprolol 100 mg by mouth twice a day. (6) Hypothyroidism Current Visit: No Status: Chronic Assessment and Plan: On levothyroxine 112 mcg/PO daily (7) Morbid obesity with BMI of 70 and over, adult Current Visit: No Status: Chronic DVT Prophylaxis: intermittent pneumatic compression - Summary of Assessment and Plan Summary of Assessment and Plan: patient to remain in the hospital due to acute bronchitis with bronchospasm. pneumonia. on broad spectrum IV antibiotics - Time Spent with Patient Total time spent is greater than 50% in coordination of care (as documented) at patient's floor/unit and/or counseling patient: Greater than 35 minutes (40) Plan of Care Discussed with: patient (and the nurse) Internal Medicine: Result - Labs CBC & Chem 7: 03/10/19 00:59 03/10/19 00:59 - ABG Interpretation ABG results: PT/INR, D-dimer PT 12.4 Seconds (9.4-12.1) H 03/10/19 00:59 Consult Discharge Plan - Plan Referrals: Chantale Farr CNP [Primary Care Provider] - (1) Pneumonia Qualifiers: Pneumonia type: due to unspecified organism Laterality: right Lung location: unspecified part of lung Qualified Code(s): J18.9 - Pneumonia, unspecified organism (5) Hypertension Qualifiers: Hypertension type: essential hypertension Qualified Code(s): I10 - Essential (primary) hypertension (6) Hypothyroidism Qualifiers: Hypothyroidism type: acquired Qualified Code(s): E03.9 - Hypothyroidism, unspecified
[2019-03-12] MEDS: *HR* HYDROcodone/Acet 5/325 mg TABLET PO PRN ×5 (02:31→21:13)
[2019-03-12] MEDS: Ipratropium/Albuterol Neb 3 ML IH SCH ×6 (03:54→23:09)
[2019-03-12] MEDS: Saline Nasal Spray 44 ML BOTTLE NS PRN (04:37)
[2019-03-12 04:39] LABS: Basophils % 0.5 %; Eosinophils # 0.2 K/mcL (0.0-0.6); Eosinophils % 5.9 %; Hematocrit 42.4 % (35.3-44.9); Hemoglobin 12.8 g/dL (11.5-15.4); Immature Granulocytes % 0.3 % (0-4); Lymphocytes # 0.8 K/mcL (0.6-4.6); Mean Corpuscular HGB Conc 30.2 g/dL (31.6-35.5); Mean Corpuscular Hemoglobin 26.7 pg (28.0-33.3); Mean Corpuscular Volume 88.5 fL (83.0-100.0); Mean Platelet Volume 9.9 fL (9.4-12.4); Monocytes # 0.4 K/mcL (0.0-1.3); Monocytes % 9.7 %; Neutrophils # 2.4 K/mcL (1.6-8.9); Platelet Count 141 K/mcL (140-400); Red Blood Count 4.79 M/mcL (3.82-4.97); Red Cell Distribution Width 14.2 % (11.5-14.5); Segmented Neutrophils % 62.6 %; White Blood Count 3.9 K/mcL (4.3-11.1)
[2019-03-12 04:55] LABS: BUN/Creatinine Ratio 15 (6-26); Blood Urea Nitrogen 9 mg/dL (6-20); Calcium 8.8 mg/dL (8.6-10.3); Carbon Dioxide 34 mEq/L (23-29); Chloride 101 mEq/L (98-107); Glucose 130 mg/dL (70-105); Osmolality,Calculated 290 (280-300); Phosphorous 2.4 mg/dL (2.7-4.5); Potassium 3.7 mEq/L (3.5-5.1); Sodium 140 mEq/L (136-145); eGFR For African Americans > 60 (> 60); eGFR For Non-African Americans > 60 (> 60)
[2019-03-12] MEDS: Ampicillin/Sulbactam 1,500 MG in 0.9 % Sodium Chloride Mini Bag 100 ML IVPB SCH ×3 (06:26→17:26)
[2019-03-12] MEDS: Aspirin 325 MG TABLET PO SCH (09:43)
[2019-03-12] MEDS: Metoprolol 100 MG TABLET PO SCH ×2 (09:43→21:13)
--- NOTE | 2019-03-12 13:56 | Internal Med Progress Note ---
Hospitalist Progress Note - Encounter Date of Encounter: 03/12/19 Time of Encounter: 13:54 - Subjective Interval History: I have seen and evaluated the patient at bedside. patient reports feeling weak, reports wheezing and shortness of breath is improving. denies chest pain, abdominal pain or shortness of breath - Exam Vitals: Temp Pulse Resp BP Pulse Ox 98.1 F 69 16 149/65 100 03/12/19 06:51 03/12/19 06:51 03/12/19 11:30 03/12/19 06:51 03/12/19 11:30 Exam: Vitals: Reviewed General: Morbid obese, Alert and oriented x4. mild distress due to weakness Cardiovascular: RRR, normal S1 & S2, no rubs, murmurs or gallops. Lungs: minimal scattered b/l wheezes, no crackles or rales Abdomen: Obese, soft, non-tender, no rigidity. NABS in all 4 quadrants Extremities: No edema. Neurological: Normal cognition Rest of the physical exam is non contributory - Assessment and Plan (1) Pneumonia Current Visit: No Status: Acute Assessment and Plan: patient reporting productive cough Plan sputum culture: no growth on ampicillin/sulbactam 1.5 mg every 6 hours. Quantiferon gold ordered, pending report strep pneumonia and legionella ordered, still pending Discussed with Pulmonology recommended outpatient pulmonology follow up after completion of antibiotic treatment. discontinue isolation (2) Acute and chronic respiratory failure with hypoxia Current Visit: No Status: Acute Assessment and Plan: patient with minimal scattered b/l expiratory wheezing. improving when compared with yesterday. Plan Unable to tolerate systemic steroids due to allergy. continue Bronchodilators every 4 hours scheduled and Incentive spirometry. (3) Lymphedema Current Visit: No Status: Chronic (4) HAMMAD (obstructive sleep apnea) Current Visit: No Status: Chronic Assessment and Plan: unable to tolerate BiPap (5) Hypertension Current Visit: No Status: Chronic Assessment and Plan: Blood pressure is well controlled. on metoprolol 100 mg by mouth twice a day. (6) Hypothyroidism Current Visit: No Status: Chronic Assessment and Plan: Levothyroxine 112 mcg/PO daily (7) Morbid obesity with BMI of 70 and over, adult Current Visit: No Status: Chronic (8) Hypophosphatemia Current Visit: Yes Status: Acute Assessment and Plan: electrolyte replaced. will repeat phosp level tomorrow morning DVT Prophylaxis: intermittent pneumatic compression patient allergic to heparin - Summary of Assessment and Plan Summary of Assessment and Plan: patient to remain in the hospital for at least 24 more hours, to continue scheduled bronchodilators. potential discharge tomorrow. - Time Spent with Patient Total time spent is greater than 50% in coordination of care (as documented) at patient's floor/unit and/or counseling patient: Greater than 35 minutes (40) Plan of Care Discussed with: patient (and the nurse) Internal Medicine: Result - Labs CBC & Chem 7: 03/12/19 03:46 03/12/19 03:46 Labs: Short CBC 03/12/19 Range/Units 03:46 WBC 3.9 L (4.3-11.1) K/mcL Hgb 12.8 (11.5-15.4) g/dL Hct 42.4 (35.3-44.9) % Plt Count 141 (140-400) K/mcL Neutrophils # 2.4 (1.6-8.9) K/mcL BMP 03/12/19 03:46 Sodium 140 Potassium 3.7 Chloride 101 Carbon Dioxide 34 H BUN 9 Creatinine 0.59 L Glucose 130 H Calcium 8.8 - ABG Interpretation ABG results: PT/INR, D-dimer PT 12.4 Seconds (9.4-12.1) H 03/10/19 00:59 Consult Discharge Plan - Plan Referrals: Chantale Farr PROJECTOR BOOTH OPERATOR [Primary Care Provider] - (1) Pneumonia Qualifiers: Pneumonia type: due to unspecified organism Laterality: right Lung location: unspecified part of lung Qualified Code(s): J18.9 - Pneumonia, unspecified organism (5) Hypertension Qualifiers: Hypertension type: essential hypertension Qualified Code(s): I10 - Essential (primary) hypertension (6) Hypothyroidism Qualifiers: Hypothyroidism type: acquired Qualified Code(s): E03.9 - Hypothyroidism, unspecified
[2019-03-13] MEDS: Ampicillin/Sulbactam 1,500 MG in 0.9 % Sodium Chloride Mini Bag 100 ML IVPB SCH ×2 (00:45→06:17)
[2019-03-13] MEDS: *HR* HYDROcodone/Acet 5/325 mg TABLET PO PRN ×5 (01:39→23:21)
[2019-03-13] MEDS: Ipratropium/Albuterol Neb 3 ML IH SCH ×6 (04:41→23:12)
[2019-03-13 07:57] LABS: BUN/Creatinine Ratio 11 (6-26); Blood Urea Nitrogen 7 mg/dL (6-20); Calcium 8.6 mg/dL (8.6-10.3); Carbon Dioxide 33 mEq/L (23-29); Chloride 100 mEq/L (98-107); Glucose 118 mg/dL (70-105); Osmolality,Calculated 285 (280-300); Phosphorous 3.1 mg/dL (2.7-4.5); Potassium 3.6 mEq/L (3.5-5.1); Sodium 138 mEq/L (136-145); eGFR For African Americans > 60 (> 60); eGFR For Non-African Americans > 60 (> 60)
[2019-03-13] MEDS: Aspirin 325 MG TABLET PO SCH (09:15)
[2019-03-13] MEDS: Metoprolol 100 MG TABLET PO SCH ×2 (09:15→20:37)
--- NOTE | 2019-03-13 10:57 | Internal Med Progress Note ---
Hospitalist Progress Note - Encounter Date of Encounter: 03/13/19 Time of Encounter: 10:54 - Subjective Interval History: No acute events. Patient feels better with breathing, no fevers. - Exam Vitals: Temp Pulse Resp BP Pulse Ox 98 F 79 19 136/63 92 03/13/19 07:45 03/13/19 07:45 03/13/19 07:45 03/13/19 07:45 03/13/19 07:45 Exam: General: Morbid obese, Alert and oriented, no acute distress Head: NC/AT ENT: MMM, no LA Cardiovascular: RRR, normal S1 & S2, no rubs, murmurs or gallops. Lungs: minimal scattered b/l wheezes, no crackles or rales Abdomen: Obese, soft, non-tender, no rigidity. NABS in all 4 quadrants Extremities: No edema. Neurological: Normal cognition - Assessment and Plan (1) Pneumonia Current Visit: No Status: Acute Assessment and Plan: patient reporting productive cough, CT shows findings of pneumonia. Patient does not meet sepsis criteria on admission. sputum culture: no growth Quantiferon gold ordered, pending report strep pneumonia and legionella ordered, still pending Few days ago, provider had discussed case with Pulmonology recommended outpatient pulmonology follow up after completion of antibiotic treatment. DC Unasyn, start Augmentin to de escalate and monitor. (2) Hypertension Current Visit: No Status: Chronic Assessment and Plan: Blood pressure is well controlled. on metoprolol 100 mg by mouth twice a day. (3) Hypothyroidism Current Visit: No Status: Chronic Assessment and Plan: Continue Synthroid (4) Morbid obesity with BMI of 70 and over, adult Current Visit: No Status: Chronic (5) HAMMAD (obstructive sleep apnea) Current Visit: No Status: Chronic Assessment and Plan: unable to tolerate BiPap (6) Lymphedema Current Visit: No Status: Chronic (7) Hypophosphatemia Current Visit: Yes Status: Acute Assessment and Plan: electrolyte replaced. will repeat phosp level tomorrow morning (8) Acute and chronic respiratory failure with hypoxia Current Visit: No Status: Acute Assessment and Plan: patient with minimal scattered wheezing Hemodynamically stable. Clinically appears well. Unable to tolerate systemic steroids due to allergy. Duo Nebs scheduled and prn. Plan as above. - Time Spent with Patient Total time spent is greater than 50% in coordination of care (as documented) at patient's floor/unit and/or counseling patient: Internal Medicine: Result - Labs CBC & Chem 7: 03/12/19 03:46 03/13/19 07:15 Labs: BMP 03/13/19 07:15 Sodium 138 Potassium 3.6 Chloride 100 Carbon Dioxide 33 H BUN 7 Creatinine 0.63 Glucose 118 H Calcium 8.6 - ABG Interpretation ABG results: PT/INR, D-dimer PT 12.4 Seconds (9.4-12.1) H 03/10/19 00:59 Consult Discharge Plan - Plan Referrals: Chantale Farr, ATTENDANT SALES [Primary Care Provider] - (1) Pneumonia Qualifiers: Pneumonia type: due to unspecified organism Laterality: right Lung location: unspecified part of lung Qualified Code(s): J18.9 - Pneumonia, unspecified organism (2) Hypertension Qualifiers: Hypertension type: essential hypertension Qualified Code(s): I10 - Essential (primary) hypertension (3) Hypothyroidism Qualifiers: Hypothyroidism type: acquired Qualified Code(s): E03.9 - Hypothyroidism, unspecified
[2019-03-13 12:40] LABS: QuantiFERON Mitogen minus NIL >10.00 IU/mL
[2019-03-14] MEDS: Ipratropium/Albuterol Neb 3 ML IH SCH ×4 (03:45→15:38)
[2019-03-14] MEDS: *HR* HYDROcodone/Acet 5/325 mg TABLET PO PRN ×3 (05:24→13:40)
[2019-03-14 07:09] VITALS: BP 149/63
[2019-03-14] MEDS: Aspirin 325 MG TABLET PO SCH (09:39)
[2019-03-14] MEDS: Metoprolol 100 MG TABLET PO SCH (09:39)
[2019-03-14 10:47] LABS: QuantiFERON NIL 0.41 IU/mL; QuantiFERON-TB Gold In-Tube NEGATIVE
--- NOTE | 2019-03-14 11:18 | Discharge Summary ---
Orders not resulted at time of discharge: Pending orders 03/10/19 04:00 Streptococcal pneumoniae urin antigen [S. Pneumoniae Antigen] [RM] AM 0400 Date of Encounter: 03/14/19 Time of Encounter: 11:13 - Discharge Diagnosis (1) Pneumonia Priority: Primary Status: Acute Qualifiers: Pneumonia type: due to unspecified organism Laterality: right Lung locat ion: unspecified part of lung Qualified Code(s): J18.9 - Pneumonia, unspecified organism (2) Hypertension Priority: Secondary Status: Chronic Qualifiers: Hypertension type: essential hypertension Qualified Code(s): I10 - Essential (primary) hypertension (3) Hypothyroidism Priority: Secondary Status: Chronic Qualifiers: Hypothyroidism type: acquired Qualified Code(s): E03.9 - Hypothyroidism, unspecified (4) Morbid obesity with BMI of 70 and over, adult Priority: Secondary Status: Chronic (5) HAMMAD (obstructive sleep apnea) Priority: Secondary Status: Chronic (6) Lymphedema Priority: Secondary Status: Chronic (7) Hypophosphatemia Priority: Secondary Status: Acute (8) Acute and chronic respiratory failure with hypoxia Priority: Secondary Status: Acute Hospital course: Ms. Williamson is a 54 year old female PMH COPD, Hypothyroidism, HTN, HAMMAD and lymphaedema. patient presented to [facility] due to shortness of breath. Patient reports she has been feeling short of breath for the past 2-3 months and she has been treated with z-pack and bronchodilators at home. Reports she completed a course of antibiotics about 2 weeks ago, but for the past couple of days she has been wheezing and has been short of breath she also reported chills and productive cough or yellow/clear sputum. Reports using her nebulizer at home but it did not improve her symptoms and decided to go to the ED for evaluation. denies abdominal pain, nausea, vomiting or chest pain. reports chronic body aches. she also stated that some family members have flu like symptoms for the past couple of weeks. Chest x-ray showed focal infiltrate in right upper lung with parapneumonic effusion. She was started on Azithromycin and Rocephin. Respiratory infection panel was negative. Quantiferon gold test negative. She was escalated to Unasyn for pneumonia and tolerated well. She was transitioned to Augmentin without issue. Patient was stable for discharge home. She willneed repeat imaging in 4 weeks to ensure complete resolution. - Time Spent with Patient Total time spent providing and/or coordinating discharge services: - Discharge Medications Prescriptions: New Amoxicillin/Clavulanate [Augmentin] 875 mg PO BIDWM #10 tablet HYDROcodone/Acet 5/325 mg [[place] 5-325 mg] 1 tab PO Q4HR PRN 3 Days #18 tablet PRN Reason: Pain Continued Loratadine [Claritin] 10 mg PO DAILY PRN PRN Reason: Allergy Symptoms Albuterol Sulfate [Albuterol Inhaler] 2 puff IH Q4H PRN PRN Reason: Shortness Of Breath Albuterol Neb [Proventil Neb] 2.5 mg IH Q6H PRN PRN Reason: Shortness Of Breath ALPRAZolam [Xanax 0.5 MG Tablet] 0.5 mg PO TID PRN #15 tablet PRN Reason: Anxiety HYDROcodone/Acet 5/325 mg [[place] 5-325 mg] 1 tab PO Q4H PRN PRN Reason: Pain hydroCHLOROthiazide [Hydrochlorothiazide] 25 mg PO HS PRN PRN Reason: Edema Docusate [Colace] 100 mg PO BID PRN PRN Reason: Constipation Ondansetron HCl [Zofran] 4 mg PO Q6H PRN PRN Reason: Nausea Aspirin Enteric Coated [Aspirin EC] 325 mg PO DAILY Famotidine [Pepcid] 20 mg PO Q12H PRN PRN Reason: gerd Metoprolol [Lopressor] 100 mg PO BID Levothyroxine [Synthroid] 112 mcg PO QAM Guaifenesin [Mucinex] 600 mg PO BID PRN PRN Reason: Congestion Home Medications: Famotidine [Pepcid] 20 mg PO Q12H PRN 05/11/15 [History] Metoprolol [Lopressor] 100 mg PO BID 05/11/15 [History] Levothyroxine [Synthroid] 112 mcg PO QAM 10/19/16 [History] Albuterol Sulfate [Albuterol Inhaler] 2 puff IH Q4H PRN 11/01/16 [History] Loratadine [Claritin] 10 mg PO DAILY PRN 11/01/16 [History] Albuterol Neb [Proventil Neb] 2.5 mg IH Q6H PRN 05/02/17 [History] ALPRAZolam [Xanax 0.5 MG Tablet] 0.5 mg PO TID PRN #15 tablet 05/19/17 [Rx] Docusate [Colace] 100 mg PO BID PRN 07/17/17 [History] HYDROcodone/Acet 5/325 mg [[place] 5-325 mg] 1 tab PO Q4H PRN 07/17/17 [History] Ondansetron HCl [Zofran] 4 mg PO Q6H PRN 07/17/17 [History] hydroCHLOROthiazide [Hydrochlorothiazide] 25 mg PO HS PRN 07/17/17 [History] Guaifenesin [Mucinex] 600 mg PO BID PRN 03/09/19 [History] Aspirin Enteric Coated [Aspirin EC] 325 mg PO DAILY 03/10/19 [History] Amoxicillin/Clavulanate [Augmentin] 875 mg PO BIDWM #10 tablet 03/14/19 [Rx] HYDROcodone/Acet 5/325 mg [[place] 5-325 mg] 1 tab PO Q4HR PRN 3 Days #18 tablet 03/14/19 [Rx] Allergies/Adverse Reactions: Allergy/AdvReac Type Severity Reaction Status Date / Time ibuprofen Allergy Swelling Verified 03/10/19 13:43 of Lip/Tongue/Throat NSAIDS (Non-Steroidal Allergy Rash Verified 03/10/19 13:43 Anti-Inflamma prednisolone Allergy Rash Verified 03/10/19 13:43 prednisone Allergy Swelling Verified 03/10/19 13:43 of Lip/Tongue/Throat Sulfa (Sulfonamide Allergy Hives Verified 03/10/19 13:43 Antibiotics) aspirin AdvReac Mild Rash Verified 03/10/19 13:43 ketorolac [From Toradol] AdvReac Nausea Verified 03/10/19 13:43 tramadol [From Ultram] AdvReac Nausea Verified 03/10/19 13:43 Date of admission: 03/09/19 15:12 Primary care physician: Chantale Farr Consults: 03/13/19 10:55 Consult to Occupational Therapy [CONS] Routine Comment: Evaluate, develop and implement POC Reason for Consult: Evaluate, develop and implement POC Does patient have active BEDREST order?: No Is patient medically & hemodynamically stable?: Yes Consult to Physical Therapy [CONS] Routine Comment: Evaluate, develop and implement POC Reason for Consult: Disposition planning. Therapy - weakness in bed. Does patient have active BEDREST order?: No Is patient medically & hemodynamically stable?: Yes Discharging clinician: Giles Bailey - Constitutional Vitals: Temp Pulse Resp BP Pulse Ox 98.3 F 61 16 149/63 94 03/14/19 07:06 03/14/19 07:06 03/14/19 07:21 03/14/19 07:06 03/14/19 07:21 Exam: General: Morbid obese, Alert and oriented, no acute distress Head: NC/AT ENT: MMM, no LA Cardiovascular: RRR, normal S1 & S2, no rubs, murmurs or gallops. Lungs: minimal scattered b/l wheezes, no crackles or rales Abdomen: Obese, soft, non-tender, no rigidity. NABS in all 4 quadrants Extremities: No edema. Neurological: Normal cognition - Patient Status Disposition: Home, Self-Care Condition: Good Functional capacity at discharge: independent ambulation Overall status at discharge: patient is back to baseline - Discharge Instructions Follow Up With: Chantale Farr [employer]INCHILL[employer] MACHINE OPERATOR [Primary Care Provider] - - Diet and Activity Activity: increase activity as tolerated Diet: advance to your usual diet
--- NOTE | 2019-03-14 12:00 | Physician Discharge Referral ---
Home Health/Hosp Referral Info Transfer to: Home Health Provider in Charge Post Discharge: PCP - Diagnosis (1) Pneumonia Priority: Primary Status: Acute (2) Hypertension Priority: Secondary Status: Chronic (3) Hypothyroidism Priority: Secondary Status: Chronic (4) Morbid obesity with BMI of 70 and over, adult Priority: Secondary Status: Chronic (5) HAMMAD (obstructive sleep apnea) Priority: Secondary Status: Chronic (6) Lymphedema Priority: Secondary Status: Chronic (7) Hypophosphatemia Priority: Secondary Status: Acute (8) Acute and chronic respiratory failure with hypoxia Priority: Secondary Status: Acute - Respiratory Orders Oxygen / L per min Smoking Cessation: Smoking cessation has been advised. For more information, call the [place] Tobacco Quit Line at 7-339-SRTB-NOW. - Services Needed Following services are medically necessary services: Nursing, Home Health Aide, Physical Therapy - Transfer Medications Prescriptions: Amoxicillin/Clavulanate [Augmentin] 875 mg PO BIDWM #10 tablet HYDROcodone/Acet 5/325 mg [[place] 5-325 mg] 1 tab PO Q4HR PRN 3 Days #18 tablet PRN Reason: Pain Home Medications: Famotidine [Pepcid] 20 mg PO Q12H PRN 05/11/15 [History] Metoprolol [Lopressor] 100 mg PO BID 05/11/15 [History] Levothyroxine [Synthroid] 112 mcg PO QAM 10/19/16 [History] Albuterol Sulfate [Albuterol Inhaler] 2 puff IH Q4H PRN 11/01/16 [History] Loratadine [Claritin] 10 mg PO DAILY PRN 11/01/16 [History] Albuterol Neb [Proventil Neb] 2.5 mg IH Q6H PRN 05/02/17 [History] ALPRAZolam [Xanax 0.5 MG Tablet] 0.5 mg PO TID PRN #15 tablet 05/19/17 [Rx] Docusate [Colace] 100 mg PO BID PRN 07/17/17 [History] HYDROcodone/Acet 5/325 mg [[place] 5-325 mg] 1 tab PO Q4H PRN 07/17/17 [History] Ondansetron HCl [Zofran] 4 mg PO Q6H PRN 07/17/17 [History] hydroCHLOROthiazide [Hydrochlorothiazide] 25 mg PO HS PRN 07/17/17 [History] Guaifenesin [Mucinex] 600 mg PO BID PRN 03/09/19 [History] Aspirin Enteric Coated [Aspirin EC] 325 mg PO DAILY 03/10/19 [History] Amoxicillin/Clavulanate [Augmentin] 875 mg PO BIDWM #10 tablet 03/14/19 [Rx] HYDROcodone/Acet 5/325 mg [[place] 5-325 mg] 1 tab PO Q4HR PRN 3 Days #18 tablet 03/14/19 [Rx] Allergies/Adverse Reactions: Allergy/AdvReac Type Severity Reaction Status Date / Time ibuprofen Allergy Swelling Verified 03/10/19 13:43 of Lip/Tongue/Throat NSAIDS (Non-Steroidal Allergy Rash Verified 03/10/19 13:43 Anti-Inflamma prednisolone Allergy Rash Verified 03/10/19 13:43 prednisone Allergy Swelling Verified 03/10/19 13:43 of Lip/Tongue/Throat Sulfa (Sulfonamide Allergy Hives Verified 03/10/19 13:43 Antibiotics) aspirin AdvReac Mild Rash Verified 03/10/19 13:43 ketorolac [From Toradol] AdvReac Nausea Verified 03/10/19 13:43 tramadol [From Ultram] AdvReac Nausea Verified 03/10/19 13:43 Certification: Further, I certify that my clinical findings support that this patient is homebound (i.e. absences from home require considerable and taxing effort and are for medical reasons or scientology services or infrequently or short duration when for other reasons) because: Homebound Reason: Patient requires assistance of a person or device to safely leave home Attestation: My signature below is to certify that this patient is under my care and that I, or nurse practitioner, or a physician's orthopedic physician assistant working with me, has a [id number] encounter with this patient.
== END 2019-03-14 17:13 | disposition home or self-care (01) ==
LOC: 2ANU → SUATTDRO 15:12 → 2NENU 18:38
PROVIDERS: ADMIT Internal Medicine Nephrology; ATTEND Student in an Organized Health Care Education/Training Program

== ENCOUNTER 2019-10-17 18:38 | Observation (INO) ==
[2019-10-17] MEDS ORDERED: Isovue-370 500 ML BOTTLE IVP ONE (20:35)
[2019-10-17] MEDS ORDERED: *HR* Promethazine 25 MG/ML VIAL IVP PRN (20:40)
[2019-10-17] MEDS ORDERED: Naloxone 0.4 MG/ML INJ IVP PRN (20:40)
[2019-10-17] MEDS ORDERED: 0.9 % Sodium Chloride 1,000 ML IVC SCH (20:45)
[2019-10-17] MEDS ORDERED: *HR* HYDROcodone/Acet 5/325 mg TABLET PO ONE (20:57)
[2019-10-17] MEDS ORDERED: ALPRAZolam 0.5 MG TABLET PO PRN (23:10)
[2019-10-17] MEDS ORDERED: Nystatin POWDER 30 GM BOTTLE TP PRN (23:10)
[2019-10-17] MEDS ORDERED: Famotidine 20 MG TABLET PO PRN (23:10)
[2019-10-17] MEDS ORDERED: hydroCHLOROthiazide 25 MG TABLET PO PRN (23:10)
[2019-10-17] MEDS ORDERED: Loratadine 10 MG TABLET PO PRN (23:10)
[2019-10-18] MEDS: *HR* HYDROcodone/Acet 7.5/325 mg TABLET PO PRN ×4 (01:43→22:15)
[2019-10-18] MEDS: Saline Nasal Spray 44 ML BOTTLE NS PRN ×3 (01:45→22:17)
[2019-10-18 04:20] LABS: Basophils % 0.4 %; Eosinophils # 0.1 K/mcL (0.0-0.6); Eosinophils % 1.7 %; Hematocrit 42.4 % (35.3-44.9); Hemoglobin 12.6 g/dL (11.5-15.4); Immature Granulocytes % 0.2 % (0-4); Mean Corpuscular HGB Conc 29.7 g/dL (31.6-35.5); Mean Corpuscular Hemoglobin 26.7 pg (28.0-33.3); Mean Corpuscular Volume 89.8 fL (83.0-100.0); Mean Platelet Volume 10.6 fL (9.4-12.4); Monocytes # 0.4 K/mcL (0.0-1.3); Monocytes % 7.9 %; Neutrophils # 3.7 K/mcL (1.6-8.9); Platelet Count 153 K/mcL (140-400); Red Blood Count 4.72 M/mcL (3.82-4.97); Segmented Neutrophils % 70.8 %; White Blood Count 5.2 K/mcL (4.3-11.1)
[2019-10-18 04:30] LABS: BUN/Creatinine Ratio 13 (6-26); Blood Urea Nitrogen 9 mg/dL (6-20); Carbon Dioxide 37 mEq/L (23-29); Chloride 101 mEq/L (98-107); Chol/HDL Ratio 3.4 (0-4.9); Cholesterol 112 mg/dL (< 200); Glucose 104 mg/dL (70-105); HDL Cholesterol 33 mg/dL (40-59); LDL Cholesterol,Calculated 62 mg/dL (0-99); Magnesium 1.8 mg/dL (1.6-2.6); Osmolality,Calculated 287 (280-300); Phosphorous 3.6 mg/dL (2.7-4.5); Potassium 4.3 mEq/L (3.5-5.1); Sodium 139 mEq/L (136-145); Triglycerides 87 mg/dL (< 150); eGFR For African Americans > 60 (> 60); eGFR For Non-African Americans > 60 (> 60)
[2019-10-18] MEDS: *HR* Heparin 5,000 UNIT/ML VIAL SQ SCH ×2 (05:07→18:23)
[2019-10-18 05:12] LABS: Uric Acid 6.5 mg/dL (2.3-7.6)
[2019-10-18] MEDS: hydroCHLOROthiazide 25 MG TABLET PO SCH (08:12)
[2019-10-18] MEDS: Aspirin Enteric Coated 325 MG Tablet PO SCH (08:12)
[2019-10-18] MEDS ORDERED: Metoprolol 100 MG TABLET PO SCH (11:44)
[2019-10-18] MEDS ORDERED: Perflutren Lipid Microsphere 1.3 ML in 0.9 % Sodium Chloride 8.7 ML IVP ONE (16:56)
[2019-10-18] MEDS: Metoprolol 100 MG TABLET PO SCH (21:20)
[2019-10-19] MEDS: *HR* Heparin 5,000 UNIT/ML VIAL SQ SCH (05:00)
[2019-10-19] MEDS: *HR* HYDROcodone/Acet 7.5/325 mg TABLET PO PRN ×2 (05:06→12:20)
[2019-10-19 08:01] VITALS: BP 145/66
[2019-10-19] MEDS: hydroCHLOROthiazide 25 MG TABLET PO SCH (09:34)
[2019-10-19] MEDS: Metoprolol 100 MG TABLET PO SCH (09:34)
[2019-10-19] MEDS: Aspirin Enteric Coated 325 MG Tablet PO SCH (09:34)
== END 2019-10-19 13:59 | disposition home or self-care (01) ==
LOC: 3BNU → SUATTDRO 20:40
PROVIDERS: ADMIT Internal Medicine; ATTEND Internal Medicine

== ENCOUNTER 2019-11-21 14:52 | Inpatient (IN) ==
[2019-11-21] MEDS ORDERED: Naloxone 0.4 MG/ML INJ IVP PRN (17:06)
[2019-11-21] MEDS ORDERED: Acetaminophen 325 MG TABLET PO PRN (17:06)
[2019-11-21 17:41] LABS: ABG Base Excess 7 mEq/L (-2 to 3); ABG HCO3 35 mEq/L (21-27); ABG Oxygen Saturation 93 % (95-98); ABG PCO2 63 mmHg (35-45); ABG PH 7.35 pH Units (7.32-7.45); ABG PO2 73 mmHg (85-104); ABG TCO2 37 mEq/L (20-26)
[2019-11-21] MEDS ORDERED: Acetaminophen IV 1,000 MG/100 ML INFUS..BTL IVPB ONE (17:51)
[2019-11-21] MEDS ORDERED: *HR* LORazepam 2 MG/ML VIAL IVP ONE (17:53)
[2019-11-21] MEDS: *HR* Heparin 5,000 UNIT/ML VIAL SQ SCH (20:55)
[2019-11-21] MEDS: Furosemide 40 MG/4 ML VIAL IVP SCH (20:55)
[2019-11-21] MEDS: Metoprolol 100 MG TABLET PO SCH (21:10)
[2019-11-21] MEDS: *HR* HYDROcodone/Acet 7.5/325 mg TABLET PO PRN (21:10)
[2019-11-21] MEDS: Budesonide Neb 0.5 MG/2 ML IH SCH (21:30)
[2019-11-21] MEDS: Ipratropium/Albuterol Neb 3 ML IH PRN (21:31)
[2019-11-21 23:01] LABS: Adenovirus Not Detected (Not Detect); Coronavirus 229E Not Detected (Not Detect); Coronavirus HKU1 Not Detected (Not Detect); Coronavirus NL63 Not Detected (Not Detect); Coronavirus OC43 Not Detected (Not Detect); Human Metapneumovirus Not Detected (Not Detect); Human Rhinovirus/Enterovirus Not Detected (Not Detect)
[2019-11-21 23:03] LABS: Bordetella Pertussis Not Detected (Not Detect); Chlamydophila pneumoniae Not Detected (Not Detect); Influenza A Subtype 2009 H1 DETECTED (Not Detect); Influenza B Not Detected (Not Detect); Mycoplasma pneumoniae Not Detected (Not Detect); Parainfluenza Virus 1 Not Detected (Not Detect); Parainfluenza Virus 2 Not Detected (Not Detect); Parainfluenza Virus 3 Not Detected (Not Detect); Parainfluenza Virus 4 Not Detected (Not Detect); Respiratory Syncytial Virus Not Detected (Not Detect)
[2019-11-22] MEDS: Saline Nasal Spray 44 ML BOTTLE NS PRN ×2 (02:26→12:03)
[2019-11-22] MEDS: *HR* HYDROcodone/Acet 7.5/325 mg TABLET PO PRN ×4 (03:14→22:07)
[2019-11-22] MEDS: *HR* Heparin 5,000 UNIT/ML VIAL SQ SCH ×3 (04:37→21:33)
[2019-11-22 06:53] LABS: Hematocrit 43.4 % (35.3-44.9); Hemoglobin 13.3 g/dL (11.5-15.4); Immature Granulocytes % 0.6 % (0-4); Lymphocytes # 0.6 K/mcL (0.6-4.6); Lymphocytes % 18.6 %; Mean Corpuscular HGB Conc 30.6 g/dL (31.6-35.5); Mean Corpuscular Hemoglobin 27.3 pg (28.0-33.3); Mean Corpuscular Volume 88.9 fL (83.0-100.0); Mean Platelet Volume 10.3 fL (9.4-12.4); Monocytes # 0.5 K/mcL (0.0-1.3); Monocytes % 15.4 %; Platelet Count 122 K/mcL (140-400); Red Blood Count 4.88 M/mcL (3.82-4.97); Red Cell Distribution Width 14.5 % (11.5-14.5); Segmented Neutrophils % 65.4 %; White Blood Count 3.1 K/mcL (4.3-11.1)
[2019-11-22 07:14] LABS: BUN/Creatinine Ratio 9 (6-26); Blood Urea Nitrogen 8 mg/dL (6-20); Calcium 8.8 mg/dL (8.6-10.3); Carbon Dioxide 41 mEq/L (23-29); Chloride 96 mEq/L (98-107); Glucose 107 mg/dL (70-105); Magnesium 1.8 mg/dL (1.6-2.6); Osmolality,Calculated 281 (280-300); Potassium 3.8 mEq/L (3.5-5.1); Sodium 136 mEq/L (136-145); eGFR For African Americans > 60 (> 60); eGFR For Non-African Americans > 60 (> 60)
[2019-11-22 09:12] LABS: VBG HCO3 39 mEq/L (21-27); VBG PCO2 91 mmHg (41-51); VBG PH 7.24 pH Units (7.32-7.42); VBG PO2 45 mmHg (25-50)
[2019-11-22] MEDS: Metoprolol 100 MG TABLET PO SCH ×2 (10:00→21:33)
[2019-11-22] MEDS: Furosemide 40 MG/4 ML VIAL IVP SCH (10:02)
[2019-11-22] MEDS: Budesonide Neb 0.5 MG/2 ML IH SCH ×2 (10:27→20:35)
[2019-11-22] MEDS ORDERED: Nystatin POWDER 30 GM BOTTLE TP PRN (16:07)
[2019-11-22] MEDS ORDERED: Nystatin Cream 15 GM TUBE TP PRN (16:07)
[2019-11-22] MEDS ORDERED: Famotidine 20 MG TABLET PO PRN (16:07)
[2019-11-22] MEDS ORDERED: Loratadine 10 MG TABLET PO PRN (16:07)
[2019-11-22] MEDS ORDERED: Aspirin Enteric Coated 325 MG Tablet PO SCH (16:15)
[2019-11-22] MEDS: Aspirin 325 MG TABLET PO SCH (18:32)
[2019-11-22] MEDS: Ipratropium/Albuterol Neb 3 ML IH PRN (20:35)
[2019-11-22] MEDS: ALPRAZolam 0.5 MG TABLET PO PRN (21:33)
[2019-11-22] MEDS: Acetaminophen 325 MG TABLET PO PRN (21:34)
[2019-11-23] MEDS: Ondansetron 4 MG/2 ML VIAL IVP PRN ×3 (02:43→22:42)
[2019-11-23] MEDS: *HR* HYDROcodone/Acet 7.5/325 mg TABLET PO PRN ×3 (04:40→18:16)
[2019-11-23 05:11] LABS: VBG HCO3 38 mEq/L (21-27); VBG PCO2 71 mmHg (41-51); VBG PH 7.34 pH Units (7.32-7.42); VBG PO2 66 mmHg (25-50)
[2019-11-23 05:13] LABS: Basophils % 0.3 %; Eosinophils % 0.3 %; Hematocrit 45.1 % (35.3-44.9); Hemoglobin 13.7 g/dL (11.5-15.4); Immature Granulocytes % 0.3 % (0-4); Lymphocytes # 0.8 K/mcL (0.6-4.6); Lymphocytes % 27.6 %; Mean Corpuscular HGB Conc 30.4 g/dL (31.6-35.5); Mean Corpuscular Volume 88.8 fL (83.0-100.0); Mean Platelet Volume 10.4 fL (9.4-12.4); Monocytes # 0.5 K/mcL (0.0-1.3); Monocytes % 18.5 %; Neutrophils # 1.5 K/mcL (1.6-8.9); Platelet Count 113 K/mcL (140-400); Red Blood Count 5.08 M/mcL (3.82-4.97); Red Cell Distribution Width 14.3 % (11.5-14.5); White Blood Count 2.9 K/mcL (4.3-11.1)
[2019-11-23 05:27] LABS: BUN/Creatinine Ratio 12 (6-26); Blood Urea Nitrogen 10 mg/dL (6-20); Calcium 8.5 mg/dL (8.6-10.3); Carbon Dioxide 39 mEq/L (23-29); Chloride 94 mEq/L (98-107); Glucose 119 mg/dL (70-105); Magnesium 1.8 mg/dL (1.6-2.6); Osmolality,Calculated 284 (280-300); Potassium 3.9 mEq/L (3.5-5.1); Sodium 137 mEq/L (136-145); eGFR For African Americans > 60 (> 60); eGFR For Non-African Americans > 60 (> 60)
[2019-11-23] MEDS: *HR* Heparin 5,000 UNIT/ML VIAL SQ SCH ×3 (05:29→22:42)
[2019-11-23 05:50] LABS: Platelet Estimate Decreased (Normal)
[2019-11-23] MEDS: Budesonide Neb 0.5 MG/2 ML IH SCH ×2 (07:48→22:26)
[2019-11-23] MEDS: Metoprolol 100 MG TABLET PO SCH (08:31)
[2019-11-23] MEDS: Acetaminophen 325 MG TABLET PO PRN (08:31)
[2019-11-23] MEDS: Aspirin 325 MG TABLET PO SCH (08:34)
[2019-11-23] MEDS: Ipratropium/Albuterol Neb 3 ML IH SCH ×2 (16:21→22:26)
[2019-11-24] MEDS: *HR* HYDROcodone/Acet 7.5/325 mg TABLET PO PRN ×4 (00:57→21:43)
[2019-11-24] MEDS: Ipratropium/Albuterol Neb 3 ML IH SCH ×4 (04:47→21:57)
[2019-11-24] MEDS: *HR* Heparin 5,000 UNIT/ML VIAL SQ SCH ×3 (05:18→19:57)
[2019-11-24] MEDS: Acetaminophen 325 MG TABLET PO PRN (05:23)
[2019-11-24] MEDS: Saline Nasal Spray 44 ML BOTTLE NS PRN (05:48)
[2019-11-24] MEDS: Budesonide Neb 0.5 MG/2 ML IH SCH ×2 (07:35→21:57)
[2019-11-24 08:10] LABS: Basophils % 0.5 %; Eosinophils % 0.5 %; Hematocrit 47.7 % (35.3-44.9); Hemoglobin 14.1 g/dL (11.5-15.4); Lymphocytes # 0.9 K/mcL (0.6-4.6); Lymphocytes % 40.5 %; Mean Corpuscular HGB Conc 29.6 g/dL (31.6-35.5); Mean Corpuscular Hemoglobin 26.4 pg (28.0-33.3); Mean Corpuscular Volume 89.3 fL (83.0-100.0); Mean Platelet Volume 10.4 fL (9.4-12.4); Monocytes # 0.3 K/mcL (0.0-1.3); Monocytes % 16.2 %; Neutrophils # 0.9 K/mcL (1.6-8.9); Platelet Count 109 K/mcL (140-400); Red Blood Count 5.34 M/mcL (3.82-4.97); Red Cell Distribution Width 13.7 % (11.5-14.5); Segmented Neutrophils % 41.3 %; White Blood Count 2.1 K/mcL (4.3-11.1)
[2019-11-24 08:20] LABS: VBG HCO3 42 mEq/L (21-27); VBG PCO2 84 mmHg (41-51); VBG PH 7.31 pH Units (7.32-7.42); VBG PO2 62 mmHg (25-50)
[2019-11-24 08:32] LABS: BUN/Creatinine Ratio 14 (6-26); Blood Urea Nitrogen 13 mg/dL (6-20); Calcium 8.5 mg/dL (8.6-10.3); Carbon Dioxide 40 mEq/L (23-29); Chloride 93 mEq/L (98-107); Glucose 103 mg/dL (70-105); Osmolality,Calculated 284 (280-300); Sodium 137 mEq/L (136-145); eGFR For African Americans > 60 (> 60); eGFR For Non-African Americans > 60 (> 60)
[2019-11-24] MEDS: Aspirin 325 MG TABLET PO SCH (09:18)
[2019-11-24] MEDS: Ondansetron 4 MG/2 ML VIAL IVP PRN (09:21)
[2019-11-24] MEDS: Furosemide 40 MG/4 ML VIAL IVP SCH ×2 (14:29→19:56)
[2019-11-24] MEDS: ALPRAZolam 0.5 MG TABLET PO PRN (21:42)
[2019-11-24] MEDS ORDERED: *HR* Promethazine 25 MG/ML VIAL IVP ONE (23:55)
[2019-11-25] MEDS: Ipratropium/Albuterol Neb 3 ML IH SCH ×4 (03:35→22:21)
[2019-11-25] MEDS: *HR* Heparin 5,000 UNIT/ML VIAL SQ SCH ×3 (05:52→22:19)
[2019-11-25] MEDS: *HR* HYDROcodone/Acet 7.5/325 mg TABLET PO PRN ×3 (05:54→19:20)
[2019-11-25 06:00] LABS: Basophils % 0.4 %; Eosinophils % 0.7 %; Hematocrit 44.9 % (35.3-44.9); Hemoglobin 13.7 g/dL (11.5-15.4); Immature Granulocytes % 0.4 % (0-4); Lymphocytes % 37.7 %; Mean Corpuscular HGB Conc 30.5 g/dL (31.6-35.5); Mean Corpuscular Hemoglobin 27.1 pg (28.0-33.3); Mean Corpuscular Volume 88.7 fL (83.0-100.0); Mean Platelet Volume 9.9 fL (9.4-12.4); Monocytes # 0.3 K/mcL (0.0-1.3); Neutrophils # 1.4 K/mcL (1.6-8.9); Platelet Count 109 K/mcL (140-400); Red Blood Count 5.06 M/mcL (3.82-4.97); Red Cell Distribution Width 13.5 % (11.5-14.5); Segmented Neutrophils % 49.8 %; White Blood Count 2.7 K/mcL (4.3-11.1)
[2019-11-25 06:10] LABS: VBG HCO3 40 mEq/L (21-27); VBG PCO2 74 mmHg (41-51); VBG PH 7.34 pH Units (7.32-7.42); VBG PO2 55 mmHg (25-50)
[2019-11-25 06:22] LABS: BUN/Creatinine Ratio 15 (6-26); Blood Urea Nitrogen 13 mg/dL (6-20); Calcium 8.5 mg/dL (8.6-10.3); Carbon Dioxide 41 mEq/L (23-29); Chloride 91 mEq/L (98-107); Glucose 94 mg/dL (70-105); Osmolality,Calculated 284 (280-300); Potassium 3.7 mEq/L (3.5-5.1); Sodium 137 mEq/L (136-145); eGFR For African Americans > 60 (> 60); eGFR For Non-African Americans > 60 (> 60)
[2019-11-25 07:00] LABS: ABG Base Excess 12 mEq/L (-2 to 3); ABG HCO3 41 mEq/L (21-27); ABG Oxygen Saturation 92 % (95-98); ABG PCO2 77 mmHg (35-45); ABG PH 7.34 pH Units (7.32-7.45); ABG PO2 71 mmHg (85-104); ABG TCO2 44 mEq/L (20-26)
[2019-11-25] MEDS: Furosemide 40 MG/4 ML VIAL IVP SCH ×2 (09:38→22:18)
[2019-11-25] MEDS: Aspirin 325 MG TABLET PO SCH (09:38)
[2019-11-25] MEDS: Budesonide Neb 0.5 MG/2 ML IH SCH ×2 (09:47→22:20)
[2019-11-25] MEDS: Ondansetron 4 MG/2 ML VIAL IVP PRN (09:54)
[2019-11-25] MEDS ORDERED: Lactulose Oral Soln 20 GM/30 ML UDC PO ONE (15:24)
[2019-11-25] MEDS: polyethylene glycoL 3350 17 GM POWD.PACK PO SCH ×3 (15:44→19:02)
[2019-11-25] MEDS: Sennosides/Docusate Sodium TABLET PO SCH ×2 (16:17→22:04)
[2019-11-25] MEDS ORDERED: Sennosides/Docusate Sodium TABLET PO SCH (21:00)
[2019-11-26] MEDS: Ondansetron 4 MG/2 ML VIAL IVP PRN (00:39)
[2019-11-26] MEDS: *HR* HYDROcodone/Acet 7.5/325 mg TABLET PO PRN ×4 (01:32→23:50)
[2019-11-26] MEDS: Ipratropium/Albuterol Neb 3 ML IH SCH ×4 (03:57→22:51)
[2019-11-26] MEDS: *HR* Heparin 5,000 UNIT/ML VIAL SQ SCH ×3 (05:54→20:59)
[2019-11-26 06:12] LABS: Eosinophils % 2.3 %; Mean Platelet Volume 10.5 fL (9.4-12.4); Red Cell Distribution Width 13.4 % (11.5-14.5)
[2019-11-26 06:14] LABS: Basophils % 0.6 %; Eosinophils # 0.1 K/mcL (0.0-0.6); Hematocrit 48.3 % (35.3-44.9); Hemoglobin 14.5 g/dL (11.5-15.4); Immature Granulocytes % 0.3 % (0-4); Immature Platelets 4.7 % (1.1-6.1); Lymphocytes % 28.9 %; Mean Corpuscular Hemoglobin 26.6 pg (28.0-33.3); Mean Corpuscular Volume 88.6 fL (83.0-100.0); Monocytes # 0.4 K/mcL (0.0-1.3); Monocytes % 10.5 %; Platelet Count 102 K/mcL (140-400); Red Blood Count 5.45 M/mcL (3.82-4.97); Segmented Neutrophils % 57.4 %; White Blood Count 3.4 K/mcL (4.3-11.1)
[2019-11-26 06:59] LABS: BUN/Creatinine Ratio 15 (6-26); Blood Urea Nitrogen 12 mg/dL (6-20); Carbon Dioxide 43 mEq/L (23-29); Chloride 89 mEq/L (98-107); Glucose 100 mg/dL (70-105); Magnesium 1.9 mg/dL (1.6-2.6); Osmolality,Calculated 284 (280-300); Potassium 3.6 mEq/L (3.5-5.1); Sodium 137 mEq/L (136-145); eGFR For African Americans > 60 (> 60); eGFR For Non-African Americans > 60 (> 60)
[2019-11-26] MEDS: Aspirin 325 MG TABLET PO SCH (09:18)
[2019-11-26] MEDS: Sennosides/Docusate Sodium TABLET PO SCH ×2 (09:18→20:58)
[2019-11-26] MEDS: Furosemide 40 MG/4 ML VIAL IVP SCH ×2 (09:19→20:57)
[2019-11-26] MEDS: Budesonide Neb 0.5 MG/2 ML IH SCH ×2 (11:12→22:51)
[2019-11-27 01:29] LABS: Basophils % 0.8 %; Eosinophils # 0.1 K/mcL (0.0-0.6); Eosinophils % 2.4 %; Hematocrit 46.2 % (35.3-44.9); Hemoglobin 13.8 g/dL (11.5-15.4); Mean Corpuscular HGB Conc 29.9 g/dL (31.6-35.5); Mean Corpuscular Hemoglobin 26.1 pg (28.0-33.3); Mean Corpuscular Volume 87.3 fL (83.0-100.0); Mean Platelet Volume 10.7 fL (9.4-12.4); Monocytes # 0.3 K/mcL (0.0-1.3); Monocytes % 10.8 %; Neutrophils # 1.1 K/mcL (1.6-8.9); Platelet Count 102 K/mcL (140-400); Red Blood Count 5.29 M/mcL (3.82-4.97); Red Cell Distribution Width 13.4 % (11.5-14.5); White Blood Count 2.5 K/mcL (4.3-11.1)
[2019-11-27 01:39] LABS: VBG HCO3 41 mEq/L (21-27); VBG PCO2 65 mmHg (41-51); VBG PH 7.41 pH Units (7.32-7.42); VBG PO2 118 mmHg (25-50)
[2019-11-27 01:54] LABS: BUN/Creatinine Ratio 15 (6-26); Blood Urea Nitrogen 13 mg/dL (6-20); Calcium 8.9 mg/dL (8.6-10.3); Carbon Dioxide 39 mEq/L (23-29); Chloride 89 mEq/L (98-107); Glucose 107 mg/dL (70-105); Magnesium 1.8 mg/dL (1.6-2.6); Osmolality,Calculated 285 (280-300); Potassium 3.3 mEq/L (3.5-5.1); Sodium 137 mEq/L (136-145); eGFR For African Americans > 60 (> 60); eGFR For Non-African Americans > 60 (> 60)
[2019-11-27] MEDS: Ipratropium/Albuterol Neb 3 ML IH SCH ×4 (03:48→22:30)
[2019-11-27] MEDS: *HR* Heparin 5,000 UNIT/ML VIAL SQ SCH ×3 (06:08→21:42)
[2019-11-27] MEDS: *HR* HYDROcodone/Acet 7.5/325 mg TABLET PO PRN ×3 (06:08→21:41)
[2019-11-27] MEDS: Furosemide 40 MG/4 ML VIAL IVP SCH ×2 (10:02→21:42)
[2019-11-27] MEDS: Ondansetron 4 MG/2 ML VIAL IVP PRN (10:02)
[2019-11-27] MEDS: Sennosides/Docusate Sodium TABLET PO SCH (10:02)
[2019-11-27] MEDS: Aspirin 325 MG TABLET PO SCH (10:02)
[2019-11-27] MEDS: Budesonide Neb 0.5 MG/2 ML IH SCH ×2 (10:57→22:30)
[2019-11-28 02:18] LABS: Basophils % 0.7 %; Immature Granulocytes % 0.3 % (0-4)
[2019-11-28 02:21] LABS: Immature Platelets 4.9 % (1.1-6.1); Mean Corpuscular Hemoglobin 26.8 pg (28.0-33.3)
[2019-11-28 02:41] LABS: BUN/Creatinine Ratio 19 (6-26); Blood Urea Nitrogen 15 mg/dL (6-20); Carbon Dioxide 41 mEq/L (23-29); Chloride 91 mEq/L (98-107); Glucose 112 mg/dL (70-105); Magnesium 1.8 mg/dL (1.6-2.6); Osmolality,Calculated 290 (280-300); Potassium 3.5 mEq/L (3.5-5.1); Sodium 139 mEq/L (136-145); eGFR For African Americans > 60 (> 60); eGFR For Non-African Americans > 60 (> 60)
[2019-11-28 02:43] LABS: Eosinophils # 0.1 K/mcL (0.0-0.6); Eosinophils % 2.1 %; Hematocrit 45.2 % (35.3-44.9); Lymphocytes # 1.1 K/mcL (0.6-4.6); Lymphocytes % 38.7 %; Mean Corpuscular Volume 86.6 fL (83.0-100.0); Monocytes # 0.3 K/mcL (0.0-1.3); Monocytes % 11.1 %; Neutrophils # 1.4 K/mcL (1.6-8.9); Platelet Count 126 K/mcL (140-400); Red Blood Count 5.22 M/mcL (3.82-4.97); Red Cell Distribution Width 13.4 % (11.5-14.5); Segmented Neutrophils % 47.1 %; White Blood Count 2.9 K/mcL (4.3-11.1)
[2019-11-28 02:58] LABS: Platelet Estimate Normal (Normal)
[2019-11-28] MEDS: Ipratropium/Albuterol Neb 3 ML IH SCH ×4 (03:31→22:42)
[2019-11-28] MEDS: *HR* Heparin 5,000 UNIT/ML VIAL SQ SCH ×3 (05:32→23:13)
[2019-11-28] MEDS: Saline Nasal Spray 44 ML BOTTLE NS PRN (08:31)
[2019-11-28] MEDS: *HR* HYDROcodone/Acet 7.5/325 mg TABLET PO PRN ×2 (08:32→21:12)
[2019-11-28] MEDS: Aspirin 325 MG TABLET PO SCH (08:33)
[2019-11-28] MEDS: Furosemide 40 MG/4 ML VIAL IVP SCH ×3 (08:33→21:13)
[2019-11-28] MEDS: Budesonide Neb 0.5 MG/2 ML IH SCH ×2 (10:23→22:42)
[2019-11-29 02:45] LABS: Basophils % 0.6 %; Eosinophils # 0.1 K/mcL (0.0-0.6); Hematocrit 46.5 % (35.3-44.9); Hemoglobin 13.9 g/dL (11.5-15.4); Immature Granulocytes % 0.3 % (0-4); Lymphocytes # 1.1 K/mcL (0.6-4.6); Lymphocytes % 30.5 %; Mean Corpuscular HGB Conc 29.9 g/dL (31.6-35.5); Mean Corpuscular Hemoglobin 26.5 pg (28.0-33.3); Mean Corpuscular Volume 88.6 fL (83.0-100.0); Mean Platelet Volume 10.9 fL (9.4-12.4); Monocytes # 0.4 K/mcL (0.0-1.3); Monocytes % 11.4 %; Neutrophils # 1.9 K/mcL (1.6-8.9); Platelet Count 137 K/mcL (140-400); Red Blood Count 5.25 M/mcL (3.82-4.97); Red Cell Distribution Width 13.5 % (11.5-14.5); Segmented Neutrophils % 55.2 %; White Blood Count 3.5 K/mcL (4.3-11.1)
[2019-11-29] MEDS: Saline Nasal Spray 44 ML BOTTLE NS PRN (03:02)
[2019-11-29 03:42] LABS: BUN/Creatinine Ratio 17 (6-26); Blood Urea Nitrogen 11 mg/dL (6-20); Carbon Dioxide 42 mEq/L (23-29); Chloride 90 mEq/L (98-107); Glucose 95 mg/dL (70-105); Osmolality,Calculated 287 (280-300); Potassium 3.3 mEq/L (3.5-5.1); Sodium 139 mEq/L (136-145); eGFR For African Americans > 60 (> 60); eGFR For Non-African Americans > 60 (> 60)
[2019-11-29] MEDS: Ipratropium/Albuterol Neb 3 ML IH SCH ×4 (03:53→22:19)
[2019-11-29] MEDS: *HR* Heparin 5,000 UNIT/ML VIAL SQ SCH ×3 (05:55→21:44)
[2019-11-29] MEDS: Budesonide Neb 0.5 MG/2 ML IH SCH ×2 (09:29→22:19)
[2019-11-29] MEDS: *HR* HYDROcodone/Acet 7.5/325 mg TABLET PO PRN ×2 (10:01→18:17)
[2019-11-29] MEDS: Aspirin 325 MG TABLET PO SCH (10:01)
[2019-11-29] MEDS: Furosemide 40 MG/4 ML VIAL IVP SCH (10:01)
[2019-11-29] MEDS: ALPRAZolam 0.5 MG TABLET PO PRN (10:14)
[2019-11-29] MEDS ORDERED: *HR* Metoprolol 5 MG/5 ML VIAL IVP ONE (10:30)
[2019-11-29] MEDS: Furosemide 40 MG TABLET PO SCH (17:42)
[2019-11-29] MEDS: Metoprolol 100 MG TABLET PO SCH (21:44)
[2019-11-30] MEDS: *HR* HYDROcodone/Acet 7.5/325 mg TABLET PO PRN ×2 (00:37→08:19)
[2019-11-30] MEDS: Saline Nasal Spray 44 ML BOTTLE NS PRN (01:44)
[2019-11-30] MEDS: Ipratropium/Albuterol Neb 3 ML IH SCH ×2 (03:20→10:32)
[2019-11-30 05:03] LABS: Basophils % 0.7 %; Eosinophils # 0.1 K/mcL (0.0-0.6); Eosinophils % 2.3 %; Hematocrit 51.5 % (35.3-44.9); Hemoglobin 15.4 g/dL (11.5-15.4); Immature Granulocytes % 0.7 % (0-4); Lymphocytes # 1.3 K/mcL (0.6-4.6); Lymphocytes % 30.1 %; Mean Corpuscular HGB Conc 29.9 g/dL (31.6-35.5); Mean Corpuscular Hemoglobin 25.9 pg (28.0-33.3); Mean Corpuscular Volume 86.7 fL (83.0-100.0); Mean Platelet Volume 10.9 fL (9.4-12.4); Monocytes # 0.4 K/mcL (0.0-1.3); Monocytes % 9.2 %; Neutrophils # 2.5 K/mcL (1.6-8.9); Platelet Count 171 K/mcL (140-400); Red Blood Count 5.94 M/mcL (3.82-4.97); Red Cell Distribution Width 13.7 % (11.5-14.5); White Blood Count 4.4 K/mcL (4.3-11.1)
[2019-11-30 05:21] LABS: BUN/Creatinine Ratio 13 (6-26); Blood Urea Nitrogen 11 mg/dL (6-20); Calcium 9.7 mg/dL (8.6-10.3); Carbon Dioxide 44 mEq/L (23-29); Chloride 88 mEq/L (98-107); Glucose 105 mg/dL (70-105); Osmolality,Calculated 288 (280-300); Potassium 3.5 mEq/L (3.5-5.1); Sodium 139 mEq/L (136-145); eGFR For African Americans > 60 (> 60); eGFR For Non-African Americans > 60 (> 60)
[2019-11-30] MEDS: *HR* Heparin 5,000 UNIT/ML VIAL SQ SCH (05:39)
[2019-11-30 07:30] VITALS: BP 124/73
[2019-11-30] MEDS: Metoprolol 100 MG TABLET PO SCH (08:18)
[2019-11-30] MEDS: Aspirin 325 MG TABLET PO SCH (08:18)
[2019-11-30] MEDS: Furosemide 40 MG TABLET PO SCH (08:18)
[2019-11-30] MEDS: Budesonide Neb 0.5 MG/2 ML IH SCH (10:33)
== END 2019-11-30 13:17 ==
LOC: 2NENU → SUATTDRO 16:26
PROVIDERS: ADMIT Pharmacist; ATTEND Internal Medicine

== ENCOUNTER 2020-03-31 09:58 | Observation (INO) ==
[2020-03-31] MEDS ORDERED: Naloxone 0.4 MG/ML INJ IVP PRN (14:20)
[2020-03-31] MEDS ORDERED: Isovue-370 500 ML BOTTLE IVP ONE (15:17)
[2020-03-31] MEDS: *HR* HYDROcodone/Acet 7.5/325 mg TABLET PO PRN ×2 (17:10→23:22)
[2020-03-31] MEDS ORDERED: ALPRAZolam 0.5 MG TABLET PO PRN (18:34)
[2020-03-31] MEDS ORDERED: Ondansetron ODT 4 MG TAB.RAPDIS PO PRN (18:34)
[2020-03-31] MEDS ORDERED: Loratadine 10 MG TABLET PO PRN (18:34)
[2020-03-31] MEDS ORDERED: Nystatin POWDER 30 GM BOTTLE TP PRN (18:34)
[2020-03-31] MEDS ORDERED: Albuterol 2.5 MG/3 ML NEBULIZER IH PRN (18:34)
[2020-03-31] MEDS ORDERED: Famotidine 20 MG TABLET PO PRN (18:34)
[2020-03-31] MEDS: Furosemide 40 MG TABLET PO SCH (20:10)
[2020-04-01 04:19] LABS: BUN/Creatinine Ratio 16 (6-26); Blood Urea Nitrogen 10 mg/dL (6-20); Calcium 8.6 mg/dL (8.6-10.3); Carbon Dioxide 37 mEq/L (23-29); Chloride 98 mEq/L (98-107); Cholesterol 132 mg/dL (< 200); Glucose 103 mg/dL (70-105); HDL Cholesterol 33 mg/dL (40-59); LDL Cholesterol,Calculated 79 mg/dL (< 100); Osmolality,Calculated 289 (280-300); Potassium 3.5 mEq/L (3.5-5.1); Sodium 140 mEq/L (136-145); Triglycerides 98 mg/dL (< 150); eGFR For African Americans > 60 (> 60); eGFR For Non-African Americans > 60 (> 60)
[2020-04-01 04:42] LABS: Basophils % 0.7 %; Eosinophils # 0.2 K/mcL (0.0-0.6); Eosinophils % 3.6 %; Hematocrit 40.3 % (35.3-44.9); Hemoglobin 12.5 g/dL (11.5-15.4); Immature Granulocytes % 0.2 % (0-4); Lymphocytes # 1.2 K/mcL (0.6-4.6); Lymphocytes % 28.5 %; Mean Corpuscular Hemoglobin 27.6 pg (28.0-33.3); Mean Platelet Volume 9.9 fL (9.4-12.4); Monocytes # 0.4 K/mcL (0.0-1.3); Monocytes % 9.7 %; Neutrophils # 2.4 K/mcL (1.6-8.9); Platelet Count 161 K/mcL (140-400); Red Blood Count 4.53 M/mcL (3.82-4.97); Red Cell Distribution Width 13.5 % (11.5-14.5); Segmented Neutrophils % 57.3 %; White Blood Count 4.2 K/mcL (4.3-11.1)
[2020-04-01] MEDS: *HR* HYDROcodone/Acet 7.5/325 mg TABLET PO PRN ×3 (05:51→20:18)
[2020-04-01] MEDS ORDERED: Regadenoson 0.4 MG/5 ML SYRINGE IVP ONE (06:03)
[2020-04-01] MEDS: *HR* Enoxaparin 40 MG/0.4 ML SYRINGE SQ SCH (06:20)
[2020-04-01] MEDS: Aspirin Enteric Coated 325 MG Tablet PO SCH (08:48)
[2020-04-01] MEDS: Furosemide 40 MG TABLET PO SCH ×2 (08:49→20:18)
[2020-04-01 11:16] LABS: Estimated Average Glucose 126 mg/dl
[2020-04-01] MEDS: Metoprolol 100 MG TABLET PO SCH (21:51)
[2020-04-02] MEDS: *HR* Enoxaparin 40 MG/0.4 ML SYRINGE SQ SCH (00:18)
[2020-04-02] MEDS: *HR* HYDROcodone/Acet 7.5/325 mg TABLET PO PRN ×2 (02:30→08:41)
[2020-04-02 02:44] LABS: Hematocrit 41.3 % (35.3-44.9); Hemoglobin 12.8 g/dL (11.5-15.4); Mean Corpuscular Hemoglobin 27.9 pg (28.0-33.3); Platelet Count 170 K/mcL (140-400); Red Blood Count 4.59 M/mcL (3.82-4.97); Red Cell Distribution Width 13.5 % (11.5-14.5); White Blood Count 5.7 K/mcL (4.3-11.1)
[2020-04-02 07:33] VITALS: BP 135/63
[2020-04-02] MEDS: Furosemide 40 MG TABLET PO SCH (08:41)
[2020-04-02] MEDS: Aspirin Enteric Coated 325 MG Tablet PO SCH (08:41)
[2020-04-02] MEDS: Metoprolol 100 MG TABLET PO SCH (08:41)
== END 2020-04-02 12:21 | disposition home or self-care (01) ==
LOC: 3BNU
PROVIDERS: ADMIT Internal Medicine; ATTEND Internal Medicine

== ENCOUNTER 2021-02-05 21:27 | Inpatient (IN) ==
[2021-02-05 22:46] LABS: Basophils # 0.1 K/mcL (0.0-0.2); Basophils % 0.5 %; Eosinophils # 0.2 K/mcL (0.0-0.6); Eosinophils % 1.7 %; Hematocrit 41.2 % (35.3-44.9); Hemoglobin 12.3 g/dL (11.5-15.4); Immature Granulocytes % 0.2 % (0-4); Lymphocytes # 1.3 K/mcL (0.6-4.6); Lymphocytes % 13.2 %; Mean Corpuscular HGB Conc 29.9 g/dL (31.6-35.5); Mean Corpuscular Hemoglobin 25.4 pg (28.0-33.3); Mean Corpuscular Volume 84.9 fL (83.0-100.0); Mean Platelet Volume 10.1 fL (9.4-12.4); Monocytes # 0.7 K/mcL (0.0-1.3); Monocytes % 7.1 %; Neutrophils # 7.3 K/mcL (1.6-8.9); Platelet Count 225 K/mcL (140-400); Red Blood Count 4.85 M/mcL (3.82-4.97); Red Cell Distribution Width 13.7 % (11.5-14.5); Segmented Neutrophils % 77.3 %; White Blood Count 9.5 K/mcL (4.3-11.1)
[2021-02-05 22:49] LABS: BUN/Creatinine Ratio 13 (6-26); Blood Urea Nitrogen 8 mg/dL (6-20); Calcium 8.9 mg/dL (8.6-10.3); Carbon Dioxide 35 mEq/L (23-29); Chloride 97 mEq/L (98-107); Glucose 116 mg/dL (70-105); Osmolality,Calculated 283 (280-300); Potassium 3.9 mEq/L (3.5-5.1); Sodium 137 mEq/L (136-145); eGFR For African Americans > 60 (> 60); eGFR For Non-African Americans > 60 (> 60)
[2021-02-05 23:28] LABS: Uric Acid 6.9 mg/dL (2.3-7.6)
[2021-02-05 23:29] LABS: Troponin I < 0.03 ng/mL (< 0.04)
[2021-02-05 23:41] LABS: Bacteria,Urine Few per hpf (None-Few); Bilirubin,Urine Negative (Negative); Blood,Urine Negative (Negative); Clarity,Urine Clear (Clear); Color,Urine Light-Yellow (Yellow); Glucose,Urine (UA) Normal (Normal); Ketones,Urine Negative (Negative); Leukocyte Esterase,Urine Small (Negative); Nitrite,Urine Negative (Negative); PH,Urine 8.5 pH Units (5.0-8.0); Protein,Urine 30 mg/dL (Neg-Trace); RBC,Urine 0-3 per hpf (0-3); Specific Gravity,Urine 1.018 (1.010-1.025); Squamous Epithelial Cell,Urine Few per hpf (None-Few); Urobilinogen,Urine Normal (Normal); WBC,Urine 30-50 per hpf (0-3)
[2021-02-05] MEDS ORDERED: Isovue-370 500 ML BOTTLE IVP ONE (23:46)
[2021-02-06] MEDS ORDERED: cefTRIAXone 1,000 MG in Water for inj. (sterile) 10 ML IVP ONE (00:12)
[2021-02-06] MEDS ORDERED: Colchicine 0.6 MG TABLET PO ONE ×2 (00:23→05:34)
[2021-02-06] MEDS ORDERED: *HR* Enoxaparin 100 MG/ML SYRINGE SQ ONE ×2 (00:30→02:00)
[2021-02-06] MEDS ORDERED: Ondansetron 4 MG/2 ML VIAL IVP ONE (01:46)
[2021-02-06] MEDS ORDERED: *HR* OxyCODONE/APAP 5/325 TABLET PO ONE (01:46)
[2021-02-06] MEDS ORDERED: Ondansetron ODT 4 MG TAB.RAPDIS SL ONE (02:04)
[2021-02-06] MEDS ORDERED: Melatonin 3 MG TABLET PO PRN (02:58)
[2021-02-06] MEDS ORDERED: Acetaminophen 325 MG TABLET PO PRN (02:58)
[2021-02-06] MEDS ORDERED: Ondansetron 4 MG/2 ML VIAL IVP PRN (02:58)
[2021-02-06] MEDS ORDERED: Naloxone 0.4 MG/ML INJ IVP PRN (02:58)
[2021-02-06] MEDS ORDERED: Albuterol 2.5 MG/3 ML NEBULIZER IH PRN (03:01)
[2021-02-06] MEDS ORDERED: Nystatin Cream 15 GM TUBE TP PRN (03:01)
[2021-02-06] MEDS ORDERED: Nystatin POWDER 30 GM BOTTLE TP PRN (03:01)
[2021-02-06 03:44] LABS: Basophils # 0.1 K/mcL (0.0-0.2); Basophils % 0.5 %; Eosinophils # 0.1 K/mcL (0.0-0.6); Eosinophils % 0.8 %; Hematocrit 38.9 % (35.3-44.9); Hemoglobin 11.5 g/dL (11.5-15.4); Immature Granulocytes % 0.6 % (0-4); Lymphocytes # 1.3 K/mcL (0.6-4.6); Mean Corpuscular HGB Conc 29.6 g/dL (31.6-35.5); Mean Corpuscular Hemoglobin 24.5 pg (28.0-33.3); Mean Corpuscular Volume 82.9 fL (83.0-100.0); Mean Platelet Volume 9.9 fL (9.4-12.4); Monocytes # 0.7 K/mcL (0.0-1.3); Monocytes % 7.1 %; Neutrophils # 8.3 K/mcL (1.6-8.9); Platelet Count 213 K/mcL (140-400); Red Blood Count 4.69 M/mcL (3.82-4.97); Red Cell Distribution Width 13.7 % (11.5-14.5); White Blood Count 10.5 K/mcL (4.3-11.1)
[2021-02-06 03:50] LABS: INR 1.2; Prothrombin Time 14.3 Seconds (9.4-12.1)
[2021-02-06 04:05] LABS: Alanine Aminotransferase 9 Units/L (7-52); Albumin 3.7 g/dL (3.5-5.7); Alkaline Phosphatase 66 Units/L (34-104); Aspartate Amino Transferase 12 Units/L (13-39); BUN/Creatinine Ratio 13 (6-26); Bilirubin,Total 0.6 mg/dL (0.3-1.0); Blood Urea Nitrogen 8 mg/dL (6-20); Calcium 8.8 mg/dL (8.6-10.3); Carbon Dioxide 30 mEq/L (23-29); Chloride 99 mEq/L (98-107); Globulin 3.8 g/dL (2.4-3.5); Glucose 135 mg/dL (70-105); Magnesium 1.9 mg/dL (1.6-2.6); Osmolality,Calculated 278 (280-300); Potassium 3.9 mEq/L (3.5-5.1); Sodium 134 mEq/L (136-145); Total Protein 7.5 g/dL (6.4-8.9); eGFR For African Americans > 60 (> 60); eGFR For Non-African Americans > 60 (> 60)
[2021-02-06] MEDS: Aspirin Enteric Coated 325 MG Tablet PO SCH (08:05)
[2021-02-06] MEDS: *HR* OxyCODONE/APAP 7.5/325 TABLET PO PRN ×2 (11:39→17:40)
[2021-02-06] MEDS: Colchicine 0.6 MG TABLET PO SCH (11:45)
[2021-02-06] MEDS ORDERED: polyethylene glycoL 3350 17 GM POWD.PACK PO PRN (15:48)
[2021-02-06] MEDS ORDERED: Loratadine 10 MG TABLET PO PRN (15:48)
[2021-02-06] MEDS ORDERED: ALPRAZolam 0.5 MG TABLET PO PRN (15:48)
[2021-02-06] MEDS: *HR* Heparin 5,000 UNIT/ML VIAL SQ SCH ×2 (16:03→19:57)
[2021-02-06] MEDS: Furosemide 40 MG TABLET PO SCH (16:45)
[2021-02-06] MEDS: Metoprolol 100 MG TABLET PO SCH (19:44)
[2021-02-07] MEDS: *HR* OxyCODONE/APAP 7.5/325 TABLET PO PRN ×4 (00:37→20:03)
[2021-02-07 04:20] LABS: Basophils % 0.4 %; Eosinophils # 0.1 K/mcL (0.0-0.6); Hematocrit 37.1 % (35.3-44.9); Hemoglobin 10.8 g/dL (11.5-15.4); Immature Granulocytes % 0.4 % (0-4); Lymphocytes # 1.2 K/mcL (0.6-4.6); Lymphocytes % 21.9 %; Mean Corpuscular HGB Conc 29.1 g/dL (31.6-35.5); Mean Corpuscular Hemoglobin 25.1 pg (28.0-33.3); Mean Corpuscular Volume 86.3 fL (83.0-100.0); Mean Platelet Volume 10.4 fL (9.4-12.4); Monocytes # 0.5 K/mcL (0.0-1.3); Monocytes % 8.2 %; Neutrophils # 3.7 K/mcL (1.6-8.9); Platelet Count 176 K/mcL (140-400); Red Cell Distribution Width 13.7 % (11.5-14.5); Segmented Neutrophils % 67.1 %; White Blood Count 5.5 K/mcL (4.3-11.1)
[2021-02-07 05:02] LABS: BUN/Creatinine Ratio 13 (6-26); Blood Urea Nitrogen 9 mg/dL (6-20); Calcium 8.4 mg/dL (8.6-10.3); Carbon Dioxide 33 mEq/L (23-29); Chloride 100 mEq/L (98-107); Glucose 141 mg/dL (70-105); Osmolality,Calculated 285 (280-300); Potassium 3.9 mEq/L (3.5-5.1); Sodium 137 mEq/L (136-145); eGFR For African Americans > 60 (> 60); eGFR For Non-African Americans > 60 (> 60)
[2021-02-07] MEDS: Aspirin Enteric Coated 325 MG Tablet PO SCH (07:17)
[2021-02-07] MEDS: Colchicine 0.6 MG TABLET PO SCH (07:18)
[2021-02-07] MEDS: Metoprolol 100 MG TABLET PO SCH ×2 (07:18→19:58)
[2021-02-07] MEDS: Furosemide 40 MG TABLET PO SCH ×2 (07:18→16:35)
[2021-02-07] MEDS: cefTRIAXone 1,000 MG in Water for inj. (sterile) 10 ML IVP SCH (07:19)
[2021-02-07] MEDS: Ondansetron ODT 4 MG TAB.RAPDIS SL PRN (08:15)
[2021-02-07] MEDS ORDERED: Saline Nasal Spray 44 ML BOTTLE NS PRN (09:34)
[2021-02-07] MEDS: *HR* Heparin 5,000 UNIT/ML VIAL SQ SCH (15:32)
[2021-02-08] MEDS: *HR* OxyCODONE/APAP 7.5/325 TABLET PO PRN ×4 (03:20→23:48)
[2021-02-08] MEDS: *HR* Heparin 5,000 UNIT/ML VIAL SQ SCH ×2 (05:09→17:08)
[2021-02-08] MEDS: Metoprolol 100 MG TABLET PO SCH ×2 (08:46→23:57)
[2021-02-08] MEDS: cefTRIAXone 1,000 MG in Water for inj. (sterile) 10 ML IVP SCH (08:48)
[2021-02-08] MEDS: Furosemide 40 MG TABLET PO SCH ×2 (08:49→17:07)
[2021-02-08] MEDS: Aspirin Enteric Coated 325 MG Tablet PO SCH (08:50)
[2021-02-08] MEDS: Colchicine 0.6 MG TABLET PO SCH (08:51)
[2021-02-08] MEDS: Aspirin 325 MG TABLET PO SCH (12:19)
[2021-02-09] MEDS: *HR* Heparin 5,000 UNIT/ML VIAL SQ SCH ×3 (05:23→18:05)
[2021-02-09] MEDS: *HR* OxyCODONE/APAP 7.5/325 TABLET PO PRN ×3 (05:24→18:32)
[2021-02-09] MEDS ORDERED: Furosemide 40 MG/4 ML VIAL IVP ONE ×2 (08:49)
[2021-02-09 09:21] LABS: Hematocrit 36.5 % (35.3-44.9); Hemoglobin 10.8 g/dL (11.5-15.4); Mean Corpuscular HGB Conc 29.6 g/dL (31.6-35.5); Mean Corpuscular Hemoglobin 24.9 pg (28.0-33.3); Mean Corpuscular Volume 84.3 fL (83.0-100.0); Mean Platelet Volume 9.8 fL (9.4-12.4); Platelet Count 188 K/mcL (140-400); Red Blood Count 4.33 M/mcL (3.82-4.97); Red Cell Distribution Width 13.5 % (11.5-14.5)
[2021-02-09 09:29] LABS: White Blood Count 4.4 K/mcL (4.3-11.1)
[2021-02-09 09:38] LABS: BUN/Creatinine Ratio 13 (6-26); Blood Urea Nitrogen 9 mg/dL (6-20); Calcium 8.7 mg/dL (8.6-10.3); Carbon Dioxide 38 mEq/L (23-29); Chloride 98 mEq/L (98-107); Glucose 113 mg/dL (70-105); Osmolality,Calculated 289 (280-300); Potassium 3.5 mEq/L (3.5-5.1); Sodium 140 mEq/L (136-145); eGFR For African Americans > 60 (> 60); eGFR For Non-African Americans > 60 (> 60)
[2021-02-09] MEDS: Aspirin 325 MG TABLET PO SCH (10:02)
[2021-02-09] MEDS: Metoprolol 100 MG TABLET PO SCH ×2 (10:02→19:43)
[2021-02-09] MEDS: polyethylene glycoL 3350 17 GM POWD.PACK PO SCH ×2 (10:03→15:01)
[2021-02-09] MEDS: cefTRIAXone 1,000 MG in Water for inj. (sterile) 10 ML IVP SCH (10:03)
[2021-02-09] MEDS: Colchicine 0.6 MG TABLET PO SCH (10:03)
[2021-02-09] MEDS: Furosemide 40 MG TABLET PO SCH ×2 (10:06→18:03)
[2021-02-09] MEDS ORDERED: Isovue-370 500 ML BOTTLE IVP ONE (15:43)
[2021-02-09] MEDS ORDERED: Bisacodyl 10 MG RECTAL SUPPOSITORY RC ONE (15:45)
[2021-02-09] MEDS: Ondansetron ODT 4 MG TAB.RAPDIS SL PRN (19:43)
[2021-02-10] MEDS: *HR* OxyCODONE/APAP 7.5/325 TABLET PO PRN ×4 (00:51→20:53)
[2021-02-10] MEDS: Famotidine 20 MG TABLET PO PRN (01:27)
[2021-02-10] MEDS: *HR* Heparin 5,000 UNIT/ML VIAL SQ SCH ×2 (05:42→16:01)
[2021-02-10 05:49] LABS: Hematocrit 37.6 % (35.3-44.9); Hemoglobin 11.2 g/dL (11.5-15.4); Mean Corpuscular HGB Conc 29.8 g/dL (31.6-35.5); Mean Corpuscular Hemoglobin 24.9 pg (28.0-33.3); Mean Corpuscular Volume 83.6 fL (83.0-100.0); Mean Platelet Volume 9.7 fL (9.4-12.4); Platelet Count 202 K/mcL (140-400); Red Cell Distribution Width 13.8 % (11.5-14.5)
[2021-02-10 06:19] LABS: Alanine Aminotransferase 12 Units/L (7-52); Albumin 3.4 g/dL (3.5-5.7); Albumin/Globulin Ratio 0.8 (1.1-2.2); Alkaline Phosphatase 56 Units/L (34-104); Aspartate Amino Transferase 14 Units/L (13-39); BUN/Creatinine Ratio 12 (6-26); Bilirubin,Total 0.3 mg/dL (0.3-1.0); Blood Urea Nitrogen 9 mg/dL (6-20); Calcium 8.9 mg/dL (8.6-10.3); Carbon Dioxide 41 mEq/L (23-29); Chloride 95 mEq/L (98-107); Globulin 4.1 g/dL (2.4-3.5); Glucose 117 mg/dL (70-105); Osmolality,Calculated 288 (280-300); Potassium 3.4 mEq/L (3.5-5.1); Sodium 139 mEq/L (136-145); Total Protein 7.5 g/dL (6.4-8.9); eGFR For African Americans > 60 (> 60); eGFR For Non-African Americans > 60 (> 60)
[2021-02-10] MEDS: Furosemide 40 MG TABLET PO SCH ×2 (08:48→16:50)
[2021-02-10] MEDS: Colchicine 0.6 MG TABLET PO SCH (08:48)
[2021-02-10] MEDS: Metoprolol 100 MG TABLET PO SCH ×2 (08:48→20:53)
[2021-02-10] MEDS: Aspirin 325 MG TABLET PO SCH (08:48)
[2021-02-10] MEDS: cefTRIAXone 1,000 MG in Water for inj. (sterile) 10 ML IVP SCH (08:49)
[2021-02-10] MEDS: polyethylene glycoL 3350 17 GM POWD.PACK PO SCH (08:50)
[2021-02-10 17:41] LABS: BUN/Creatinine Ratio 14 (6-26); Blood Urea Nitrogen 11 mg/dL (6-20); Calcium 8.7 mg/dL (8.6-10.3); Carbon Dioxide 41 mEq/L (23-29); Chloride 95 mEq/L (98-107); Glucose 133 mg/dL (70-105); Osmolality,Calculated 289 (280-300); Potassium 3.4 mEq/L (3.5-5.1); Sodium 139 mEq/L (136-145); eGFR For African Americans > 60 (> 60); eGFR For Non-African Americans > 60 (> 60)
[2021-02-11] MEDS: *HR* OxyCODONE/APAP 7.5/325 TABLET PO PRN ×4 (03:29→21:45)
[2021-02-11] MEDS: *HR* Heparin 5,000 UNIT/ML VIAL SQ SCH ×2 (05:08→15:34)
[2021-02-11 06:33] LABS: Hematocrit 37.9 % (35.3-44.9); Hemoglobin 11.2 g/dL (11.5-15.4); Mean Corpuscular HGB Conc 29.6 g/dL (31.6-35.5); Mean Corpuscular Hemoglobin 24.7 pg (28.0-33.3); Mean Corpuscular Volume 83.7 fL (83.0-100.0); Mean Platelet Volume 9.7 fL (9.4-12.4); Platelet Count 191 K/mcL (140-400); Red Blood Count 4.53 M/mcL (3.82-4.97); Red Cell Distribution Width 13.8 % (11.5-14.5); White Blood Count 4.5 K/mcL (4.3-11.1)
[2021-02-11 07:36] LABS: BUN/Creatinine Ratio 14 (6-26); Blood Urea Nitrogen 11 mg/dL (6-20); Calcium 8.9 mg/dL (8.6-10.3); Carbon Dioxide 39 mEq/L (23-29); Chloride 95 mEq/L (98-107); Glucose 125 mg/dL (70-105); Osmolality,Calculated 289 (280-300); Potassium 3.2 mEq/L (3.5-5.1); Sodium 139 mEq/L (136-145); eGFR For African Americans > 60 (> 60); eGFR For Non-African Americans > 60 (> 60)
[2021-02-11] MEDS: cefTRIAXone 1,000 MG in Water for inj. (sterile) 10 ML IVP SCH (08:51)
[2021-02-11] MEDS: Colchicine 0.6 MG TABLET PO SCH (08:52)
[2021-02-11] MEDS: Metoprolol 100 MG TABLET PO SCH ×2 (08:52→20:32)
[2021-02-11] MEDS: Aspirin 325 MG TABLET PO SCH (08:52)
[2021-02-11] MEDS: Furosemide 40 MG TABLET PO SCH ×2 (08:52→15:33)
[2021-02-11] MEDS: polyethylene glycoL 3350 17 GM POWD.PACK PO SCH (08:53)
[2021-02-12 02:14] LABS: Hematocrit 37.9 % (35.3-44.9); Hemoglobin 11.2 g/dL (11.5-15.4); Mean Corpuscular HGB Conc 29.6 g/dL (31.6-35.5); Mean Corpuscular Volume 84.6 fL (83.0-100.0); Mean Platelet Volume 9.9 fL (9.4-12.4); Platelet Count 201 K/mcL (140-400); Red Blood Count 4.48 M/mcL (3.82-4.97); Red Cell Distribution Width 13.7 % (11.5-14.5); White Blood Count 4.7 K/mcL (4.3-11.1)
[2021-02-12 02:32] LABS: BUN/Creatinine Ratio 16 (6-26); Blood Urea Nitrogen 11 mg/dL (6-20); Calcium 8.9 mg/dL (8.6-10.3); Carbon Dioxide 38 mEq/L (23-29); Chloride 96 mEq/L (98-107); Glucose 119 mg/dL (70-105); Osmolality,Calculated 289 (280-300); Potassium 3.4 mEq/L (3.5-5.1); Sodium 139 mEq/L (136-145); eGFR For African Americans > 60 (> 60); eGFR For Non-African Americans > 60 (> 60)
[2021-02-12] MEDS: *HR* OxyCODONE/APAP 7.5/325 TABLET PO PRN ×3 (03:40→16:52)
[2021-02-12] MEDS ORDERED: Acetaminophen IV 1,000 MG/100 ML BAG IVPB ONE (03:42)
[2021-02-12] MEDS: *HR* Heparin 5,000 UNIT/ML VIAL SQ SCH ×2 (04:46→16:52)
[2021-02-12] MEDS: Metoprolol 100 MG TABLET PO SCH ×2 (08:40→21:03)
[2021-02-12] MEDS: Aspirin 325 MG TABLET PO SCH (08:40)
[2021-02-12] MEDS: Furosemide 40 MG TABLET PO SCH (08:41)
[2021-02-12] MEDS: polyethylene glycoL 3350 17 GM POWD.PACK PO SCH (08:41)
[2021-02-12] MEDS: Colchicine 0.6 MG TABLET PO SCH (08:41)
[2021-02-12] MEDS: cefTRIAXone 1,000 MG in Water for inj. (sterile) 10 ML IVP SCH (08:42)
[2021-02-12 14:06] LABS: Potassium 3.3 mEq/L (3.5-5.1)
[2021-02-12] MEDS ORDERED: Potassium Chloride 20 MEQ, Lidocaine 1% 2 ML in 0.9 % Sodium Chloride 250 ML IVPB ONE (14:10)
[2021-02-12 14:28] LABS: Magnesium 2.1 mg/dL (1.6-2.6)
[2021-02-12] MEDS: *HR* OxyCODONE/APAP 5/325 TABLET PO PRN (21:03)
[2021-02-13] MEDS: *HR* OxyCODONE/APAP 7.5/325 TABLET PO PRN ×3 (01:34→16:30)
[2021-02-13 01:52] LABS: Hematocrit 38.7 % (35.3-44.9); Hemoglobin 11.6 g/dL (11.5-15.4); Mean Corpuscular Hemoglobin 25.2 pg (28.0-33.3); Mean Corpuscular Volume 83.9 fL (83.0-100.0); Mean Platelet Volume 9.8 fL (9.4-12.4); Platelet Count 193 K/mcL (140-400); Red Blood Count 4.61 M/mcL (3.82-4.97); Red Cell Distribution Width 13.8 % (11.5-14.5); White Blood Count 4.8 K/mcL (4.3-11.1)
[2021-02-13 02:12] LABS: BUN/Creatinine Ratio 17 (6-26); Blood Urea Nitrogen 13 mg/dL (6-20); Carbon Dioxide 37 mEq/L (23-29); Chloride 98 mEq/L (98-107); Glucose 122 mg/dL (70-105); Osmolality,Calculated 289 (280-300); Sodium 139 mEq/L (136-145); eGFR For African Americans > 60 (> 60); eGFR For Non-African Americans > 60 (> 60)
[2021-02-13] MEDS: *HR* Heparin 5,000 UNIT/ML VIAL SQ SCH ×2 (04:48→17:40)
[2021-02-13] MEDS: *HR* OxyCODONE/APAP 5/325 TABLET PO PRN ×3 (05:26→20:26)
[2021-02-13] MEDS: Colchicine 0.6 MG TABLET PO SCH (08:51)
[2021-02-13] MEDS: Aspirin 325 MG TABLET PO SCH (08:52)
[2021-02-13] MEDS: Metoprolol 100 MG TABLET PO SCH ×2 (08:52→20:26)
[2021-02-13] MEDS: cefTRIAXone 1,000 MG in Water for inj. (sterile) 10 ML IVP SCH (08:55)
[2021-02-13] MEDS: polyethylene glycoL 3350 17 GM POWD.PACK PO SCH ×2 (09:00→20:27)
[2021-02-13] MEDS: Furosemide 40 MG TABLET PO SCH (16:27)
[2021-02-14] MEDS: *HR* OxyCODONE/APAP 7.5/325 TABLET PO PRN ×4 (02:13→23:24)
[2021-02-14] MEDS: *HR* Heparin 5,000 UNIT/ML VIAL SQ SCH ×2 (05:21→16:41)
[2021-02-14] MEDS: Aspirin 325 MG TABLET PO SCH (08:44)
[2021-02-14] MEDS: Colchicine 0.6 MG TABLET PO SCH (08:44)
[2021-02-14] MEDS: Furosemide 40 MG TABLET PO SCH ×2 (08:44→16:41)
[2021-02-14] MEDS: cefTRIAXone 1,000 MG in Water for inj. (sterile) 10 ML IVP SCH (08:44)
[2021-02-14] MEDS: polyethylene glycoL 3350 17 GM POWD.PACK PO SCH (08:44)
[2021-02-14] MEDS: Metoprolol 100 MG TABLET PO SCH ×2 (08:48→16:40)
[2021-02-15] MEDS: *HR* OxyCODONE/APAP 7.5/325 TABLET PO PRN ×3 (05:29→17:53)
[2021-02-15] MEDS: *HR* Heparin 5,000 UNIT/ML VIAL SQ SCH ×2 (05:31→16:02)
[2021-02-15] MEDS: Metoprolol 100 MG TABLET PO SCH ×2 (09:22→20:10)
[2021-02-15] MEDS: Colchicine 0.6 MG TABLET PO SCH (09:22)
[2021-02-15] MEDS: polyethylene glycoL 3350 17 GM POWD.PACK PO SCH (09:22)
[2021-02-15] MEDS: Aspirin 325 MG TABLET PO SCH (09:22)
[2021-02-15] MEDS: Furosemide 40 MG TABLET PO SCH ×2 (09:22→16:02)
[2021-02-16] MEDS: *HR* OxyCODONE/APAP 7.5/325 TABLET PO PRN ×3 (00:06→12:08)
[2021-02-16] MEDS: *HR* Heparin 5,000 UNIT/ML VIAL SQ SCH (06:05)
[2021-02-16] MEDS: Aspirin 325 MG TABLET PO SCH (07:56)
[2021-02-16] MEDS: Furosemide 40 MG TABLET PO SCH (07:56)
[2021-02-16] MEDS: Colchicine 0.6 MG TABLET PO SCH (07:56)
[2021-02-16] MEDS: Metoprolol 100 MG TABLET PO SCH (07:56)
[2021-02-16] MEDS: polyethylene glycoL 3350 17 GM POWD.PACK PO SCH (07:57)
[2021-02-16 11:15] VITALS: BP 131/68
[2021-02-16] MEDS: Famotidine 20 MG TABLET PO PRN (15:12)
== END 2021-02-16 17:41 | disposition home health service (06) | DRG 351 ==
LOC: EMEROOARM 21:27 → 3BNU 21:27 → SUATTDRO 02-06 02:14 → 3BNU 02-06 02:50
PROVIDERS: ADMIT Family Medicine; ATTEND Nurse Practitioner

== ENCOUNTER 2021-03-29 11:26 | Observation (INO) ==
[2021-03-29 12:23] LABS: Mean Corpuscular Hemoglobin 25.3 pg (28.0-33.3); Mean Corpuscular Volume 81.9 fL (83.0-100.0); Mean Platelet Volume 11.2 fL (9.4-12.4); Platelet Count 186 K/mcL (140-400); Red Blood Count 5.13 M/mcL (3.82-4.97); Red Cell Distribution Width 15.7 % (11.5-14.5); White Blood Count 8.2 K/mcL (4.3-11.1)
[2021-03-29 12:43] LABS: Alanine Aminotransferase 15 Units/L (7-52); Albumin 3.7 g/dL (3.5-5.7); Albumin/Globulin Ratio 0.9 (1.1-2.2); Alkaline Phosphatase 59 Units/L (34-104); Aspartate Amino Transferase 19 Units/L (13-39); BUN/Creatinine Ratio 13 (6-26); Bilirubin,Direct 0.1 mg/dL (0.0-0.2); Bilirubin,Indirect 0.5 mg/dL (0.0-1.0); Bilirubin,Total 0.6 mg/dL (0.3-1.0); Blood Urea Nitrogen 9 mg/dL (6-20); Calcium 8.9 mg/dL (8.6-10.3); Carbon Dioxide 32 mEq/L (23-29); Chloride 101 mEq/L (98-107); Glucose 124 mg/dL (70-105); Lipase 3 Units/L (11-82); Osmolality,Calculated 288 (280-300); Potassium 3.5 mEq/L (3.5-5.1); Sodium 139 mEq/L (136-145); Total Protein 7.7 g/dL (6.4-8.9); eGFR For African Americans > 60 (> 60); eGFR For Non-African Americans > 60 (> 60)
[2021-03-29 12:50] LABS: Troponin I < 0.03 ng/mL (< 0.04)
[2021-03-29] MEDS ORDERED: *HR* HYDROcodone/Acet 7.5/325 mg TABLET PO ONE (14:16)
[2021-03-29 15:58] LABS: Bacteria,Urine Few per hpf (None-Few); Bilirubin,Urine Negative (Negative); Blood,Urine Negative (Negative); Clarity,Urine Turbid (Clear); Color,Urine Yellow (Yellow); Glucose,Urine (UA) Normal (Normal); Ketones,Urine 20 mg/dL (Negative); Leukocyte Esterase,Urine Small (Negative); Nitrite,Urine Positive (Negative); PH,Urine 6.5 pH Units (5.0-8.0); Protein,Urine Trace mg/dL (Neg-Trace); RBC,Urine 0-3 per hpf (0-3); Specific Gravity,Urine 1.019 (1.010-1.025); Squamous Epithelial Cell,Urine Few per hpf (None-Few); Urobilinogen,Urine Normal (Normal); WBC,Urine 15-30 per hpf (0-3)
[2021-03-29] MEDS ORDERED: cefTRIAXone 1,000 MG in Water for inj. (sterile) 10 ML IVP ONE (17:29)
[2021-03-29] MEDS ORDERED: Naloxone 0.4 MG/ML INJ IVP PRN (17:59)
[2021-03-29] MEDS ORDERED: Perflutren Lipid Microsphere 1.3 ML in 0.9 % Sodium Chloride 8.7 ML IVP PRN (18:11)
[2021-03-29] MEDS ORDERED: Famotidine 20 MG TABLET PO PRN (20:39)
[2021-03-29] MEDS ORDERED: Pantoprazole 40 MG VIAL IVP ONE (20:58)
[2021-03-29] MEDS ORDERED: Ondansetron 4 MG/2 ML VIAL IVP PRN (20:59)
[2021-03-29] MEDS: Nystatin POWDER 30 GM BOTTLE TP SCH (22:28)
[2021-03-29] MEDS: *HR* HYDROcodone/Acet 7.5/325 mg TABLET PO PRN (22:34)
[2021-03-30 01:48] LABS: Hematocrit 39.2 % (35.3-44.9); Hemoglobin 11.8 g/dL (11.5-15.4); Mean Corpuscular HGB Conc 30.1 g/dL (31.6-35.5); Mean Corpuscular Hemoglobin 24.8 pg (28.0-33.3); Mean Corpuscular Volume 82.5 fL (83.0-100.0); Mean Platelet Volume 10.8 fL (9.4-12.4); Platelet Count 176 K/mcL (140-400); Red Blood Count 4.75 M/mcL (3.82-4.97); Red Cell Distribution Width 15.6 % (11.5-14.5); White Blood Count 5.2 K/mcL (4.3-11.1)
[2021-03-30 01:54] LABS: BUN/Creatinine Ratio 11 (6-26); Blood Urea Nitrogen 7 mg/dL (6-20); Calcium 8.5 mg/dL (8.6-10.3); Carbon Dioxide 33 mEq/L (23-29); Chloride 102 mEq/L (98-107); Chol/HDL Ratio 2.8 (0-4.9); Cholesterol 106 mg/dL (< 200); Glucose 109 mg/dL (70-105); HDL Cholesterol 38 mg/dL (40-59); LDL Cholesterol,Calculated 52 mg/dL (< 100); Osmolality,Calculated 291 (280-300); Potassium 3.7 mEq/L (3.5-5.1); Sodium 141 mEq/L (136-145); Triglycerides 78 mg/dL (< 150); eGFR For African Americans > 60 (> 60); eGFR For Non-African Americans > 60 (> 60)
[2021-03-30] MEDS: *HR* HYDROcodone/Acet 7.5/325 mg TABLET PO PRN ×4 (04:41→23:44)
[2021-03-30] MEDS: *HR* Heparin 5,000 UNIT/ML VIAL SQ SCH ×2 (04:42→17:31)
[2021-03-30] MEDS: Nystatin POWDER 30 GM BOTTLE TP SCH ×3 (09:16→20:53)
[2021-03-30] MEDS: cefTRIAXone 1,000 MG in Water for inj. (sterile) 10 ML IVP SCH (09:17)
[2021-03-30] MEDS: Aspirin 81 MG TAB.CHEW PO SCH (09:17)
[2021-03-30] MEDS ORDERED: Saline Nasal Spray 44 ML BOTTLE NS PRN (11:16)
[2021-03-30] MEDS ORDERED: ALPRAZolam 0.5 MG TABLET PO PRN (14:00)
[2021-03-30] MEDS: Metoprolol 100 MG TABLET PO SCH (20:53)
[2021-03-30] MEDS: Furosemide 40 MG TABLET PO SCH (21:01)
[2021-03-30] MEDS ORDERED: Ondansetron ODT 4 MG TAB.RAPDIS SL PRN (23:54)
[2021-03-31 05:20] LABS: Hematocrit 40.4 % (35.3-44.9); Mean Corpuscular HGB Conc 29.7 g/dL (31.6-35.5); Mean Corpuscular Hemoglobin 24.7 pg (28.0-33.3); Mean Corpuscular Volume 83.3 fL (83.0-100.0); Mean Platelet Volume 10.7 fL (9.4-12.4); Platelet Count 169 K/mcL (140-400); Red Blood Count 4.85 M/mcL (3.82-4.97); Red Cell Distribution Width 15.7 % (11.5-14.5); White Blood Count 5.7 K/mcL (4.3-11.1)
[2021-03-31 05:37] LABS: BUN/Creatinine Ratio 9 (6-26); Blood Urea Nitrogen 7 mg/dL (6-20); Calcium 8.7 mg/dL (8.6-10.3); Carbon Dioxide 37 mEq/L (23-29); Chloride 101 mEq/L (98-107); Glucose 103 mg/dL (70-105); Osmolality,Calculated 290 (280-300); Potassium 3.7 mEq/L (3.5-5.1); Sodium 141 mEq/L (136-145); eGFR For African Americans > 60 (> 60); eGFR For Non-African Americans > 60 (> 60)
[2021-03-31] MEDS: *HR* HYDROcodone/Acet 7.5/325 mg TABLET PO PRN ×3 (06:04→18:11)
[2021-03-31] MEDS: *HR* Heparin 5,000 UNIT/ML VIAL SQ SCH ×2 (06:05→17:10)
[2021-03-31] MEDS: Furosemide 40 MG TABLET PO SCH ×2 (08:30→17:12)
[2021-03-31] MEDS: Aspirin 81 MG TAB.CHEW PO SCH (08:31)
[2021-03-31] MEDS: Metoprolol 100 MG TABLET PO SCH (08:32)
[2021-03-31] MEDS: Nystatin POWDER 30 GM BOTTLE TP SCH ×2 (08:33→17:12)
[2021-03-31] MEDS: cefTRIAXone 1,000 MG in Water for inj. (sterile) 10 ML IVP SCH (08:33)
[2021-03-31] MEDS ORDERED: Cholecalciferol (D-3) 1,000 UNIT (25MCG) TABLET PO SCH (09:00)
[2021-03-31] MEDS ORDERED: Ipratropium/Albuterol Neb 3 ML IH PRN (13:17)
[2021-03-31 18:37] VITALS: BP 124/59
== END 2021-03-31 19:10 | disposition short-term general hospital (02) ==
LOC: EMEROOARM 11:26 → 3NENU 11:26 → SUATTDRO 17:53 → 3NENU 18:49
PROVIDERS: ADMIT Internal Medicine; ATTEND Internal Medicine

== ENCOUNTER 2021-07-30 20:20 | Observation (INO) ==
[2021-07-30 21:07] LABS: Basophils % 0.5 %; Eosinophils # 0.2 K/mcL (0.0-0.6); Eosinophils % 3.1 %; Hematocrit 36.6 % (35.3-44.9); Hemoglobin 10.7 g/dL (11.5-15.4); Immature Granulocytes % 0.3 % (0-4); Lymphocytes # 1.4 K/mcL (0.6-4.6); Lymphocytes % 22.6 %; Mean Corpuscular HGB Conc 29.2 g/dL (31.6-35.5); Mean Corpuscular Hemoglobin 23.4 pg (28.0-33.3); Mean Corpuscular Volume 80.1 fL (83.0-100.0); Mean Platelet Volume 10.1 fL (9.4-12.4); Monocytes # 0.5 K/mcL (0.0-1.3); Monocytes % 7.7 %; Platelet Count 177 K/mcL (140-400); Red Blood Count 4.57 M/mcL (3.82-4.97); Red Cell Distribution Width 15.3 % (11.5-14.5); Segmented Neutrophils % 65.8 %; White Blood Count 6.1 K/mcL (4.3-11.1)
[2021-07-30 21:15] LABS: INR 1.1; Prothrombin Time 11.7 Seconds (9.4-12.1)
[2021-07-30 21:39] LABS: Troponin I < 0.03 ng/mL (< 0.04)
[2021-07-30 21:55] LABS: BUN/Creatinine Ratio 15 (6-26); Blood Urea Nitrogen 10 mg/dL (6-20); Calcium 8.5 mg/dL (8.6-10.3); Carbon Dioxide 34 mEq/L (23-29); Chloride 99 mEq/L (98-107); Glucose 117 mg/dL (70-105); Osmolality,Calculated 286 (280-300); Potassium 4.1 mEq/L (3.5-5.1); Sodium 138 mEq/L (136-145); eGFR For African Americans > 60 (> 60); eGFR For Non-African Americans > 60 (> 60)
[2021-07-30] MEDS ORDERED: 0.9 % Sodium Chloride 1,000 ML IV ONE (22:05)
[2021-07-30] MEDS ORDERED: Tetracaine 0.5% OPTH 80 DROP/4 ML BOTTLE LEFT EYE ONE (22:49)
[2021-07-30] MEDS ORDERED: Fluorescein Sodium STRIP OP ONE (22:51)
[2021-07-30 23:09] LABS: Bacteria,Urine Many per hpf (None-Few); Bilirubin,Urine Negative (Negative); Blood,Urine Trace (Negative); Clarity,Urine Turbid (Clear); Color,Urine Yellow (Yellow); Glucose,Urine (UA) Normal (Normal); Ketones,Urine Negative (Negative); Leukocyte Esterase,Urine Large (Negative); Mucus,Urine Few per lpf (None-Few); Nitrite,Urine Positive (Negative); Protein,Urine 30 mg/dL (Neg-Trace); Specific Gravity,Urine 1.023 (1.010-1.025); Squamous Epithelial Cell,Urine Few per hpf (None-Few); Urobilinogen,Urine Normal (Normal); WBC,Urine 30-50 per hpf (0-3)
[2021-07-30 23:15] LABS: Amphetamine Screen,Urine Negative ng/mL (Cutoff=1000); Barbiturate Screen,Urine Negative ng/mL (Cutoff=200); Benzodiazepines Screen,Urine Negative ng/mL (Cutoff=200); Cannabinoid Screen,Urine Negative ng/mL (Cutoff = 50); Cocaine Screen,Urine Negative ng/mL (Cutoff= 300); Opiate Screen,Urine Positive ng/mL (Cutoff=300); Phencyclidine Screen,Urine Negative ng/mL (Cutoff=25)
[2021-07-31] MEDS ORDERED: Aspirin 325 MG TABLET PO ONE (00:10)
[2021-07-31] MEDS ORDERED: Isovue-370 500 ML BOTTLE IVP ONE (00:11)
[2021-07-31] MEDS ORDERED: *HR* HYDROcodone/Acet 7.5/325 mg TABLET PO ONE (01:22)
[2021-07-31] MEDS ORDERED: cefTRIAXone 1,000 MG in Water for inj. (sterile) 10 ML IVP ONE (01:42)
[2021-07-31] MEDS ORDERED: Naloxone 0.4 MG/ML INJ IVP PRN (02:21)
[2021-07-31] MEDS ORDERED: Ondansetron 4 MG/2 ML VIAL IVP PRN (02:21)
[2021-07-31] MEDS ORDERED: Acetaminophen 325 MG TABLET PO PRN (02:21)
[2021-07-31] MEDS ORDERED: Famotidine 20 MG TABLET PO PRN (03:32)
[2021-07-31 05:10] LABS: Basophils % 0.4 %; Mean Platelet Volume 10.1 fL (9.4-12.4); Red Cell Distribution Width 14.8 % (11.5-14.5)
[2021-07-31 05:12] LABS: Eosinophils # 0.1 K/mcL (0.0-0.6); Eosinophils % 2.3 %; Hematocrit 34.8 % (35.3-44.9); Hemoglobin 10.1 g/dL (11.5-15.4); Immature Granulocytes % 0.6 % (0-4); Lymphocytes # 1.1 K/mcL (0.6-4.6); Lymphocytes % 20.7 %; Mean Corpuscular Hemoglobin 23.3 pg (28.0-33.3); Mean Corpuscular Volume 80.2 fL (83.0-100.0); Monocytes # 0.3 K/mcL (0.0-1.3); Monocytes % 4.7 %; Neutrophils # 3.8 K/mcL (1.6-8.9); Platelet Count 182 K/mcL (140-400); Red Blood Count 4.34 M/mcL (3.82-4.97); Segmented Neutrophils % 71.3 %; White Blood Count 5.3 K/mcL (4.3-11.1)
[2021-07-31 05:22] LABS: Alanine Aminotransferase 8 Units/L (7-52); Albumin 3.4 g/dL (3.5-5.7); Alkaline Phosphatase 66 Units/L (34-104); Aspartate Amino Transferase 12 Units/L (13-39); BUN/Creatinine Ratio 13 (6-26); Bilirubin,Total 0.4 mg/dL (0.3-1.0); Blood Urea Nitrogen 10 mg/dL (6-20); Calcium 8.6 mg/dL (8.6-10.3); Carbon Dioxide 35 mEq/L (23-29); Chloride 101 mEq/L (98-107); Globulin 3.5 g/dL (2.4-3.5); Glucose 144 mg/dL (70-105); Magnesium 1.9 mg/dL (1.6-2.6); Osmolality,Calculated 290 (280-300); Potassium 3.9 mEq/L (3.5-5.1); Sodium 139 mEq/L (136-145); Total Protein 6.9 g/dL (6.4-8.9); eGFR For African Americans > 60 (> 60); eGFR For Non-African Americans > 60 (> 60)
[2021-07-31 05:28] LABS: Thyroid Stimulating Hormone 3.083 mcIU/mL (0.340-5.600)
[2021-07-31 06:29] LABS: Hypochromasia Present (Not Present)
[2021-07-31 06:30] LABS: Platelet Estimate Normal (Normal)
[2021-07-31] MEDS: Furosemide 40 MG TABLET PO SCH ×2 (08:06→15:23)
[2021-07-31] MEDS: Aspirin 325 MG TABLET PO SCH (08:06)
[2021-07-31] MEDS: Cholecalciferol (D-3) 1,000 UNIT (25MCG) TABLET PO SCH (08:06)
[2021-07-31] MEDS: *HR* HYDROcodone/Acet 7.5/325 mg TABLET PO PRN ×3 (08:07→21:25)
[2021-07-31] MEDS: Nystatin POWDER 30 GM BOTTLE TP SCH ×3 (10:05→21:26)
[2021-07-31] MEDS: ALPRAZolam 0.5 MG TABLET PO PRN ×2 (15:23→21:25)
[2021-08-01] MEDS: *HR* HYDROcodone/Acet 7.5/325 mg TABLET PO PRN ×4 (03:12→21:24)
[2021-08-01 05:18] LABS: Basophils % 0.5 %; Eosinophils # 0.2 K/mcL (0.0-0.6); Eosinophils % 2.4 %; Hemoglobin 10.2 g/dL (11.5-15.4); Immature Granulocytes % 0.2 % (0-4); Lymphocytes # 1.2 K/mcL (0.6-4.6); Lymphocytes % 13.8 %; Mean Corpuscular HGB Conc 29.1 g/dL (31.6-35.5); Mean Corpuscular Hemoglobin 23.3 pg (28.0-33.3); Mean Corpuscular Volume 80.1 fL (83.0-100.0); Monocytes # 0.5 K/mcL (0.0-1.3); Monocytes % 5.8 %; Neutrophils # 6.5 K/mcL (1.6-8.9); Platelet Count 181 K/mcL (140-400); Red Blood Count 4.37 M/mcL (3.82-4.97); Red Cell Distribution Width 14.9 % (11.5-14.5); Segmented Neutrophils % 77.3 %
[2021-08-01 05:24] LABS: White Blood Count 8.4 K/mcL (4.3-11.1)
[2021-08-01 05:31] LABS: BUN/Creatinine Ratio 13 (6-26); Blood Urea Nitrogen 11 mg/dL (6-20); Calcium 8.5 mg/dL (8.6-10.3); Carbon Dioxide 37 mEq/L (23-29); Chloride 98 mEq/L (98-107); Glucose 138 mg/dL (70-105); Osmolality,Calculated 288 (280-300); Sodium 138 mEq/L (136-145); eGFR For African Americans > 60 (> 60); eGFR For Non-African Americans > 60 (> 60)
[2021-08-01] MEDS: Furosemide 40 MG TABLET PO SCH ×2 (08:05→16:51)
[2021-08-01] MEDS: Aspirin 325 MG TABLET PO SCH (08:05)
[2021-08-01] MEDS: Cholecalciferol (D-3) 1,000 UNIT (25MCG) TABLET PO SCH (08:05)
[2021-08-01] MEDS: cefTRIAXone 1,000 MG in Water for inj. (sterile) 10 ML IVP SCH (08:05)
[2021-08-01] MEDS: Nystatin POWDER 30 GM BOTTLE TP SCH ×3 (08:21→21:24)
[2021-08-02] MEDS: *HR* HYDROcodone/Acet 7.5/325 mg TABLET PO PRN ×3 (03:55→16:35)
[2021-08-02] MEDS: Furosemide 40 MG TABLET PO SCH ×2 (08:00→16:36)
[2021-08-02] MEDS: Cholecalciferol (D-3) 1,000 UNIT (25MCG) TABLET PO SCH (08:00)
[2021-08-02] MEDS: Aspirin 325 MG TABLET PO SCH (08:00)
[2021-08-02] MEDS: cefTRIAXone 1,000 MG in Water for inj. (sterile) 10 ML IVP SCH (08:00)
[2021-08-02] MEDS: Nystatin POWDER 30 GM BOTTLE TP SCH ×3 (08:07→21:29)
[2021-08-02] MEDS: ALPRAZolam 0.5 MG TABLET PO PRN (08:57)
[2021-08-02 18:54] VITALS: BP 107/60; PULSE 53; TEMP 97.7; O2SAT 96
== END 2021-08-02 22:24 | disposition home or self-care (01) ==
LOC: 3BNU 20:20 → EMEROOARM 20:20 → SUATTDRO 07-31 02:16 → 3BNU 07-31 02:41
PROVIDERS: ADMIT Internal Medicine; ATTEND Internal Medicine